=== PATIENT | female | born 1945 | race Caucasian/White ===

== ENCOUNTER 2016-05-15 19:46 | Inpatient (IN) | payer MEDICARE, OTHER ==
[~2016-05-15] VITALS: Ht 170.2 cm; Wt 96.9 kg
[~2016-05-15 19:46] MED LIST: ALLO100T PO; ASPI-482 PO; FENO145T PO; FURO20TA3 PO; IBUP-1060 PO; LEVO100T5 PO; LISI1TAB3 PO; METF500T4 PO; METO-313 PO; METO10TA81 PO; OMEG300C PO; PANT40TA5 PO; QUIN20TA PO; RUXO5TAB PO; SIMV10TA3 PO; WARF1TAB PO; ZOLP10TA4 PO
[2016-05-15] MEDS ORDERED: IV NORMAL SALINE 1000ML BAG 1,000 ML IV SCH (20:31)
[2016-05-15] MEDS ORDERED: IPRATRPIUM/ALBUTEROL 0.5/2.5MG 3 ML NEBU. NEB ONE (20:45)
[2016-05-15 20:50] LABS: BASO # 0.1 x10^3/uL (0.0-0.2); BASO % 1 % (0-3); EOS % 1 % (0-3); LYMPH # 1.2 x10^3/uL (1.0-4.8); LYMPH % 23 % (24-48); MEAN CORPUSCULAR HEMOGLOBIN 29 pg (25-35); MEAN CORPUSCULAR HGB CONC 32 g/dL (31-37); MEAN CORPUSCULAR VOLUME 90 fL (79-100); MONO % 10 % (0-9); NEUT % 65 % (31-73); PLATELET COUNT 76 x10^3/uL (140-400); RED BLOOD COUNT 2.28 x10^6/uL (3.50-5.40); RED CELL DISTRIBUTION WIDTH 21.5 % (11.5-14.5); WHITE BLOOD COUNT 5.2 x10^3/uL (4.0-11.0)
--- NOTE | 2016-05-15 20:54 | PHYS DOC ---
Past Medical History Past Medical History: Cancer, CVA, Hypertension, Hyperthyroid, Stroke, Other Additional Past Medical Histor: renal ca-no chemo or radiation- in remission, MYELOFIBROSIS, 1 KIDNEY Past Surgical History: Hysterectomy, Tonsillectomy, Other Additional Past Surgical Histo: left nephrectomy Alcohol Use: None Drug Use: None Adult General Chief Complaint Chief Complaint: NAUSEA/VOMITING/DIARRHA HPI HPI Patient is a 70 year old female who presents with complaint of worsening cough and shortness of breath. Patient states that initially her symptoms started approximately 2-3 weeks ago. Patient states that they initially improved, however over the past 5 days the patient has had worsening problems with shortness of breath. Patient states that she has been having staccato cough resulting in posttussive emesis. Patient has history of CVA with right-sided paralysis and Broca's aphasia. The patient denies any pain or fever at this time. Patient has had productive cough of yellowish sputum. Patient states that she is having worsening dyspnea on exertion. Patient has not taken any medications to help with symptoms. Patient denies any history of asthma or chronic bronchitis. Review of Systems Review of Systems Constitutional: Denies fever or chills [] Eyes: Denies change in visual acuity, redness, or eye pain [] HENT: Denies nasal congestion or sore throat [] Respiratory: Shortness breath, productive cough, posttussive emesis [] Cardiovascular: Denies chest pain or edema [] GI: Denies abdominal pain, nausea, vomiting, bloody stools or diarrhea [] : Denies dysuria or hematuria [] Musculoskeletal: Denies back pain or joint pain [] Integument: Denies rash or skin lesions [] Neurologic: Chronic right-sided paralysis, Broca's aphasia [] Current Medications Current Medications Current Medications Medications (Trade) Dose Ordered Sig/Esperanza Start Time Stop Time Status Last Admin Dose Admin Albuterol/ Ipratropium (Duoneb) 6 ml 1X ONCE 05/15/16 20:45 05/15/16 20:46 DC 05/15/16 20:56 6 ML Sodium Chloride (Iv Sodium Chloride 0.9% 1000ml Bag) 1,000 ml @ 100 mls/hr Q10H 05/15/16 20:31 05/16/16 06:30 05/15/16 20:49 100 MLS/HR Allergies Allergies Allergies Coded Allergies Type Severity Reaction Last Updated Verified iodine Allergy Severe ANAPHYLAXIS 02/15/16 Yes Penicillins Allergy Intermediate 02/15/16 Yes cephalexin Allergy Intermediate 02/15/16 Yes Physical Exam Physical Exam Constitutional: Alert, afebrile, appears in mild discomfort. [] HENT: Normocephalic, atraumatic, bilateral external ears normal, oropharynx moist, no oral exudates, nose normal. [] Eyes: PERRLA, EOMI, conjunctiva normal, no discharge. [] Neck: Normal range of motion, no tenderness, supple, no stridor. [] Cardiovascular: Tachycardia, regular rhythm, no murmur [] Lungs & Thorax: Mild to moderate [place] air movement bilaterally, expiratory wheezes bilaterally, no rales [] Abdomen: Bowel sounds normal, soft, no tenderness, no masses, no pulsatile masses. [] Skin: Warm, dry, no erythema, no rash. [] Back: No tenderness, no CVA tenderness. [] Extremities: No tenderness, no cyanosis, no clubbing, ROM intact, no edema. [] Neurologic: Alert and oriented X 3, right upper and lower extremity spastic paralysis, left upper and lower extremity 5 out of 5 strength, Broca's aphasia. [] Current Patient Data Vital Signs Vital Signs Date Time Temp Pulse Resp B/P Pulse Ox O2 Delivery O2 Flow Rate FiO2 05/15/16 21:11 96 Room Air 05/15/16 20:00 97.5 104 24 154/62 97.5 Lab Values Laboratory Tests Test 05/15/16 20:35 White Blood Count 5.2x10^3/uL (4.0-11.0) Red Blood Count 2.28x10^6/uL (3.50-5.40) L Hemoglobin 6.5g/dL (12.0-15.5) *L Hematocrit 20.6% (36.0-47.0) *L Mean Corpuscular Volume 90fL (79-100) Mean Corpuscular Hemoglobin 29pg (25-35) Mean Corpuscular Hemoglobin Concent 32g/dL (31-37) Red Cell Distribution Width 21.5% (11.5-14.5) H Platelet Count 76x10^3/uL (140-400) L Neutrophils (%) (Auto) 65% (31-73) Lymphocytes (%) (Auto) 23% (24-48) L Monocytes (%) (Auto) 10% (0-9) H Eosinophils (%) (Auto) 1% (0-3) Basophils (%) (Auto) 1% (0-3) Neutrophils # (Auto) 3.4x10^3uL (1.8-7.7) Lymphocytes # (Auto) 1.2x10^3/uL (1.0-4.8) Monocytes # (Auto) 0.5x10^3/uL (0.0-1.1) Eosinophils # (Auto) 0.1x10^3/uL (0.0-0.7) Basophils # (Auto) 0.1x10^3/uL (0.0-0.2) Segmented Neutrophils % 57% (35-66) Band Neutrophils % 13% (0-9) H Lymphocytes % 20% (24-48) L Monocytes % 6% (0-10) Eosinophils % 1% (0-5) Basophils % 1% (0-3) Myelocytes % 2% (0-0) H Nucleated Red Blood Cells 1 Toxic Granulation Slight Platelet Estimate Decreased (ADEQUATE) Polychromasia Slight Anisocytosis Mod Tear Drop Cells Few Schistocytes Occ Sodium Level 141mmol/L (136-145) Potassium Level 4.6mmol/L (3.5-5.1) Chloride Level 104mmol/L (98-107) Carbon Dioxide Level 26mmol/L (21-32) Anion Gap 11 (6-14) Blood Urea Nitrogen 27mg/dL (7-20) H Creatinine 1.7mg/dL (0.6-1.0) H Estimated GFR (Cockcroft-Gault) 29.9 BUN/Creatinine Ratio 16 (6-20) Glucose Level 201mg/dL (70-99) H Lactic Acid Level 1.5mmol/L (0.4-2.0) Calcium Level 8.8mg/dL (8.5-10.1) Total Bilirubin 0.9mg/dL (0.2-1.0) Aspartate Amino Transferase (AST) 9U/L (15-37) L Alanine Aminotransferase (ALT) 9U/L (14-59) L Alkaline Phosphatase 54U/L (46-116) Creatine Kinase 27U/L (26-192) Creatine Kinase MB (Mass) < 0.5ng/mL (0.0-3.6) Creatine Kinase MB Relative Index 1.9% (0-4) Troponin I Quantitative < 0.017ng/mL (0.000-0.055) LI-Csn-E-Type Natriuretic Peptide 560pg/mL (0-124) H Total Protein 7.4g/dL (6.4-8.2) Albumin 3.5g/dL (3.4-5.0) Albumin/Globulin Ratio 0.9 (1.0-1.7) L Influenza Type A Antigen Negative (NEGATIVE) Influenza Type B Antigen Negative (NEGATIVE) Laboratory Tests 05/15/16 20:35 Laboratory Tests 05/15/16 20:35 EKG EKG Interpreted by me: Heart rate 101, sinus tachycardia, leftward axis, no acute ST /T-wave abnormalities present [] Radiology/Procedures Radiology/Procedures One view AP chest x-ray interpreted by me: No infiltrate, no effusions, normal cardiac silhouette [] Course & Med Decision Making Course & Med Decision Making Pertinent Labs and Imaging studies reviewed. (See chart for details) The patient was given DuoNeb breathing treatments. On reevaluation, patient's lung sounds have improved. The patient does not show any evidence on chest x- ray of pneumonia at this time. Patient found to have critically low hemoglobin count. Due to patient's worsening shortness of breath this could be a main contributor. The patient does have history of myelofibrosis and has received transfusions in the past due to low hemoglobin. The patient will be admitted to the hospital for transfusion and to ensure that her respiratory symptoms resolve. I spoke with Dr. Posadas who accepted care patient in hospital. Dragon Disclaimer Dragon Disclaimer This electronic medical record was generated, in whole or in part, using a voice recognition dictation system. Departure Departure Impression: Primary Impression: Symptomatic anemia Additional Impression: Acute on chronic renal failure Disposition: ADMITTED INPATIENT Admitting Physician: Shay Posadas Condition: GUARDED Referrals: BELKIS HAINES (PCP) Problem Qualifiers RANJANA SWEET MD May 15, 2016 20:54
[2016-05-15 20:57] LABS: HEMATOCRIT 20.6 % (36.0-47.0); HEMOGLOBIN 6.5 g/dL (12.0-15.5)
[2016-05-15 21:01] LABS: CALCIUM 8.8 mg/dL (8.5-10.1); CREATININE 1.7 mg/dL (0.6-1.0); GFR 29.9; POTASSIUM 4.6 mmol/L (3.5-5.1)
[2016-05-15 21:10] LABS: OBC FLU VALID
[2016-05-15 21:15] LABS: ALBUMIN 3.5 g/dL (3.4-5.0); ALBUMIN/GLOBULIN RATIO 0.9 (1.0-1.7); TOTAL BILIRUBIN 0.9 mg/dL (0.2-1.0); TOTAL PROTEIN 7.4 g/dL (6.4-8.2)
[2016-05-15 21:17] LABS: CREATINE KINASE 27 U/L (26-192)
[2016-05-15 21:18] LABS: % BASOS 1 % (0-3); % EOS 1 % (0-5); NUCLEATED RBC 1
[2016-05-15 21:19] LABS: CKMB INDEX 1.9 % (0-4); CKMB MASS < 0.5 ng/mL (0.0-3.6)
[2016-05-15 21:21] LABS: ANISOCYTOSIS MOD; PLT ESTIMATE DECREASED (ADEQUATE); POLYCHROMASIA SLIGHT; SCHISTOCYTES OCC; TEAR DROP CELLS FEW
[2016-05-15 21:22] LABS: TOXIC GRANULATION SLIGHT
--- NOTE | 2016-05-15 22:33 | EKG ---
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
[2016-05-15] MEDS: IV NORMAL SALINE 1000ML BAG 1,000 ML IV SCH (23:04)
[2016-05-15 23:15] VITALS: BP 156/57
[2016-05-15] MEDS ORDERED: ACETAMINOPHEN 325 MG TABLET. PO PRN (23:15)
[2016-05-15] MEDS ORDERED: ONDANSETRON PF 4 MG/2 ML VIAL. IV PRN (23:15)
[2016-05-15] MEDS ORDERED: ZOLPIDEM 5 MG TABLET. PO PRN (23:45)
--- NOTE | 2016-05-15 23:54 | ACF ---
Admission Forms Criteria ANEMIA, IRON DEFICIENCY OR UNSPECIFIED Clinical Indications for Inpatient Care (Place 'X' for any and all applicable criteria): Admission is indicated for ANY ONE of the following(1)(2)(3)(4)(5)(6)(7): [X] I. Inpatient admission required rather than observation care (Also use Anemia, Iron Deficiency or Unspecified: Observation Care guideline as appropriate) because of ANY ONE of the following: [] a) Hemodynamic instability that is severe or persistent [] b) Active bleeding that cannot be rapidly controlled [] c) CVS symptoms (i.e., dyspnea, chest pain, heart failure) that are severe or persistent [] d) Neurologic symptoms (i.e., cognitive impairment, recurrent syncope or near syncope) that are severe or persistent [] e) Cardiac arrhythmias of immediate concern [] f) Acute peripheral ischemia (e.g., pulseless, cool, mottled, or cyanotic extremity) [] g) High-risk low platelet count [X] h) Acute renal failure [] i) Ongoing transfusion for blood loss (greater than 2 units) [] j) IV fluid to replace significant ongoing (eg, >24 hours) losses (> 3 L/m2 per day) [] k) Pulmonary artery catheter monitoring [] l) Supplemental oxygen or respiratory treatments for over 24 hours that are performable only in acute inpatient setting [] m) Immediate inpatient surgery [] n) Other condition, treatment or monitoring requiring inpatient admission [] II Active massive hemorrhage [] III. Active hemolysis with rapidly progressive anemia [A](6) Extended stay beyond goal length of stay may be needed for (17)(18) []a) Diagnosed cause of anemia requiring longer hospitalization (eg, active GI bleeding, immune hemolysis requiring electrophoresis, complications of malignancy requiring acute care []b) Continued emergent anemia indicators (23) []c) Transfusion reactions []d) Associated leukopenia or thrombocytopenia needing inpatient care []e) Active comorbidities (eg, renal failure, heart failure) The original [facility] Care [facility] content created by [facility] has been revised. The portions of the content which have been revised are identified through the use of italic text or in bold. [facility] Guidelines has neither reviewed nor approved the modified material. All other unmodified content is copyright [facility] Care Guidelines. Please see references footnoted in the original [facility] edition 2016 Admission Criteria Met?: Yes [facility] [place] May 15, 2016 23:54
[2016-05-16] VITALS (12 sets, daily range): BP systolic 126–176; BP diastolic 52–82
[2016-05-16] MEDS ORDERED: GUAIFENESIN DM 200MG/20MG 10 ML SYRUP. PO PRN
[2016-05-16] MEDS: ZOLPIDEM 5 MG TABLET. PO SCH ×2 (00:12→20:59)
[2016-05-16] MEDS: HYDROCODONE/APAP 5/325MG TABLET. PO PRN ×2 (00:13→21:04)
[2016-05-16 04:32] LABS: CALCIUM 8.6 mg/dL (8.5-10.1); CREATININE 1.6 mg/dL (0.6-1.0); GFR 32.1; POTASSIUM 4.7 mmol/L (3.5-5.1)
[2016-05-16] MEDS: IPRATRPIUM/ALBUTEROL 0.5/2.5MG 3 ML NEBU. NEB SCH ×4 (07:45→19:13)
--- NOTE | 2016-05-16 07:47 | RAD ---
Portable chest, 05/15/2016: History: Dyspnea Comparison is made to a study from 12/23/2014. The heart size and pulmonary vascularity are normal. No pulmonary consolidation is seen. There is no evidence of pleural fluid. There are patchy sclerotic foci in the bones as noted on previous studies, suggesting blastic osseous metastatic disease. IMPRESSION: 1. No acute cardiopulmonary abnormality is detected. 2. Multifocal osseous sclerotic lesions.
[2016-05-16 09:25] LABS: BASO % 1 % (0-3); EOS % 1 % (0-3); HEMATOCRIT 23.2 % (36.0-47.0); HEMOGLOBIN 7.7 g/dL (12.0-15.5); LYMPH # 0.7 x10^3/uL (1.0-4.8); LYMPH % 19 % (24-48); MEAN CORPUSCULAR HEMOGLOBIN 29 pg (25-35); MEAN CORPUSCULAR HGB CONC 33 g/dL (31-37); MEAN CORPUSCULAR VOLUME 88 fL (79-100); MONO % 9 % (0-9); NEUT % 70 % (31-73); PLATELET COUNT 59 x10^3/uL (140-400); RED BLOOD COUNT 2.62 x10^6/uL (3.50-5.40); RED CELL DISTRIBUTION WIDTH 18.4 % (11.5-14.5); WHITE BLOOD COUNT 3.7 x10^3/uL (4.0-11.0)
[2016-05-16] MEDS ORDERED: ONDANSETRON PF 4 MG/2 ML VIAL. IV PRN (09:50)
[2016-05-16] MEDS: METOCLOPRAMIDE 10 MG TABLET PO SCH ×2 (12:19→16:05)
[2016-05-16] MEDS: FUROSEMIDE 20 MG TABLET PO SCH (12:20)
[2016-05-16] MEDS: FENOFIBRATE,MICRONIZED 134 MG CAPSULE PO SCH (12:20)
[2016-05-16] MEDS: LEVOTHYROXINE 100 MCG TABLET PO SCH (12:20)
[2016-05-16] MEDS: ASPIRIN ENTERIC COATED 81 MG TABLET.DR. PO SCH (12:20)
[2016-05-16] MEDS: LISINOPRIL 20 MG TABLET PO SCH (12:20)
[2016-05-16] MEDS: PANTOPRAZOLE 40 MG TABLET. PO SCH ×2 (12:20→16:04)
[2016-05-16] MEDS: ALLOPURINOL 100 MG TABLET. PO SCH (12:20)
[2016-05-16] MEDS: IV NORMAL SALINE 1000ML BAG 1,000 ML IV SCH ×2 (12:28→21:00)
--- NOTE | 2016-05-16 14:26 | PDOC1 ---
History and Physical Date of Admission Date of Admission DATE: 05/16/16 TIME: 14:18 Identification/Chief Complaint Chief Complaint uri sxs Source Source: Caregiver, Chart review, Patient History of Present Illness History of Present Illness 70 y/o female who lives at home alone, ambulates sometimes with assistive device, went to ER bec of URI sxs, CXR and flu is neg but turned out to have anemia with hgb 6 hence admitted and transfused and now hgb 7,.7. 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 SHe gets BT every so often, Pt denies any overt blood loss., She now notes signifcant pain redness and swelling on DIP of left second finger , hx of gout on foot that she does not know what she takes for flares. SHe is rather a poor historian, Dtr at bedside, helping out. R LE is also more markedly swollen than left Dtr claims pt has not been coughing in zena last 4 hrs she has been here Past Medical History Cardiovascular: HTN, Other (LE swelling?) Heme/Onc: Other (myelofibrosis) Musculoskeletal: Other (gout) Past Surgical History Past Surgical History: No pertinent history Family History Family History: No Significant Social History Smoke: Quit ALCOHOL: none Drugs: None Current Problem List Problem List Problems Medical Problems: (1) Acute on chronic renal failure Status: Acute (2) Symptomatic anemia Status: Acute Problems: Current Medications Current Medications Current Medications Sodium Chloride (Iv Sodium Chloride 0.9% 1000ml Bag) 1,000 ml @ 100 mls/hr Q10H IV Last administered on 05/15/16 20:49; Start 05/15/16 at 20:31; Stop at 06:30; Status DC Albuterol/ Ipratropium (Duoneb) 6 ml 1X ONCE NEB Last administered on 20:56; Start 05/15/16 at 20:45; Stop 05/15/16 at 20:46; Status DC Ondansetron HCl 4 mg 4 mg PRN Q8HRS PRN IV NAUSEA/VOMITING; Start 05/15/16 at 23:15; Stop 05/16/16 at 09:52; Status DC Sodium Chloride (Iv Sodium Chloride 0.9% 1000ml Bag) 1,000 ml @ 100 mls/hr Q10H IV Last administered on 05/16/16 12:28; Start 05/15/16 at 23:04; Stop at 23:03 Acetaminophen (Tylenol) 650 mg PRN Q4HRS PRN PO FEVER Last administered on 05/16 03:28; Start 05/15/16 at 23:15; Stop 05/16/16 at 23:14 Albuterol/ Ipratropium (Duoneb) 3 ml RTQID NEB Last administered on 05/16/16 11:29; Start 05/16/16 at 08:00; Stop 05/17/16 at 07:59 Zolpidem Tartrate (Ambien) 5 mg QHS PO Last administered on 05/16/16 00:12; Start 05/16/16 at 00:00 Guaifenesin (Robitussin Dm) 10 ml PRN Q6HRS PRN PO COUGH Last administered on 00:12; Start 05/16/16 at 00:00 Acetaminophen/ Hydrocodone Bitart (Lortab 5/325) 1 tab PRN Q6HRS PRN PO MODERATE PAIN Last administered on 05/16/16 00:13; Start 05/16/16 at 00:00 Zolpidem Tartrate (Ambien) 5 mg PRN QHS PRN PO INSOMNIA Last administered on 00:13; Start 05/15/16 at 23:45 Ondansetron HCl (Zofran) 4 mg PRN Q6HRS PRN IV NAUSEA/VOMITING; Start 05/16/16 at 09:50 Benzonatate (Tessalon Perle) 100 mg [id number] PO ; Start 05/16/16 at 14:00 Allopurinol (Zyloprim) 100 mg DAILY PO Last administered on 05/16/16 12:20; Start 05/16/16 at 10:30 Aspirin (Ecotrin) 81 mg DAILY PO Last administered on 05/16/16 12:20; Start at 10:30 Furosemide (Lasix) 20 mg DAILY PO Last administered on 05/16/16 12:20; Start 05/16/16 at 10:00 Levothyroxine Sodium (Synthroid) 100 mcg DAILY06 PO Last administered on 12:20; Start 05/16/16 at 10:30 Metoclopramide HCl (Reglan) 10 mg BIDAC PO Last administered on 05/16/16 12:19 ; Start 05/16/16 at 10:30 Pantoprazole Sodium (Protonix) 40 mg BIDAC PO Last administered on 05/16/16 12 :20; Start 05/16/16 at 10:30 Fenofibrate (Lofibra) 134 mg DAILY PO Last administered on 05/16/16 12:20; Start 05/16/16 at 11:00 Non-Formulary Medication 50 mg DAILY PO ; Start 05/17/16 at 09:00; Status UNV Lisinopril (Prinivil) 20 mg DAILY PO Last administered on 05/16/16 12:20; Start 05/16/16 at 11:00 Non-Formulary Medication 5 mg BID PO ; Start 05/16/16 at 21:00; Status UNV Active Scripts Active Reported Lopressor (Metoprolol Tartrate) 100 Mg Tablet 50 Mg PO DAILY Jakafi (Ruxolitinib Phosphate) 5 Mg Tablet 5 Mg PO BID Zolpidem Tartrate 10 Mg Tablet 1 Tab PO QHS Accupril (Quinapril Hcl) 20 Mg Tablet 1 Tab PO DAILY Pantoprazole Sodium 40 Mg Tablet.dr 1 Tab PO BID Furosemide 20 Mg Tablet 1 Tab PO DAILY Reglan (Metoclopramide Hcl) 10 Mg Tablet 1 Tab PO BID Levothyroxine Sodium 100 Mcg Tablet 1 Tab PO DAILY Tricor (Fenofibrate Nanocrystallized) 145 Mg Tablet 1 Tab PO DAILY Fish Oil ([place]-3 Fatty Acids) 300 Mg Capsule 300 Mg PO Aspir 81 (Aspirin) 81 Mg Tablet.dr 1 Tab PO DAILY Allopurinol 100 Mg Tablet 1 Tab PO DAILY Allergies Allergies: Coded Allergies: iodine (Verified Allergy, Severe, ANAPHYLAXIS, 02/15/16) Penicillins (Verified Allergy, Intermediate, 02/15/16) cephalexin (Verified Allergy, Intermediate, 02/15/16) ROS Review of System left finger pain and swelling, weakm , cough, no cp, all else is neg Physical Exam General: Alert, Oriented X3, Cooperative, No acute distress HEENT: Atraumatic, PERRLA, EOMI Lungs: Clear to auscultation, Normal air movement Heart: S1S2, RRR, no thrills, no rubs, no gallops Cardiovascular: S1, S2 Breasts: Normal Abdomen: Normal bowel sounds, Soft, No tenderness, No hepatosplenomegaly, No masses Rectal Exam: not examined, mass Extremities: Other (left DIP red, swollen, marked limited flexion bec of pain) Skin: No rashes, No breakdown, No significant lesion Neuro: Normal gait, Normal speech, Strength at 5/5 X4 ext, Normal tone, Sensation intact, Cranial nerves 3-12 NL, Reflexes 2+ Vitals Vitals Vital Signs Date Time Temp Pulse Resp B/P Pulse Ox O2 Delivery O2 Flow Rate FiO2 05/16/16 12:20 95 176/60 05/16/16 11:30 Room Air 05/16/16 11:00 97.0 18 95 97.0 Labs Labs Laboratory Tests Test 05/15/16 20:35 05/16/16 03:25 05/16/16 08:35 White Blood Count 5.2x10^3/uL (4.0-11.0) 3.7x10^3/uL (4.0-11.0) Red Blood Count 2.28x10^6/uL (3.50-5.40) 2.62x10^6/uL (3.50-5.40) Hemoglobin 6.5g/dL (12.0-15.5) 7.7g/dL (12.0-15.5) Hematocrit 20.6% (36.0-47.0) 23.2% (36.0-47.0) Mean Corpuscular Volume 90fL (79-100) 88fL (79-100) Mean Corpuscular Hemoglobin 29pg (25-35) 29pg (25-35) Mean Corpuscular Hemoglobin Concent 32g/dL (31-37) 33g/dL (31-37) Red Cell Distribution Width 21.5% (11.5-14.5) 18.4% (11.5-14.5) Platelet Count 76x10^3/uL (140-400) 59x10^3/uL (140-400) Neutrophils (%) (Auto) 65% (31-73) 70% (31-73) Lymphocytes (%) (Auto) 23% (24-48) 19% (24-48) Monocytes (%) (Auto) 10% (0-9) 9% (0-9) Eosinophils (%) (Auto) 1% (0-3) 1% (0-3) Basophils (%) (Auto) 1% (0-3) 1% (0-3) Neutrophils # (Auto) 3.4x10^3uL (1.8-7.7) 2.6x10^3uL (1.8-7.7) Lymphocytes # (Auto) 1.2x10^3/uL (1.0-4.8) 0.7x10^3/uL (1.0-4.8) Monocytes # (Auto) 0.5x10^3/uL (0.0-1.1) 0.3x10^3/uL (0.0-1.1) Eosinophils # (Auto) 0.1x10^3/uL (0.0-0.7) 0.0x10^3/uL (0.0-0.7) Basophils # (Auto) 0.1x10^3/uL (0.0-0.2) 0.0x10^3/uL (0.0-0.2) Segmented Neutrophils % 57% (35-66) Band Neutrophils % 13% (0-9) Lymphocytes % 20% (24-48) Monocytes % 6% (0-10) Eosinophils % 1% (0-5) Basophils % 1% (0-3) Myelocytes % 2% (0-0) Nucleated Red Blood Cells 1 Toxic Granulation Slight Platelet Estimate Decreased (ADEQUATE) Polychromasia Slight Anisocytosis Mod Tear Drop Cells Few Schistocytes Occ Sodium Level 141mmol/L (136-145) 142mmol/L (136-145) Potassium Level 4.6mmol/L (3.5-5.1) 4.7mmol/L (3.5-5.1) Chloride Level 104mmol/L (98-107) 107mmol/L (98-107) Carbon Dioxide Level 26mmol/L (21-32) 25mmol/L (21-32) Anion Gap 11 (6-14) 10 (6-14) Blood Urea Nitrogen 27mg/dL (7-20) 28mg/dL (7-20) Creatinine 1.7mg/dL (0.6-1.0) 1.6mg/dL (0.6-1.0) Estimated GFR (Cockcroft-Gault) 29.9 32.1 BUN/Creatinine Ratio 16 (6-20) Glucose Level 201mg/dL (70-99) 165mg/dL (70-99) Lactic Acid Level 1.5mmol/L (0.4-2.0) Calcium Level 8.8mg/dL (8.5-10.1) 8.6mg/dL (8.5-10.1) Total Bilirubin 0.9mg/dL (0.2-1.0) Aspartate Amino Transf (AST/SGOT) 9U/L (15-37) Alanine Aminotransferase (ALT/SGPT) 9U/L (14-59) Alkaline Phosphatase 54U/L (46-116) Creatine Kinase 27U/L (26-192) Creatine Kinase MB (Mass) < 0.5ng/mL (0.0-3.6) Creatine Kinase MB Relative Index 1.9% (0-4) Troponin I Quantitative < 0.017ng/mL (0.000-0.055) DY-Acq-Z-Type Natriuretic Peptide 560pg/mL (0-124) Total Protein 7.4g/dL (6.4-8.2) Albumin 3.5g/dL (3.4-5.0) Albumin/Globulin Ratio 0.9 (1.0-1.7) Influenza Type A Antigen Negative (NEGATIVE) Influenza Type B Antigen Negative (NEGATIVE) Laboratory Tests Test 05/15/16 20:35 05/16/16 03:25 05/16/16 08:35 White Blood Count 5.2x10^3/uL (4.0-11.0) 3.7x10^3/uL (4.0-11.0) Red Blood Count 2.28x10^6/uL (3.50-5.40) 2.62x10^6/uL (3.50-5.40) Hemoglobin 6.5g/dL (12.0-15.5) 7.7g/dL (12.0-15.5) Hematocrit 20.6% (36.0-47.0) 23.2% (36.0-47.0) Mean Corpuscular Volume 90fL (79-100) 88fL (79-100) Mean Corpuscular Hemoglobin 29pg (25-35) 29pg (25-35) Mean Corpuscular Hemoglobin Concent 32g/dL (31-37) 33g/dL (31-37) Red Cell Distribution Width 21.5% (11.5-14.5) 18.4% (11.5-14.5) Platelet Count 76x10^3/uL (140-400) 59x10^3/uL (140-400) Neutrophils (%) (Auto) 65% (31-73) 70% (31-73) Lymphocytes (%) (Auto) 23% (24-48) 19% (24-48) Monocytes (%) (Auto) 10% (0-9) 9% (0-9) Eosinophils (%) (Auto) 1% (0-3) 1% (0-3) Basophils (%) (Auto) 1% (0-3) 1% (0-3) Neutrophils # (Auto) 3.4x10^3uL (1.8-7.7) 2.6x10^3uL (1.8-7.7) Lymphocytes # (Auto) 1.2x10^3/uL (1.0-4.8) 0.7x10^3/uL (1.0-4.8) Monocytes # (Auto) 0.5x10^3/uL (0.0-1.1) 0.3x10^3/uL (0.0-1.1) Eosinophils # (Auto) 0.1x10^3/uL (0.0-0.7) 0.0x10^3/uL (0.0-0.7) Basophils # (Auto) 0.1x10^3/uL (0.0-0.2) 0.0x10^3/uL (0.0-0.2) Segmented Neutrophils % 57% (35-66) Band Neutrophils % 13% (0-9) Lymphocytes % 20% (24-48) Monocytes % 6% (0-10) Eosinophils % 1% (0-5) Basophils % 1% (0-3) Myelocytes % 2% (0-0) Nucleated Red Blood Cells 1 Toxic Granulation Slight Platelet Estimate Decreased (ADEQUATE) Polychromasia Slight Anisocytosis Mod Tear Drop Cells Few Schistocytes Occ Sodium Level 141mmol/L (136-145) 142mmol/L (136-145) Potassium Level 4.6mmol/L (3.5-5.1) 4.7mmol/L (3.5-5.1) Chloride Level 104mmol/L (98-107) 107mmol/L (98-107) Carbon Dioxide Level 26mmol/L (21-32) 25mmol/L (21-32) Anion Gap 11 (6-14) 10 (6-14) Blood Urea Nitrogen 27mg/dL (7-20) 28mg/dL (7-20) Creatinine 1.7mg/dL (0.6-1.0) 1.6mg/dL (0.6-1.0) Estimated GFR (Cockcroft-Gault) 29.9 32.1 BUN/Creatinine Ratio 16 (6-20) Glucose Level 201mg/dL (70-99) 165mg/dL (70-99) Lactic Acid Level 1.5mmol/L (0.4-2.0) Calcium Level 8.8mg/dL (8.5-10.1) 8.6mg/dL (8.5-10.1) Total Bilirubin 0.9mg/dL (0.2-1.0) Aspartate Amino Transf (AST/SGOT) 9U/L (15-37) Alanine Aminotransferase (ALT/SGPT) 9U/L (14-59) Alkaline Phosphatase 54U/L (46-116) Creatine Kinase 27U/L (26-192) Creatine Kinase MB (Mass) < 0.5ng/mL (0.0-3.6) Creatine Kinase MB Relative Index 1.9% (0-4) Troponin I Quantitative < 0.017ng/mL (0.000-0.055) SN-Kls-Z-Type Natriuretic Peptide 560pg/mL (0-124) Total Protein 7.4g/dL (6.4-8.2) Albumin 3.5g/dL (3.4-5.0) Albumin/Globulin Ratio 0.9 (1.0-1.7) Influenza Type A Antigen Negative (NEGATIVE) Influenza Type B Antigen Negative (NEGATIVE) VTE Prophylaxis Ordered VTE Prophylaxis Devices: Yes VTE Pharmacological Prophylaxi: Yes Assessment/Plan Assessment/Plan 1. Left DIP swelling, redness and pin with limited rOM difftls include gout, septic joint 2. URI sxs, acute viral bronchitis? neg flu and CXR 3. HTN,c ontrolled 4. Obesity with mild pCM 5, KRAEN vasomotor 6. ANemia of chronci dse 7, Hx myelofibrosis PLAN: CHeck uric acid, ESR and ferritin - hx of multiple BT as OP for anemia HH again delvin PT-OT- pt very weak Start colcrys 1.2 now then 0.6 qD Check finger xray Check sono R leg r/o DVT Heparin dvt prophy Resume home meds COnt duonebs NO nephrotoxic agents JEFF VASQUEZ MD May 16, 2016 14:26
[2016-05-16] MEDS ORDERED: COLCHICINE 0.6 MG TABLET PO ONE (15:00)
--- NOTE | 2016-05-16 15:02 | RAD ---
Left index finger, 3 views, 05/16/2016: History: Swelling, pain, stiffness No fracture or destructive bony lesion is seen. There are only minimal degenerative changes at the interphalangeal joints. There is moderate soft tissue swelling about the proximal aspect of the finger. IMPRESSION: No acute bony abnormality is detected.
--- NOTE | 2016-05-16 15:10 | RAD ---
Right lower extremity venous ultrasound, 05/16/2016 : History: Right lower ingrid pain and swelling Duplex evaluation including grayscale, color flow and spectral Doppler analysis was performed. The femoral and popliteal veins show no filling defects to suggest DVT. The visualized calf veins are unremarkable. IMPRESSION: There is no sonographic evidence of deep vein thrombosis in the right lower extremity
[2016-05-16] MEDS: BENZONATATE 100 MG CAPSULE. PO SCH ×2 (16:04→21:00)
[2016-05-16] MEDS: HEPARIN PF for SUB-Q USE 5,000 UNIT/0.5 ML VIAL. SQ SCH ×2 (16:10→20:58)
[2016-05-17 03:00] VITALS: BP 150/73
[2016-05-17] MEDS ORDERED: OMEG-129 PO (06:02)
[2016-05-17] MEDS ORDERED: LEVO150T5 PO (06:02)
[2016-05-17] MEDS ORDERED: FERR-26 PO (06:02)
[2016-05-17] MEDS ORDERED: QUIN40TA7 PO (06:02)
[2016-05-17] MEDS ORDERED: CHOL10003 PO (06:02)
[2016-05-17] MEDS ORDERED: METO-269 PO (06:02)
[2016-05-17] MEDS: LEVOTHYROXINE 100 MCG TABLET PO SCH (06:24)
[2016-05-17] MEDS: METOCLOPRAMIDE 10 MG TABLET PO SCH ×2 (06:24→17:52)
[2016-05-17] MEDS: PANTOPRAZOLE 40 MG TABLET. PO SCH ×2 (06:24→17:52)
[2016-05-17] MEDS: HEPARIN PF for SUB-Q USE 5,000 UNIT/0.5 ML VIAL. SQ SCH ×3 (06:30→20:12)
[2016-05-17 06:55] VITALS: BP 153/89
[2016-05-17 07:01] LABS: BASO % 1 % (0-3); EOS % 1 % (0-3); HEMATOCRIT 22.5 % (36.0-47.0); HEMOGLOBIN 7.4 g/dL (12.0-15.5); LYMPH # 0.7 x10^3/uL (1.0-4.8); LYMPH % 19 % (24-48); MEAN CORPUSCULAR HEMOGLOBIN 29 pg (25-35); MEAN CORPUSCULAR HGB CONC 33 g/dL (31-37); MEAN CORPUSCULAR VOLUME 88 fL (79-100); MONO % 10 % (0-9); NEUT % 69 % (31-73); PLATELET COUNT 52 x10^3/uL (140-400); RED BLOOD COUNT 2.55 x10^6/uL (3.50-5.40); RED CELL DISTRIBUTION WIDTH 18.4 % (11.5-14.5); WHITE BLOOD COUNT 3.6 x10^3/uL (4.0-11.0)
[2016-05-17 07:19] LABS: CALCIUM 8.6 mg/dL (8.5-10.1); CREATININE 1.2 mg/dL (0.6-1.0); GFR 44.7; POTASSIUM 4.5 mmol/L (3.5-5.1)
[2016-05-17] MEDS: IPRATRPIUM/ALBUTEROL 0.5/2.5MG 3 ML NEBU. NEB SCH (07:29)
[2016-05-17] MEDS ORDERED: METOPROLOL TARTRATE 50 MG PO SCH (09:00)
[2016-05-17 10:48] VITALS: BP 164/84
[2016-05-17] MEDS: ALLOPURINOL 100 MG TABLET. PO SCH (11:02)
[2016-05-17] MEDS: ASPIRIN ENTERIC COATED 81 MG TABLET.DR. PO SCH (11:02)
[2016-05-17] MEDS: BENZONATATE 100 MG CAPSULE. PO SCH ×3 (11:02→20:06)
[2016-05-17] MEDS: COLCHICINE 0.6 MG TABLET PO SCH (11:02)
[2016-05-17] MEDS: FENOFIBRATE,MICRONIZED 134 MG CAPSULE PO SCH (11:03)
[2016-05-17] MEDS: FUROSEMIDE 20 MG TABLET PO SCH (11:04)
[2016-05-17] MEDS: LISINOPRIL 20 MG TABLET PO SCH (11:04)
[2016-05-17] MEDS: METOPROLOL SUCC 24HR ER 50 MG TAB.ER.24H. PO SCH (11:06)
--- NOTE | 2016-05-17 13:55 | PDOC ---
PROGRESS NOTES Chief Complaint Chief Complaint 1. Left DIP swelling, likely GOUT 2. URI sxs, acute viral bronchitis? neg flu and CXR 3. HTN,c ontrolled 4. Obesity with mild pCM 5, KAREN vasomotor 6. ANemia of chronic dse 7, Hx myelofibrosis 8. Precipitous drop in hgb History of Present Illness History of Present Illness Left DIP jt seems better in swelling URic acid elevated at 10 ESR elevated at 90s NO fever NO white ct Weak, worked with PT today NO appetite Hgb 7 today GEts BT every 3 mos approx for anemia, follows with heme onc dr. ines Rosado for myelofiborsis PLAN: COnt colcrys Start NSAIDs scheduled Recheck HGb delvin If HH stable and left finger cont to improve, home delvin on colcrys and nsaid Vitals Vitals Vital Signs Date Time Temp Pulse Resp B/P Pulse Ox O2 Delivery O2 Flow Rate FiO2 05/17/16 11:06 102 164/84 05/17/16 10:48 97.7 20 97 Room Air 97.7 Physical Exam General: Alert, Oriented X3, Cooperative, No acute distress Abdomen: Normal bowel sounds, Soft, No tenderness, No hepatosplenomegaly, No masses Extremities: Other (left DIP red, swollen, marked limited flexion bec of pain) Skin: No rashes, No breakdown, No significant lesion Labs LABS Laboratory Tests Test 05/16/16 14:40 05/17/16 06:40 Erythrocyte Sedimentation Rate 92 (0-25) White Blood Count 3.6x10^3/uL (4.0-11.0) Red Blood Count 2.55x10^6/uL (3.50-5.40) Hemoglobin 7.4g/dL (12.0-15.5) Hematocrit 22.5% (36.0-47.0) Mean Corpuscular Volume 88fL (79-100) Mean Corpuscular Hemoglobin 29pg (25-35) Mean Corpuscular Hemoglobin Concent 33g/dL (31-37) Red Cell Distribution Width 18.4% (11.5-14.5) Platelet Count 52x10^3/uL (140-400) Neutrophils (%) (Auto) 69% (31-73) Lymphocytes (%) (Auto) 19% (24-48) Monocytes (%) (Auto) 10% (0-9) Eosinophils (%) (Auto) 1% (0-3) Basophils (%) (Auto) 1% (0-3) Neutrophils # (Auto) 2.5x10^3uL (1.8-7.7) Lymphocytes # (Auto) 0.7x10^3/uL (1.0-4.8) Monocytes # (Auto) 0.4x10^3/uL (0.0-1.1) Eosinophils # (Auto) 0.0x10^3/uL (0.0-0.7) Basophils # (Auto) 0.0x10^3/uL (0.0-0.2) Sodium Level 141mmol/L (136-145) Potassium Level 4.5mmol/L (3.5-5.1) Chloride Level 106mmol/L (98-107) Carbon Dioxide Level 25mmol/L (21-32) Anion Gap 10 (6-14) Blood Urea Nitrogen 19mg/dL (7-20) Creatinine 1.2mg/dL (0.6-1.0) Estimated GFR (Cockcroft-Gault) 44.7 Glucose Level 180mg/dL (70-99) Calcium Level 8.6mg/dL (8.5-10.1) Review of Systems Review of Systems dec appetite, weak, erma lse is neg Assessment and Plan Assessmemt and Plan Problems Medical Problems: (1) Acute on chronic renal failure Status: Acute (2) Symptomatic anemia Status: Acute Problems: Comment Review of Relevant I have reviewed the following items adelaida (where applicable) has been applied. Labs Laboratory Tests Test 05/15/16 20:35 05/16/16 03:25 05/16/16 08:35 05/16/16 14:40 White Blood Count 5.2x10^3/uL (4.0-11.0) 3.7x10^3/uL (4.0-11.0) Red Blood Count 2.28x10^6/uL (3.50-5.40) 2.62x10^6/uL (3.50-5.40) Hemoglobin 6.5g/dL (12.0-15.5) 7.7g/dL (12.0-15.5) Hematocrit 20.6% (36.0-47.0) 23.2% (36.0-47.0) Mean Corpuscular Volume 90fL (79-100) 88fL (79-100) Mean Corpuscular Hemoglobin 29pg (25-35) 29pg (25-35) Mean Corpuscular Hemoglobin Concent 32g/dL (31-37) 33g/dL (31-37) Red Cell Distribution Width 21.5% (11.5-14.5) 18.4% (11.5-14.5) Platelet Count 76x10^3/uL (140-400) 59x10^3/uL (140-400) Neutrophils (%) (Auto) 65% (31-73) 70% (31-73) Lymphocytes (%) (Auto) 23% (24-48) 19% (24-48) Monocytes (%) (Auto) 10% (0-9) 9% (0-9) Eosinophils (%) (Auto) 1% (0-3) 1% (0-3) Basophils (%) (Auto) 1% (0-3) 1% (0-3) Neutrophils # (Auto) 3.4x10^3uL (1.8-7.7) 2.6x10^3uL (1.8-7.7) Lymphocytes # (Auto) 1.2x10^3/uL (1.0-4.8) 0.7x10^3/uL (1.0-4.8) Monocytes # (Auto) 0.5x10^3/uL (0.0-1.1) 0.3x10^3/uL (0.0-1.1) Eosinophils # (Auto) 0.1x10^3/uL (0.0-0.7) 0.0x10^3/uL (0.0-0.7) Basophils # (Auto) 0.1x10^3/uL (0.0-0.2) 0.0x10^3/uL (0.0-0.2) Segmented Neutrophils % 57% (35-66) Band Neutrophils % 13% (0-9) Lymphocytes % 20% (24-48) Monocytes % 6% (0-10) Eosinophils % 1% (0-5) Basophils % 1% (0-3) Myelocytes % 2% (0-0) Nucleated Red Blood Cells 1 Toxic Granulation Slight Platelet Estimate Decreased (ADEQUATE) Polychromasia Slight Anisocytosis Mod Tear Drop Cells Few Schistocytes Occ Sodium Level 141mmol/L (136-145) 142mmol/L (136-145) Potassium Level 4.6mmol/L (3.5-5.1) 4.7mmol/L (3.5-5.1) Chloride Level 104mmol/L (98-107) 107mmol/L (98-107) Carbon Dioxide Level 26mmol/L (21-32) 25mmol/L (21-32) Anion Gap 11 (6-14) 10 (6-14) Blood Urea Nitrogen 27mg/dL (7-20) 28mg/dL (7-20) Creatinine 1.7mg/dL (0.6-1.0) 1.6mg/dL (0.6-1.0) Estimated GFR (Cockcroft-Gault) 29.9 32.1 BUN/Creatinine Ratio 16 (6-20) Glucose Level 201mg/dL (70-99) 165mg/dL (70-99) Lactic Acid Level 1.5mmol/L (0.4-2.0) Calcium Level 8.8mg/dL (8.5-10.1) 8.6mg/dL (8.5-10.1) Total Bilirubin 0.9mg/dL (0.2-1.0) Aspartate Amino Transf (AST/SGOT) 9U/L (15-37) Alanine Aminotransferase (ALT/SGPT) 9U/L (14-59) Alkaline Phosphatase 54U/L (46-116) Creatine Kinase 27U/L (26-192) Creatine Kinase MB (Mass) < 0.5ng/mL (0.0-3.6) Creatine Kinase MB Relative Index 1.9% (0-4) Troponin I Quantitative < 0.017ng/mL (0.000-0.055) [id number]-Type Natriuretic Peptide 560pg/mL (0-124) Total Protein 7.4g/dL (6.4-8.2) Albumin 3.5g/dL (3.4-5.0) Albumin/Globulin Ratio 0.9 (1.0-1.7) Influenza Type A Antigen Negative (NEGATIVE) Influenza Type B Antigen Negative (NEGATIVE) Uric Acid 10.7mg/dL (2.6-6.0) Erythrocyte Sedimentation Rate 92 (0-25) Test 05/17/16 06:40 White Blood Count 3.6x10^3/uL (4.0-11.0) Red Blood Count 2.55x10^6/uL (3.50-5.40) Hemoglobin 7.4g/dL (12.0-15.5) Hematocrit 22.5% (36.0-47.0) Mean Corpuscular Volume 88fL (79-100) Mean Corpuscular Hemoglobin 29pg (25-35) Mean Corpuscular Hemoglobin Concent 33g/dL (31-37) Red Cell Distribution Width 18.4% (11.5-14.5) Platelet Count 52x10^3/uL (140-400) Neutrophils (%) (Auto) 69% (31-73) Lymphocytes (%) (Auto) 19% (24-48) Monocytes (%) (Auto) 10% (0-9) Eosinophils (%) (Auto) 1% (0-3) Basophils (%) (Auto) 1% (0-3) Neutrophils # (Auto) 2.5x10^3uL (1.8-7.7) Lymphocytes # (Auto) 0.7x10^3/uL (1.0-4.8) Monocytes # (Auto) 0.4x10^3/uL (0.0-1.1) Eosinophils # (Auto) 0.0x10^3/uL (0.0-0.7) Basophils # (Auto) 0.0x10^3/uL (0.0-0.2) Sodium Level 141mmol/L (136-145) Potassium Level 4.5mmol/L (3.5-5.1) Chloride Level 106mmol/L (98-107) Carbon Dioxide Level 25mmol/L (21-32) Anion Gap 10 (6-14) Blood Urea Nitrogen 19mg/dL (7-20) Creatinine 1.2mg/dL (0.6-1.0) Estimated GFR (Cockcroft-Gault) 44.7 Glucose Level 180mg/dL (70-99) Calcium Level 8.6mg/dL (8.5-10.1) Laboratory Tests Test 05/16/16 14:40 05/17/16 06:40 Erythrocyte Sedimentation Rate 92 (0-25) White Blood Count 3.6x10^3/uL (4.0-11.0) Red Blood Count 2.55x10^6/uL (3.50-5.40) Hemoglobin 7.4g/dL (12.0-15.5) Hematocrit 22.5% (36.0-47.0) Mean Corpuscular Volume 88fL (79-100) Mean Corpuscular Hemoglobin 29pg (25-35) Mean Corpuscular Hemoglobin Concent 33g/dL (31-37) Red Cell Distribution Width 18.4% (11.5-14.5) Platelet Count 52x10^3/uL (140-400) Neutrophils (%) (Auto) 69% (31-73) Lymphocytes (%) (Auto) 19% (24-48) Monocytes (%) (Auto) 10% (0-9) Eosinophils (%) (Auto) 1% (0-3) Basophils (%) (Auto) 1% (0-3) Neutrophils # (Auto) 2.5x10^3uL (1.8-7.7) Lymphocytes # (Auto) 0.7x10^3/uL (1.0-4.8) Monocytes # (Auto) 0.4x10^3/uL (0.0-1.1) Eosinophils # (Auto) 0.0x10^3/uL (0.0-0.7) Basophils # (Auto) 0.0x10^3/uL (0.0-0.2) Sodium Level 141mmol/L (136-145) Potassium Level 4.5mmol/L (3.5-5.1) Chloride Level 106mmol/L (98-107) Carbon Dioxide Level 25mmol/L (21-32) Anion Gap 10 (6-14) Blood Urea Nitrogen 19mg/dL (7-20) Creatinine 1.2mg/dL (0.6-1.0) Estimated GFR (Cockcroft-Gault) 44.7 Glucose Level 180mg/dL (70-99) Calcium Level 8.6mg/dL (8.5-10.1) Microbiology 05/15/16 Blood Culture - Preliminary, Resulted NO GROWTH AFTER 1 DAY Medications Current Medications Sodium Chloride (Iv Sodium Chloride 0.9% 1000ml Bag) 1,000 ml @ 100 mls/hr Q10H IV Last administered on 05/15/16 20:49; Start 05/15/16 at 20:31; Stop at 06:30; Status DC Albuterol/ Ipratropium (Duoneb) 6 ml 1X ONCE NEB Last administered on 20:56; Start 05/15/16 at 20:45; Stop 05/15/16 at 20:46; Status DC Ondansetron HCl 4 mg 4 mg PRN Q8HRS PRN IV NAUSEA/VOMITING; Start 05/15/16 at 23:15; Stop 05/16/16 at 09:52; Status DC Sodium Chloride (Iv Sodium Chloride 0.9% 1000ml Bag) 1,000 ml @ 100 mls/hr Q10H IV Last administered on 05/16/16 21:00; Start 05/15/16 at 23:04; Stop at 23:03; Status DC Acetaminophen (Tylenol) 650 mg PRN Q4HRS PRN PO FEVER Last administered on 05/16 03:28; Start 05/15/16 at 23:15; Stop 05/16/16 at 23:14; Status DC Albuterol/ Ipratropium (Duoneb) 3 ml RTQID NEB Last administered on 05/17/16 07:29; Start 05/16/16 at 08:00; Stop 05/17/16 at 07:59; Status DC Zolpidem Tartrate (Ambien) 5 mg QHS PO Last administered on 05/16/16 20:59; Start 05/16/16 at 00:00 Guaifenesin (Robitussin Dm) 10 ml PRN Q6HRS PRN PO COUGH Last administered on 00:12; Start 05/16/16 at 00:00 Acetaminophen/ Hydrocodone Bitart (Lortab 5/325) 1 tab PRN Q6HRS PRN PO MODERATE PAIN Last administered on 05/16/16 21:04; Start 05/16/16 at 00:00 Zolpidem Tartrate (Ambien) 5 mg PRN QHS PRN PO INSOMNIA Last administered on 00:13; Start 05/15/16 at 23:45 Ondansetron HCl (Zofran) 4 mg PRN Q6HRS PRN IV NAUSEA/VOMITING; Start 05/16/16 at 09:50 Benzonatate (Tessalon Perle) 100 mg [id number] PO Last administered on 05/17/16 11 :02; Start 05/16/16 at 14:00 Allopurinol (Zyloprim) 100 mg DAILY PO Last administered on 05/17/16 11:02; Start 05/16/16 at 10:30 Aspirin (Ecotrin) 81 mg DAILY PO Last administered on 05/17/16 11:02; Start at 10:30 Furosemide (Lasix) 20 mg DAILY PO Last administered on 05/17/16 11:04; Start 05/16/16 at 10:00 Levothyroxine Sodium (Synthroid) 100 mcg DAILY06 PO Last administered on 06:24; Start 05/16/16 at 10:30 Metoclopramide HCl (Reglan) 10 mg BIDAC PO Last administered on 05/17/16 06:24 ; Start 05/16/16 at 10:30 Pantoprazole Sodium (Protonix) 40 mg BIDAC PO Last administered on 05/17/16 06 :24; Start 05/16/16 at 10:30 Fenofibrate (Lofibra) 134 mg DAILY PO Last administered on 05/17/16 11:03; Start 05/16/16 at 11:00 Non-Formulary Medication 50 mg DAILY PO ; Start 05/17/16 at 09:00; Stop at 09:00; Status DC Lisinopril (Prinivil) 20 mg DAILY PO Last administered on 05/17/16 11:04; Start 05/16/16 at 11:00 Non-Formulary Medication 5 mg BID PO Last administered on 05/17/16 09:00; Start 05/16/16 at 21:00 Colchicine (Colcrys) 0.6 mg DAILY PO Last administered on 05/17/16 11:02; Start 05/17/16 at 09:00 Colchicine (Colcrys) 1.2 mg 1X ONCE PO Last administered on 05/16/16 16:04; Start 05/16/16 at 15:00; Stop 05/16/16 at 15:01; Status DC Heparin Sodium (Porcine) 5,000 unit Q8HRS SQ Last administered on 05/17/16 06: 30; Start 05/16/16 at 15:00 Metoprolol Succinate (Toprol Xl) 50 mg DAILY PO Last administered on 05/17/16 11:06; Start 05/17/16 at 09:00 Active Scripts Active Reported Ferrous Sulfate 325 Mg Tablet 1 Tab PO DAILY Vitamin D3 (Cholecalciferol (Vitamin D3)) 1,000 Unit Tablet 2,000 Unit PO DAILY Toprol Xl (Metoprolol Succinate) 50 Mg Tab.er.24h 1 Tab PO DAILY Quinapril Hcl 40 Mg Tablet 1 Tab PO DAILY Levothyroxine Sodium 150 Mcg Tablet 1 Tab PO DAILY [place]-3 Fish Oil 1,000 mg Sfgl ([place]-3 Fatty Acids/Fish Oil) 1 Each Capsule 1 Each PO DAILY Jakafi (Ruxolitinib Phosphate) 5 Mg Tablet 5 Mg PO BID Zolpidem Tartrate 10 Mg Tablet 1 Tab PO QHS Pantoprazole Sodium 40 Mg Tablet.dr 1 Tab PO BID Furosemide 20 Mg Tablet 1 Tab PO DAILY Reglan (Metoclopramide Hcl) 10 Mg Tablet 1 Tab PO BID Tricor (Fenofibrate Nanocrystallized) 145 Mg Tablet 1 Tab PO DAILY Aspir 81 (Aspirin) 81 Mg Tablet.dr 1 Tab PO DAILY Allopurinol 100 Mg Tablet 1 Tab PO DAILY Vitals/I & O Vital Sign - Last 24 Hours 05/16/16 05/16/16 05/16/16 05/16/16 15:00 19:00 19:00 19:00 Temp 97.2 94.3 99.2 99.2 97.2 94.3 99.2 99.2 Pulse 98 88 92 92 Resp 18 18 18 18 B/P 146/75 140/82 137/82 137/82 Pulse Ox 95 90 90 90 O2 Delivery Room Air Room Air Room Air Room Air 05/16/16 05/16/16 05/16/16 05/17/16 19:14 20:00 23:00 03:00 Temp 96.2 96.0 96.2 96.0 Pulse 98 98 Resp 18 18 B/P 150/73 150/73 Pulse Ox 97 98 98 O2 Delivery Room Air Room Air Room Air Room Air 05/17/16 05/17/16 05/17/16 05/17/16 06:55 07:31 08:00 10:48 Temp 97.5 97.7 97.5 97.7 Pulse 104 102 Resp 20 20 B/P 153/89 164/84 Pulse Ox 96 97 97 O2 Delivery Room Air Room Air Room Air Room Air 05/17/16 05/17/16 11:04 11:06 Pulse 102 102 B/P 164/84 164/84 Intake and Output 05/16/16 05/16/16 05/17/16 15:00 23:00 07:00 Intake Total 650 ml Output Total 400 ml 100 ml Balance 250 ml -100 ml JEFF VASQUEZ MD May 17, 2016 13:55
[2016-05-17 14:52] VITALS: BP 135/66
[2016-05-17] MEDS: NAPROXEN 500 MG TABLET PO SCH ×3 (14:56→21:18)
[2016-05-17 19:23] VITALS: BP 137/74
[2016-05-17] MEDS: ZOLPIDEM 5 MG TABLET. PO SCH (20:06)
[2016-05-17 23:00] VITALS: BP 114/55
[2016-05-18] VITALS (14 sets, daily range): BP systolic 119–153; BP diastolic 38–85
[2016-05-18 04:20] LABS: HEMOGLOBIN 6.6 g/dL (12.0-15.5)
[2016-05-18 04:21] LABS: HEMATOCRIT 20.1 % (36.0-47.0)
[2016-05-18] MEDS: HEPARIN PF for SUB-Q USE 5,000 UNIT/0.5 ML VIAL. SQ SCH ×3 (06:15→20:53)
[2016-05-18] MEDS: LEVOTHYROXINE 100 MCG TABLET PO SCH (06:16)
[2016-05-18] MEDS: FUROSEMIDE 20 MG TABLET PO SCH (10:21)
[2016-05-18] MEDS: FENOFIBRATE,MICRONIZED 134 MG CAPSULE PO SCH (10:22)
[2016-05-18] MEDS: LISINOPRIL 20 MG TABLET PO SCH (10:22)
[2016-05-18] MEDS: METOCLOPRAMIDE 10 MG TABLET PO SCH ×2 (10:22→18:14)
[2016-05-18] MEDS: COLCHICINE 0.6 MG TABLET PO SCH (10:23)
[2016-05-18] MEDS: PANTOPRAZOLE 40 MG TABLET. PO SCH ×2 (10:23→18:14)
[2016-05-18] MEDS: BENZONATATE 100 MG CAPSULE. PO SCH ×3 (10:23→20:42)
[2016-05-18] MEDS: ASPIRIN ENTERIC COATED 81 MG TABLET.DR. PO SCH (10:23)
[2016-05-18] MEDS: NAPROXEN 500 MG TABLET PO SCH ×2 (10:24→20:41)
[2016-05-18] MEDS: METOPROLOL SUCC 24HR ER 50 MG TAB.ER.24H. PO SCH (10:25)
--- NOTE | 2016-05-18 12:10 | PDOC ---
PROGRESS NOTES Chief Complaint Chief Complaint URI ASSESSMENT AND PLAN: 1. Gout: L DIP improving ON nsaidS 2. URI: suspect acute viral bronchitis, neg flu and CXR. treat symptomatically 3. HTN: controlled 4. KAREN: vasomotor 5. 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 on oral tx under Dr Olivo's care. PRBC for Hgb <7 today 6. Obesity with mild PCM 7. PVD: s/p CVA with dysarthia, R weakness 8. dispo: anticipate D/C home in AM Vitals Vitals Vital Signs Date Time Temp Pulse Resp B/P Pulse Ox O2 Delivery O2 Flow Rate FiO2 05/18/16 10:47 97.7 89 18 130/57 94 97.7 05/18/16 08:00 Room Air Physical Exam General: Alert, Oriented X3, Cooperative, No acute distress Abdomen: Normal bowel sounds, Soft, No tenderness, No masses, Other (+ splenomegaly) Extremities: Other (left DIP red, swollen, marked limited flexion bec of pain. per pt, improved) Skin: No rashes, No breakdown, No significant lesion Labs LABS Laboratory Tests Test 05/18/16 04:00 Hemoglobin 6.6g/dL (12.0-15.5) Hematocrit 20.1% (36.0-47.0) Mean Corpuscular Hemoglobin Concent 33g/dL (31-37) Review of Systems Review of Systems feels ok, except tired. finger improving. LUIS A DAVIDSON MD May 18, 2016 12:10
[2016-05-18] MEDS: ZOLPIDEM 5 MG TABLET. PO SCH (20:42)
[2016-05-19] VITALS (7 sets, daily range): BP systolic 117–151; BP diastolic 59–83
[2016-05-19] MEDS: LEVOTHYROXINE 100 MCG TABLET PO SCH (06:04)
[2016-05-19] MEDS: HEPARIN PF for SUB-Q USE 5,000 UNIT/0.5 ML VIAL. SQ SCH ×3 (06:04→21:20)
[2016-05-19] MEDS: METOCLOPRAMIDE 10 MG TABLET PO SCH ×2 (08:26→16:52)
[2016-05-19] MEDS: ASPIRIN ENTERIC COATED 81 MG TABLET.DR. PO SCH (08:26)
[2016-05-19] MEDS: LISINOPRIL 20 MG TABLET PO SCH (08:27)
[2016-05-19] MEDS: FUROSEMIDE 20 MG TABLET PO SCH (08:28)
[2016-05-19] MEDS: BENZONATATE 100 MG CAPSULE. PO SCH ×3 (08:28→21:12)
[2016-05-19] MEDS: COLCHICINE 0.6 MG TABLET PO SCH (08:28)
[2016-05-19] MEDS: METOPROLOL SUCC 24HR ER 50 MG TAB.ER.24H. PO SCH (08:28)
[2016-05-19] MEDS: FENOFIBRATE,MICRONIZED 134 MG CAPSULE PO SCH (08:28)
[2016-05-19] MEDS: PANTOPRAZOLE 40 MG TABLET. PO SCH ×2 (08:29→16:52)
[2016-05-19] MEDS: NAPROXEN 500 MG TABLET PO SCH ×2 (08:29→21:12)
[2016-05-19 11:08] LABS: BASO # 0.1 x10^3/uL (0.0-0.2); BASO % 1 % (0-3); EOS % 2 % (0-3); HEMOGLOBIN 8.9 g/dL (12.0-15.5); LYMPH # 0.9 x10^3/uL (1.0-4.8); LYMPH % 21 % (24-48); MEAN CORPUSCULAR HEMOGLOBIN 29 pg (25-35); MEAN CORPUSCULAR HGB CONC 33 g/dL (31-37); MEAN CORPUSCULAR VOLUME 88 fL (79-100); MONO % 6 % (0-9); NEUT % 70 % (31-73); PLATELET COUNT 67 x10^3/uL (140-400); RED BLOOD COUNT 3.06 x10^6/uL (3.50-5.40); RED CELL DISTRIBUTION WIDTH 17.6 % (11.5-14.5); WHITE BLOOD COUNT 4.3 x10^3/uL (4.0-11.0)
--- NOTE | 2016-05-19 17:26 | PDOC ---
PROGRESS NOTES Chief Complaint Chief Complaint URI ASSESSMENT AND PLAN: 1. Gout: L DIP improving on colchicine. 2. URI: suspect acute viral bronchitis, neg flu and CXR. treat symptomatically 3. HTN: controlled 4. KAREN: vasomotor 5. 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 on oral Jakafi. PRBCx2 yesterday with appropriate improvement. 6. Obesity with mild PCM 7. PVD: s/p CVA with dysarthria, R weakness 8. dispo: anticipate D/C home in AM if H/H stable Vitals Vitals Vital Signs Date Time Temp Pulse Resp B/P Pulse Ox O2 Delivery O2 Flow Rate FiO2 05/19/16 15:00 97.6 75 18 128/71 98 Room Air 97.6 Physical Exam General: Alert, Oriented X3, Cooperative, No acute distress Heart: Regular rate Lungs: Clear Abdomen: Normal bowel sounds, Soft, No tenderness, Other (+ splenomegaly) Extremities: Other (left DIP red, swollen, but improved) Skin: No rashes, No breakdown, No significant lesion Labs LABS Laboratory Tests Test 05/19/16 10:50 White Blood Count 4.3x10^3/uL (4.0-11.0) Red Blood Count 3.06x10^6/uL (3.50-5.40) Hemoglobin 8.9g/dL (12.0-15.5) Hematocrit 27.0% (36.0-47.0) Mean Corpuscular Volume 88fL (79-100) Mean Corpuscular Hemoglobin 29pg (25-35) Mean Corpuscular Hemoglobin Concent 33g/dL (31-37) Red Cell Distribution Width 17.6% (11.5-14.5) Platelet Count 67x10^3/uL (140-400) Neutrophils (%) (Auto) 70% (31-73) Lymphocytes (%) (Auto) 21% (24-48) Monocytes (%) (Auto) 6% (0-9) Eosinophils (%) (Auto) 2% (0-3) Basophils (%) (Auto) 1% (0-3) Neutrophils # (Auto) 3.0x10^3uL (1.8-7.7) Lymphocytes # (Auto) 0.9x10^3/uL (1.0-4.8) Monocytes # (Auto) 0.3x10^3/uL (0.0-1.1) Eosinophils # (Auto) 0.1x10^3/uL (0.0-0.7) Basophils # (Auto) 0.1x10^3/uL (0.0-0.2) Review of Systems Review of Systems in good spirits, feels much better Comment Review of Relevant I have reviewed the following items adelaida (where applicable) has been applied. Labs Laboratory Tests Test 05/18/16 04:00 05/19/16 10:50 Hemoglobin 6.6g/dL (12.0-15.5) 8.9g/dL (12.0-15.5) Hematocrit 20.1% (36.0-47.0) 27.0% (36.0-47.0) Mean Corpuscular Hemoglobin Concent 33g/dL (31-37) 33g/dL (31-37) White Blood Count 4.3x10^3/uL (4.0-11.0) Red Blood Count 3.06x10^6/uL (3.50-5.40) Mean Corpuscular Volume 88fL (79-100) Mean Corpuscular Hemoglobin 29pg (25-35) Red Cell Distribution Width 17.6% (11.5-14.5) Platelet Count 67x10^3/uL (140-400) Neutrophils (%) (Auto) 70% (31-73) Lymphocytes (%) (Auto) 21% (24-48) Monocytes (%) (Auto) 6% (0-9) Eosinophils (%) (Auto) 2% (0-3) Basophils (%) (Auto) 1% (0-3) Neutrophils # (Auto) 3.0x10^3uL (1.8-7.7) Lymphocytes # (Auto) 0.9x10^3/uL (1.0-4.8) Monocytes # (Auto) 0.3x10^3/uL (0.0-1.1) Eosinophils # (Auto) 0.1x10^3/uL (0.0-0.7) Basophils # (Auto) 0.1x10^3/uL (0.0-0.2) Laboratory Tests Test 05/19/16 10:50 White Blood Count 4.3x10^3/uL (4.0-11.0) Red Blood Count 3.06x10^6/uL (3.50-5.40) Hemoglobin 8.9g/dL (12.0-15.5) Hematocrit 27.0% (36.0-47.0) Mean Corpuscular Volume 88fL (79-100) Mean Corpuscular Hemoglobin 29pg (25-35) Mean Corpuscular Hemoglobin Concent 33g/dL (31-37) Red Cell Distribution Width 17.6% (11.5-14.5) Platelet Count 67x10^3/uL (140-400) Neutrophils (%) (Auto) 70% (31-73) Lymphocytes (%) (Auto) 21% (24-48) Monocytes (%) (Auto) 6% (0-9) Eosinophils (%) (Auto) 2% (0-3) Basophils (%) (Auto) 1% (0-3) Neutrophils # (Auto) 3.0x10^3uL (1.8-7.7) Lymphocytes # (Auto) 0.9x10^3/uL (1.0-4.8) Monocytes # (Auto) 0.3x10^3/uL (0.0-1.1) Eosinophils # (Auto) 0.1x10^3/uL (0.0-0.7) Basophils # (Auto) 0.1x10^3/uL (0.0-0.2) Microbiology 05/15/16 Blood Culture - Preliminary, Resulted NO GROWTH AFTER 3 DAYS Medications Current Medications Sodium Chloride (Iv Sodium Chloride 0.9% 1000ml Bag) 1,000 ml @ 100 mls/hr Q10H IV Last administered on 05/15/16 20:49; Start 05/15/16 at 20:31; Stop at 06:30; Status DC Albuterol/ Ipratropium (Duoneb) 6 ml 1X ONCE NEB Last administered on 20:56; Start 05/15/16 at 20:45; Stop 05/15/16 at 20:46; Status DC Ondansetron HCl 4 mg 4 mg PRN Q8HRS PRN IV NAUSEA/VOMITING; Start 05/15/16 at 23:15; Stop 05/16/16 at 09:52; Status DC Sodium Chloride (Iv Sodium Chloride 0.9% 1000ml Bag) 1,000 ml @ 100 mls/hr Q10H IV Last administered on 05/16/16 21:00; Start 05/15/16 at 23:04; Stop at 23:03; Status DC Acetaminophen (Tylenol) 650 mg PRN Q4HRS PRN PO FEVER Last administered on 05/16 03:28; Start 05/15/16 at 23:15; Stop 05/16/16 at 23:14; Status DC Albuterol/ Ipratropium (Duoneb) 3 ml RTQID NEB Last administered on 05/17/16 07:29; Start 05/16/16 at 08:00; Stop 05/17/16 at 07:59; Status DC Zolpidem Tartrate (Ambien) 5 mg QHS PO Last administered on 05/18/16 20:42; Start 05/16/16 at 00:00 Guaifenesin (Robitussin Dm) 10 ml PRN Q6HRS PRN PO COUGH Last administered on 00:12; Start 05/16/16 at 00:00 Acetaminophen/ Hydrocodone Bitart (Lortab 5/325) 1 tab PRN Q6HRS PRN PO MODERATE PAIN Last administered on 05/16/16 21:04; Start 05/16/16 at 00:00 Zolpidem Tartrate (Ambien) 5 mg PRN QHS PRN PO INSOMNIA Last administered on 00:13; Start 05/15/16 at 23:45 Ondansetron HCl (Zofran) 4 mg PRN Q6HRS PRN IV NAUSEA/VOMITING; Start 05/16/16 at 09:50 Benzonatate (Tessalon Perle) 100 mg [id number] PO Last administered on 05/19/16 14 :57; Start 05/16/16 at 14:00 Allopurinol (Zyloprim) 100 mg DAILY PO Last administered on 05/17/16 11:02; Start 05/16/16 at 10:30; Stop 05/17/16 at 13:56; Status DC Aspirin (Ecotrin) 81 mg DAILY PO Last administered on 05/19/16 08:26; Start at 10:30 Furosemide (Lasix) 20 mg DAILY PO Last administered on 05/19/16 08:28; Start 05/16/16 at 10:00 Levothyroxine Sodium (Synthroid) 100 mcg DAILY06 PO Last administered on 06:04; Start 05/16/16 at 10:30 Metoclopramide HCl (Reglan) 10 mg BIDAC PO Last administered on 05/19/16 16:52 ; Start 05/16/16 at 10:30 Pantoprazole Sodium (Protonix) 40 mg BIDAC PO Last administered on 05/19/16 16 :52; Start 05/16/16 at 10:30 Fenofibrate (Lofibra) 134 mg DAILY PO Last administered on 05/19/16 08:28; Start 05/16/16 at 11:00 Non-Formulary Medication 50 mg DAILY PO ; Start 05/17/16 at 09:00; Stop at 09:00; Status DC Lisinopril (Prinivil) 20 mg DAILY PO Last administered on 05/19/16 08:27; Start 05/16/16 at 11:00 Non-Formulary Medication 5 mg BID PO Last administered on 05/19/16 08:29; Start 05/16/16 at 21:00 Colchicine (Colcrys) 0.6 mg DAILY PO Last administered on 05/19/16 08:28; Start 05/17/16 at 09:00 Colchicine (Colcrys) 1.2 mg 1X ONCE PO Last administered on 05/16/16 16:04; Start 05/16/16 at 15:00; Stop 05/16/16 at 15:01; Status DC Heparin Sodium (Porcine) 5,000 unit Q8HRS SQ Last administered on 05/19/16 15: 01; Start 05/16/16 at 15:00 Metoprolol Succinate (Toprol Xl) 50 mg DAILY PO Last administered on 05/19/16 08:28; Start 05/17/16 at 09:00 Naproxen (Naprosyn) 500 mg BID PO Last administered on 05/19/16 08:29; Start 05/17/16 at 14:00 Active Scripts Active Reported Ferrous Sulfate 325 Mg Tablet 1 Tab PO DAILY Vitamin D3 (Cholecalciferol (Vitamin D3)) 1,000 Unit Tablet 2,000 Unit PO DAILY Toprol Xl (Metoprolol Succinate) 50 Mg Tab.er.24h 1 Tab PO DAILY Quinapril Hcl 40 Mg Tablet 1 Tab PO DAILY Levothyroxine Sodium 150 Mcg Tablet 1 Tab PO DAILY Lewis-3 Fish Oil 1,000 mg Sfgl (Lewis-3 Fatty Acids/Fish Oil) 1 Each Capsule 1 Each PO DAILY Jakafi (Ruxolitinib Phosphate) 5 Mg Tablet 5 Mg PO BID Zolpidem Tartrate 10 Mg Tablet 1 Tab PO QHS Pantoprazole Sodium 40 Mg Tablet.dr 1 Tab PO BID Furosemide 20 Mg Tablet 1 Tab PO DAILY Reglan (Metoclopramide Hcl) 10 Mg Tablet 1 Tab PO BID Tricor (Fenofibrate Nanocrystallized) 145 Mg Tablet 1 Tab PO DAILY Aspir 81 (Aspirin) 81 Mg Tablet.dr 1 Tab PO DAILY Allopurinol 100 Mg Tablet 1 Tab PO DAILY Vitals/I & O Vital Sign - Last 24 Hours 05/18/16 05/18/16 05/18/16 05/19/16 19:00 20:00 23:05 03:05 Temp 97.7 96.8 98.1 97.7 96.8 98.1 Pulse 86 85 83 Resp 16 16 18 B/P 153/55 135/85 151/83 Pulse Ox 96 96 97 O2 Delivery Room Air Room Air Room Air Room Air 05/19/16 05/19/16 05/19/16 05/19/16 07:00 08:00 08:27 08:28 Temp 97.6 97.6 Pulse 88 88 88 Resp 18 B/P 122/74 122/74 122/74 Pulse Ox 96 O2 Delivery Room Air Room Air 05/19/16 05/19/16 11:00 15:00 Temp 97.5 97.6 97.5 97.6 Pulse 78 75 Resp 18 18 B/P 117/64 128/71 Pulse Ox 96 98 O2 Delivery Room Air Room Air Intake and Output 05/18/16 05/18/16 05/19/16 15:00 23:00 07:00 Intake Total 500 ml 300 ml 0 ml Output Total 450 ml Balance 500 ml -150 ml 0 ml LUIS A DAVIDSON MD May 19, 2016 17:26
[2016-05-19] MEDS: ZOLPIDEM 5 MG TABLET. PO SCH (21:13)
[2016-05-20 03:23] VITALS: BP 145/74
[2016-05-20] MEDS: LEVOTHYROXINE 100 MCG TABLET PO SCH (06:01)
[2016-05-20] MEDS: HEPARIN PF for SUB-Q USE 5,000 UNIT/0.5 ML VIAL. SQ SCH ×2 (06:06→14:00)
[2016-05-20 07:00] VITALS: BP 159/46
[2016-05-20] MEDS: FUROSEMIDE 20 MG TABLET PO SCH (08:32)
[2016-05-20] MEDS: METOPROLOL SUCC 24HR ER 50 MG TAB.ER.24H. PO SCH (08:32)
[2016-05-20] MEDS: PANTOPRAZOLE 40 MG TABLET. PO SCH (08:32)
[2016-05-20] MEDS: BENZONATATE 100 MG CAPSULE. PO SCH ×2 (08:32→14:00)
[2016-05-20] MEDS: ASPIRIN ENTERIC COATED 81 MG TABLET.DR. PO SCH (08:32)
[2016-05-20] MEDS: LISINOPRIL 20 MG TABLET PO SCH (08:33)
[2016-05-20] MEDS: METOCLOPRAMIDE 10 MG TABLET PO SCH (08:33)
[2016-05-20] MEDS: NAPROXEN 500 MG TABLET PO SCH (08:33)
[2016-05-20] MEDS: COLCHICINE 0.6 MG TABLET PO SCH (08:33)
[2016-05-20] MEDS: FENOFIBRATE,MICRONIZED 134 MG CAPSULE PO SCH (08:33)
--- NOTE | 2016-05-20 10:56 | PDOC ---
PROGRESS NOTES Chief Complaint Chief Complaint URI ASSESSMENT AND PLAN: 1. Gout: L DIP improving on colchicine. on allopurinol 2. URI: suspect acute viral bronchitis, neg flu and CXR. treat symptomatically 3. HTN: controlled 4. KAREN: vasomotor 5. 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 on oral Jakafi. PRBCx2 yesterday with appropriate improvement. 6. Obesity with mild PCM 7. PVD: s/p CVA with dysarthria, R weakness 8. dispo: D/C home Vitals Vitals Vital Signs Date Time Temp Pulse Resp B/P Pulse Ox O2 Delivery O2 Flow Rate FiO2 05/20/16 08:33 87 159/46 05/20/16 08:00 Room Air 05/20/16 07:00 97.6 18 95 97.6 Physical Exam General: Alert, Oriented X3, Cooperative, No acute distress Heart: Regular rate Lungs: Clear Abdomen: Normal bowel sounds, Soft, No tenderness, Other (+ splenomegaly) Extremities: Other (left DIP red, swollen, but improved) Skin: No rashes, No significant lesion Review of Systems Review of Systems no new c/o, ready to go home LUIS A DAVIDSON MD May 20, 2016 10:56
[2016-05-20 11:04] VITALS: BP 135/69
[2016-05-20 11:44] LABS: BASO # 0.1 x10^3/uL (0.0-0.2); BASO % 1 % (0-3); EOS % 2 % (0-3); HEMATOCRIT 31.2 % (36.0-47.0); HEMOGLOBIN 10.1 g/dL (12.0-15.5); LYMPH % 19 % (24-48); MEAN CORPUSCULAR HEMOGLOBIN 29 pg (25-35); MEAN CORPUSCULAR HGB CONC 32 g/dL (31-37); MEAN CORPUSCULAR VOLUME 89 fL (79-100); MONO % 6 % (0-9); NEUT % 73 % (31-73); PLATELET COUNT 80 x10^3/uL (140-400); RED BLOOD COUNT 3.49 x10^6/uL (3.50-5.40); RED CELL DISTRIBUTION WIDTH 17.5 % (11.5-14.5); WHITE BLOOD COUNT 5.6 x10^3/uL (4.0-11.0)
--- NOTE | 2016-05-20 13:08 | DISCH ---
DISCHARGE INSTRUCTIONS Condition on Discharge Condition on Discharge: Stable Activity After Discharge Activity Instructions for Disc: Resume previous activity Diet after Discharge Diet after Discharge: Regular Contacting the DR. after DC Call your doctor for: If your condition worsens Follow-Up Follow up with: PCP and Hematology LUIS A DAVIDSON MD May 20, 2016 13:08
[2016-05-20] MEDS ORDERED: LEVO100T PO (13:13)
[2016-05-20] MEDS ORDERED: COLC0.6T34 PO (13:13)
--- NOTE | 2016-05-21 23:21 | DS ---
DATE OF DISCHARGE: 05/20/2016 CHIEF COMPLAINT: Symptomatic anemia, URI. HOSPITAL COURSE: The patient is a 70-year-old woman with known history of myelofibrosis, currently on Jakafi, who presented to the Emergency Room with general weakness, shortness of breath. She was diagnosed with acute viral bronchitis. In her workup; however, she was also found with significant anemia and required blood transfusions x 2. This resulted in appropriate recovery of her hemoglobins. Third issue was inflammation of her the tip joint of her first left finger, which was diagnosed as gout, with a uric acid level of 10. She was started on colchicine, continued on allopurinol with improvement of her symptoms. After observation for her anemia, she was discharged to home. DISCHARGE PHYSICAL EXAMINATION: Please refer to the note from same day. DISCHARGE DISPOSITION: To home. DISCHARGE CONDITION: Improved. DISCHARGE DIAGNOSES: Upper respiratory infection, symptomatic anemia, gout flare. DISCHARGE MEDICATIONS: Please refer to MAR. DISCHARGE INSTRUCTIONS: Follow up with PCP and Hematology as previously arranged. LUIS A DAVIDSON MD DR: DAVID/micky JOB#: [id number] / [id number] BELKIS Cardona
== END 2016-05-20 14:50 | disposition home or self-care (01) | DRG 811 ==
LOC: ER 19:46 → 6 SOUTH 21:15
PROVIDERS: ADMIT Internal Medicine; ATTEND Internal Medicine
PROC: 30233N1 Transfusion of Nonautologous Red Blood Cells into Peripheral Vein, Percutaneous Approach (ICD-10-PCS; principal; 2016-05-18)
DX: D64.9 Anemia, unspecified (principal); N17.0 Acute kidney failure with tubular necrosis; E44.1 Mild protein-calorie malnutrition; D75.81 Myelofibrosis; I69.351 Hemiplegia and hemiparesis following cerebral infarction affecting right dominant side; M00.9 Pyogenic arthritis, unspecified; J20.8 Acute bronchitis due to other specified organisms; M10.9 Gout, unspecified; E66.9 Obesity, unspecified; I12.9 Hypertensive chronic kidney disease with stage 1 through stage 4 chronic kidney disease, or unspecified chronic kidney disease; I73.9 Peripheral vascular disease, unspecified; J06.9 Acute upper respiratory infection, unspecified; E03.9 Hypothyroidism, unspecified; N18.9 Chronic kidney disease, unspecified; Z85.528 Personal history of other malignant neoplasm of kidney; Z90.710 Acquired absence of both cervix and uterus; Z68.33 Body mass index [BMI] 33.0-33.9, adult; Z88.0 Allergy status to penicillin; Z88.1 Allergy status to other antibiotic agents; Z91.041 Radiographic dye allergy status
CPT/HCPCS: 36415; 71010; 73140; 80048; 80053; 82553; 83605; 83880; 84484; 84550; 85007; 85014; 85018; 85027; 85651; 86850; 86900; 86901; 86920; 87040; 87804; 93005; 93971; 94250; 94640; 96360; J7030; J7620; J8597; P9016; 99285-25

== ENCOUNTER 2017-05-16 13:54 | Inpatient (IN) | payer MEDICARE ==
[2017-05-16] MEDS: IV NORMAL SALINE 1000ML BAG 1,000 ML IV ×3 (15:31→23:43)
[2017-05-16] MEDS: 0.9 % SODIUM CHLORIDE 10 ML DISP.SYRIN. IV (15:31)
[2017-05-16 15:33] LABS: ADD MAN DIFF? NO
[2017-05-16 15:38] LABS: BASO % 1 % (0-3); EOS # 0.1 x10^3/uL (0.0-0.7); EOS % 1 % (0-3); LYMPH # 0.7 x10^3/uL (1.0-4.8); LYMPH % 19 % (24-48); MEAN CORPUSCULAR HEMOGLOBIN 30 pg (25-35); MEAN CORPUSCULAR HGB CONC 33 g/dL (31-37); MEAN CORPUSCULAR VOLUME 90 fL (79-100); MONO # 0.3 x10^3/uL (0.0-1.1); MONO % 9 % (0-9); NEUT # 2.4 x10^3uL (1.8-7.7); NEUT % 69 % (31-73); PLATELET COUNT 58 x10^3/uL (140-400); RED BLOOD COUNT 1.93 x10^6/uL (3.50-5.40); RED CELL DISTRIBUTION WIDTH 21.9 % (11.5-14.5); WHITE BLOOD COUNT 3.5 x10^3/uL (4.0-11.0)
[2017-05-16 15:39] LABS: HEMOGLOBIN 5.7 g/dL (12.0-15.5)
[2017-05-16 15:40] LABS: HEMATOCRIT 17.4 % (36.0-47.0)
[2017-05-16] MEDS ORDERED: ONDANSETRON PF 4 MG/2 ML VIAL. IV ×2 (15:45→16:00)
[2017-05-16 15:52] LABS: ANION GAP 8 (6-14); BLOOD UREA NITROGEN 26 mg/dL (7-20); CALCIUM 8.6 mg/dL (8.5-10.1); CARBON DIOXIDE 28 mmol/L (21-32); CHLORIDE 105 mmol/L (98-107); CREATININE 1.5 mg/dL (0.6-1.0); GFR 34.4; GLUCOSE 135 mg/dL (70-99); POTASSIUM 4.5 mmol/L (3.5-5.1); SODIUM 141 mmol/L (136-145)
[2017-05-16 15:58] LABS: ALBUMIN 3.6 g/dL (3.4-5.0); ALK PHOS 52 U/L (46-116); ALT (SGPT) 12 U/L (14-59); AST (SGOT) 13 U/L (15-37); DIRECT BILIRUBIN 0.2 mg/dL (0.0-0.2); TOTAL BILIRUBIN 1.2 mg/dL (0.2-1.0); TOTAL PROTEIN 6.5 g/dL (6.4-8.2)
[2017-05-16] MEDS ORDERED: ACETAMINOPHEN 500 MG TABLET PO (16:00)
[2017-05-16] MEDS ORDERED: diphenhydrAMINE HCL 25 MG CAPSULE PO (16:00)
[2017-05-16] MEDS ORDERED: traMADol 50 MG TABLET PO (16:00)
[2017-05-16 16:02] LABS: TROPONINI < 0.017 ng/mL (0.000-0.055)
[2017-05-16 16:04] LABS: BILIRUBIN,URINE NEGATIVE (NEG); CLARITY,URINE CLEAR; COLOR,URINE YELLOW; GLUCOSE,URINE NEGATIVE (NEG); NITRITE,URINE NEGATIVE (NEG); PH,URINE 5.5; PROTEIN,URINE NEGATIVE (NEG-TRACE)
[2017-05-16 16:05] LABS: CREATINE KINASE 23 U/L (26-192)
[2017-05-16 16:05] LABS: NT-PRO BNP 582 pg/mL (0-124); THYROID STIM HORMONE (TSH) 2.114 uIU/mL (0.358-3.74)
[2017-05-16 16:06] LABS: CKMB INDEX 2.2 % (0-4); CKMB MASS < 0.5 ng/mL (0.0-3.6)
[2017-05-16 16:14] LABS: RBC,URINE 0 /HPF (0-2)
[2017-05-16 16:17] LABS: BACTERIA,URINE MODERATE /HPF (0-FEW); SQUAMOUS EPITHELIAL CELL,UR MOD /LPF
[2017-05-16 16:18] LABS: WBC,URINE 20-40 /HPF (0-4)
[2017-05-16 16:51] LABS: % BANDS 12 % (0-9); % BASOS 3 % (0-3); % EOS 2 % (0-5); % LYMPHS 12 % (24-48); % METAS 2 % (0-0); % MONOS 16 % (0-10); % MYELOS 6 % (0-0); % SEGS 46 % (35-66); NUCLEATED RBC 3; PLT ESTIMATE DECREASED (ADEQUATE)
[2017-05-16 17:53] LABS: ANISOCYTOSIS MOD; POIKILOCYTOSIS MOD; POLYCHROMASIA PRESENT; TEAR DROP CELLS PRESENT
[2017-05-16 17:54] LABS: % BLASTS 1 % (0-0)
[2017-05-16] MEDS: PANTOPRAZOLE 40 MG TABLET.DR. PO (17:58)
[2017-05-16] MEDS: METOCLOPRAMIDE 10 MG TABLET. PO (17:58)
[2017-05-16] MEDS: LABETALOL 20 MG/4 ML DISP.SYRIN. IVP (18:00)
[2017-05-16] MEDS: NITROFURANTOIN MONOHYD/M-CRYST 100 MG CAPSULE. PO (20:41)
[2017-05-16] MEDS: RUXOLITINIB PHOSPHATE 5 MG PO (21:18)
[2017-05-16] MEDS ORDERED: INFLUENZA VAX SCREEN BY RX. MC (21:45)
[2017-05-16] MEDS: ZOLPIDEM 5 MG TABLET. PO (22:28)
[2017-05-16 23:26] LABS: IMMEDIATE SPIN CROSSMATCH 1 5
[2017-05-17 03:29] LABS: BASO % 1 % (0-3); EOS % 2 % (0-3); LYMPH # 0.6 x10^3/uL (1.0-4.8); LYMPH % 21 % (24-48); MEAN CORPUSCULAR HEMOGLOBIN 30 pg (25-35); MEAN CORPUSCULAR HGB CONC 33 g/dL (31-37); MEAN CORPUSCULAR VOLUME 90 fL (79-100); MONO # 0.3 x10^3/uL (0.0-1.1); MONO % 9 % (0-9); NEUT # 1.8 x10^3uL (1.8-7.7); NEUT % 67 % (31-73); PLATELET COUNT 48 x10^3/uL (140-400); RED BLOOD COUNT 2.21 x10^6/uL (3.50-5.40); RED CELL DISTRIBUTION WIDTH 19.1 % (11.5-14.5); WHITE BLOOD COUNT 2.7 x10^3/uL (4.0-11.0)
[2017-05-17 04:17] LABS: HEMOGLOBIN 6.6 g/dL (12.0-15.5)
[2017-05-17 04:18] LABS: ADD MAN DIFF? YES; HEMATOCRIT 19.9 % (36.0-47.0)
[2017-05-17] MEDS: LEVOTHYROXINE 150 MCG TABLET PO (05:42)
[2017-05-17] MEDS ORDERED: TEMAZEPAM 15 MG CAPSULE PO (05:45)
[2017-05-17] MEDS ORDERED: LEVOTHYROXINE 100 MCG TABLET PO (06:00)
[2017-05-17 06:09] LABS: IMMEDIATE SPIN CROSSMATCH 1
[2017-05-17] MEDS: LABETALOL 20 MG/4 ML DISP.SYRIN. IVP (06:38)
[2017-05-17 08:02] LABS: % ATYL 1 % (0-0); % BANDS 16 % (0-9); % LYMPHS 23 % (24-48); % METAS 3 % (0-0); % MONOS 2 % (0-10); % SEGS 55 % (35-66); PLT ESTIMATE DECREASED (ADEQUATE)
[2017-05-17 08:04] LABS: POLYCHROMASIA SLIGHT; TEAR DROP CELLS OCC
[2017-05-17 08:05] LABS: ANISOCYTOSIS MOD
[2017-05-17] MEDS: FENOFIBRATE,MICRONIZED 134 MG CAPSULE PO (08:20)
[2017-05-17] MEDS: METOPROLOL SUCC 24HR ER 50 MG TAB.ER.24H. PO (08:20)
[2017-05-17] MEDS: ACETAMINOPHEN 500 MG TABLET PO (08:21)
[2017-05-17] MEDS: METOCLOPRAMIDE 10 MG TABLET. PO ×2 (08:21→11:37)
[2017-05-17] MEDS: OMEGA-3 FATTY ACIDS/FISH OIL 1,000 MG CAPSULE. PO (08:21)
[2017-05-17] MEDS: CHOLECALCIFEROL (VITAMIN D3) 1,000 UNIT TABLET PO (08:21)
[2017-05-17] MEDS: PANTOPRAZOLE 40 MG TABLET.DR. PO (08:21)
[2017-05-17] MEDS: FUROSEMIDE 20 MG TABLET PO (08:21)
[2017-05-17] MEDS ORDERED: ALLOPURINOL 100 MG TABLET. PO (09:00)
[2017-05-17] MEDS ORDERED: FERROUS SULFATE 325 MG TABLET. PO (09:00)
[2017-05-17] MEDS: RUXOLITINIB PHOSPHATE 5 MG PO (09:00)
[2017-05-17] MEDS ORDERED: PNEUMOCOCCAL VAX SCREEN BY RX. MC (09:00)
[2017-05-17] MEDS ORDERED: CHOLECALCIFEROL (VITAMIN D3) 1,000 UNIT TABLET PO (09:00)
[2017-05-17] MEDS ORDERED: COLCHICINE 0.6 MG TABLET PO (09:00)
[2017-05-17] MEDS ORDERED: LISINOPRIL 40 MG TABLET. PO (09:00)
[2017-05-17 09:28] LABS: HEMATOCRIT 24.5 % (36.0-47.0); HEMOGLOBIN 7.8 g/dL (12.0-15.5); MEAN CORPUSCULAR HEMOGLOBIN 29 pg (25-35); MEAN CORPUSCULAR HGB CONC 32 g/dL (31-37); MEAN CORPUSCULAR VOLUME 89 fL (79-100); PLATELET COUNT 50 x10^3/uL (140-400); RED BLOOD COUNT 2.74 x10^6/uL (3.50-5.40); RED CELL DISTRIBUTION WIDTH 18.4 % (11.5-14.5); WHITE BLOOD COUNT 3.1 x10^3/uL (4.0-11.0)
[2017-05-17] MEDS: FLU VACC QS2017-18 (36MOS+)/PF 0.5 ML SYRINGE. VAX IM (09:35)
[2017-05-17] MEDS: PNEUMOC CONJ VACC 23-VALENT 0.5 ML VIAL. VAX IM (09:36)
[2017-05-17] MEDS: IV NORMAL SALINE 1000ML BAG 1,000 ML IV (09:46)
[2017-05-21 12:16] LABS: CEA 0.8 ng/mL (0.0-4.7)
== END 2017-05-17 13:54 | disposition home or self-care (01) | DRG 181 ==
LOC: ER 13:54 → ED HOLD 15:51 → 5 SOUTH 18:45
PROC: 30233N1 Transfusion of Nonautologous Red Blood Cells into Peripheral Vein, Percutaneous Approach (ICD-10-PCS; principal; 2017-05-16)
DX: C78.00 Secondary malignant neoplasm of unspecified lung (principal); D75.81 Myelofibrosis; D61.818 Other pancytopenia; I11.0 Hypertensive heart disease with heart failure; I16.1 Hypertensive emergency; I69.351 Hemiplegia and hemiparesis following cerebral infarction affecting right dominant side; N39.0 Urinary tract infection, site not specified; D63.0 Anemia in neoplastic disease; I27.21 Secondary pulmonary arterial hypertension; E03.9 Hypothyroidism, unspecified; E78.00 Pure hypercholesterolemia, unspecified; E78.5 Hyperlipidemia, unspecified; G40.909 Epilepsy, unspecified, not intractable, without status epilepticus; K21.9 Gastro-esophageal reflux disease without esophagitis; Z80.3 Family history of malignant neoplasm of breast; Z85.038 Personal history of other malignant neoplasm of large intestine; Z85.528 Personal history of other malignant neoplasm of kidney; Z90.5 Acquired absence of kidney; Z90.710 Acquired absence of both cervix and uterus; E05.90 Thyrotoxicosis, unspecified without thyrotoxic crisis or storm; Z88.1 Allergy status to other antibiotic agents; Z88.5 Allergy status to narcotic agent; Z88.0 Allergy status to penicillin
CPT/HCPCS: 36415; 70450; 71045; 71250; 80048; 80076; 81001; 82378; 82553; 83735; 83880; 84443; 84484; 85007; 85025; 85027; 86850; 86900; 86901; 86920; 87086; 87186; 90686; 90732; 93005; 96360; 97161-GP; 97165-GO; 99285; 99285-25; J3490; J7030; J8597; P9016

== ENCOUNTER → 2017-06-19 | Outpatient (CLI) | payer MEDICARE | END | disposition home or self-care (01) | LOC: KCIC MAMMO 08:39 | DX: Z12.31 Encounter for screening mammogram for malignant neoplasm of breast (principal) | CPT/HCPCS: 77067 ==

== ENCOUNTER → 2017-07-12 | Outpatient (CLI) | payer MEDICARE ==
[2017-07-12 08:43] LABS: MEAN CORPUSCULAR HGB CONC 34 g/dL (31-37)
[2017-07-12 08:50] LABS: HEMATOCRIT 19.2 % (36.0-47.0); HEMOGLOBIN 6.4 g/dL (12.0-15.5)
[2017-07-12] MEDS: diphenhydrAMINE HCL 25 MG CAPSULE PO (09:08)
[2017-07-12] MEDS: ACETAMINOPHEN 325 MG TABLET. PO (09:09)
[2017-07-12] MEDS: FUROSEMIDE 20 MG/2 ML VIAL. IVP (11:51)
[2017-07-12 11:57] LABS: IMMEDIATE SPIN CROSSMATCH 1 3
== END | disposition home or self-care (01) ==
LOC: OPS 08:09
DX: N18.9 Chronic kidney disease, unspecified (principal); D63.1 Anemia in chronic kidney disease
CPT/HCPCS: 36415; 36430; 85014; 85018; 86850; 86900; 86901; 86920; 96374; P9016; Q0163

== ENCOUNTER → 2017-09-05 | Outpatient (CLI) | payer MEDICARE ==
[2017-09-05 09:01] LABS: HEMATOCRIT 21.9 % (36.0-47.0); HEMOGLOBIN 7.3 g/dL (12.0-15.5); MEAN CORPUSCULAR HGB CONC 33 g/dL (31-37)
[2017-09-05] MEDS: ACETAMINOPHEN 325 MG TABLET. PO (09:19)
[2017-09-05] MEDS: diphenhydrAMINE HCL 25 MG CAPSULE PO (09:19)
[2017-09-05 10:35] LABS: IMMEDIATE SPIN CROSSMATCH 1 2
== END | disposition home or self-care (01) ==
LOC: OPS 08:30
DX: D64.9 Anemia, unspecified (principal); D75.81 Myelofibrosis
CPT/HCPCS: 36415; 36430; 85014; 85018; 86850; 86900; 86901; 86920; P9016; Q0163

== ENCOUNTER 2017-10-03 19:38 | Emergency (ER) | payer MEDICARE ==
[2017-10-03] MEDS ORDERED: LIDOCAINE WITH 8.4% SOD BICARB 3 ML DISP.SYRIN. INJ (20:00)
[2017-10-03] MEDS: HYDROcodone/APAP 10/325 1 TAB TABLET PO (20:00)
== END 2017-10-03 21:45 | disposition home or self-care (01) ==
LOC: ER 19:38
DX: L02.214 Cutaneous abscess of groin (principal); L89.159 Pressure ulcer of sacral region, unspecified stage; E05.90 Thyrotoxicosis, unspecified without thyrotoxic crisis or storm; I10 Essential (primary) hypertension; Z86.73 Personal history of transient ischemic attack (TIA), and cerebral infarction without residual deficits; Z90.710 Acquired absence of both cervix and uterus; Z88.0 Allergy status to penicillin; Z88.1 Allergy status to other antibiotic agents; Z91.041 Radiographic dye allergy status
CPT/HCPCS: 10060; 99284-25

== ENCOUNTER 2017-11-02 21:15 | Inpatient (IN) | payer MEDICARE ==
[~2017-11-02] VITALS: Ht 170.2 cm; Wt 91.2 kg
[~2017-11-02 21:15] MED LIST changes: +CHOL10003 PO; +CHOL200074 PO; +COLC0.6T34 PO; +FERR325T14 PO; +HYDR-971 PO; +LEVO100T PO; +LEVO150T PO; +LEVO150T5 PO; -METF500T4 PO; +METF500T5 PO; +METO-269 PO; +OMEG-129 PO; +QUIN40TA16 PO; +SULF1TAB24 PO; +TEMA15CA PO; +Tylenol PO; -WARF1TAB PO; +WARF1TAB74 PO
--- NOTE | 2017-11-02 21:51 | EKG ---
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
[2017-11-02 21:52] LABS: BASO % 1 % (0-3); EOS % 1 % (0-3); HEMATOCRIT 23.7 % (36.0-47.0); HEMOGLOBIN 7.7 g/dL (12.0-15.5); LYMPH # 1.5 x10^3/uL (1.0-4.8); LYMPH % 28 % (24-48); MEAN CORPUSCULAR HEMOGLOBIN 28 pg (25-35); MEAN CORPUSCULAR HGB CONC 33 g/dL (31-37); MEAN CORPUSCULAR VOLUME 87 fL (79-100); MONO # 0.7 x10^3/uL (0.0-1.1); MONO % 12 % (0-9); NEUT # 3.1 x10^3uL (1.8-7.7); NEUT % 58 % (31-73); PLATELET COUNT 110 x10^3/uL (140-400); RED BLOOD COUNT 2.72 x10^6/uL (3.50-5.40); RED CELL DISTRIBUTION WIDTH 20.6 % (11.5-14.5); WHITE BLOOD COUNT 5.4 x10^3/uL (4.0-11.0)
[2017-11-02 21:53] LABS: BILIRUBIN,URINE SMALL (NEG); CLARITY,URINE CLEAR; COLOR,URINE ORANGE; NITRITE,URINE NEGATIVE (NEG); PH,URINE 5.5; PROTEIN,URINE 100 mg/dL (NEG-TRACE)
[2017-11-02 21:59] LABS: CALCIUM 8.7 mg/dL (8.5-10.1); CREATININE 1.3 mg/dL (0.6-1.0); GFR 40.6; POTASSIUM 4.7 mmol/L (3.5-5.1)
--- NOTE | 2017-11-02 22:03 | RAD ---
AP chest. HISTORY: Dyspnea AP view was taken of the chest. There is a pulmonary nodule in the right lung. CT would be of benefit for better evaluation. There are mild hazy infiltrates or edema less prominent than the study from October 08. Heart is upper normal in size. There is no definite effusion. IMPRESSION: 1. Right lung nodule or mass. 2. Mild improvement in infiltrates or edema compared to the study from October 08. Electronically signed by: Alexandr Rodríguez MD (11/02/2017 9:59 PM) [facility]
[2017-11-02 22:04] LABS: AMORPHOUS SEDIMENT,UR PRESENT /HPF; BACTERIA,URINE FEW /HPF (0-FEW); RBC,URINE 0 /HPF (0-2); SQUAMOUS EPITHELIAL CELL,UR FEW /LPF
[2017-11-02 22:05] LABS: ALBUMIN 2.7 g/dL (3.4-5.0); ALBUMIN/GLOBULIN RATIO 0.6 (1.0-1.7); TOTAL PROTEIN 7.1 g/dL (6.4-8.2)
[2017-11-02 22:26] LABS: % BANDS 13 % (0-9); % LYMPHS 26 % (24-48); % METAS 7 % (0-0); % MONOS 6 % (0-10); % MYELOS 2 % (0-0); % SEGS 46 % (35-66); NUCLEATED RBC 2; PLT ESTIMATE DECREASED (ADEQUATE)
--- NOTE | 2017-11-02 22:27 | PHYS DOC ---
Past Medical History Past Medical History: Cancer, CVA, High Cholesterol, Hypertension, Hyperthyroid Additional Past Medical Histor: RENAL CANCER Past Surgical History: Cancer Surgery, Hysterectomy Additional Past Surgical Histo: RIGHT KIDNEY REMOVED Alcohol Use: None Drug Use: None Adult General Chief Complaint Chief Complaint: SHORTNESS OF BREATH HPI HPI Patient is a 71-year-old female who presents with complaint of cough and shortness of breath that has been present for the last few days. Patient was recently discharged from rehabilitation and has been home and shortness of breath has just been worsening. 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 Patient's daughter indicates the patient has been having some swelling to her legs. Patient reportedly also has fever. Patient has had no vomiting or diarrhea. History is somewhat limited due to history of CVA and difficulty with speech and comprehension. Patient's shortness of breath is worse when supine area Review of Systems Review of Systems Constitutional: Positive fever and chills[] Respiratory: Positive cough and shortness of breath[] Cardiovascular: Complains of chest tightness[] GI: Denies abdominal pain, nausea, vomiting or diarrhea [] Integument: Denies rash or skin lesions [] Neurologic: Denies acute neurological changes[] All other systems were reviewed and found to be within normal limits, except as documented in this note. Current Medications Current Medications Current Medications Medications (Trade) Dose Ordered Sig/Esperanza Start Time Stop Time Status Last Admin Dose Admin Furosemide (Lasix) 40 mg 1X ONCE 11/02/17 22:30 11/02/17 22:31 DC 11/02/17 23:33 40 MG Levofloxacin/ Dextrose 100 ml @ 100 mls/hr 1X ONCE 11/02/17 23:30 11/03/17 00:29 11/02/17 23:33 100 MLS/HR Allergies Allergies Allergies Coded Allergies Type Severity Reaction Last Updated Verified iodine Allergy Severe ANAPHYLAXIS 10/31/17 Yes Penicillins Allergy Intermediate 10/31/17 Yes cephalexin Allergy Intermediate 10/31/17 Yes Physical Exam Physical Exam Constitutional: Well developed, well nourished, no acute distress, non-toxic appearance. [] HENT: Normocephalic, atraumatic, bilateral external ears normal, oropharynx moist, no oral exudates, nose normal. [] Eyes: PERRLA, EOMI, conjunctiva normal, no discharge. [] Neck: Normal range of motion, no tenderness, supple, no stridor. [] Cardiovascular: Mildly tachycardic rate with regular rhythm[] Lungs & Thorax: Slightly labored respirations are noted with fine rhonchi noted in the bilateral lung bases[] Abdomen: Bowel sounds normal, soft, no tenderness. [] Skin: Warm, dry, no erythema, no rash. [] Extremities: There is 1+ pitting edema noted to the lower extremities bilaterally. [] Neurologic: Awake and alert. [] Current Patient Data Vital Signs Vital Signs Date Time Temp Pulse Resp B/P (MAP) Pulse Ox O2 Delivery O2 Flow Rate FiO2 11/02/17 21:59 97 154/67 (96) 90 11/02/17 21:26 100.9 28 Room Air 100.9 Lab Values Laboratory Tests Test 11/02/17 21:40 White Blood Count 5.4 x10^3/uL (4.0-11.0) Red Blood Count 2.72 x10^6/uL (3.50-5.40) L Hemoglobin 7.7 g/dL (12.0-15.5) L Hematocrit 23.7 % (36.0-47.0) L Mean Corpuscular Volume 87 fL (79-100) Mean Corpuscular Hemoglobin 28 pg (25-35) Mean Corpuscular Hemoglobin Concent 33 g/dL (31-37) Red Cell Distribution Width 20.6 % (11.5-14.5) H Platelet Count 110 x10^3/uL (140-400) L Neutrophils (%) (Auto) 58 % (31-73) Lymphocytes (%) (Auto) 28 % (24-48) Monocytes (%) (Auto) 12 % (0-9) H Eosinophils (%) (Auto) 1 % (0-3) Basophils (%) (Auto) 1 % (0-3) Neutrophils # (Auto) 3.1 x10^3uL (1.8-7.7) Lymphocytes # (Auto) 1.5 x10^3/uL (1.0-4.8) Monocytes # (Auto) 0.7 x10^3/uL (0.0-1.1) Eosinophils # (Auto) 0.0 x10^3/uL (0.0-0.7) Basophils # (Auto) 0.0 x10^3/uL (0.0-0.2) Segmented Neutrophils % 46 % (35-66) Band Neutrophils % 13 % (0-9) H Lymphocytes % 26 % (24-48) Monocytes % 6 % (0-10) Metamyelocytes % 7 % (0-0) H Myelocytes % 2 % (0-0) H Nucleated Red Blood Cells 2 Toxic Granulation Slight Platelet Estimate Decreased (ADEQUATE) Polychromasia Slight Poikilocytosis Slight Basophilic Stippling Present Anisocytosis Mod D-Dimer (Indira) 0.91 ug/mlFEU (0.00-0.50) H Urine Collection Type U cath Urine Color [place] Urine Clarity Clear Urine pH 5.5 Urine Specific [place] 1.025 Urine Protein 100 mg/dL (NEG-TRACE) Urine Glucose (UA) Negative mg/dL (NEG) Urine Ketones (Stick) Trace mg/dL (NEG) Urine Blood Negative (NEG) Urine Nitrite Negative (NEG) Urine Bilirubin Small (NEG) Urine Urobilinogen Dipstick 1.0 mg/dL (0.2 mg/dL) Urine Leukocyte Esterase Small (NEG) Urine RBC 0 /HPF (0-2) Urine WBC 5-10 /HPF (0-4) Urine Squamous Epithelial Cells Few /LPF Urine Amorphous Sediment Present /HPF Urine Bacteria Few /HPF (0-FEW) Urine Mucus Slight /LPF Sodium Level 138 mmol/L (136-145) Potassium Level 4.7 mmol/L (3.5-5.1) Chloride Level 106 mmol/L (98-107) Carbon Dioxide Level 29 mmol/L (21-32) Anion Gap 3 (6-14) L Blood Urea Nitrogen 18 mg/dL (7-20) Creatinine 1.3 mg/dL (0.6-1.0) H Estimated GFR (Cockcroft-Gault) 40.6 BUN/Creatinine Ratio 14 (6-20) Glucose Level 140 mg/dL (70-99) H Lactic Acid Level 1.0 mmol/L (0.4-2.0) Calcium Level 8.7 mg/dL (8.5-10.1) Total Bilirubin 1.0 mg/dL (0.2-1.0) Aspartate Amino Transferase (AST) 25 U/L (15-37) Alanine Aminotransferase (ALT) 12 U/L (14-59) L Alkaline Phosphatase 41 U/L (46-116) L Troponin I Quantitative < 0.017 ng/mL (0.000-0.055) DB-Kyg-N-Type Natriuretic Peptide 2519 pg/mL (0-124) H Total Protein 7.1 g/dL (6.4-8.2) Albumin 2.7 g/dL (3.4-5.0) L Albumin/Globulin Ratio 0.6 (1.0-1.7) L Laboratory Tests 11/02/17 21:40 Laboratory Tests 11/02/17 21:40 EKG EKG [] Interpretation Time: EKG demonstrates sinus tachycardia with a rate of 103. Radiology/Procedures Radiology/Procedures [] Impressions: Chest x-ray demonstrates findings of pulmonary edema versus infiltrates Course & Med Decision Making Course & Med Decision Making Pertinent Labs and Imaging studies reviewed. (See chart for details) [] Dragon Disclaimer Dragon Disclaimer This electronic medical record was generated, in whole or in part, using a voice recognition dictation system. Departure Departure Impression: Primary Impression: Pneumonia Additional Impression: CHF (congestive heart failure) Admitting Physician: Jimena Becerril Condition: IMPROVED Referrals: BELKIS HAINES (PCP) Problem Qualifiers Primary Impression: Pneumonia Pneumonia type: due to unspecified organism Laterality: unspecified laterality Lung location: unspecified part of lung Qualified Codes: J18.9 - Pneumonia, unspecified organism Additional Impression: CHF (congestive heart failure) Heart failure type: unspecified Heart failure chronicity: unspecified Qualified Codes: I50.9 - Heart failure, unspecified JANET PENN Jr. DO Nov 02, 2017 22:27
[2017-11-02 22:28] LABS: ANISOCYTOSIS MOD; POIKILOCYTOSIS SLIGHT; POLYCHROMASIA SLIGHT; TOXIC GRANULATION SLIGHT
[2017-11-02] MEDS ORDERED: FUROSEMIDE 40 MG/4 ML VIAL. IVP ONE (22:30)
[2017-11-02] MEDS ORDERED: ONDANSETRON PF 4 MG/2 ML VIAL. IV PRN (23:45)
[2017-11-02] MEDS ORDERED: ACETAMINOPHEN 325 MG TABLET. PO PRN (23:45)
[2017-11-03 03:44] VITALS: BP 160/86
[2017-11-03 05:47] LABS: BASO # 0.1 x10^3/uL (0.0-0.2); BASO % 1 % (0-3); EOS # 0.1 x10^3/uL (0.0-0.7); EOS % 1 % (0-3); HEMATOCRIT 23.8 % (36.0-47.0); HEMOGLOBIN 7.9 g/dL (12.0-15.5); LYMPH # 1.3 x10^3/uL (1.0-4.8); LYMPH % 27 % (24-48); MEAN CORPUSCULAR HEMOGLOBIN 29 pg (25-35); MEAN CORPUSCULAR HGB CONC 33 g/dL (31-37); MEAN CORPUSCULAR VOLUME 87 fL (79-100); MONO # 0.6 x10^3/uL (0.0-1.1); MONO % 12 % (0-9); NEUT # 2.8 x10^3uL (1.8-7.7); NEUT % 59 % (31-73); PLATELET COUNT 99 x10^3/uL (140-400); RED BLOOD COUNT 2.73 x10^6/uL (3.50-5.40); RED CELL DISTRIBUTION WIDTH 21.1 % (11.5-14.5); WHITE BLOOD COUNT 4.8 x10^3/uL (4.0-11.0)
[2017-11-03 06:00] LABS: ALBUMIN 2.8 g/dL (3.4-5.0); ALBUMIN/GLOBULIN RATIO 0.6 (1.0-1.7); CREATININE 1.3 mg/dL (0.6-1.0); GFR 40.6; POTASSIUM 4.3 mmol/L (3.5-5.1); TOTAL BILIRUBIN 1.1 mg/dL (0.2-1.0); TOTAL PROTEIN 7.2 g/dL (6.4-8.2)
[2017-11-03] MEDS ORDERED: IPRATRPIUM/ALBUTEROL 0.5/2.5MG 3 ML NEBU. ONE (06:04)
[2017-11-03] MEDS ORDERED: DANA200C PO (07:01)
[2017-11-03 07:05] VITALS: BP 143/79
[2017-11-03] MEDS ORDERED: IPRATRPIUM/ALBUTEROL 0.5/2.5MG 3 ML NEBU. NEB SCH (08:00)
[2017-11-03] MEDS ORDERED: hydrALAZINE 20 MG/ML VIAL. IVP PRN (10:30)
[2017-11-03] MEDS ORDERED: MORPHINE SULFATE 2 MG/ML VIAL. IV PRN (10:30)
[2017-11-03] MEDS ORDERED: ACETAMINOPHEN 325 MG TABLET. PO PRN (10:30)
[2017-11-03] MEDS ORDERED: DOCUSATE SODIUM 100 MG CAPSULE. PO PRN (10:30)
[2017-11-03] MEDS ORDERED: ONDANSETRON PF 4 MG/2 ML VIAL. IV PRN (10:30)
[2017-11-03] MEDS ORDERED: ALBUTEROL SULFATE 2.5 MG/3 ML NEBU. NEB PRN (10:30)
[2017-11-03] MEDS ORDERED: FUROSEMIDE 40 MG/4 ML VIAL. IVP SCH (11:00)
[2017-11-03 11:01] VITALS: BP 147/75
[2017-11-03] MEDS: IPRATRPIUM/ALBUTEROL 0.5/2.5MG 3 ML NEBU. NEB SCH ×3 (11:57→18:21)
[2017-11-03] MEDS: PANTOPRAZOLE 40 MG TABLET.DR. PO SCH ×2 (12:25→16:16)
[2017-11-03] MEDS: LEVOTHYROXINE 150 MCG TABLET PO SCH (12:25)
[2017-11-03] MEDS: LISINOPRIL 20 MG TABLET PO SCH (12:25)
[2017-11-03] MEDS: traMADol 50 MG TABLET PO PRN (12:25)
[2017-11-03] MEDS: ASPIRIN ENTERIC COATED 81 MG TABLET.DR. PO SCH (12:26)
[2017-11-03] MEDS: FENOFIBRATE,MICRONIZED 134 MG CAPSULE PO SCH (12:26)
[2017-11-03] MEDS: OMEGA-3 FATTY ACIDS/FISH OIL 1,000 MG CAPSULE. PO SCH (12:26)
[2017-11-03] MEDS: METOPROLOL SUCC 24HR ER 50 MG TAB.ER.24H. PO SCH (12:26)
--- NOTE | 2017-11-03 13:59 | PDOC1 ---
History and Physical Date of Admission Date of Admission 11/03/17 Identification/Chief Complaint Chief Complaint cough, sob Source Source: Chart review, Patient History of Present Illness History of Present Illness HPI HPI Patient is a 71-year-old female who presents with complaint of cough and shortness of breath that has been present for the last few days. pt has h/o myelofibrosis, on meds for it. also has remote h/o kidney Ca s/p sx , but said no idea about the lung mass which was shown at least on CT in [place] this year. Pt was dced recently from rehab, started to have cough, some greenish sputum, sob. no home o2, now need NC 3L. no chest pain. Patient has history of CVA in the past with right side mild weakness. Patient' s daughter indicates the patient has been having some swelling to her legs. Patient reportedly also has fever, in ER T >100.. Patient has had no vomiting or diarrhea. History is somewhat limited due to history of CVA and difficulty with speech and comprehension. Past Medical History Cardiovascular: HTN, Hyperlipidemia CENTRAL NERVOUS SYSTEM: CVA Heme/Onc: Anemia NOS, Other Rheumatologic: No pertinent hx Infectious disease: No pertinent hx Renal/: Chronic renal insuff, Renal Ca. Endocrine: Hypothyroidism Past Surgical History Past Surgical History: Cataract Removal, Tonsillectomy, Hysterectomy, Other Family History Family History: Cancer, Hypertension Social History Smoke: No ALCOHOL: none Drugs: None Current Problem List Problem List Problems Medical Problems: (1) CHF (congestive heart failure) Status: Acute (2) Pneumonia Status: Acute Current Medications Current Medications Current Medications Medications (Trade) Dose Ordered Sig/Esperanza Start Time Stop Time Status Last Admin Dose Admin Acetaminophen (Tylenol) 650 mg PRN Q6HRS PRN 11/03/17 10:30 Acetaminophen/ Hydrocodone Bitart (Lortab 5/325) 1 tab PRN Q6HRS PRN 11/03/17 11:15 Albuterol Sulfate (Ventolin Neb Soln) 2.5 mg PRN Q2HR PRN 11/03/17 10:30 Albuterol/ Ipratropium (Duoneb) 3 ml RTQID 11/03/17 12:00 11/03/17 11:57 3 ML Aspirin (Ecotrin) 81 mg DAILY 11/03/17 11:30 11/03/17 12:26 81 MG Docusate Sodium (Colace) 100 mg PRN DAILY PRN 11/03/17 10:30 Fenofibrate (Lofibra) 134 mg DAILY 11/03/17 11:30 11/03/17 12:26 134 MG Fish Oil (Fish Oil) 1,000 mg DAILY 11/03/17 11:30 11/03/17 12:26 1,000 MG Furosemide (Lasix) 20 mg DAILY 11/04/17 09:00 11/04/17 09:00 DC Guaifenesin (Mucinex) 600 mg BID 11/03/17 11:00 11/03/17 12:26 600 MG Hydralazine HCl (Apresoline Inj) 10 mg PRN Q4HRS PRN 11/03/17 10:30 Levofloxacin/ Dextrose 150 ml @ 100 mls/hr Q24H 11/03/17 21:00 Levothyroxine Sodium (Synthroid) 150 mcg DAILY07 11/03/17 11:30 11/03/17 12:25 150 MCG Lisinopril (Prinivil) 40 mg DAILY 11/03/17 11:30 11/03/17 12:25 40 MG Metoprolol Succinate (Toprol Xl) 50 mg DAILY 11/03/17 11:30 11/03/17 12:26 50 MG Morphine Sulfate (Morphine Sulfate) 2 mg PRN Q2HR PRN 11/03/17 10:30 Ondansetron HCl (Zofran) 4 mg PRN Q6HRS PRN 11/03/17 10:30 Pantoprazole Sodium (Protonix) 40 mg BIDAC 11/03/17 11:30 11/03/17 12:25 40 MG Temazepam (Restoril) 15 mg QHS 11/03/17 21:00 Tramadol HCl (Ultram) 50 mg PRN Q6HRS PRN 11/03/17 10:30 11/03/17 12:25 50 MG Allergies Allergies Allergies Coded Allergies Type Severity Reaction Last Updated Verified iodine Allergy Severe ANAPHYLAXIS 10/31/17 Yes Penicillins Allergy Intermediate 10/31/17 Yes cephalexin Allergy Intermediate 10/31/17 Yes ROS Review of System CONSTITUTIONAL: No fever or chills EYES: No recent changes SKIN: No rash or itching CARDIOVASCULAR: No chest pain, syncope, palpitations, or edema RESPIRATORY: No SOB or cough GASTROINTESTINAL: No nausea, vomiting or abdominal pain NEUROLOGICAL: No headaches or weakness ENDOCRINE: No cold or heat intolerance GENITOURINARY: No urgency or frequency of urination MUSCULOSKELETAL: No back pain or joint pain LYMPHATICS: No enlarged lymph nodes PSYCHIATRIC: No anxiety or depression Physical Exam Physical Exam GEN.: No apparent distress. Alert and oriented. mild aphasia HEENT: Head is normocephalic, atraumatic NECK: Supple. LUNGS: bl coarse bs. HEART: RRR, S1, S2 present. Peripheral pulses intact ABDOMEN: Soft, nontender. Positive bowel sounds. EXTREMITIES: Without any cyanosis. 1+ edema legs NEUROLOGIC: Normal speech, normal tone PSYCHIATRIC: Normal affect, normal mood. SKIN: No ulcerations Vitals Vitals Vital Signs Date Time Temp Pulse Resp B/P (MAP) Pulse Ox O2 Delivery O2 Flow Rate FiO2 11/03/17 13:30 20 Nasal Cannula 2.0 11/03/17 12:26 100 147/75 11/03/17 11:01 97.5 96 97.5 Labs Labs Laboratory Tests Test 11/02/17 21:40 11/03/17 05:00 White Blood Count 5.4 x10^3/uL (4.0-11.0) 4.8 x10^3/uL (4.0-11.0) Red Blood Count 2.72 x10^6/uL (3.50-5.40) 2.73 x10^6/uL (3.50-5.40) Hemoglobin 7.7 g/dL (12.0-15.5) 7.9 g/dL (12.0-15.5) Hematocrit 23.7 % (36.0-47.0) 23.8 % (36.0-47.0) Mean Corpuscular Volume 87 fL (79-100) 87 fL (79-100) Mean Corpuscular Hemoglobin 28 pg (25-35) 29 pg (25-35) Mean Corpuscular Hemoglobin Concent 33 g/dL (31-37) 33 g/dL (31-37) Red Cell Distribution Width 20.6 % (11.5-14.5) 21.1 % (11.5-14.5) Platelet Count 110 x10^3/uL (140-400) 99 x10^3/uL (140-400) Neutrophils (%) (Auto) 58 % (31-73) 59 % (31-73) Lymphocytes (%) (Auto) 28 % (24-48) 27 % (24-48) Monocytes (%) (Auto) 12 % (0-9) 12 % (0-9) Eosinophils (%) (Auto) 1 % (0-3) 1 % (0-3) Basophils (%) (Auto) 1 % (0-3) 1 % (0-3) Neutrophils # (Auto) 3.1 x10^3uL (1.8-7.7) 2.8 x10^3uL (1.8-7.7) Lymphocytes # (Auto) 1.5 x10^3/uL (1.0-4.8) 1.3 x10^3/uL (1.0-4.8) Monocytes # (Auto) 0.7 x10^3/uL (0.0-1.1) 0.6 x10^3/uL (0.0-1.1) Eosinophils # (Auto) 0.0 x10^3/uL (0.0-0.7) 0.1 x10^3/uL (0.0-0.7) Basophils # (Auto) 0.0 x10^3/uL (0.0-0.2) 0.1 x10^3/uL (0.0-0.2) Segmented Neutrophils % 46 % (35-66) Band Neutrophils % 13 % (0-9) Lymphocytes % 26 % (24-48) Monocytes % 6 % (0-10) Metamyelocytes % 7 % (0-0) Myelocytes % 2 % (0-0) Nucleated Red Blood Cells 2 Toxic Granulation Slight Platelet Estimate Decreased (ADEQUATE) Polychromasia Slight Poikilocytosis Slight Basophilic Stippling Present Anisocytosis Mod D-Dimer (Indira) 0.91 ug/mlFEU (0.00-0.50) Urine Collection Type U cath Urine Color [place] Urine Clarity Clear Urine pH 5.5 Urine Specific [place] 1.025 Urine Protein 100 mg/dL (NEG-TRACE) Urine Glucose (UA) Negative mg/dL (NEG) Urine Ketones (Stick) Trace mg/dL (NEG) Urine Blood Negative (NEG) Urine Nitrite Negative (NEG) Urine Bilirubin Small (NEG) Urine Urobilinogen Dipstick 1.0 mg/dL (0.2 mg/dL) Urine Leukocyte Esterase Small (NEG) Urine RBC 0 /HPF (0-2) Urine WBC 5-10 /HPF (0-4) Urine Squamous Epithelial Cells Few /LPF Urine Amorphous Sediment Present /HPF Urine Bacteria Few /HPF (0-FEW) Urine Mucus Slight /LPF Sodium Level 138 mmol/L (136-145) 139 mmol/L (136-145) Potassium Level 4.7 mmol/L (3.5-5.1) 4.3 mmol/L (3.5-5.1) Chloride Level 106 mmol/L (98-107) 105 mmol/L (98-107) Carbon Dioxide Level 29 mmol/L (21-32) 29 mmol/L (21-32) Anion Gap 3 (6-14) 5 (6-14) Blood Urea Nitrogen 18 mg/dL (7-20) 18 mg/dL (7-20) Creatinine 1.3 mg/dL (0.6-1.0) 1.3 mg/dL (0.6-1.0) Estimated GFR (Cockcroft-Gault) 40.6 40.6 BUN/Creatinine Ratio 14 (6-20) 14 (6-20) Glucose Level 140 mg/dL (70-99) 128 mg/dL (70-99) Lactic Acid Level 1.0 mmol/L (0.4-2.0) Calcium Level 8.7 mg/dL (8.5-10.1) 9.0 mg/dL (8.5-10.1) Total Bilirubin 1.0 mg/dL (0.2-1.0) 1.1 mg/dL (0.2-1.0) Aspartate Amino Transf (AST/SGOT) 25 U/L (15-37) 19 U/L (15-37) Alanine Aminotransferase (ALT/SGPT) 12 U/L (14-59) 10 U/L (14-59) Alkaline Phosphatase 41 U/L (46-116) 42 U/L (46-116) Troponin I Quantitative < 0.017 ng/mL (0.000-0.055) BL-Ubg-F-Type Natriuretic Peptide 2519 pg/mL (0-124) Total Protein 7.1 g/dL (6.4-8.2) 7.2 g/dL (6.4-8.2) Albumin 2.7 g/dL (3.4-5.0) 2.8 g/dL (3.4-5.0) Albumin/Globulin Ratio 0.6 (1.0-1.7) 0.6 (1.0-1.7) Laboratory Tests Test 11/02/17 21:40 11/03/17 05:00 White Blood Count 5.4 x10^3/uL (4.0-11.0) 4.8 x10^3/uL (4.0-11.0) Red Blood Count 2.72 x10^6/uL (3.50-5.40) 2.73 x10^6/uL (3.50-5.40) Hemoglobin 7.7 g/dL (12.0-15.5) 7.9 g/dL (12.0-15.5) Hematocrit 23.7 % (36.0-47.0) 23.8 % (36.0-47.0) Mean Corpuscular Volume 87 fL (79-100) 87 fL (79-100) Mean Corpuscular Hemoglobin 28 pg (25-35) 29 pg (25-35) Mean Corpuscular Hemoglobin Concent 33 g/dL (31-37) 33 g/dL (31-37) Red Cell Distribution Width 20.6 % (11.5-14.5) 21.1 % (11.5-14.5) Platelet Count 110 x10^3/uL (140-400) 99 x10^3/uL (140-400) Neutrophils (%) (Auto) 58 % (31-73) 59 % (31-73) Lymphocytes (%) (Auto) 28 % (24-48) 27 % (24-48) Monocytes (%) (Auto) 12 % (0-9) 12 % (0-9) Eosinophils (%) (Auto) 1 % (0-3) 1 % (0-3) Basophils (%) (Auto) 1 % (0-3) 1 % (0-3) Neutrophils # (Auto) 3.1 x10^3uL (1.8-7.7) 2.8 x10^3uL (1.8-7.7) Lymphocytes # (Auto) 1.5 x10^3/uL (1.0-4.8) 1.3 x10^3/uL (1.0-4.8) Monocytes # (Auto) 0.7 x10^3/uL (0.0-1.1) 0.6 x10^3/uL (0.0-1.1) Eosinophils # (Auto) 0.0 x10^3/uL (0.0-0.7) 0.1 x10^3/uL (0.0-0.7) Basophils # (Auto) 0.0 x10^3/uL (0.0-0.2) 0.1 x10^3/uL (0.0-0.2) Segmented Neutrophils % 46 % (35-66) Band Neutrophils % 13 % (0-9) Lymphocytes % 26 % (24-48) Monocytes % 6 % (0-10) Metamyelocytes % 7 % (0-0) Myelocytes % 2 % (0-0) Nucleated Red Blood Cells 2 Toxic Granulation Slight Platelet Estimate Decreased (ADEQUATE) Polychromasia Slight Poikilocytosis Slight Basophilic Stippling Present Anisocytosis Mod D-Dimer (Indira) 0.91 ug/mlFEU (0.00-0.50) Urine Collection Type U cath Urine Color [place] Urine Clarity Clear Urine pH 5.5 Urine Specific [place] 1.025 Urine Protein 100 mg/dL (NEG-TRACE) Urine Glucose (UA) Negative mg/dL (NEG) Urine Ketones (Stick) Trace mg/dL (NEG) Urine Blood Negative (NEG) Urine Nitrite Negative (NEG) Urine Bilirubin Small (NEG) Urine Urobilinogen Dipstick 1.0 mg/dL (0.2 mg/dL) Urine Leukocyte Esterase Small (NEG) Urine RBC 0 /HPF (0-2) Urine WBC 5-10 /HPF (0-4) Urine Squamous Epithelial Cells Few /LPF Urine Amorphous Sediment Present /HPF Urine Bacteria Few /HPF (0-FEW) Urine Mucus Slight /LPF Sodium Level 138 mmol/L (136-145) 139 mmol/L (136-145) Potassium Level 4.7 mmol/L (3.5-5.1) 4.3 mmol/L (3.5-5.1) Chloride Level 106 mmol/L (98-107) 105 mmol/L (98-107) Carbon Dioxide Level 29 mmol/L (21-32) 29 mmol/L (21-32) Anion Gap 3 (6-14) 5 (6-14) Blood Urea Nitrogen 18 mg/dL (7-20) 18 mg/dL (7-20) Creatinine 1.3 mg/dL (0.6-1.0) 1.3 mg/dL (0.6-1.0) Estimated GFR (Cockcroft-Gault) 40.6 40.6 BUN/Creatinine Ratio 14 (6-20) 14 (6-20) Glucose Level 140 mg/dL (70-99) 128 mg/dL (70-99) Lactic Acid Level 1.0 mmol/L (0.4-2.0) Calcium Level 8.7 mg/dL (8.5-10.1) 9.0 mg/dL (8.5-10.1) Total Bilirubin 1.0 mg/dL (0.2-1.0) 1.1 mg/dL (0.2-1.0) Aspartate Amino Transf (AST/SGOT) 25 U/L (15-37) 19 U/L (15-37) Alanine Aminotransferase (ALT/SGPT) 12 U/L (14-59) 10 U/L (14-59) Alkaline Phosphatase 41 U/L (46-116) 42 U/L (46-116) Troponin I Quantitative < 0.017 ng/mL (0.000-0.055) KT-Jpk-I-Type Natriuretic Peptide 2519 pg/mL (0-124) Total Protein 7.1 g/dL (6.4-8.2) 7.2 g/dL (6.4-8.2) Albumin 2.7 g/dL (3.4-5.0) 2.8 g/dL (3.4-5.0) Albumin/Globulin Ratio 0.6 (1.0-1.7) 0.6 (1.0-1.7) VTE Prophylaxis Ordered VTE Prophylaxis Devices: Yes VTE Pharmacological Prophylaxi: Yes Assessment/Plan Assessment/Plan acute resp failure possible HAP Diastolic CHF exacerbation h/o CVA with mild rt weakness and aphasia rt lower lung MASS could be malignancy chronic anemia with myelofibrosis h/o Renal Ca post sx HTN hld hypothyroidism ckd3 mild malnutrition plan; onco, pulm, card consult cont home meds lasix 40mg po daily , iv today add vanco, cont levaquin PTOT dvt ppx SEEMS pt has h/o lung nodules from computer records, but pt said she didnot know DESIRAE TAYLOR MD Nov 03, 2017 13:59
[2017-11-03 14:13] VITALS: BP 144/72
--- NOTE | 2017-11-03 14:22 | PDOC ---
Provider Note Provider Note [id number] acute resp fail abnl ct of chest pneumonia acute diastolic chf see orders MARTELL ROMERO MD Nov 03, 2017 14:22
[2017-11-03] MEDS ORDERED: VANCOMYCIN 1.75 GM in IV NORMAL SALINE 500ML BAG 500 ML IV ONE (14:30)
--- NOTE | 2017-11-03 14:49 | CONS ---
DATE OF CONSULTATION: 11/03/2017 I was asked to see this 71-year-old lady for shortness of breath, pneumonia, acute respiratory failure. HISTORY OF PRESENT ILLNESS: She is a lifelong nonsmoker. She has had increased shortness of breath and cough with sputum production for the past few days. She has had lower extremity edema. She denies fever or chills or nasal congestion. She has history of myelofibrosis. She has history of kidney cancer, status post nephrectomy in 1997. She denies knowing about a lung mass, which was shown in April of this year, although the patient was seen by Dr. Steel and recommended PET scan, which she declined. She denies chest pain. PAST MEDICAL HISTORY: Myelofibrosis, history of CVA, history of right nephrectomy for kidney cancer, history of CHF. ALLERGIES: PENICILLIN, CEPHALEXIN, IODINE. MEDICATIONS: Currently, she is on Levaquin, Lovenox, DuoNeb, vancomycin, lisinopril, fish oil, metoprolol, Synthroid, Protonix, aspirin. SOCIAL HISTORY: She is a lifelong nonsmoker. FAMILY HISTORY: History of hypertension. REVIEW OF SYSTEMS: As mentioned above, other systems otherwise negative. PHYSICAL EXAMINATION: GENERAL: This is an overweight lady. VITAL SIGNS: Her O2 saturation on 3 liters of oxygen is 97%, heart rate 89, blood pressure 144/72, temperature 97.9. HEENT: Normocephalic, atraumatic. Pupils equal, round, reactive to light. There is shallow oropharynx. Nose is clear. NECK: There is no JVD, lymphadenopathy or thyromegaly. CARDIOVASCULAR: Regular rate and rhythm. PMI is nondisplaced. CHEST: Inspection is normal. LUNGS: There are bibasilar crackles, dullness at the bases. ABDOMEN: Soft. Bowel sounds are good. There is no mass. EXTREMITIES: There is edema. LYMPHATICS: There is no lymphadenopathy. SKIN: Warm. LABORATORY DATA: Reviewed the following lab data: Chest x-ray shows right lung nodule/mass, infiltrate. CT of the chest done in 04/2017 did show lobulated right perihilar lower lobe mass invades the fissure extending to the right middle lobe, additional tiny pulmonary nodules and extensive mixed lytic and sclerotic osseous disease with probable slight progression of the lytic component. WBC 4.8, hemoglobin 7.9, platelets 99. Sodium 139, potassium 4.3, chloride 105, CO2 29, glucose 128, BUN 18, creatinine 1.3. Troponin less than 0.17, BNP 2519. Lactic acid 1. IMPRESSION: 1. Acute respiratory failure secondary to pneumonia, acute diastolic congestive heart failure versus others. 2. Abnormal chest x-ray and CT of the chest. 3. Pneumonia. 4. Acute diastolic congestive heart failure. 5. Lower extremity edema. 6. Myelofibrosis. 7. Pancytopenia. 8. History of renal cancer with right nephrectomy. 9. History of cerebrovascular accident. PLAN AND RECOMMENDATIONS: 1. Titrate FiO2 to keep O2 saturation 92%. 2. Bronchodilator. 3. Lovenox for DVT prophylaxis. 4. Agree with antibiotics. 5. Lower extremity venous Doppler. 6. I do recommend repeat CT of the chest to evaluate lung mass. 7. Protonix for stress ulcer prophylaxis. 8. Agree with Lasix. Monitor potassium and creatinine. 9. The findings and recommendations were discussed with the patient. She understood and agreed to proceed with the plan. I have answered all of her questions. Thank you very much for allowing me to participate in care of this very nice lady. MARTELL ROMERO M.D. : ROSAURA/micky JOB#: [id number] / [id number]
--- NOTE | 2017-11-03 15:03 | RAD ---
Bilateral lower extremity venous ultrasound, 11/03/2017: HISTORY: Lower extremity edema: Duplex evaluation of the deep veins in the lower extremities was performed including grayscale, color-flow and spectral Doppler analysis. The femoral and popliteal veins demonstrate normal compressibility and normal responses to distal augmentation maneuvers. Color imaging of those vessels shows no evidence of intraluminal clot. The visualized deep veins in both calves are patent. IMPRESSION: There is no sonographic evidence of deep vein thrombosis in either lower extremity. Electronically signed by: Mack Burroughs MD (11/03/2017 2:59 PM) [facility]
[2017-11-03] MEDS: VANCOMYCIN PER PHARMACY MC PRN (15:31)
--- NOTE | 2017-11-03 15:48 | PDOC2 ---
CONSULT Date of Consult Date of Consult DATE: 11/03/17 TIME: 15:41 Reason for Consult Reason for Consult: Heart failure Referring Physician Referring Physician: Dr. Alexis Identification/Chief Complaint Chief Complaint Shortness of breath Source Source: Chart review, Patient History of Present Illness Reason for Visit: The patient is a 71-year-old female who was admitted through the emergency room of this for several days of increasing shortness of breath. Patient has a history of hypertension, hyperlipidemia, previous CVA and a history of a right nephrectomy secondary to renal carcinoma. The patient's chest x-ray showed a right sided nodule mass. Lower extremity ultrasound showed no DVT. Patient troponin was normal at less than 0.017 but BNP was elevated to 2519. EKG showed a sinus rhythm with nonspecific ST-T wave changes and a small septal Q waves. Patient been treated overnight with diuresis and pulmonary medications. She reports feeling better today. She denies any chest pain. Past Medical History Cardiovascular: HTN, Hyperlipidemia CENTRAL NERVOUS SYSTEM: CVA Heme/Onc: Anemia NOS, Other (renal cancer) Musculoskeletal: Other Rheumatologic: No pertinent hx Infectious disease: No pertinent hx Renal/: Chronic renal insuff, Renal Ca. Endocrine: Hypothyroidism Past Surgical History Past Surgical History: Cataract Removal, Tonsillectomy, Hysterectomy, Other ( right nephrectomy) Family History Family History: Cancer, Hypertension Social History 1 pack per day ALCOHOL: none Drugs: None Current Problem List Problem List Problems Medical Problems: (1) CHF (congestive heart failure) Status: Acute (2) Pneumonia Status: Acute Current Medications Current Medications Current Medications Furosemide (Lasix) 40 mg 1X ONCE IVP Last administered on 11/02/17at 23:33; Start 11/02/17 at 22:30; Stop 11/02/17 at 22:31; Status DC Levofloxacin/ Dextrose 100 ml @ 100 mls/hr 1X ONCE IV Last administered on 02/09at 23:33; Start 11/02/17 at 23:30; Stop 11/03/17 at 00:29; Status DC Ondansetron HCl (Zofran) 4 mg PRN Q8HRS PRN IV NAUSEA/VOMITING; Start 11/02/17 at 23:45; Stop 11/03/17 at 10:25; Status DC Acetaminophen (Tylenol) 650 mg PRN Q4HRS PRN PO FEVER; Start 11/02/17 at 23:45 ; Stop 11/03/17 at 10:25; Status DC Albuterol/ Ipratropium (Duoneb) 3 ml RTQID NEB Last administered on 11/03/17at 06:12; Start 11/03/17 at 08:00; Stop 11/03/17 at 10:26; Status DC Albuterol/ Ipratropium (Duoneb) 3 ml STK-MED ONCE .ROUTE ; Start 11/03/17 at 06: 04; Stop 11/03/17 at 06:06; Status DC Acetaminophen (Tylenol) 650 mg PRN Q6HRS PRN PO FEVER; Start 11/03/17 at 10:30 Ondansetron HCl (Zofran) 4 mg PRN Q6HRS PRN IV NAUSEA/VOMITING; Start 11/03/17 at 10:30 Morphine Sulfate (Morphine Sulfate) 2 mg PRN Q2HR PRN IV MODERATE TO SEVERE PAIN; Start 11/03/17 at 10:30 Tramadol HCl (Ultram) 50 mg PRN Q6HRS PRN PO MILD TO MODERATE PAIN Last administered on 11/03/17at 12:25; Start 11/03/17 at 10:30 Hydralazine HCl (Apresoline Inj) 10 mg PRN Q4HRS PRN IVP ELEVATED BP, SEE COMMENTS; Start 11/03/17 at 10:30 Docusate Sodium (Colace) 100 mg PRN DAILY PRN PO CONSTIPATION; Start 11/03/17 at 10:30 Levofloxacin/ Dextrose 150 ml @ 100 mls/hr Q24H IV ; Start 11/03/17 at 21:00; Stop 11/03/17 at 21:00; Status DC Albuterol/ Ipratropium (Duoneb) 3 ml RTQID NEB Last administered on 11/03/17at 15:27; Start 11/03/17 at 12:00 Albuterol Sulfate (Ventolin Neb Soln) 2.5 mg PRN Q2HR PRN NEB SHORTNESS OF BREATH; Start 11/03/17 at 10:30 Guaifenesin (Mucinex) 600 mg BID PO Last administered on 11/03/17at 12:26; Start 11/03/17 at 11:00 Furosemide (Lasix) 40 mg DAILY IVP Last administered on 11/03/17at 12:25; Start 11/03/17 at 11:00; Stop 11/03/17 at 13:55; Status DC Aspirin (Ecotrin) 81 mg DAILY PO Last administered on 11/03/17at 12:26; Start at 11:30 Furosemide (Lasix) 20 mg DAILY PO ; Start 11/04/17 at 09:00; Stop 11/04/17 at 09 :00; Status DC Acetaminophen/ Hydrocodone Bitart (Lortab 5/325) 1 tab PRN Q6HRS PRN PO SEVERE PAIN; Start 11/03/17 at 11:15 Pantoprazole Sodium (Protonix) 40 mg BIDAC PO Last administered on 11/03/17 12 :25; Start 11/03/17 at 11:30 Temazepam (Restoril) 15 mg QHS PO ; Start 11/03/17 at 21:00 Fenofibrate (Lofibra) 134 mg DAILY PO Last administered on 11/03/17at 12:26; Start 11/03/17 at 11:30 Levothyroxine Sodium (Synthroid) 150 mcg DAILY07 PO Last administered on 12:25; Start 11/03/17 at 11:30 Metoprolol Succinate (Toprol Xl) 50 mg DAILY PO Last administered on 11/03/17 12:26; Start 11/03/17 at 11:30 Fish Oil (Fish Oil) 1,000 mg DAILY PO Last administered on 11/03/17at 12:26; Start 11/03/17 at 11:30 Lisinopril (Prinivil) 40 mg DAILY PO Last administered on 11/03/17at 12:25; Start 11/03/17 at 11:30 Enoxaparin Sodium (Lovenox 40mg Syringe) 40 mg Q24H SQ ; Start 11/03/17 at 14:00 Furosemide (Lasix) 40 mg DAILY PO ; Start 11/04/17 at 09:00 Vancomycin HCl (Vanco Per Pharmacy) 1 each PRN DAILY PRN MC SEE COMMENTS Last administered on 11/03/17at 15:31; Start 11/03/17 at 14:00 Vancomycin HCl 1.75 gm/Sodium Chloride 500 ml @ 250 mls/hr 1X ONCE IV ; Start 11/03/17 at 14:30; Stop 8/12/18 at 16:29 Levofloxacin/ Dextrose 150 ml @ 100 mls/hr QHS IV ; Start 11/03/17 at 21:00 Vancomycin HCl 1.25 gm/Sodium Chloride 250 ml @ 167 mls/hr Q24H IV ; Start at 16:00 Vancomycin HCl (Vancomycin Trough Level) 1 each 1X ONCE MC ; Start 11/05/17 at 15:30; Stop 11/05/17 at 15:31 Active Scripts Active [place] 5-325 Tablet (Acetaminophen/Hydrocodone Bitart) 1 Each Tablet 1 Tab PO PRN Q6HRS PRN Bactrim Ds Tablet (Sulfamethoxazole/Trimethoprim) 1 Each Tablet 1 Tab PO BID Reported Danazol 200 Mg Capsule 200 Mg PO Synthroid (Levothyroxine Sodium) 150 Mcg Tablet 1 Tab PO DAILY [Tylenol] 1,000 Mg PO Q6HRS PRN Vitamin D-3 (Cholecalciferol (Vitamin D3)) 2,000 Unit Capsule 1,000 Unit PO DAILY Temazepam 15 Mg Capsule 1 Cap PO QHS Toprol Xl (Metoprolol Succinate) 50 Mg Tab.er.24h 1 Tab PO DAILY Quinapril Hcl 40 Mg Tablet 1 Tab PO DAILY [place]-3 Fish Oil 1,000 mg Sfgl ([place]-3 Fatty Acids/Fish Oil) 1 Each Capsule 1 Each PO DAILY Pantoprazole Sodium 40 Mg Tablet.dr 1 Tab PO BID Furosemide 20 Mg Tablet 1 Tab PO DAILY Tricor (Fenofibrate Nanocrystallized) 145 Mg Tablet 1 Tab PO DAILY Aspir 81 (Aspirin) 81 Mg Tablet.dr 1 Tab PO DAILY Allergies Allergies: Coded Allergies: iodine (Verified Allergy, Severe, ANAPHYLAXIS, 10/31/17) Penicillins (Verified Allergy, Intermediate, 10/31/17) cephalexin (Verified Allergy, Intermediate, 10/31/17) ROS General: YES: Fatigue Respiratory: YES: Shortness of breath, SOB with excertion Physical Exam General: mild distress HEENT: Atraumatic Lungs: Other (mildly decreased breath sounds) Heart: Regular rate Abdomen: Normal bowel sounds Vitals VITALS Vital Signs Date Time Temp Pulse Resp B/P (MAP) Pulse Ox O2 Delivery O2 Flow Rate FiO2 11/03/17 15:29 Nasal Cannula 2.0 11/03/17 14:13 97.9 89 18 144/72 (96) 97 97.9 Labs Labs Laboratory Tests Test 11/02/17 21:40 11/03/17 05:00 White Blood Count 5.4 x10^3/uL (4.0-11.0) 4.8 x10^3/uL (4.0-11.0) Red Blood Count 2.72 x10^6/uL (3.50-5.40) 2.73 x10^6/uL (3.50-5.40) Hemoglobin 7.7 g/dL (12.0-15.5) 7.9 g/dL (12.0-15.5) Hematocrit 23.7 % (36.0-47.0) 23.8 % (36.0-47.0) Mean Corpuscular Volume 87 fL (79-100) 87 fL (79-100) Mean Corpuscular Hemoglobin 28 pg (25-35) 29 pg (25-35) Mean Corpuscular Hemoglobin Concent 33 g/dL (31-37) 33 g/dL (31-37) Red Cell Distribution Width 20.6 % (11.5-14.5) 21.1 % (11.5-14.5) Platelet Count 110 x10^3/uL (140-400) 99 x10^3/uL (140-400) Neutrophils (%) (Auto) 58 % (31-73) 59 % (31-73) Lymphocytes (%) (Auto) 28 % (24-48) 27 % (24-48) Monocytes (%) (Auto) 12 % (0-9) 12 % (0-9) Eosinophils (%) (Auto) 1 % (0-3) 1 % (0-3) Basophils (%) (Auto) 1 % (0-3) 1 % (0-3) Neutrophils # (Auto) 3.1 x10^3uL (1.8-7.7) 2.8 x10^3uL (1.8-7.7) Lymphocytes # (Auto) 1.5 x10^3/uL (1.0-4.8) 1.3 x10^3/uL (1.0-4.8) Monocytes # (Auto) 0.7 x10^3/uL (0.0-1.1) 0.6 x10^3/uL (0.0-1.1) Eosinophils # (Auto) 0.0 x10^3/uL (0.0-0.7) 0.1 x10^3/uL (0.0-0.7) Basophils # (Auto) 0.0 x10^3/uL (0.0-0.2) 0.1 x10^3/uL (0.0-0.2) Segmented Neutrophils % 46 % (35-66) Band Neutrophils % 13 % (0-9) Lymphocytes % 26 % (24-48) Monocytes % 6 % (0-10) Metamyelocytes % 7 % (0-0) Myelocytes % 2 % (0-0) Nucleated Red Blood Cells 2 Toxic Granulation Slight Platelet Estimate Decreased (ADEQUATE) Polychromasia Slight Poikilocytosis Slight Basophilic Stippling Present Anisocytosis Mod D-Dimer (Indira) 0.91 ug/mlFEU (0.00-0.50) Urine Collection Type U cath Urine Color [place] Urine Clarity Clear Urine pH 5.5 Urine Specific [place] 1.025 Urine Protein 100 mg/dL (NEG-TRACE) Urine Glucose (UA) Negative mg/dL (NEG) Urine Ketones (Stick) Trace mg/dL (NEG) Urine Blood Negative (NEG) Urine Nitrite Negative (NEG) Urine Bilirubin Small (NEG) Urine Urobilinogen Dipstick 1.0 mg/dL (0.2 mg/dL) Urine Leukocyte Esterase Small (NEG) Urine RBC 0 /HPF (0-2) Urine WBC 5-10 /HPF (0-4) Urine Squamous Epithelial Cells Few /LPF Urine Amorphous Sediment Present /HPF Urine Bacteria Few /HPF (0-FEW) Urine Mucus Slight /LPF Sodium Level 138 mmol/L (136-145) 139 mmol/L (136-145) Potassium Level 4.7 mmol/L (3.5-5.1) 4.3 mmol/L (3.5-5.1) Chloride Level 106 mmol/L (98-107) 105 mmol/L (98-107) Carbon Dioxide Level 29 mmol/L (21-32) 29 mmol/L (21-32) Anion Gap 3 (6-14) 5 (6-14) Blood Urea Nitrogen 18 mg/dL (7-20) 18 mg/dL (7-20) Creatinine 1.3 mg/dL (0.6-1.0) 1.3 mg/dL (0.6-1.0) Estimated GFR (Cockcroft-Gault) 40.6 40.6 BUN/Creatinine Ratio 14 (6-20) 14 (6-20) Glucose Level 140 mg/dL (70-99) 128 mg/dL (70-99) Lactic Acid Level 1.0 mmol/L (0.4-2.0) Calcium Level 8.7 mg/dL (8.5-10.1) 9.0 mg/dL (8.5-10.1) Total Bilirubin 1.0 mg/dL (0.2-1.0) 1.1 mg/dL (0.2-1.0) Aspartate Amino Transf (AST/SGOT) 25 U/L (15-37) 19 U/L (15-37) Alanine Aminotransferase (ALT/SGPT) 12 U/L (14-59) 10 U/L (14-59) Alkaline Phosphatase 41 U/L (46-116) 42 U/L (46-116) Troponin I Quantitative < 0.017 ng/mL (0.000-0.055) KQ-Sgy-F-Type Natriuretic Peptide 2519 pg/mL (0-124) Total Protein 7.1 g/dL (6.4-8.2) 7.2 g/dL (6.4-8.2) Albumin 2.7 g/dL (3.4-5.0) 2.8 g/dL (3.4-5.0) Albumin/Globulin Ratio 0.6 (1.0-1.7) 0.6 (1.0-1.7) Laboratory Tests Test 11/02/17 21:40 11/03/17 05:00 White Blood Count 5.4 x10^3/uL (4.0-11.0) 4.8 x10^3/uL (4.0-11.0) Red Blood Count 2.72 x10^6/uL (3.50-5.40) 2.73 x10^6/uL (3.50-5.40) Hemoglobin 7.7 g/dL (12.0-15.5) 7.9 g/dL (12.0-15.5) Hematocrit 23.7 % (36.0-47.0) 23.8 % (36.0-47.0) Mean Corpuscular Volume 87 fL (79-100) 87 fL (79-100) Mean Corpuscular Hemoglobin 28 pg (25-35) 29 pg (25-35) Mean Corpuscular Hemoglobin Concent 33 g/dL (31-37) 33 g/dL (31-37) Red Cell Distribution Width 20.6 % (11.5-14.5) 21.1 % (11.5-14.5) Platelet Count 110 x10^3/uL (140-400) 99 x10^3/uL (140-400) Neutrophils (%) (Auto) 58 % (31-73) 59 % (31-73) Lymphocytes (%) (Auto) 28 % (24-48) 27 % (24-48) Monocytes (%) (Auto) 12 % (0-9) 12 % (0-9) Eosinophils (%) (Auto) 1 % (0-3) 1 % (0-3) Basophils (%) (Auto) 1 % (0-3) 1 % (0-3) Neutrophils # (Auto) 3.1 x10^3uL (1.8-7.7) 2.8 x10^3uL (1.8-7.7) Lymphocytes # (Auto) 1.5 x10^3/uL (1.0-4.8) 1.3 x10^3/uL (1.0-4.8) Monocytes # (Auto) 0.7 x10^3/uL (0.0-1.1) 0.6 x10^3/uL (0.0-1.1) Eosinophils # (Auto) 0.0 x10^3/uL (0.0-0.7) 0.1 x10^3/uL (0.0-0.7) Basophils # (Auto) 0.0 x10^3/uL (0.0-0.2) 0.1 x10^3/uL (0.0-0.2) Segmented Neutrophils % 46 % (35-66) Band Neutrophils % 13 % (0-9) Lymphocytes % 26 % (24-48) Monocytes % 6 % (0-10) Metamyelocytes % 7 % (0-0) Myelocytes % 2 % (0-0) Nucleated Red Blood Cells 2 Toxic Granulation Slight Platelet Estimate Decreased (ADEQUATE) Polychromasia Slight Poikilocytosis Slight Basophilic Stippling Present Anisocytosis Mod D-Dimer (Indira) 0.91 ug/mlFEU (0.00-0.50) Urine Collection Type U cath Urine Color [place] Urine Clarity Clear Urine pH 5.5 Urine Specific [place] 1.025 Urine Protein 100 mg/dL (NEG-TRACE) Urine Glucose (UA) Negative mg/dL (NEG) Urine Ketones (Stick) Trace mg/dL (NEG) Urine Blood Negative (NEG) Urine Nitrite Negative (NEG) Urine Bilirubin Small (NEG) Urine Urobilinogen Dipstick 1.0 mg/dL (0.2 mg/dL) Urine Leukocyte Esterase Small (NEG) Urine RBC 0 /HPF (0-2) Urine WBC 5-10 /HPF (0-4) Urine Squamous Epithelial Cells Few /LPF Urine Amorphous Sediment Present /HPF Urine Bacteria Few /HPF (0-FEW) Urine Mucus Slight /LPF Sodium Level 138 mmol/L (136-145) 139 mmol/L (136-145) Potassium Level 4.7 mmol/L (3.5-5.1) 4.3 mmol/L (3.5-5.1) Chloride Level 106 mmol/L (98-107) 105 mmol/L (98-107) Carbon Dioxide Level 29 mmol/L (21-32) 29 mmol/L (21-32) Anion Gap 3 (6-14) 5 (6-14) Blood Urea Nitrogen 18 mg/dL (7-20) 18 mg/dL (7-20) Creatinine 1.3 mg/dL (0.6-1.0) 1.3 mg/dL (0.6-1.0) Estimated GFR (Cockcroft-Gault) 40.6 40.6 BUN/Creatinine Ratio 14 (6-20) 14 (6-20) Glucose Level 140 mg/dL (70-99) 128 mg/dL (70-99) Lactic Acid Level 1.0 mmol/L (0.4-2.0) Calcium Level 8.7 mg/dL (8.5-10.1) 9.0 mg/dL (8.5-10.1) Total Bilirubin 1.0 mg/dL (0.2-1.0) 1.1 mg/dL (0.2-1.0) Aspartate Amino Transf (AST/SGOT) 25 U/L (15-37) 19 U/L (15-37) Alanine Aminotransferase (ALT/SGPT) 12 U/L (14-59) 10 U/L (14-59) Alkaline Phosphatase 41 U/L (46-116) 42 U/L (46-116) Troponin I Quantitative < 0.017 ng/mL (0.000-0.055) EQ-Dzn-G-Type Natriuretic Peptide 2519 pg/mL (0-124) Total Protein 7.1 g/dL (6.4-8.2) 7.2 g/dL (6.4-8.2) Albumin 2.7 g/dL (3.4-5.0) 2.8 g/dL (3.4-5.0) Albumin/Globulin Ratio 0.6 (1.0-1.7) 0.6 (1.0-1.7) Images Images Chest x-ray with a right sided nodule or mass [place] ultrasound with no DVT Assessment/Plan Assessment/Plan 1. Acute respiratory failure. Possible pneumonia. Patient is being treated with pulmonary medications and has improved overnight. 2. Heart failure. Patient has improved with diuresis. Troponin is normal. BNP was elevated. We'll continue diuresis and monitor lab. We'll check an echocardiogram. 3. Right sided lung nodule or mass. Being worked up. History of renal carcinoma as above. 4. Status post CVA. Mild residual right-sided weakness. 5. Hypertension. Patient's under better control. 6. History of hyperlipidemia. We'll check lab. Thank you for allowing us to participate in the care of your patient. ZHANG ALMANZA MD Nov 03, 2017 15:48
[2017-11-03] MEDS: ENOXAPARIN 40 MG/0.4 ML SYRINGE. SQ SCH (16:15)
[2017-11-03 19:32] VITALS: BP 138/61
[2017-11-03] MEDS: TEMAZEPAM 15 MG CAPSULE PO SCH (21:00)
[2017-11-03 22:13] VITALS: BP 143/58
[2017-11-04] VITALS (10 sets, daily range): BP systolic 135–168; BP diastolic 61–113
[2017-11-04] MEDS: HYDROcodone/APAP 5/325MG 1 TAB TABLET PO PRN ×2 (00:26→08:15)
[2017-11-04 04:50] LABS: BASO % 2 % (0-3); EOS % 1 % (0-3); LYMPH # 0.7 x10^3/uL (1.0-4.8); LYMPH % 26 % (24-48); MEAN CORPUSCULAR HEMOGLOBIN 29 pg (25-35); MEAN CORPUSCULAR HGB CONC 33 g/dL (31-37); MEAN CORPUSCULAR VOLUME 87 fL (79-100); MONO # 0.3 x10^3/uL (0.0-1.1); MONO % 10 % (0-9); NEUT # 1.7 x10^3uL (1.8-7.7); NEUT % 61 % (31-73); PLATELET COUNT 77 x10^3/uL (140-400); RED BLOOD COUNT 2.27 x10^6/uL (3.50-5.40); RED CELL DISTRIBUTION WIDTH 20.3 % (11.5-14.5); WHITE BLOOD COUNT 2.8 x10^3/uL (4.0-11.0)
[2017-11-04 04:59] LABS: HEMATOCRIT 19.8 % (36.0-47.0); HEMOGLOBIN 6.5 g/dL (12.0-15.5)
[2017-11-04 05:32] LABS: CALCIUM 8.1 mg/dL (8.5-10.1); CREATININE 1.3 mg/dL (0.6-1.0); GFR 40.6; POTASSIUM 4.2 mmol/L (3.5-5.1)
[2017-11-04 05:38] LABS: CHOLESTEROL/HDL RATIO 8.4
[2017-11-04] MEDS: LEVOTHYROXINE 150 MCG TABLET PO SCH (06:18)
[2017-11-04] MEDS: PANTOPRAZOLE 40 MG TABLET.DR. PO SCH ×2 (06:20→08:16)
[2017-11-04] MEDS: IPRATRPIUM/ALBUTEROL 0.5/2.5MG 3 ML NEBU. NEB SCH ×4 (07:18→20:21)
[2017-11-04] MEDS: ASPIRIN ENTERIC COATED 81 MG TABLET.DR. PO SCH (08:15)
[2017-11-04] MEDS: FUROSEMIDE 40 MG TABLET. PO SCH (08:16)
[2017-11-04] MEDS: METOPROLOL SUCC 24HR ER 50 MG TAB.ER.24H. PO SCH (08:16)
[2017-11-04] MEDS: FENOFIBRATE,MICRONIZED 134 MG CAPSULE PO SCH (08:16)
[2017-11-04] MEDS: OMEGA-3 FATTY ACIDS/FISH OIL 1,000 MG CAPSULE. PO SCH (08:17)
[2017-11-04] MEDS: LISINOPRIL 20 MG TABLET PO SCH (08:17)
[2017-11-04] MEDS ORDERED: FUROSEMIDE 20 MG TABLET PO SCH (09:00)
--- NOTE | 2017-11-04 09:52 | PDOC2 ---
CONSULT Date of Consult Date of Consult DATE: 11/04/17 TIME: 09:39 Reason for consultation: Myelofibrosis and right lung mass Consult: Hematology oncology, Dr. Kendell Rod History of present illness: She is a 71-year-old female with myelofibrosis that' s getting near end stage admitted with increasing shortness of breath and has received recent blood transfusion and is again getting 1 unit packed red blood cells for hemoglobin of 6.5 today. Anemia is chronic, severe, transfusion dependent and improved after blood transfusion but quickly lowers again, associated with shortness of breath, she's just recently started danazol twice a day with goal of decreasing red blood cell transfusion dependence, to be used for 3 months, however we have not noticed affect yet. She was admitted with increasing shortness of breath and noted to have a right lung mass on chest x- ray, and in retrospect April 2017 CT did show right lung mass with concern for bony lesions, she's been evaluated by pulmonary and a PET scan was recommended but she had declined. She followed up with me one month later after the 05/12 admit, and the CT scan results were scanned into [facility], but I did not visualize those unfortunately thus I did not follow-up with these results with her as i would have liked to. I sincerely apologized today that we do have a concern for stage IV solid tumor malignancy that is likely not related to her myelofibrosis but when offering a repeat CT scan to further evaluate the status of potential solid tumor malignancy, she does reiterate to me how tired she is and that she does not want to go through any CT scans even a quick noncontrast CT chest abdomen and pelvis, and certainly not a PET scan, her daughter's not here with her, and I'm happy to discuss this further, also it may be reasonable to consider palliative care, even from a myelofibrosis standpoint alone. Nonetheless her performance status is not at a level to where I would be able to actively treat most malignancies but it would certainly be reasonable to undergo diagnostic testing if she did want to. For now she does not want to. Past medical history: Myelofibrosis Transfusion-dependent anemia Colon polyps GERD Kidney cancer 1997 localized treated with surgery alone Hyperlipidemia Hypothyroid Iron overload History of stroke with weakness and aphasia Past surgical history: Bone marrow biopsy Colonoscopy Nephrectomy Hysterectomy Tonsillectomy Allergies: Iodine, penicillin, Keflex Medications: See attached list Social history: Currently living with her daughter, no tobacco ever, no alcohol Family history: Mother with breast cancer Review of systems: Shortness of breath, tiredness, weakness, malaise, difficulty speaking due to prior stroke, pain in her left finger due to gout, otherwise review of systems is negative Physical exam: Vitals reviewed, MAXIMUM TEMPERATURE 100.9 Gen.: well-developed in no acute distress, resting in bed HEENT: mucous membranes moist, head normocephalic atraumatic Neck: Supple, no lymphadenopathy Lymph nodes: No palpable lymphadenopathy neck or axilla Lungs: Breathing comfortably, no evidence of respiratory distress Abdomen: Soft, nontender, nondistended Extremities: No cyanosis, L 2nd finger PIP red, swollen Skin: No obvious rashes or skin breakdown Neuro: Alert and oriented, usual aphasia, able to communicate just fine nonetheless Psych: tired mood and pleasant affect Lab reviewed: White count 2.8, hemoglobin 6.5, platelet 77 Creatinine 1.3 Blood cultures negative 2 Rads reviewed: Chest x-ray with right lung mass, mild infiltrate or edema Bilateral lower extremity ultrasound negative for clot Case discussed with: Patient, and her nurse, records reviewed in [facility] and [facility], including labs and radiology, please see note for summary details. Assessment and Plan: Ms. 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 Unfortunately there is also a concern for solid tumor malignancy stage IV with lung mass and bony metastases, however she is too tired for further workup and does not have a performance status which would allow us to actively treat most malignancies if found. Palliative care is certainly a reasonable option. She wants to consider this and will discuss this again tomorrow if she'd like to see what palliative care options are available. Her daughter was not here today. If she did decide to workup this possible malignancy I would recommend a CT chest abdomen and pelvis. 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 Past Medical History Cardiovascular: HTN, Hyperlipidemia CENTRAL NERVOUS SYSTEM: CVA Heme/Onc: Anemia NOS, Other (renal cancer) Musculoskeletal: Other Rheumatologic: No pertinent hx Infectious disease: No pertinent hx Renal/: Chronic renal insuff, Renal Ca. Endocrine: Hypothyroidism Past Surgical History Past Surgical History: Cataract Removal, Tonsillectomy, Hysterectomy, Other ( right nephrectomy) Family History Family History: Cancer, Hypertension Social History 1 pack per day ALCOHOL: none Drugs: None Current Problem List Problem List Problems Medical Problems: (1) CHF (congestive heart failure) Status: Acute (2) Pneumonia Status: Acute Current Medications Current Medications Current Medications Furosemide (Lasix) 40 mg 1X ONCE IVP Last administered on 11/02/17at 23:33; Start 11/02/17 at 22:30; Stop 11/02/17 at 22:31; Status DC Levofloxacin/ Dextrose 100 ml @ 100 mls/hr 1X ONCE IV Last administered on 02/09at 23:33; Start 11/02/17 at 23:30; Stop 11/03/17 at 00:29; Status DC Ondansetron HCl (Zofran) 4 mg PRN Q8HRS PRN IV NAUSEA/VOMITING; Start 11/02/17 at 23:45; Stop 11/03/17 at 10:25; Status DC Acetaminophen (Tylenol) 650 mg PRN Q4HRS PRN PO FEVER; Start 11/02/17 at 23:45 ; Stop 11/03/17 at 10:25; Status DC Albuterol/ Ipratropium (Duoneb) 3 ml RTQID NEB Last administered on 11/03/17at 06:12; Start 11/03/17 at 08:00; Stop 11/03/17 at 10:26; Status DC Albuterol/ Ipratropium (Duoneb) 3 ml STK-MED ONCE .ROUTE ; Start 11/03/17 at 06: 04; Stop 11/03/17 at 06:06; Status DC Acetaminophen (Tylenol) 650 mg PRN Q6HRS PRN PO FEVER; Start 11/03/17 at 10:30 Ondansetron HCl (Zofran) 4 mg PRN Q6HRS PRN IV NAUSEA/VOMITING; Start 11/03/17 at 10:30 Morphine Sulfate (Morphine Sulfate) 2 mg PRN Q2HR PRN IV MODERATE TO SEVERE PAIN; Start 11/03/17 at 10:30 Tramadol HCl (Ultram) 50 mg PRN Q6HRS PRN PO MILD TO MODERATE PAIN Last administered on 11/03/17at 12:25; Start 11/03/17 at 10:30 Hydralazine HCl (Apresoline Inj) 10 mg PRN Q4HRS PRN IVP ELEVATED BP, SEE COMMENTS; Start 11/03/17 at 10:30 Docusate Sodium (Colace) 100 mg PRN DAILY PRN PO CONSTIPATION; Start 11/03/17 at 10:30 Levofloxacin/ Dextrose 150 ml @ 100 mls/hr Q24H IV ; Start 11/03/17 at 21:00; Stop 11/03/17 at 21:00; Status DC Albuterol/ Ipratropium (Duoneb) 3 ml RTQID NEB Last administered on 11/04/17at 07:18; Start 11/03/17 at 12:00 Albuterol Sulfate (Ventolin Neb Soln) 2.5 mg PRN Q2HR PRN NEB SHORTNESS OF BREATH; Start 11/03/17 at 10:30 Guaifenesin (Mucinex) 600 mg BID PO Last administered on 11/04/17at 08:16; Start 11/03/17 at 11:00 Furosemide (Lasix) 40 mg DAILY IVP Last administered on 11/03/17at 12:25; Start 11/03/17 at 11:00; Stop 11/03/17 at 13:55; Status DC Aspirin (Ecotrin) 81 mg DAILY PO Last administered on 11/04/17at 08:15; Start at 11:30 Furosemide (Lasix) 20 mg DAILY PO ; Start 11/04/17 at 09:00; Stop 11/04/17 at 09 :00; Status DC Acetaminophen/ Hydrocodone Bitart (Lortab 5/325) 1 tab PRN Q6HRS PRN PO SEVERE PAIN Last administered on 11/04/17at 08:15; Start 11/03/17 at 11:15 Pantoprazole Sodium (Protonix) 40 mg BIDAC PO Last administered on 11/04/17 08 :16; Start 11/03/17 at 11:30 Temazepam (Restoril) 15 mg QHS PO ; Start 11/03/17 at 21:00 Fenofibrate (Lofibra) 134 mg DAILY PO Last administered on 11/04/17 08:16; Start 11/03/17 at 11:30 Levothyroxine Sodium (Synthroid) 150 mcg DAILY07 PO Last administered on 06:18; Start 11/03/17 at 11:30 Metoprolol Succinate (Toprol Xl) 50 mg DAILY PO Last administered on 11/04/17 08:16; Start 11/03/17 at 11:30 Fish Oil (Fish Oil) 1,000 mg DAILY PO Last administered on 11/04/17 08:17; Start 11/03/17 at 11:30 Lisinopril (Prinivil) 40 mg DAILY PO Last administered on 11/04/17 08:17; Start 11/03/17 at 11:30 Enoxaparin Sodium (Lovenox 40mg Syringe) 40 mg Q24H SQ Last administered on 16:15; Start 11/03/17 at 14:00 Furosemide (Lasix) 40 mg DAILY PO Last administered on 11/04/17 08:16; Start 11/04/17 at 09:00 Vancomycin HCl (Vanco Per Pharmacy) 1 each PRN DAILY PRN MC SEE COMMENTS Last administered on 11/03/17 15:31; Start 11/03/17 at 14:00 Vancomycin HCl 1.75 gm/Sodium Chloride 500 ml @ 250 mls/hr 1X ONCE IV Last administered on 11/03/17 16:16; Start 11/03/17 at 14:30; Stop 11/03/17 at 16:29 ; Status DC Levofloxacin/ Dextrose 150 ml @ 100 mls/hr QHS IV Last administered on at 21:40; Start 11/03/17 at 21:00 Vancomycin HCl 1.25 gm/Sodium Chloride 250 ml @ 167 mls/hr Q24H IV ; Start at 16:00 Vancomycin HCl (Vancomycin Trough Level) 1 each 1X ONCE MC ; Start 11/05/17 at 15:30; Stop 11/05/17 at 15:31 Active Scripts Active [place] 5-325 Tablet (Acetaminophen/Hydrocodone Bitart) 1 Each Tablet 1 Tab PO PRN Q6HRS PRN Bactrim Ds Tablet (Sulfamethoxazole/Trimethoprim) 1 Each Tablet 1 Tab PO BID Reported Danazol 200 Mg Capsule 200 Mg PO Synthroid (Levothyroxine Sodium) 150 Mcg Tablet 1 Tab PO DAILY [Tylenol] 1,000 Mg PO Q6HRS PRN Vitamin D-3 (Cholecalciferol (Vitamin D3)) 2,000 Unit Capsule 1,000 Unit PO DAILY Temazepam 15 Mg Capsule 1 Cap PO QHS Toprol Xl (Metoprolol Succinate) 50 Mg Tab.er.24h 1 Tab PO DAILY Quinapril Hcl 40 Mg Tablet 1 Tab PO DAILY [place]-3 Fish Oil 1,000 mg Sfgl ([place]-3 Fatty Acids/Fish Oil) 1 Each Capsule 1 Each PO DAILY Pantoprazole Sodium 40 Mg Tablet.dr 1 Tab PO BID Furosemide 20 Mg Tablet 1 Tab PO DAILY Tricor (Fenofibrate Nanocrystallized) 145 Mg Tablet 1 Tab PO DAILY Aspir 81 (Aspirin) 81 Mg Tablet.dr 1 Tab PO DAILY Allergies Allergies: Coded Allergies: iodine (Verified Allergy, Severe, ANAPHYLAXIS, 10/31/17) Penicillins (Verified Allergy, Intermediate, 10/31/17) cephalexin (Verified Allergy, Intermediate, 10/31/17) Vitals VITALS Vital Signs Date Time Temp Pulse Resp B/P (MAP) Pulse Ox O2 Delivery O2 Flow Rate FiO2 11/04/17 09:33 97.8 82 18 168/70 97.8 11/04/17 08:15 Nasal Cannula 2.0 11/04/17 07:20 97 Labs Labs Laboratory Tests Test 11/02/17 21:40 11/03/17 05:00 11/04/17 04:10 White Blood Count 5.4 x10^3/uL (4.0-11.0) 4.8 x10^3/uL (4.0-11.0) 2.8 x10^3/uL (4.0-11.0) Red Blood Count 2.72 x10^6/uL (3.50-5.40) 2.73 x10^6/uL (3.50-5.40) 2.27 x10^6/uL (3.50-5.40) Hemoglobin 7.7 g/dL (12.0-15.5) 7.9 g/dL (12.0-15.5) 6.5 g/dL (12.0-15.5) Hematocrit 23.7 % (36.0-47.0) 23.8 % (36.0-47.0) 19.8 % (36.0-47.0) Mean Corpuscular Volume 87 fL (79-100) 87 fL (79-100) 87 fL (79-100) Mean Corpuscular Hemoglobin 28 pg (25-35) 29 pg (25-35) 29 pg (25-35) Mean Corpuscular Hemoglobin Concent 33 g/dL (31-37) 33 g/dL (31-37) 33 g/dL (31-37) Red Cell Distribution Width 20.6 % (11.5-14.5) 21.1 % (11.5-14.5) 20.3 % (11.5-14.5) Platelet Count 110 x10^3/uL (140-400) 99 x10^3/uL (140-400) 77 x10^3/uL (140-400) Neutrophils (%) (Auto) 58 % (31-73) 59 % (31-73) 61 % (31-73) Lymphocytes (%) (Auto) 28 % (24-48) 27 % (24-48) 26 % (24-48) Monocytes (%) (Auto) 12 % (0-9) 12 % (0-9) 10 % (0-9) Eosinophils (%) (Auto) 1 % (0-3) 1 % (0-3) 1 % (0-3) Basophils (%) (Auto) 1 % (0-3) 1 % (0-3) 2 % (0-3) Neutrophils # (Auto) 3.1 x10^3uL (1.8-7.7) 2.8 x10^3uL (1.8-7.7) 1.7 x10^3uL (1.8-7.7) Lymphocytes # (Auto) 1.5 x10^3/uL (1.0-4.8) 1.3 x10^3/uL (1.0-4.8) 0.7 x10^3/uL (1.0-4.8) Monocytes # (Auto) 0.7 x10^3/uL (0.0-1.1) 0.6 x10^3/uL (0.0-1.1) 0.3 x10^3/uL (0.0-1.1) Eosinophils # (Auto) 0.0 x10^3/uL (0.0-0.7) 0.1 x10^3/uL (0.0-0.7) 0.0 x10^3/uL (0.0-0.7) Basophils # (Auto) 0.0 x10^3/uL (0.0-0.2) 0.1 x10^3/uL (0.0-0.2) 0.0 x10^3/uL (0.0-0.2) Segmented Neutrophils % 46 % (35-66) Band Neutrophils % 13 % (0-9) Lymphocytes % 26 % (24-48) Monocytes % 6 % (0-10) Metamyelocytes % 7 % (0-0) Myelocytes % 2 % (0-0) Nucleated Red Blood Cells 2 Toxic Granulation Slight Platelet Estimate Decreased (ADEQUATE) Polychromasia Slight Poikilocytosis Slight Basophilic Stippling Present Anisocytosis Mod D-Dimer (Indira) 0.91 ug/mlFEU (0.00-0.50) Urine Collection Type U cath Urine Color [place] Urine Clarity Clear Urine pH 5.5 Urine Specific [place] 1.025 Urine Protein 100 mg/dL (NEG-TRACE) Urine Glucose (UA) Negative mg/dL (NEG) Urine Ketones (Stick) Trace mg/dL (NEG) Urine Blood Negative (NEG) Urine Nitrite Negative (NEG) Urine Bilirubin Small (NEG) Urine Urobilinogen Dipstick 1.0 mg/dL (0.2 mg/dL) Urine Leukocyte Esterase Small (NEG) Urine RBC 0 /HPF (0-2) Urine WBC 5-10 /HPF (0-4) Urine Squamous Epithelial Cells Few /LPF Urine Amorphous Sediment Present /HPF Urine Bacteria Few /HPF (0-FEW) Urine Mucus Slight /LPF Sodium Level 138 mmol/L (136-145) 139 mmol/L (136-145) 141 mmol/L (136-145) Potassium Level 4.7 mmol/L (3.5-5.1) 4.3 mmol/L (3.5-5.1) 4.2 mmol/L (3.5-5.1) Chloride Level 106 mmol/L (98-107) 105 mmol/L (98-107) 106 mmol/L (98-107) Carbon Dioxide Level 29 mmol/L (21-32) 29 mmol/L (21-32) 30 mmol/L (21-32) Anion Gap 3 (6-14) 5 (6-14) 5 (6-14) Blood Urea Nitrogen 18 mg/dL (7-20) 18 mg/dL (7-20) 18 mg/dL (7-20) Creatinine 1.3 mg/dL (0.6-1.0) 1.3 mg/dL (0.6-1.0) 1.3 mg/dL (0.6-1.0) Estimated GFR (Cockcroft-Gault) 40.6 40.6 40.6 BUN/Creatinine Ratio 14 (6-20) 14 (6-20) Glucose Level 140 mg/dL (70-99) 128 mg/dL (70-99) 120 mg/dL (70-99) Lactic Acid Level 1.0 mmol/L (0.4-2.0) Calcium Level 8.7 mg/dL (8.5-10.1) 9.0 mg/dL (8.5-10.1) 8.1 mg/dL (8.5-10.1) Total Bilirubin 1.0 mg/dL (0.2-1.0) 1.1 mg/dL (0.2-1.0) Aspartate Amino Transf (AST/SGOT) 25 U/L (15-37) 19 U/L (15-37) Alanine Aminotransferase (ALT/SGPT) 12 U/L (14-59) 10 U/L (14-59) Alkaline Phosphatase 41 U/L (46-116) 42 U/L (46-116) Troponin I Quantitative < 0.017 ng/mL (0.000-0.055) FG-Wky-T-Type Natriuretic Peptide 2519 pg/mL (0-124) Total Protein 7.1 g/dL (6.4-8.2) 7.2 g/dL (6.4-8.2) Albumin 2.7 g/dL (3.4-5.0) 2.8 g/dL (3.4-5.0) Albumin/Globulin Ratio 0.6 (1.0-1.7) 0.6 (1.0-1.7) Triglycerides Level 171 mg/dL (0-150) Cholesterol Level 109 mg/dL (0-200) LDL Cholesterol, Calculated 62 mg/dL (0-100) VLDL Cholesterol, Calculated 34 mg/dL (0-40) Non-HDL Cholesterol Calculated 96 mg/dL (0-129) HDL Cholesterol 13 mg/dL (40-60) Cholesterol/HDL Ratio 8.4 Laboratory Tests Test 11/04/17 04:10 White Blood Count 2.8 x10^3/uL (4.0-11.0) Red Blood Count 2.27 x10^6/uL (3.50-5.40) Hemoglobin 6.5 g/dL (12.0-15.5) Hematocrit 19.8 % (36.0-47.0) Mean Corpuscular Volume 87 fL (79-100) Mean Corpuscular Hemoglobin 29 pg (25-35) Mean Corpuscular Hemoglobin Concent 33 g/dL (31-37) Red Cell Distribution Width 20.3 % (11.5-14.5) Platelet Count 77 x10^3/uL (140-400) Neutrophils (%) (Auto) 61 % (31-73) Lymphocytes (%) (Auto) 26 % (24-48) Monocytes (%) (Auto) 10 % (0-9) Eosinophils (%) (Auto) 1 % (0-3) Basophils (%) (Auto) 2 % (0-3) Neutrophils # (Auto) 1.7 x10^3uL (1.8-7.7) Lymphocytes # (Auto) 0.7 x10^3/uL (1.0-4.8) Monocytes # (Auto) 0.3 x10^3/uL (0.0-1.1) Eosinophils # (Auto) 0.0 x10^3/uL (0.0-0.7) Basophils # (Auto) 0.0 x10^3/uL (0.0-0.2) Sodium Level 141 mmol/L (136-145) Potassium Level 4.2 mmol/L (3.5-5.1) Chloride Level 106 mmol/L (98-107) Carbon Dioxide Level 30 mmol/L (21-32) Anion Gap 5 (6-14) Blood Urea Nitrogen 18 mg/dL (7-20) Creatinine 1.3 mg/dL (0.6-1.0) Estimated GFR (Cockcroft-Gault) 40.6 Glucose Level 120 mg/dL (70-99) Calcium Level 8.1 mg/dL (8.5-10.1) Triglycerides Level 171 mg/dL (0-150) Cholesterol Level 109 mg/dL (0-200) LDL Cholesterol, Calculated 62 mg/dL (0-100) VLDL Cholesterol, Calculated 34 mg/dL (0-40) Non-HDL Cholesterol Calculated 96 mg/dL (0-129) HDL Cholesterol 13 mg/dL (40-60) Cholesterol/HDL Ratio 8.4 KENDELL ROD MD Nov 04, 2017 09:52
[2017-11-04] MEDS: VANCOMYCIN PER PHARMACY MC PRN (10:18)
--- NOTE | 2017-11-04 11:58 | PDOC ---
PULMONARY PROGRESS NOTES Subjective no soa Vitals Vital Signs Date Time Temp Pulse Resp B/P (MAP) Pulse Ox O2 Delivery O2 Flow Rate FiO2 11/04/17 11:35 97.6 87 20 157/77 97.6 11/04/17 11:21 Nasal Cannula 2.0 11/04/17 10:43 97 General: Alert, No acute distress Lungs: Clear Cardiovascular: S1, S2 Abdomen: Soft Neuro Exam: Alert Extremities: No Edema Skin: Warm Labs Laboratory Tests Test 11/02/17 21:40 11/03/17 05:00 11/04/17 04:10 White Blood Count 5.4 x10^3/uL (4.0-11.0) 4.8 x10^3/uL (4.0-11.0) 2.8 x10^3/uL (4.0-11.0) Red Blood Count 2.72 x10^6/uL (3.50-5.40) 2.73 x10^6/uL (3.50-5.40) 2.27 x10^6/uL (3.50-5.40) Hemoglobin 7.7 g/dL (12.0-15.5) 7.9 g/dL (12.0-15.5) 6.5 g/dL (12.0-15.5) Hematocrit 23.7 % (36.0-47.0) 23.8 % (36.0-47.0) 19.8 % (36.0-47.0) Mean Corpuscular Volume 87 fL (79-100) 87 fL (79-100) 87 fL (79-100) Mean Corpuscular Hemoglobin 28 pg (25-35) 29 pg (25-35) 29 pg (25-35) Mean Corpuscular Hemoglobin Concent 33 g/dL (31-37) 33 g/dL (31-37) 33 g/dL (31-37) Red Cell Distribution Width 20.6 % (11.5-14.5) 21.1 % (11.5-14.5) 20.3 % (11.5-14.5) Platelet Count 110 x10^3/uL (140-400) 99 x10^3/uL (140-400) 77 x10^3/uL (140-400) Neutrophils (%) (Auto) 58 % (31-73) 59 % (31-73) 61 % (31-73) Lymphocytes (%) (Auto) 28 % (24-48) 27 % (24-48) 26 % (24-48) Monocytes (%) (Auto) 12 % (0-9) 12 % (0-9) 10 % (0-9) Eosinophils (%) (Auto) 1 % (0-3) 1 % (0-3) 1 % (0-3) Basophils (%) (Auto) 1 % (0-3) 1 % (0-3) 2 % (0-3) Neutrophils # (Auto) 3.1 x10^3uL (1.8-7.7) 2.8 x10^3uL (1.8-7.7) 1.7 x10^3uL (1.8-7.7) Lymphocytes # (Auto) 1.5 x10^3/uL (1.0-4.8) 1.3 x10^3/uL (1.0-4.8) 0.7 x10^3/uL (1.0-4.8) Monocytes # (Auto) 0.7 x10^3/uL (0.0-1.1) 0.6 x10^3/uL (0.0-1.1) 0.3 x10^3/uL (0.0-1.1) Eosinophils # (Auto) 0.0 x10^3/uL (0.0-0.7) 0.1 x10^3/uL (0.0-0.7) 0.0 x10^3/uL (0.0-0.7) Basophils # (Auto) 0.0 x10^3/uL (0.0-0.2) 0.1 x10^3/uL (0.0-0.2) 0.0 x10^3/uL (0.0-0.2) Segmented Neutrophils % 46 % (35-66) Band Neutrophils % 13 % (0-9) Lymphocytes % 26 % (24-48) Monocytes % 6 % (0-10) Metamyelocytes % 7 % (0-0) Myelocytes % 2 % (0-0) Nucleated Red Blood Cells 2 Toxic Granulation Slight Platelet Estimate Decreased (ADEQUATE) Polychromasia Slight Poikilocytosis Slight Basophilic Stippling Present Anisocytosis Mod D-Dimer (Indira) 0.91 ug/mlFEU (0.00-0.50) Urine Collection Type U cath Urine Color [place] Urine Clarity Clear Urine pH 5.5 Urine Specific [place] 1.025 Urine Protein 100 mg/dL (NEG-TRACE) Urine Glucose (UA) Negative mg/dL (NEG) Urine Ketones (Stick) Trace mg/dL (NEG) Urine Blood Negative (NEG) Urine Nitrite Negative (NEG) Urine Bilirubin Small (NEG) Urine Urobilinogen Dipstick 1.0 mg/dL (0.2 mg/dL) Urine Leukocyte Esterase Small (NEG) Urine RBC 0 /HPF (0-2) Urine WBC 5-10 /HPF (0-4) Urine Squamous Epithelial Cells Few /LPF Urine Amorphous Sediment Present /HPF Urine Bacteria Few /HPF (0-FEW) Urine Mucus Slight /LPF Sodium Level 138 mmol/L (136-145) 139 mmol/L (136-145) 141 mmol/L (136-145) Potassium Level 4.7 mmol/L (3.5-5.1) 4.3 mmol/L (3.5-5.1) 4.2 mmol/L (3.5-5.1) Chloride Level 106 mmol/L (98-107) 105 mmol/L (98-107) 106 mmol/L (98-107) Carbon Dioxide Level 29 mmol/L (21-32) 29 mmol/L (21-32) 30 mmol/L (21-32) Anion Gap 3 (6-14) 5 (6-14) 5 (6-14) Blood Urea Nitrogen 18 mg/dL (7-20) 18 mg/dL (7-20) 18 mg/dL (7-20) Creatinine 1.3 mg/dL (0.6-1.0) 1.3 mg/dL (0.6-1.0) 1.3 mg/dL (0.6-1.0) Estimated GFR (Cockcroft-Gault) 40.6 40.6 40.6 BUN/Creatinine Ratio 14 (6-20) 14 (6-20) Glucose Level 140 mg/dL (70-99) 128 mg/dL (70-99) 120 mg/dL (70-99) Lactic Acid Level 1.0 mmol/L (0.4-2.0) Calcium Level 8.7 mg/dL (8.5-10.1) 9.0 mg/dL (8.5-10.1) 8.1 mg/dL (8.5-10.1) Total Bilirubin 1.0 mg/dL (0.2-1.0) 1.1 mg/dL (0.2-1.0) Aspartate Amino Transf (AST/SGOT) 25 U/L (15-37) 19 U/L (15-37) Alanine Aminotransferase (ALT/SGPT) 12 U/L (14-59) 10 U/L (14-59) Alkaline Phosphatase 41 U/L (46-116) 42 U/L (46-116) Troponin I Quantitative < 0.017 ng/mL (0.000-0.055) OW-Rcl-O-Type Natriuretic Peptide 2519 pg/mL (0-124) Total Protein 7.1 g/dL (6.4-8.2) 7.2 g/dL (6.4-8.2) Albumin 2.7 g/dL (3.4-5.0) 2.8 g/dL (3.4-5.0) Albumin/Globulin Ratio 0.6 (1.0-1.7) 0.6 (1.0-1.7) Triglycerides Level 171 mg/dL (0-150) Cholesterol Level 109 mg/dL (0-200) LDL Cholesterol, Calculated 62 mg/dL (0-100) VLDL Cholesterol, Calculated 34 mg/dL (0-40) Non-HDL Cholesterol Calculated 96 mg/dL (0-129) HDL Cholesterol 13 mg/dL (40-60) Cholesterol/HDL Ratio 8.4 Laboratory Tests Test 11/04/17 04:10 White Blood Count 2.8 x10^3/uL (4.0-11.0) Red Blood Count 2.27 x10^6/uL (3.50-5.40) Hemoglobin 6.5 g/dL (12.0-15.5) Hematocrit 19.8 % (36.0-47.0) Mean Corpuscular Volume 87 fL (79-100) Mean Corpuscular Hemoglobin 29 pg (25-35) Mean Corpuscular Hemoglobin Concent 33 g/dL (31-37) Red Cell Distribution Width 20.3 % (11.5-14.5) Platelet Count 77 x10^3/uL (140-400) Neutrophils (%) (Auto) 61 % (31-73) Lymphocytes (%) (Auto) 26 % (24-48) Monocytes (%) (Auto) 10 % (0-9) Eosinophils (%) (Auto) 1 % (0-3) Basophils (%) (Auto) 2 % (0-3) Neutrophils # (Auto) 1.7 x10^3uL (1.8-7.7) Lymphocytes # (Auto) 0.7 x10^3/uL (1.0-4.8) Monocytes # (Auto) 0.3 x10^3/uL (0.0-1.1) Eosinophils # (Auto) 0.0 x10^3/uL (0.0-0.7) Basophils # (Auto) 0.0 x10^3/uL (0.0-0.2) Sodium Level 141 mmol/L (136-145) Potassium Level 4.2 mmol/L (3.5-5.1) Chloride Level 106 mmol/L (98-107) Carbon Dioxide Level 30 mmol/L (21-32) Anion Gap 5 (6-14) Blood Urea Nitrogen 18 mg/dL (7-20) Creatinine 1.3 mg/dL (0.6-1.0) Estimated GFR (Cockcroft-Gault) 40.6 Glucose Level 120 mg/dL (70-99) Calcium Level 8.1 mg/dL (8.5-10.1) Triglycerides Level 171 mg/dL (0-150) Cholesterol Level 109 mg/dL (0-200) LDL Cholesterol, Calculated 62 mg/dL (0-100) VLDL Cholesterol, Calculated 34 mg/dL (0-40) Non-HDL Cholesterol Calculated 96 mg/dL (0-129) HDL Cholesterol 13 mg/dL (40-60) Cholesterol/HDL Ratio 8.4 Medications Active Scripts Medications Dose Route/Sig Max Daily Dose Days Date Category Danazol 200 Mg Capsule 200 Mg PO 11/03/17 Reported [place] 5-325 Tablet (Acetaminophen/Hydrocodone Bitart) 1 Each Tablet 1 Tab PO PRN Q6HRS PRN 10/03/17 Rx Bactrim Ds Tablet (Sulfamethoxazole/Trimethoprim) 1 Each Tablet 1 Tab PO BID 7/12/18 Rx Synthroid (Levothyroxine Sodium) 150 Mcg Tablet 1 Tab PO DAILY 05/17/17 Reported [Tylenol] 1,000 Mg PO Q6HRS PRN 05/17/17 Reported Vitamin D-3 (Cholecalciferol (Vitamin D3)) 2,000 Unit Capsule 1,000 Unit PO DAILY 05/17/17 Reported Temazepam 15 Mg Capsule 1 Cap PO QHS 05/16/17 Reported Toprol Xl (Metoprolol Succinate) 50 Mg Tab.er.24h 1 Tab PO DAILY 05/17/16 Reported Quinapril Hcl 40 Mg Tablet 1 Tab PO DAILY 05/17/16 Reported Thornton-3 Fish Oil 1,000 mg Sfgl ([place]-3 Fatty Acids/Fish Oil) 1 Each Capsule 1 Each PO DAILY 05/17/16 Reported Pantoprazole Sodium 40 Mg Tablet.dr 1 Tab PO BID 01/13/14 Reported Furosemide 20 Mg Tablet 1 Tab PO DAILY 01/13/14 Reported Tricor (Fenofibrate Nanocrystallized) 145 Mg Tablet 1 Tab PO DAILY 01/13/14 Reported Aspir 81 (Aspirin) 81 Mg Tablet.dr 1 Tab PO DAILY 01/13/14 Reported Impression . 1. Acute respiratory failure secondary to pneumonia, ?acute diastolic congestive heart failure 2. Abnormal chest x-ray and CT of the chest.lung mass and multiple nodules in Feb. Never had work up 3. Pneumonia. 4. Acute diastolic congestive heart failure. 5. Lower extremity edema. 6. Myelofibrosis. 7. Pancytopenia. 8. History of renal cancer with right nephrectomy. 9. History of cerebrovascular accident. Plan . PLAN AND RECOMMENDATIONS: 1. Titrate FiO2 to keep O2 saturation 92%. 2. Bronchodilator. 4. Agree with antibiotics. 5. Lower extremity venous Doppler. 6. I do recommend repeat CT of the chest to evaluate lung mass. she is not interested at present 7. Protonix for stress ulcer prophylaxis. 8. Agree with Lasix. Monitor potassium and creatinine. 9. The findings and recommendations were discussed with the patient. IRVIN HUFFMAN MD Nov 04, 2017 11:58
--- NOTE | 2017-11-04 12:04 | PDOC ---
PROGRESS NOTES Chief Complaint Chief Complaint cough, sob h/o myelofibrosis h/o kidney CA Chronic renal insufficiency h/o CVA with R sided weakness HTN, Hyperlipidemia Anemia NOS Hypothyroidism Cataract Removal Tonsillectomy Hysterectomy History of Present Illness History of Present Illness pt seen and examined sitting up in bed and conversing in NAD VSS DW RN Vitals Vitals Vital Signs Date Time Temp Pulse Resp B/P (MAP) Pulse Ox O2 Delivery O2 Flow Rate FiO2 11/04/17 11:35 97.6 87 20 157/77 97.6 11/04/17 11:21 Nasal Cannula 2.0 11/04/17 10:43 97 Physical Exam General: Alert, Oriented X3, No acute distress Heart: Regular rate, Normal S1, No murmurs Lungs: Clear Abdomen: Normal bowel sounds, Soft, No tenderness Extremities: No clubbing, No cyanosis Skin: No rashes, No breakdown Labs LABS Laboratory Tests Test 11/04/17 04:10 White Blood Count 2.8 x10^3/uL (4.0-11.0) Red Blood Count 2.27 x10^6/uL (3.50-5.40) Hemoglobin 6.5 g/dL (12.0-15.5) Hematocrit 19.8 % (36.0-47.0) Mean Corpuscular Volume 87 fL (79-100) Mean Corpuscular Hemoglobin 29 pg (25-35) Mean Corpuscular Hemoglobin Concent 33 g/dL (31-37) Red Cell Distribution Width 20.3 % (11.5-14.5) Platelet Count 77 x10^3/uL (140-400) Neutrophils (%) (Auto) 61 % (31-73) Lymphocytes (%) (Auto) 26 % (24-48) Monocytes (%) (Auto) 10 % (0-9) Eosinophils (%) (Auto) 1 % (0-3) Basophils (%) (Auto) 2 % (0-3) Neutrophils # (Auto) 1.7 x10^3uL (1.8-7.7) Lymphocytes # (Auto) 0.7 x10^3/uL (1.0-4.8) Monocytes # (Auto) 0.3 x10^3/uL (0.0-1.1) Eosinophils # (Auto) 0.0 x10^3/uL (0.0-0.7) Basophils # (Auto) 0.0 x10^3/uL (0.0-0.2) Sodium Level 141 mmol/L (136-145) Potassium Level 4.2 mmol/L (3.5-5.1) Chloride Level 106 mmol/L (98-107) Carbon Dioxide Level 30 mmol/L (21-32) Anion Gap 5 (6-14) Blood Urea Nitrogen 18 mg/dL (7-20) Creatinine 1.3 mg/dL (0.6-1.0) Estimated GFR (Cockcroft-Gault) 40.6 Glucose Level 120 mg/dL (70-99) Calcium Level 8.1 mg/dL (8.5-10.1) Triglycerides Level 171 mg/dL (0-150) Cholesterol Level 109 mg/dL (0-200) LDL Cholesterol, Calculated 62 mg/dL (0-100) VLDL Cholesterol, Calculated 34 mg/dL (0-40) Non-HDL Cholesterol Calculated 96 mg/dL (0-129) HDL Cholesterol 13 mg/dL (40-60) Cholesterol/HDL Ratio 8.4 Review of Systems Review of Systems no nausea co mild SOB Assessment and Plan Assessmemt and Plan Assessment: cough, sob h/o myelofibrosis h/o kidney CA Chronic renal insufficiency h/o CVA with R sided weakness HTN, Hyperlipidemia Anemia NOS Hypothyroidism Cataract Removal Tonsillectomy Hysterectomy Plan: Transfuse, Hgb 6.5 Hct 19.8 platelets 77 Abx diuretics home meds labs Comment Review of Relevant I have reviewed the following items adelaida (where applicable) has been applied. Labs Laboratory Tests Test 11/02/17 21:40 11/03/17 05:00 11/04/17 04:10 White Blood Count 5.4 x10^3/uL (4.0-11.0) 4.8 x10^3/uL (4.0-11.0) 2.8 x10^3/uL (4.0-11.0) Red Blood Count 2.72 x10^6/uL (3.50-5.40) 2.73 x10^6/uL (3.50-5.40) 2.27 x10^6/uL (3.50-5.40) Hemoglobin 7.7 g/dL (12.0-15.5) 7.9 g/dL (12.0-15.5) 6.5 g/dL (12.0-15.5) Hematocrit 23.7 % (36.0-47.0) 23.8 % (36.0-47.0) 19.8 % (36.0-47.0) Mean Corpuscular Volume 87 fL (79-100) 87 fL (79-100) 87 fL (79-100) Mean Corpuscular Hemoglobin 28 pg (25-35) 29 pg (25-35) 29 pg (25-35) Mean Corpuscular Hemoglobin Concent 33 g/dL (31-37) 33 g/dL (31-37) 33 g/dL (31-37) Red Cell Distribution Width 20.6 % (11.5-14.5) 21.1 % (11.5-14.5) 20.3 % (11.5-14.5) Platelet Count 110 x10^3/uL (140-400) 99 x10^3/uL (140-400) 77 x10^3/uL (140-400) Neutrophils (%) (Auto) 58 % (31-73) 59 % (31-73) 61 % (31-73) Lymphocytes (%) (Auto) 28 % (24-48) 27 % (24-48) 26 % (24-48) Monocytes (%) (Auto) 12 % (0-9) 12 % (0-9) 10 % (0-9) Eosinophils (%) (Auto) 1 % (0-3) 1 % (0-3) 1 % (0-3) Basophils (%) (Auto) 1 % (0-3) 1 % (0-3) 2 % (0-3) Neutrophils # (Auto) 3.1 x10^3uL (1.8-7.7) 2.8 x10^3uL (1.8-7.7) 1.7 x10^3uL (1.8-7.7) Lymphocytes # (Auto) 1.5 x10^3/uL (1.0-4.8) 1.3 x10^3/uL (1.0-4.8) 0.7 x10^3/uL (1.0-4.8) Monocytes # (Auto) 0.7 x10^3/uL (0.0-1.1) 0.6 x10^3/uL (0.0-1.1) 0.3 x10^3/uL (0.0-1.1) Eosinophils # (Auto) 0.0 x10^3/uL (0.0-0.7) 0.1 x10^3/uL (0.0-0.7) 0.0 x10^3/uL (0.0-0.7) Basophils # (Auto) 0.0 x10^3/uL (0.0-0.2) 0.1 x10^3/uL (0.0-0.2) 0.0 x10^3/uL (0.0-0.2) Segmented Neutrophils % 46 % (35-66) Band Neutrophils % 13 % (0-9) Lymphocytes % 26 % (24-48) Monocytes % 6 % (0-10) Metamyelocytes % 7 % (0-0) Myelocytes % 2 % (0-0) Nucleated Red Blood Cells 2 Toxic Granulation Slight Platelet Estimate Decreased (ADEQUATE) Polychromasia Slight Poikilocytosis Slight Basophilic Stippling Present Anisocytosis Mod D-Dimer (Indira) 0.91 ug/mlFEU (0.00-0.50) Urine Collection Type U cath Urine Color [place] Urine Clarity Clear Urine pH 5.5 Urine Specific [place] 1.025 Urine Protein 100 mg/dL (NEG-TRACE) Urine Glucose (UA) Negative mg/dL (NEG) Urine Ketones (Stick) Trace mg/dL (NEG) Urine Blood Negative (NEG) Urine Nitrite Negative (NEG) Urine Bilirubin Small (NEG) Urine Urobilinogen Dipstick 1.0 mg/dL (0.2 mg/dL) Urine Leukocyte Esterase Small (NEG) Urine RBC 0 /HPF (0-2) Urine WBC 5-10 /HPF (0-4) Urine Squamous Epithelial Cells Few /LPF Urine Amorphous Sediment Present /HPF Urine Bacteria Few /HPF (0-FEW) Urine Mucus Slight /LPF Sodium Level 138 mmol/L (136-145) 139 mmol/L (136-145) 141 mmol/L (136-145) Potassium Level 4.7 mmol/L (3.5-5.1) 4.3 mmol/L (3.5-5.1) 4.2 mmol/L (3.5-5.1) Chloride Level 106 mmol/L (98-107) 105 mmol/L (98-107) 106 mmol/L (98-107) Carbon Dioxide Level 29 mmol/L (21-32) 29 mmol/L (21-32) 30 mmol/L (21-32) Anion Gap 3 (6-14) 5 (6-14) 5 (6-14) Blood Urea Nitrogen 18 mg/dL (7-20) 18 mg/dL (7-20) 18 mg/dL (7-20) Creatinine 1.3 mg/dL (0.6-1.0) 1.3 mg/dL (0.6-1.0) 1.3 mg/dL (0.6-1.0) Estimated GFR (Cockcroft-Gault) 40.6 40.6 40.6 BUN/Creatinine Ratio 14 (6-20) 14 (6-20) Glucose Level 140 mg/dL (70-99) 128 mg/dL (70-99) 120 mg/dL (70-99) Lactic Acid Level 1.0 mmol/L (0.4-2.0) Calcium Level 8.7 mg/dL (8.5-10.1) 9.0 mg/dL (8.5-10.1) 8.1 mg/dL (8.5-10.1) Total Bilirubin 1.0 mg/dL (0.2-1.0) 1.1 mg/dL (0.2-1.0) Aspartate Amino Transf (AST/SGOT) 25 U/L (15-37) 19 U/L (15-37) Alanine Aminotransferase (ALT/SGPT) 12 U/L (14-59) 10 U/L (14-59) Alkaline Phosphatase 41 U/L (46-116) 42 U/L (46-116) Troponin I Quantitative < 0.017 ng/mL (0.000-0.055) OF-Irs-G-Type Natriuretic Peptide 2519 pg/mL (0-124) Total Protein 7.1 g/dL (6.4-8.2) 7.2 g/dL (6.4-8.2) Albumin 2.7 g/dL (3.4-5.0) 2.8 g/dL (3.4-5.0) Albumin/Globulin Ratio 0.6 (1.0-1.7) 0.6 (1.0-1.7) Triglycerides Level 171 mg/dL (0-150) Cholesterol Level 109 mg/dL (0-200) LDL Cholesterol, Calculated 62 mg/dL (0-100) VLDL Cholesterol, Calculated 34 mg/dL (0-40) Non-HDL Cholesterol Calculated 96 mg/dL (0-129) HDL Cholesterol 13 mg/dL (40-60) Cholesterol/HDL Ratio 8.4 Laboratory Tests Test 11/04/17 04:10 White Blood Count 2.8 x10^3/uL (4.0-11.0) Red Blood Count 2.27 x10^6/uL (3.50-5.40) Hemoglobin 6.5 g/dL (12.0-15.5) Hematocrit 19.8 % (36.0-47.0) Mean Corpuscular Volume 87 fL (79-100) Mean Corpuscular Hemoglobin 29 pg (25-35) Mean Corpuscular Hemoglobin Concent 33 g/dL (31-37) Red Cell Distribution Width 20.3 % (11.5-14.5) Platelet Count 77 x10^3/uL (140-400) Neutrophils (%) (Auto) 61 % (31-73) Lymphocytes (%) (Auto) 26 % (24-48) Monocytes (%) (Auto) 10 % (0-9) Eosinophils (%) (Auto) 1 % (0-3) Basophils (%) (Auto) 2 % (0-3) Neutrophils # (Auto) 1.7 x10^3uL (1.8-7.7) Lymphocytes # (Auto) 0.7 x10^3/uL (1.0-4.8) Monocytes # (Auto) 0.3 x10^3/uL (0.0-1.1) Eosinophils # (Auto) 0.0 x10^3/uL (0.0-0.7) Basophils # (Auto) 0.0 x10^3/uL (0.0-0.2) Sodium Level 141 mmol/L (136-145) Potassium Level 4.2 mmol/L (3.5-5.1) Chloride Level 106 mmol/L (98-107) Carbon Dioxide Level 30 mmol/L (21-32) Anion Gap 5 (6-14) Blood Urea Nitrogen 18 mg/dL (7-20) Creatinine 1.3 mg/dL (0.6-1.0) Estimated GFR (Cockcroft-Gault) 40.6 Glucose Level 120 mg/dL (70-99) Calcium Level 8.1 mg/dL (8.5-10.1) Triglycerides Level 171 mg/dL (0-150) Cholesterol Level 109 mg/dL (0-200) LDL Cholesterol, Calculated 62 mg/dL (0-100) VLDL Cholesterol, Calculated 34 mg/dL (0-40) Non-HDL Cholesterol Calculated 96 mg/dL (0-129) HDL Cholesterol 13 mg/dL (40-60) Cholesterol/HDL Ratio 8.4 Microbiology 11/03/17 Blood Culture - Preliminary, Resulted NO GROWTH AFTER 1 DAY Medications Current Medications Furosemide (Lasix) 40 mg 1X ONCE IVP Last administered on 11/02/17at 23:33; Start 11/02/17 at 22:30; Stop 11/02/17 at 22:31; Status DC Levofloxacin/ Dextrose 100 ml @ 100 mls/hr 1X ONCE IV Last administered on 02/09at 23:33; Start 11/02/17 at 23:30; Stop 11/03/17 at 00:29; Status DC Ondansetron HCl (Zofran) 4 mg PRN Q8HRS PRN IV NAUSEA/VOMITING; Start 11/02/17 at 23:45; Stop 11/03/17 at 10:25; Status DC Acetaminophen (Tylenol) 650 mg PRN Q4HRS PRN PO FEVER; Start 11/02/17 at 23:45 ; Stop 11/03/17 at 10:25; Status DC Albuterol/ Ipratropium (Duoneb) 3 ml RTQID NEB Last administered on 11/03/17at 06:12; Start 11/03/17 at 08:00; Stop 11/03/17 at 10:26; Status DC Albuterol/ Ipratropium (Duoneb) 3 ml STK-MED ONCE .ROUTE ; Start 11/03/17 at 06: 04; Stop 11/03/17 at 06:06; Status DC Acetaminophen (Tylenol) 650 mg PRN Q6HRS PRN PO FEVER; Start 11/03/17 at 10:30 Ondansetron HCl (Zofran) 4 mg PRN Q6HRS PRN IV NAUSEA/VOMITING; Start 11/03/17 at 10:30 Morphine Sulfate (Morphine Sulfate) 2 mg PRN Q2HR PRN IV MODERATE TO SEVERE PAIN; Start 11/03/17 at 10:30 Tramadol HCl (Ultram) 50 mg PRN Q6HRS PRN PO MILD TO MODERATE PAIN Last administered on 11/03/17at 12:25; Start 11/03/17 at 10:30 Hydralazine HCl (Apresoline Inj) 10 mg PRN Q4HRS PRN IVP ELEVATED BP, SEE COMMENTS; Start 11/03/17 at 10:30 Docusate Sodium (Colace) 100 mg PRN DAILY PRN PO CONSTIPATION; Start 11/03/17 at 10:30 Levofloxacin/ Dextrose 150 ml @ 100 mls/hr Q24H IV ; Start 11/03/17 at 21:00; Stop 11/03/17 at 21:00; Status DC Albuterol/ Ipratropium (Duoneb) 3 ml RTQID NEB Last administered on 11/04/17at 11:20; Start 11/03/17 at 12:00 Albuterol Sulfate (Ventolin Neb Soln) 2.5 mg PRN Q2HR PRN NEB SHORTNESS OF BREATH; Start 11/03/17 at 10:30 Guaifenesin (Mucinex) 600 mg BID PO Last administered on 11/04/17at 08:16; Start 11/03/17 at 11:00 Furosemide (Lasix) 40 mg DAILY IVP Last administered on 11/03/17at 12:25; Start 11/03/17 at 11:00; Stop 11/03/17 at 13:55; Status DC Aspirin (Ecotrin) 81 mg DAILY PO Last administered on 11/04/17at 08:15; Start at 11:30 Furosemide (Lasix) 20 mg DAILY PO ; Start 11/04/17 at 09:00; Stop 11/04/17 at 09 :00; Status DC Acetaminophen/ Hydrocodone Bitart (Lortab 5/325) 1 tab PRN Q6HRS PRN PO SEVERE PAIN Last administered on 11/04/17at 08:15; Start 11/03/17 at 11:15 Pantoprazole Sodium (Protonix) 40 mg BIDAC PO Last administered on 11/04/17 08 :16; Start 11/03/17 at 11:30 Temazepam (Restoril) 15 mg QHS PO ; Start 11/03/17 at 21:00 Fenofibrate (Lofibra) 134 mg DAILY PO Last administered on 11/04/17 08:16; Start 11/03/17 at 11:30 Levothyroxine Sodium (Synthroid) 150 mcg DAILY07 PO Last administered on 06:18; Start 11/03/17 at 11:30 Metoprolol Succinate (Toprol Xl) 50 mg DAILY PO Last administered on 11/04/17 08:16; Start 11/03/17 at 11:30 Fish Oil (Fish Oil) 1,000 mg DAILY PO Last administered on 11/04/17 08:17; Start 11/03/17 at 11:30 Lisinopril (Prinivil) 40 mg DAILY PO Last administered on 11/04/17 08:17; Start 11/03/17 at 11:30 Enoxaparin Sodium (Lovenox 40mg Syringe) 40 mg Q24H SQ Last administered on 16:15; Start 11/03/17 at 14:00 Furosemide (Lasix) 40 mg DAILY PO Last administered on 11/04/17at 08:16; Start 11/04/17 at 09:00 Vancomycin HCl (Vanco Per Pharmacy) 1 each PRN DAILY PRN MC SEE COMMENTS Last administered on 11/04/17at 10:18; Start 11/03/17 at 14:00 Vancomycin HCl 1.75 gm/Sodium Chloride 500 ml @ 250 mls/hr 1X ONCE IV Last administered on 11/03/17at 16:16; Start 11/03/17 at 14:30; Stop 11/03/17 at 16:29 ; Status DC Levofloxacin/ Dextrose 150 ml @ 100 mls/hr QHS IV Last administered on at 21:40; Start 11/03/17 at 21:00 Vancomycin HCl 1.25 gm/Sodium Chloride 250 ml @ 167 mls/hr Q24H IV ; Start at 16:00 Vancomycin HCl (Vancomycin Trough Level) 1 each 1X ONCE MC ; Start 11/05/17 at 15:30; Stop 11/05/17 at 15:31 Active Scripts [facility] 5-325 Tablet (Acetaminophen/Hydrocodone Bitart) 1 Each Tablet 1 Tab PO PRN Q6HRS PRN Bactrim Ds Tablet (Sulfamethoxazole/Trimethoprim) 1 Each Tablet 1 Tab PO BID Reported Danazol 200 Mg Capsule 200 Mg PO Synthroid (Levothyroxine Sodium) 150 Mcg Tablet 1 Tab PO DAILY [Tylenol] 1,000 Mg PO Q6HRS PRN Vitamin D-3 (Cholecalciferol (Vitamin D3)) 2,000 Unit Capsule 1,000 Unit PO DAILY Temazepam 15 Mg Capsule 1 Cap PO QHS Toprol Xl (Metoprolol Succinate) 50 Mg Tab.er.24h 1 Tab PO DAILY Quinapril Hcl 40 Mg Tablet 1 Tab PO DAILY [place]-3 Fish Oil 1,000 mg Sfgl ([place]-3 Fatty Acids/Fish Oil) 1 Each Capsule 1 Each PO DAILY Pantoprazole Sodium 40 Mg Tablet.dr 1 Tab PO BID Furosemide 20 Mg Tablet 1 Tab PO DAILY Tricor (Fenofibrate Nanocrystallized) 145 Mg Tablet 1 Tab PO DAILY Aspir 81 (Aspirin) 81 Mg Tablet.dr 1 Tab PO DAILY Vitals/I & O Vital Sign - Last 24 Hours 11/03/17 11/03/17 11/03/17 11/03/17 11:59 12:25 12:25 12:26 Pulse 100 100 Resp 18 B/P (MAP) 147/75 147/75 O2 Delivery Nasal Cannula Nasal Cannula O2 Flow Rate 2.0 2.0 11/03/17 11/03/17 11/03/17 11/03/17 13:30 14:13 15:29 18:23 Temp 97.9 97.9 Pulse 89 Resp 20 18 B/P (MAP) 144/72 (96) Pulse Ox 97 O2 Delivery Nasal Cannula Nasal Cannula Nasal Cannula Nasal Cannula O2 Flow Rate 2.0 2.0 2.0 2.0 11/03/17 11/03/17 11/03/17 11/04/17 19:32 20:00 22:13 00:26 Temp 98.0 98.1 98.0 98.1 Pulse 91 92 Resp 16 16 20 B/P (MAP) 138/61 (86) 143/58 (86) Pulse Ox 94 95 95 O2 Delivery Nasal Cannula Nasal Cannula Nasal Cannula Nasal Cannula O2 Flow Rate 3.0 3.0 3.0 3.0 11/04/17 11/04/17 11/04/17 11/04/17 01:30 02:57 07:00 07:20 Temp 97.8 97.8 97.8 97.8 Pulse 91 90 Resp 18 16 B/P (MAP) 143/65 (91) 143/76 (98) Pulse Ox 95 98 97 97 O2 Delivery Nasal Cannula Nasal Cannula Nasal Cannula O2 Flow Rate 3.0 3.0 3.0 2.0 11/04/17 11/04/17 11/04/17 11/04/17 08:00 08:15 08:16 08:17 Pulse 90 90 Resp 18 B/P (MAP) 143/76 143/76 O2 Delivery Nasal Cannula Nasal Cannula O2 Flow Rate 2.0 2.0 11/04/17 11/04/17 11/04/17 11/04/17 09:15 09:17 09:33 10:35 Temp 98.1 97.8 97.6 98.1 97.8 97.6 Pulse 88 82 86 Resp 18 20 18 20 B/P (MAP) 147/113 168/70 148/69 O2 Delivery Room Air 11/04/17 11/04/17 11/04/17 10:43 11:21 11:35 Temp 97.7 97.6 97.7 97.6 Pulse 87 87 Resp 18 20 B/P (MAP) 148/69 (95) 157/77 Pulse Ox 97 O2 Delivery Nasal Cannula Nasal Cannula O2 Flow Rate 2.0 2.0 Intake and Output 11/03/17 11/03/17 11/04/17 15:00 23:00 07:00 Intake Total 300 ml 580 ml 200 ml Output Total 200 ml 400 ml 225 ml Balance 100 ml 180 ml -25 ml KRYSTAL,NIAL K III DO Nov 04, 2017 12:04
[2017-11-04] MEDS: ENOXAPARIN 40 MG/0.4 ML SYRINGE. SQ SCH (14:00)
--- NOTE | 2017-11-04 14:10 | PDOC ---
KAJALLINDA Gela INTERNATIONAL ACCOUNT EXECUTIVE 11/04/17 1410: CARDIO Progress Notes Date and Time Date of Service 11/04/2017 Time of Evaluation 1406 Subjective Subjective: No Chest Pain, No Palpitations, No Dizziness Vitals Vitals Vital Signs Date Time Temp Pulse Resp B/P (MAP) Pulse Ox O2 Delivery O2 Flow Rate FiO2 11/04/17 11:35 97.6 87 20 157/77 97.6 11/04/17 11:21 Nasal Cannula 2.0 11/04/17 10:43 97 Weight Weight [ ] Input and Output Intake and Output Intake and Output 11/04/17 07:00 Intake Total 1080 ml Output Total 825 ml Balance 255 ml Intake Oral 1080 ml Output Urine Total 825 ml Laboratory Labs Laboratory Tests Test 11/04/17 04:10 White Blood Count 2.8 x10^3/uL (4.0-11.0) Red Blood Count 2.27 x10^6/uL (3.50-5.40) Hemoglobin 6.5 g/dL (12.0-15.5) Hematocrit 19.8 % (36.0-47.0) Mean Corpuscular Volume 87 fL (79-100) Mean Corpuscular Hemoglobin 29 pg (25-35) Mean Corpuscular Hemoglobin Concent 33 g/dL (31-37) Red Cell Distribution Width 20.3 % (11.5-14.5) Platelet Count 77 x10^3/uL (140-400) Neutrophils (%) (Auto) 61 % (31-73) Lymphocytes (%) (Auto) 26 % (24-48) Monocytes (%) (Auto) 10 % (0-9) Eosinophils (%) (Auto) 1 % (0-3) Basophils (%) (Auto) 2 % (0-3) Neutrophils # (Auto) 1.7 x10^3uL (1.8-7.7) Lymphocytes # (Auto) 0.7 x10^3/uL (1.0-4.8) Monocytes # (Auto) 0.3 x10^3/uL (0.0-1.1) Eosinophils # (Auto) 0.0 x10^3/uL (0.0-0.7) Basophils # (Auto) 0.0 x10^3/uL (0.0-0.2) Sodium Level 141 mmol/L (136-145) Potassium Level 4.2 mmol/L (3.5-5.1) Chloride Level 106 mmol/L (98-107) Carbon Dioxide Level 30 mmol/L (21-32) Anion Gap 5 (6-14) Blood Urea Nitrogen 18 mg/dL (7-20) Creatinine 1.3 mg/dL (0.6-1.0) Estimated GFR (Cockcroft-Gault) 40.6 Glucose Level 120 mg/dL (70-99) Calcium Level 8.1 mg/dL (8.5-10.1) Triglycerides Level 171 mg/dL (0-150) Cholesterol Level 109 mg/dL (0-200) LDL Cholesterol, Calculated 62 mg/dL (0-100) VLDL Cholesterol, Calculated 34 mg/dL (0-40) Non-HDL Cholesterol Calculated 96 mg/dL (0-129) HDL Cholesterol 13 mg/dL (40-60) Cholesterol/HDL Ratio 8.4 Microbiology Micro Microbiology 11/03/17 Blood Culture - Preliminary, Resulted NO GROWTH AFTER 1 DAY Physical Exam HEENT: Neck Supple W Full Motion Chest: Symmetric LUNGS: Clear to Auscultation Heart: irregularly irregular, other (tele: PAF) Abdomen: Soft N/T Neurology: alert Assessment Assessment 1. Acute respiratory failure --pneumonia --per pulm 2. chronic diastolic HF --treated with oral diuretics --increase BB as BP is not controlled --TTE done 10/07/2017 with LVEF of 55-60% 3. anemia --admitted @ 7.7 and decreased to 6.5 earlier today; transfused X 1 unit --? GI evaluation 4. right lung mass with history of renal carcinoma 5. previous CVA with residual right weakness 6. PAF --no significant valvular disease on TTE --check TSH as on replacement therapy for hypothyroidism --increase BB for rate control --[id number] = 6 corresponding to high risk of stroke (9.8% yearly) and recommendation for anticoagulation ---will hold until GI evaluation completed; remains on low dose aspirin LIZABETH PELAEZ MD 11/04/17 4558: CARDIO Progress Notes Assessment Assessment Patient seen and examined. Agree with SCENE PAINTER's assessment and plan. Chronic diastolic heart failure compensated Continue treatment of pneumonia per pulmonary team Continue current evaluation and management for anemia We will initiate long-term anticoagulation for stroke prophylaxis secondary to her atrial fibrillation, once GI workup is completed LINDA RDZ APRN Nov 04, 2017 14:10 LIZABETH PELAEZ MD Nov 04, 2017 17:44
[2017-11-04] MEDS ORDERED: METOPROLOL SUCC 24HR ER 25 MG TAB.ER.24H. PO ONE (14:15)
--- NOTE | 2017-11-04 15:37 | RAD ---
CLINICAL HISTORY: LUNG MASS / NODULES . COMPARISON: 05/16/2017 TECHNIQUE: CT of the chest without intravenous contrast. Coronal and sagittal reformatted images were generated. PQRS compliance Statement One or more of the following individualized dose reduction techniques were utilized for this study: 1. Automated exposure control 2. Adjustment of the mA and/or kV according to patient size 3. Use of iterative reconstruction technique FINDINGS: Lack of intravenous contrast limits evaluation of solid organs, vasculature, and lymph nodes. The heart is not enlarged. Coronary artery calcifications are seen. There is relative hypoattenuation of the blood pool to the myocardium, which may be seen with anemia. No pericardial effusion. Calcified mediastinal and hilar lymph nodes, possibly from chronic granulomatous disease. Small left pleural effusion. And trace right pleural effusion. No pneumothorax. Bilateral emphysematous changes are seen. A 3.4 x 2.3 cm right lower lobe lobulated lung mass is again seen, previously 3 x 2 cm when measured in a similar fashion. Numerous associated satellite nodules are seen in the right lower lobe, grossly stable in size, a sales representative uniforms satellite nodule measures 5 mm. Diffuse mottled appearance of the osseous structures possibly from renal osteodystrophy. However there are superimposed lucent lesions within the osseous structures, most prominent within the spine, grossly stable. There has been a right nephrectomy. The spleen is enlarged measuring 19.5 cm in length. Left renal cystic lesion is partially profiled. IMPRESSION: 1. Mild interval enlargement of the right lower lobe lung mass, likely metastasis versus primary lung lesion. Consider PET/CT to assess for metabolic activity of the lung mass as clinically indicated. 2. Diffuse sclerosis of the osseous structures possibly from renal osteodystrophy. Superimposed lucent lesions are grossly stable, nonspecific but may represent metastatic disease. 3. Splenomegaly. 4. Small left pleural effusion. Electronically signed by: Joaquin Murrieta MD (11/04/2017 3:33 PM) [facility]
[2017-11-04] MEDS ORDERED: VANCOMYCIN 1.25 GM in IV NORMAL SALINE 250ML 250 ML IV SCH (16:00)
[2017-11-04] MEDS: traMADol 50 MG TABLET PO PRN (16:29)
[2017-11-04] MEDS: TEMAZEPAM 15 MG CAPSULE PO SCH (21:00)
[2017-11-05] VITALS (11 sets, daily range): BP systolic 113–170; BP diastolic 54–70
[2017-11-05 05:22] LABS: BASO % 1 % (0-3); EOS % 1 % (0-3); LYMPH # 0.5 x10^3/uL (1.0-4.8); LYMPH % 20 % (24-48); MEAN CORPUSCULAR HEMOGLOBIN 29 pg (25-35); MEAN CORPUSCULAR HGB CONC 33 g/dL (31-37); MEAN CORPUSCULAR VOLUME 87 fL (79-100); MONO # 0.3 x10^3/uL (0.0-1.1); MONO % 10 % (0-9); NEUT # 1.8 x10^3uL (1.8-7.7); NEUT % 68 % (31-73); PLATELET COUNT 75 x10^3/uL (140-400); RED BLOOD COUNT 2.37 x10^6/uL (3.50-5.40); RED CELL DISTRIBUTION WIDTH 19.5 % (11.5-14.5); WHITE BLOOD COUNT 2.6 x10^3/uL (4.0-11.0)
[2017-11-05 05:30] LABS: HEMATOCRIT 20.7 % (36.0-47.0); HEMOGLOBIN 6.9 g/dL (12.0-15.5)
[2017-11-05 05:42] LABS: CALCIUM 8.9 mg/dL (8.5-10.1); CREATININE 1.3 mg/dL (0.6-1.0); GFR 40.5; POTASSIUM 4.1 mmol/L (3.5-5.1)
[2017-11-05 05:58] LABS: FREE T4 1.54 ng/dL (0.76-1.46); THYROID STIM HORMONE (TSH) 2.107 uIU/mL (0.358-3.74)
[2017-11-05] MEDS: LEVOTHYROXINE 150 MCG TABLET PO SCH (06:05)
[2017-11-05] MEDS: IPRATRPIUM/ALBUTEROL 0.5/2.5MG 3 ML NEBU. NEB SCH ×4 (08:04→19:50)
[2017-11-05] MEDS: FENOFIBRATE,MICRONIZED 134 MG CAPSULE PO SCH (08:34)
[2017-11-05] MEDS: METOPROLOL SUCC 24HR ER 25 MG TAB.ER.24H. PO SCH (08:34)
[2017-11-05] MEDS: OMEGA-3 FATTY ACIDS/FISH OIL 1,000 MG CAPSULE. PO SCH (08:34)
[2017-11-05] MEDS: PANTOPRAZOLE 40 MG TABLET.DR. PO SCH ×2 (08:34→17:09)
[2017-11-05] MEDS: LISINOPRIL 20 MG TABLET PO SCH (08:35)
[2017-11-05] MEDS: FUROSEMIDE 40 MG TABLET. PO SCH (08:35)
[2017-11-05] MEDS: ASPIRIN ENTERIC COATED 81 MG TABLET.DR. PO SCH (08:35)
--- NOTE | 2017-11-05 09:02 | PDOC ---
SUBJECTIVE Subjective S: Still tired, needing another unit of blood today O: Physical exam: Gen.: Well-nourished and well-developed, resting in bed Lungs: Breathing comfortably with no evidence of respiratory distress Psychiatric: Pleasant mood and affect Labs: 16.9, up from 6.5 yesterday, platelets last check 75 with white count of 2.6 Assessment and Plan: Ms. 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 Unfortunately there is also a concern for solid tumor malignancy stage IV with lung mass and bony metastases, however she is too tired for further workup and does not have a performance status which would allow us to actively treat most malignancies if found. Palliative care is certainly a reasonable option but she does not want to discuss palliative care at this point in time, and also is declining a repeat CT chest abdomen and pelvis. 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 OBJECTIVE Vital Signs Vital Signs Date Time Temp Pulse Resp B/P (MAP) Pulse Ox O2 Delivery O2 Flow Rate FiO2 11/05/17 08:35 86 146/70 11/05/17 08:34 86 146/70 11/05/17 08:05 Nasal Cannula 2.0 11/05/17 08:00 Nasal Cannula 2.0 11/05/17 07:30 98.5 86 18 146/70 (95) 98 Nasal Cannula 2.0 98.5 11/05/17 03:22 97.5 83 18 137/54 (81) 98 Nasal Cannula 2.0 97.5 8/13/18 22:55 97.8 85 16 135/67 (89) 97 Nasal Cannula 2.0 97.8 11/04/17 20:22 Nasal Cannula 2.0 11/04/17 20:00 Nasal Cannula 2.0 11/04/17 19:45 97.8 82 16 147/73 (97) 98 Nasal Cannula 2.0 97.8 11/04/17 17:33 18 Nasal Cannula 2.0 11/04/17 16:29 20 Room Air 11/04/17 14:54 98.3 93 18 166/61 (96) 97 Nasal Cannula 2.0 98.3 11/04/17 14:40 87 157/77 11/04/17 11:35 97.6 87 20 157/77 97.6 11/04/17 11:21 Nasal Cannula 2.0 11/04/17 10:43 97.7 87 18 148/69 (95) 97 Nasal Cannula 2.0 97.7 11/04/17 10:35 97.6 86 20 148/69 97.6 11/04/17 09:33 97.8 82 18 168/70 97.8 11/04/17 09:17 98.1 88 20 147/113 98.1 11/04/17 09:15 18 Room Air I & O Intake and Output 11/05/17 07:00 Intake Total 1595 ml Output Total 2225 ml Balance -630 ml Intake Oral 1320 ml Blood Product IV Normal Saline Flush 275 ml Output Urine Total 2225 ml # Voids 3 COMMENT Lab Laboratory Tests Test 11/05/17 04:45 White Blood Count 2.6 x10^3/uL (4.0-11.0) Red Blood Count 2.37 x10^6/uL (3.50-5.40) Hemoglobin 6.9 g/dL (12.0-15.5) Hematocrit 20.7 % (36.0-47.0) Mean Corpuscular Volume 87 fL (79-100) Mean Corpuscular Hemoglobin 29 pg (25-35) Mean Corpuscular Hemoglobin Concent 33 g/dL (31-37) Red Cell Distribution Width 19.5 % (11.5-14.5) Platelet Count 75 x10^3/uL (140-400) Neutrophils (%) (Auto) 68 % (31-73) Lymphocytes (%) (Auto) 20 % (24-48) Monocytes (%) (Auto) 10 % (0-9) Eosinophils (%) (Auto) 1 % (0-3) Basophils (%) (Auto) 1 % (0-3) Neutrophils # (Auto) 1.8 x10^3uL (1.8-7.7) Lymphocytes # (Auto) 0.5 x10^3/uL (1.0-4.8) Monocytes # (Auto) 0.3 x10^3/uL (0.0-1.1) Eosinophils # (Auto) 0.0 x10^3/uL (0.0-0.7) Basophils # (Auto) 0.0 x10^3/uL (0.0-0.2) Sodium Level 138 mmol/L (136-145) Potassium Level 4.1 mmol/L (3.5-5.1) Chloride Level 102 mmol/L (98-107) Carbon Dioxide Level 28 mmol/L (21-32) Anion Gap 8 (6-14) Blood Urea Nitrogen 17 mg/dL (7-20) Creatinine 1.3 mg/dL (0.6-1.0) Estimated GFR (Cockcroft-Gault) 40.5 Glucose Level 108 mg/dL (70-99) Calcium Level 8.9 mg/dL (8.5-10.1) Thyroid Stimulating Hormone (TSH) 2.107 uIU/mL (0.358-3.74) Free Thyroxine 1.54 ng/dL (0.76-1.46) KENDELL CANDELARIA MD Nov 05, 2017 09:02
--- NOTE | 2017-11-05 09:29 | PDOC2 ---
GI CONSULT Reason For Consult: Abd pain, chronic anemia, myelofibrosis HPI: HPI: 72 y/o female w/ h/o myelofibrosis and essential thrombocythemia w/ transfusion- dependent anemia. Followed by hematology. Admitted w/ SOA - possible pneumonia , CHF, and concern for lung mass/metastases for which she has declined further workup. GI-ricks, she has no obvious bleeding. She admits to decreased appetite, some vague mid abdominal pain, and constipation. Per last GI consult on 10/07/17 - has had three colonoscopies within the past 10 years, most recently @ [facility] in 06/2017 w/ an adenomatous polyp and sigmoid diverticulosis. PMH: PMH: HTN, CVA, CKD, gout, hypothyroidism, HLD, renal cancer, colon polyps, diverticulosis, hemorrhoids, tubal ligation, hysterectomy w/ BSO, right nephrectomy, tonsillectomy, bone marrow biopsy FH: Family History: CAD, DM, Hypertension Social History: Smoke: 1 pack per day ALCOHOL: none Drugs: None ROS: GEN: Denies fevers, chills, sweats HEENT: Denies blurred vision, sore throat CV: Denies chest pain RESP: +SOA GI: Per HPI : Denies hematuria, dysuria ENDO: Denies weight changes NEURO: h/o CVA MSK: +weakness SKIN: Denies jaundice, pruritus Vitals: Vitals: Vital Signs Date Time Temp Pulse Resp B/P (MAP) Pulse Ox O2 Delivery O2 Flow Rate FiO2 11/05/17 08:35 86 146/70 11/05/17 08:05 Nasal Cannula 2.0 11/05/17 07:30 98.5 18 98 98.5 Labs: Labs: Laboratory Tests Test 11/05/17 04:45 White Blood Count 2.6 x10^3/uL (4.0-11.0) Red Blood Count 2.37 x10^6/uL (3.50-5.40) Hemoglobin 6.9 g/dL (12.0-15.5) Hematocrit 20.7 % (36.0-47.0) Mean Corpuscular Volume 87 fL (79-100) Mean Corpuscular Hemoglobin 29 pg (25-35) Mean Corpuscular Hemoglobin Concent 33 g/dL (31-37) Red Cell Distribution Width 19.5 % (11.5-14.5) Platelet Count 75 x10^3/uL (140-400) Neutrophils (%) (Auto) 68 % (31-73) Lymphocytes (%) (Auto) 20 % (24-48) Monocytes (%) (Auto) 10 % (0-9) Eosinophils (%) (Auto) 1 % (0-3) Basophils (%) (Auto) 1 % (0-3) Neutrophils # (Auto) 1.8 x10^3uL (1.8-7.7) Lymphocytes # (Auto) 0.5 x10^3/uL (1.0-4.8) Monocytes # (Auto) 0.3 x10^3/uL (0.0-1.1) Eosinophils # (Auto) 0.0 x10^3/uL (0.0-0.7) Basophils # (Auto) 0.0 x10^3/uL (0.0-0.2) Sodium Level 138 mmol/L (136-145) Potassium Level 4.1 mmol/L (3.5-5.1) Chloride Level 102 mmol/L (98-107) Carbon Dioxide Level 28 mmol/L (21-32) Anion Gap 8 (6-14) Blood Urea Nitrogen 17 mg/dL (7-20) Creatinine 1.3 mg/dL (0.6-1.0) Estimated GFR (Cockcroft-Gault) 40.5 Glucose Level 108 mg/dL (70-99) Calcium Level 8.9 mg/dL (8.5-10.1) Thyroid Stimulating Hormone (TSH) 2.107 uIU/mL (0.358-3.74) Free Thyroxine 1.54 ng/dL (0.76-1.46) Allergies: Coded Allergies: iodine (Verified Allergy, Severe, ANAPHYLAXIS, 10/31/17) Penicillins (Verified Allergy, Intermediate, 10/31/17) cephalexin (Verified Allergy, Intermediate, 10/31/17) Medications: Current Medications Medications (Trade) Dose Ordered Sig/[place] Route PRN Reason Start Time Stop Time Status Last Admin Dose Admin Vancomycin HCl 1.25 gm/Sodium Chloride 250 ml @ 167 mls/hr Q24H IV 11/04/17 16:00 11/04/17 16:20 Non-Formulary Medication 1 ea BID PO 11/04/17 13:45 11/05/17 08:39 Metoprolol Succinate (Toprol Xl) 75 mg DAILY PO 11/05/17 09:00 11/05/17 08:34 Metoprolol Succinate (Toprol Xl) 25 mg 1X ONCE PO 11/04/17 14:15 11/04/17 14:23 DC 11/04/17 14:40 Imaging: Imaging: CXR IMPRESSION: 1. Right lung nodule or mass. 2. Mild improvement in infiltrates or edema compared to the study from October 08. LE US IMPRESSION: There is no sonographic evidence of deep vein thrombosis in either lower extremity. Chest CT IMPRESSION: 1. Mild interval enlargement of the right lower lobe lung mass, likely metastasis versus primary lung lesion. Consider PET/CT to assess for metabolic activity of the lung mass as clinically indicated. 2. Diffuse sclerosis of the osseous structures possibly from renal osteodystrophy. Superimposed lucent lesions are grossly stable, nonspecific but may represent metastatic disease. 3. Splenomegaly. 4. Small left pleural effusion. PE: GEN: NAD HEENT: Atraumatic, PERRL LUNGS: NC, diminished HEART: RRR ABD: BS+, periumbilical discomfort, soft EXTREMITY: No edema SKIN: pale NEURO/PSYCH: A & O 3 - I believe h/o aphasia, has trouble finding some words A/P: A/P: Myelofibrosis, anemia Right lung mass w/ possible mets - she declines further workup SOA, ?pneumonia, CHF, A Fib CRC screen, h/o colon polyps and diverticulosis - last colonoscopy 06/2017 Constipation and abd pain - history of same Decreased appetite -- Anemia 2/2 known myeloproliferative disorder. No evidence of GI bleeding. For constipation, try Miralax - can consider Amitiza, Linzess, Movantik, Relistor, etc. if indicated. Agree w/ PPI. This morning she is still not interested in pursuing imaging re: lung mass - defer this to heme/onc and pulm. Additional recs per Dr. Chinchilla. ANNALEE SALAS Nov 05, 2017 09:29
[2017-11-05] MEDS: POLYETHYLENE GLYCOL 3350 17 GM PACKET. PO SCH ×2 (10:00→21:00)
--- NOTE | 2017-11-05 12:27 | PDOC ---
PROGRESS NOTES Chief Complaint Chief Complaint cough, sob h/o myelofibrosis h/o kidney CA Chronic renal insufficiency h/o CVA with R sided weakness HTN, Hyperlipidemia Anemia NOS Hypothyroidism Cataract Removal Tonsillectomy Hysterectomy History of Present Illness History of Present Illness pt seen and examined pt is refusing any other diagnostic procedures currently Radiology report reviewed and pt is aware of enlarging R Lower Lung mass VSS DW RN DW DR. Rod Vitals Vitals Vital Signs Date Time Temp Pulse Resp B/P (MAP) Pulse Ox O2 Delivery O2 Flow Rate FiO2 11/05/17 11:57 Room Air 11/05/17 11:14 98.1 86 18 147/70 98.1 11/05/17 11:00 93 2.0 Physical Exam General: Alert, Oriented X3, Cooperative, No acute distress Heart: Regular rate, Normal S1, No murmurs Lungs: Clear Abdomen: Normal bowel sounds, No tenderness Extremities: No clubbing, No cyanosis, No edema, Normal pulses Skin: No rashes, No breakdown Labs LABS Laboratory Tests Test 11/05/17 04:45 White Blood Count 2.6 x10^3/uL (4.0-11.0) Red Blood Count 2.37 x10^6/uL (3.50-5.40) Hemoglobin 6.9 g/dL (12.0-15.5) Hematocrit 20.7 % (36.0-47.0) Mean Corpuscular Volume 87 fL (79-100) Mean Corpuscular Hemoglobin 29 pg (25-35) Mean Corpuscular Hemoglobin Concent 33 g/dL (31-37) Red Cell Distribution Width 19.5 % (11.5-14.5) Platelet Count 75 x10^3/uL (140-400) Neutrophils (%) (Auto) 68 % (31-73) Lymphocytes (%) (Auto) 20 % (24-48) Monocytes (%) (Auto) 10 % (0-9) Eosinophils (%) (Auto) 1 % (0-3) Basophils (%) (Auto) 1 % (0-3) Neutrophils # (Auto) 1.8 x10^3uL (1.8-7.7) Lymphocytes # (Auto) 0.5 x10^3/uL (1.0-4.8) Monocytes # (Auto) 0.3 x10^3/uL (0.0-1.1) Eosinophils # (Auto) 0.0 x10^3/uL (0.0-0.7) Basophils # (Auto) 0.0 x10^3/uL (0.0-0.2) Sodium Level 138 mmol/L (136-145) Potassium Level 4.1 mmol/L (3.5-5.1) Chloride Level 102 mmol/L (98-107) Carbon Dioxide Level 28 mmol/L (21-32) Anion Gap 8 (6-14) Blood Urea Nitrogen 17 mg/dL (7-20) Creatinine 1.3 mg/dL (0.6-1.0) Estimated GFR (Cockcroft-Gault) 40.5 Glucose Level 108 mg/dL (70-99) Calcium Level 8.9 mg/dL (8.5-10.1) Thyroid Stimulating Hormone (TSH) 2.107 uIU/mL (0.358-3.74) Free Thyroxine 1.54 ng/dL (0.76-1.46) Review of Systems Review of Systems no co difficulty urinating no co SOB Assessment and Plan Assessmemt and Plan Assessment: cough, sob h/o myelofibrosis h/o kidney CA Chronic renal insufficiency h/o CVA with R sided weakness HTN, Hyperlipidemia Anemia NOS Hypothyroidism Cataract Removal Tonsillectomy Hysterectomy Plan: Transfuse Abx Diuresis Pt refuses further workup home meds Probable DC if ok with subspecialists Comment Review of Relevant I have reviewed the following items adelaida (where applicable) has been applied. Labs Laboratory Tests Test 11/04/17 04:10 11/05/17 04:45 White Blood Count 2.8 x10^3/uL (4.0-11.0) 2.6 x10^3/uL (4.0-11.0) Red Blood Count 2.27 x10^6/uL (3.50-5.40) 2.37 x10^6/uL (3.50-5.40) Hemoglobin 6.5 g/dL (12.0-15.5) 6.9 g/dL (12.0-15.5) Hematocrit 19.8 % (36.0-47.0) 20.7 % (36.0-47.0) Mean Corpuscular Volume 87 fL (79-100) 87 fL (79-100) Mean Corpuscular Hemoglobin 29 pg (25-35) 29 pg (25-35) Mean Corpuscular Hemoglobin Concent 33 g/dL (31-37) 33 g/dL (31-37) Red Cell Distribution Width 20.3 % (11.5-14.5) 19.5 % (11.5-14.5) Platelet Count 77 x10^3/uL (140-400) 75 x10^3/uL (140-400) Neutrophils (%) (Auto) 61 % (31-73) 68 % (31-73) Lymphocytes (%) (Auto) 26 % (24-48) 20 % (24-48) Monocytes (%) (Auto) 10 % (0-9) 10 % (0-9) Eosinophils (%) (Auto) 1 % (0-3) 1 % (0-3) Basophils (%) (Auto) 2 % (0-3) 1 % (0-3) Neutrophils # (Auto) 1.7 x10^3uL (1.8-7.7) 1.8 x10^3uL (1.8-7.7) Lymphocytes # (Auto) 0.7 x10^3/uL (1.0-4.8) 0.5 x10^3/uL (1.0-4.8) Monocytes # (Auto) 0.3 x10^3/uL (0.0-1.1) 0.3 x10^3/uL (0.0-1.1) Eosinophils # (Auto) 0.0 x10^3/uL (0.0-0.7) 0.0 x10^3/uL (0.0-0.7) Basophils # (Auto) 0.0 x10^3/uL (0.0-0.2) 0.0 x10^3/uL (0.0-0.2) Sodium Level 141 mmol/L (136-145) 138 mmol/L (136-145) Potassium Level 4.2 mmol/L (3.5-5.1) 4.1 mmol/L (3.5-5.1) Chloride Level 106 mmol/L (98-107) 102 mmol/L (98-107) Carbon Dioxide Level 30 mmol/L (21-32) 28 mmol/L (21-32) Anion Gap 5 (6-14) 8 (6-14) Blood Urea Nitrogen 18 mg/dL (7-20) 17 mg/dL (7-20) Creatinine 1.3 mg/dL (0.6-1.0) 1.3 mg/dL (0.6-1.0) Estimated GFR (Cockcroft-Gault) 40.6 40.5 Glucose Level 120 mg/dL (70-99) 108 mg/dL (70-99) Calcium Level 8.1 mg/dL (8.5-10.1) 8.9 mg/dL (8.5-10.1) Triglycerides Level 171 mg/dL (0-150) Cholesterol Level 109 mg/dL (0-200) LDL Cholesterol, Calculated 62 mg/dL (0-100) VLDL Cholesterol, Calculated 34 mg/dL (0-40) Non-HDL Cholesterol Calculated 96 mg/dL (0-129) HDL Cholesterol 13 mg/dL (40-60) Cholesterol/HDL Ratio 8.4 Thyroid Stimulating Hormone (TSH) 2.107 uIU/mL (0.358-3.74) Free Thyroxine 1.54 ng/dL (0.76-1.46) Laboratory Tests Test 11/05/17 04:45 White Blood Count 2.6 x10^3/uL (4.0-11.0) Red Blood Count 2.37 x10^6/uL (3.50-5.40) Hemoglobin 6.9 g/dL (12.0-15.5) Hematocrit 20.7 % (36.0-47.0) Mean Corpuscular Volume 87 fL (79-100) Mean Corpuscular Hemoglobin 29 pg (25-35) Mean Corpuscular Hemoglobin Concent 33 g/dL (31-37) Red Cell Distribution Width 19.5 % (11.5-14.5) Platelet Count 75 x10^3/uL (140-400) Neutrophils (%) (Auto) 68 % (31-73) Lymphocytes (%) (Auto) 20 % (24-48) Monocytes (%) (Auto) 10 % (0-9) Eosinophils (%) (Auto) 1 % (0-3) Basophils (%) (Auto) 1 % (0-3) Neutrophils # (Auto) 1.8 x10^3uL (1.8-7.7) Lymphocytes # (Auto) 0.5 x10^3/uL (1.0-4.8) Monocytes # (Auto) 0.3 x10^3/uL (0.0-1.1) Eosinophils # (Auto) 0.0 x10^3/uL (0.0-0.7) Basophils # (Auto) 0.0 x10^3/uL (0.0-0.2) Sodium Level 138 mmol/L (136-145) Potassium Level 4.1 mmol/L (3.5-5.1) Chloride Level 102 mmol/L (98-107) Carbon Dioxide Level 28 mmol/L (21-32) Anion Gap 8 (6-14) Blood Urea Nitrogen 17 mg/dL (7-20) Creatinine 1.3 mg/dL (0.6-1.0) Estimated GFR (Cockcroft-Gault) 40.5 Glucose Level 108 mg/dL (70-99) Calcium Level 8.9 mg/dL (8.5-10.1) Thyroid Stimulating Hormone (TSH) 2.107 uIU/mL (0.358-3.74) Free Thyroxine 1.54 ng/dL (0.76-1.46) Microbiology 11/03/17 Blood Culture - Preliminary, Resulted NO GROWTH AFTER 2 DAYS 11/02/17 Urine Culture - Final, Complete 11/02/17 Urine Culture Result 1 (LINDA) - Final, Complete Medications Current Medications Furosemide (Lasix) 40 mg 1X ONCE IVP Last administered on 11/02/17at 23:33; Start 11/02/17 at 22:30; Stop 11/02/17 at 22:31; Status DC Levofloxacin/ Dextrose 100 ml @ 100 mls/hr 1X ONCE IV Last administered on 02/09at 23:33; Start 11/02/17 at 23:30; Stop 11/03/17 at 00:29; Status DC Ondansetron HCl (Zofran) 4 mg PRN Q8HRS PRN IV NAUSEA/VOMITING; Start 11/02/17 at 23:45; Stop 11/03/17 at 10:25; Status DC Acetaminophen (Tylenol) 650 mg PRN Q4HRS PRN PO FEVER; Start 11/02/17 at 23:45 ; Stop 11/03/17 at 10:25; Status DC Albuterol/ Ipratropium (Duoneb) 3 ml RTQID NEB Last administered on 11/03/17at 06:12; Start 11/03/17 at 08:00; Stop 11/03/17 at 10:26; Status DC Albuterol/ Ipratropium (Duoneb) 3 ml STK-MED ONCE .ROUTE ; Start 11/03/17 at 06: 04; Stop 11/03/17 at 06:06; Status DC Acetaminophen (Tylenol) 650 mg PRN Q6HRS PRN PO FEVER; Start 11/03/17 at 10:30 Ondansetron HCl (Zofran) 4 mg PRN Q6HRS PRN IV NAUSEA/VOMITING; Start 11/03/17 at 10:30 Morphine Sulfate (Morphine Sulfate) 2 mg PRN Q2HR PRN IV MODERATE TO SEVERE PAIN; Start 11/03/17 at 10:30 Tramadol HCl (Ultram) 50 mg PRN Q6HRS PRN PO MILD TO MODERATE PAIN Last administered on 11/04/17at 16:29; Start 11/03/17 at 10:30 Hydralazine HCl (Apresoline Inj) 10 mg PRN Q4HRS PRN IVP ELEVATED BP, SEE COMMENTS; Start 11/03/17 at 10:30 Docusate Sodium (Colace) 100 mg PRN DAILY PRN PO CONSTIPATION Last administered on 11/05/17at 08:35; Start 11/03/17 at 10:30 Levofloxacin/ Dextrose 150 ml @ 100 mls/hr Q24H IV ; Start 11/03/17 at 21:00; Stop 11/03/17 at 21:00; Status DC Albuterol/ Ipratropium (Duoneb) 3 ml RTQID NEB Last administered on 11/05/17at 11:56; Start 11/03/17 at 12:00 Albuterol Sulfate (Ventolin Neb Soln) 2.5 mg PRN Q2HR PRN NEB SHORTNESS OF BREATH; Start 11/03/17 at 10:30 Guaifenesin (Mucinex) 600 mg BID PO Last administered on 11/05/17at 08:35; Start 11/03/17 at 11:00 Furosemide (Lasix) 40 mg DAILY IVP Last administered on 11/03/17 12:25; Start 11/03/17 at 11:00; Stop 11/03/17 at 13:55; Status DC Aspirin (Ecotrin) 81 mg DAILY PO Last administered on 11/05/17 08:35; Start at 11:30 Furosemide (Lasix) 20 mg DAILY PO ; Start 11/04/17 at 09:00; Stop 11/04/17 at 09 :00; Status DC Acetaminophen/ Hydrocodone Bitart (Lortab 5/325) 1 tab PRN Q6HRS PRN PO SEVERE PAIN Last administered on 11/04/17 08:15; Start 11/03/17 at 11:15 Pantoprazole Sodium (Protonix) 40 mg BIDAC PO Last administered on 11/05/17 08 :34; Start 11/03/17 at 11:30 Temazepam (Restoril) 15 mg QHS PO ; Start 11/03/17 at 21:00 Fenofibrate (Lofibra) 134 mg DAILY PO Last administered on 11/05/17 08:34; Start 11/03/17 at 11:30 Levothyroxine Sodium (Synthroid) 150 mcg DAILY07 PO Last administered on 06:05; Start 11/03/17 at 11:30 Metoprolol Succinate (Toprol Xl) 50 mg DAILY PO Last administered on 11/04/17 08:16; Start 11/03/17 at 11:30; Stop 11/04/17 at 14:17; Status DC Fish Oil (Fish Oil) 1,000 mg DAILY PO Last administered on 11/05/17 08:34; Start 11/03/17 at 11:30 Lisinopril (Prinivil) 40 mg DAILY PO Last administered on 11/05/17 08:35; Start 11/03/17 at 11:30 Enoxaparin Sodium (Lovenox 40mg Syringe) 40 mg Q24H SQ Last administered on 16:15; Start 11/03/17 at 14:00 Furosemide (Lasix) 40 mg DAILY PO Last administered on 11/05/17 08:35; Start 11/04/17 at 09:00 Vancomycin HCl (Vanco Per Pharmacy) 1 each PRN DAILY PRN MC SEE COMMENTS Last administered on 8/13/18at 10:18; Start 11/03/17 at 14:00 Vancomycin HCl 1.75 gm/Sodium Chloride 500 ml @ 250 mls/hr 1X ONCE IV Last administered on 11/03/17at 16:16; Start 11/03/17 at 14:30; Stop 11/03/17 at 16:29 ; Status DC Levofloxacin/ Dextrose 150 ml @ 100 mls/hr QHS IV Last administered on at 21:57; Start 11/03/17 at 21:00 Vancomycin HCl 1.25 gm/Sodium Chloride 250 ml @ 167 mls/hr Q24H IV Last administered on 11/04/17at 16:20; Start 11/04/17 at 16:00 Vancomycin HCl (Vancomycin Trough Level) 1 each 1X ONCE MC ; Start 11/05/17 at 15:30; Stop 11/05/17 at 15:31 Non-Formulary Medication 1 ea BID PO Last administered on 11/05/17at 08:39; Start 11/04/17 at 13:45 Metoprolol Succinate (Toprol Xl) 75 mg DAILY PO Last administered on 11/05/17at 08:34; Start 11/05/17 at 09:00 Metoprolol Succinate (Toprol Xl) 25 mg 1X ONCE PO Last administered on at 14:40; Start 11/04/17 at 14:15; Stop 11/04/17 at 14:23; Status DC Polyethylene Glycol (miraLAX PACKET) 17 gm BID PO Last administered on at 10:00; Start 11/05/17 at 10:00 Allopurinol (Zyloprim) 300 mg DAILY PO ; Start 11/05/17 at 11:30 Active Scripts Active [place] 5-325 Tablet (Acetaminophen/Hydrocodone Bitart) 1 Each Tablet 1 Tab PO PRN Q6HRS PRN Bactrim Ds Tablet (Sulfamethoxazole/Trimethoprim) 1 Each Tablet 1 Tab PO BID Reported Danazol 200 Mg Capsule 200 Mg PO Synthroid (Levothyroxine Sodium) 150 Mcg Tablet 1 Tab PO DAILY [Tylenol] 1,000 Mg PO Q6HRS PRN Vitamin D-3 (Cholecalciferol (Vitamin D3)) 2,000 Unit Capsule 1,000 Unit PO DAILY Temazepam 15 Mg Capsule 1 Cap PO QHS Toprol Xl (Metoprolol Succinate) 50 Mg Tab.er.24h 1 Tab PO DAILY Quinapril Hcl 40 Mg Tablet 1 Tab PO DAILY [place]-3 Fish Oil 1,000 mg Sfgl ([place]-3 Fatty Acids/Fish Oil) 1 Each Capsule 1 Each PO DAILY Pantoprazole Sodium 40 Mg Tablet.dr 1 Tab PO BID Furosemide 20 Mg Tablet 1 Tab PO DAILY Tricor (Fenofibrate Nanocrystallized) 145 Mg Tablet 1 Tab PO DAILY Aspir 81 (Aspirin) 81 Mg Tablet.dr 1 Tab PO DAILY Vitals/I & O Vital Sign - Last 24 Hours 11/04/17 11/04/17 11/04/17 11/04/17 14:40 14:54 16:29 17:33 Temp 98.3 98.3 Pulse 87 93 Resp 18 18 B/P (MAP) 157/77 166/61 (96) Pulse Ox 97 O2 Delivery Nasal Cannula Room Air Nasal Cannula O2 Flow Rate 2.0 2.0 11/04/17 11/04/17 11/04/17 11/04/17 19:45 20:00 20:22 22:55 Temp 97.8 97.8 97.8 97.8 Pulse 82 85 Resp 16 16 B/P (MAP) 147/73 (97) 135/67 (89) Pulse Ox 98 97 O2 Delivery Nasal Cannula Nasal Cannula Nasal Cannula Nasal Cannula O2 Flow Rate 2.0 2.0 2.0 2.0 11/05/17 11/05/17 11/05/17 11/05/17 03:22 07:30 08:00 08:05 Temp 97.5 98.5 97.5 98.5 Pulse 83 86 Resp 18 B/P (MAP) 137/54 (81) 146/70 (95) Pulse Ox 98 98 O2 Delivery Nasal Cannula Nasal Cannula Nasal Cannula Nasal Cannula O2 Flow Rate 2.0 2.0 2.0 2.0 11/05/17 11/05/17 11/05/17 11/05/17 08:34 08:35 10:03 10:14 Temp 98.5 97.8 98.5 97.8 Pulse 86 86 86 85 Resp 18 B/P (MAP) 146/70 146/70 146/70 139/62 11/05/17 11/05/17 11/05/17 11:00 11:14 11:57 Temp 97.8 98.1 97.8 98.1 Pulse 93 86 Resp 18 18 B/P (MAP) 147/70 (95) 147/70 Pulse Ox 93 O2 Delivery Nasal Cannula Room Air O2 Flow Rate 2.0 Intake and Output 11/04/17 11/04/17 11/05/17 15:00 23:00 07:00 Intake Total 395 ml 1200 ml Output Total 975 ml 750 ml 500 ml Balance -580 ml 450 ml -500 ml RIMMA RICE III DO Nov 05, 2017 12:27
--- NOTE | 2017-11-05 12:54 | PDOC ---
KAJALLINDA Gela [employer] 11/05/17 1254: CARDIO Progress Notes Date and Time Date of Service 11/05/2017 Time of Evaluation 1249 Subjective Subjective: No Chest Pain, No shortness of breath, No Palpitations, No Dizziness Vitals Vitals Vital Signs Date Time Temp Pulse Resp B/P (MAP) Pulse Ox O2 Delivery O2 Flow Rate FiO2 11/05/17 11:57 Room Air 11/05/17 11:14 98.1 86 18 147/70 98.1 11/05/17 11:00 93 2.0 Weight Weight [ ] Input and Output Intake and Output Intake and Output 11/05/17 07:00 Intake Total 1595 ml Output Total 2225 ml Balance -630 ml Intake Oral 1320 ml Blood Product IV Normal Saline Flush 275 ml Output Urine Total 2225 ml # Voids 3 Laboratory Labs Laboratory Tests Test 11/05/17 04:45 White Blood Count 2.6 x10^3/uL (4.0-11.0) Red Blood Count 2.37 x10^6/uL (3.50-5.40) Hemoglobin 6.9 g/dL (12.0-15.5) Hematocrit 20.7 % (36.0-47.0) Mean Corpuscular Volume 87 fL (79-100) Mean Corpuscular Hemoglobin 29 pg (25-35) Mean Corpuscular Hemoglobin Concent 33 g/dL (31-37) Red Cell Distribution Width 19.5 % (11.5-14.5) Platelet Count 75 x10^3/uL (140-400) Neutrophils (%) (Auto) 68 % (31-73) Lymphocytes (%) (Auto) 20 % (24-48) Monocytes (%) (Auto) 10 % (0-9) Eosinophils (%) (Auto) 1 % (0-3) Basophils (%) (Auto) 1 % (0-3) Neutrophils # (Auto) 1.8 x10^3uL (1.8-7.7) Lymphocytes # (Auto) 0.5 x10^3/uL (1.0-4.8) Monocytes # (Auto) 0.3 x10^3/uL (0.0-1.1) Eosinophils # (Auto) 0.0 x10^3/uL (0.0-0.7) Basophils # (Auto) 0.0 x10^3/uL (0.0-0.2) Sodium Level 138 mmol/L (136-145) Potassium Level 4.1 mmol/L (3.5-5.1) Chloride Level 102 mmol/L (98-107) Carbon Dioxide Level 28 mmol/L (21-32) Anion Gap 8 (6-14) Blood Urea Nitrogen 17 mg/dL (7-20) Creatinine 1.3 mg/dL (0.6-1.0) Estimated GFR (Cockcroft-Gault) 40.5 Glucose Level 108 mg/dL (70-99) Calcium Level 8.9 mg/dL (8.5-10.1) Thyroid Stimulating Hormone (TSH) 2.107 uIU/mL (0.358-3.74) Free Thyroxine 1.54 ng/dL (0.76-1.46) Microbiology Micro Microbiology 11/03/17 Blood Culture - Preliminary, Resulted NO GROWTH AFTER 2 DAYS 11/02/17 Urine Culture - Final, Complete 11/02/17 Urine Culture Result 1 (LINDA) - Final, Complete Physical Exam HEENT: Neck Supple W Full Motion Chest: Symmetric LUNGS: Clear to Auscultation Heart: irregularly irregular, other (tele: PAF) Abdomen: Soft N/T Neurology: alert Assessment Assessment 1. Acute respiratory failure --pneumonia --per pulm 2. chronic diastolic HF --treated with oral diuretics --TTE done 10/07/2017 with LVEF of 55-60% --control BP 3. anemia --admitted @ 7.7 and decreased to 6.5 yesterday and then 6.9 today ; transfusing again today --per GI 4. right lung mass with history of renal carcinoma 5. previous CVA with residual right weakness 6. PAF --no significant valvular disease on TTE --TSH WNL on replacement therapy --increase BB for rate control --[id number] = 6 corresponding to high risk of stroke (9.8% yearly) and recommendation for anticoagulation ---will hold until GI evaluation completed; remains on low dose aspirin LIZABETH PELAEZ MD 11/05/17 1530: CARDIO Progress Notes Assessment Assessment Patient seen and examined. Agree with WAFER POLISHER's assessment and plan. Chronic diastolic heart failure compensated CT chest findings with possible metastatic lung cancer noted We will readdress issue for long-term anticoagulation for atrial fibrillation as an outpatient, after oncology evaluation completed LINDA RDZ APRN Nov 05, 2017 12:54 LIZABETH PELAEZ MD Nov 05, 2017 15:30
[2017-11-05] MEDS: ENOXAPARIN 40 MG/0.4 ML SYRINGE. SQ SCH (12:56)
--- NOTE | 2017-11-05 13:08 | PDOC ---
PULMONARY PROGRESS NOTES Subjective no soa Vitals Vital Signs Date Time Temp Pulse Resp B/P (MAP) Pulse Ox O2 Delivery O2 Flow Rate FiO2 11/05/17 12:14 98.3 92 18 151/62 98.3 11/05/17 11:57 Room Air 11/05/17 11:00 93 2.0 General: Alert, No acute distress Lungs: Crackles Cardiovascular: S1, S2 Abdomen: Soft Neuro Exam: Alert Extremities: No Edema Skin: Warm Labs Laboratory Tests Test 11/04/17 04:10 11/05/17 04:45 White Blood Count 2.8 x10^3/uL (4.0-11.0) 2.6 x10^3/uL (4.0-11.0) Red Blood Count 2.27 x10^6/uL (3.50-5.40) 2.37 x10^6/uL (3.50-5.40) Hemoglobin 6.5 g/dL (12.0-15.5) 6.9 g/dL (12.0-15.5) Hematocrit 19.8 % (36.0-47.0) 20.7 % (36.0-47.0) Mean Corpuscular Volume 87 fL (79-100) 87 fL (79-100) Mean Corpuscular Hemoglobin 29 pg (25-35) 29 pg (25-35) Mean Corpuscular Hemoglobin Concent 33 g/dL (31-37) 33 g/dL (31-37) Red Cell Distribution Width 20.3 % (11.5-14.5) 19.5 % (11.5-14.5) Platelet Count 77 x10^3/uL (140-400) 75 x10^3/uL (140-400) Neutrophils (%) (Auto) 61 % (31-73) 68 % (31-73) Lymphocytes (%) (Auto) 26 % (24-48) 20 % (24-48) Monocytes (%) (Auto) 10 % (0-9) 10 % (0-9) Eosinophils (%) (Auto) 1 % (0-3) 1 % (0-3) Basophils (%) (Auto) 2 % (0-3) 1 % (0-3) Neutrophils # (Auto) 1.7 x10^3uL (1.8-7.7) 1.8 x10^3uL (1.8-7.7) Lymphocytes # (Auto) 0.7 x10^3/uL (1.0-4.8) 0.5 x10^3/uL (1.0-4.8) Monocytes # (Auto) 0.3 x10^3/uL (0.0-1.1) 0.3 x10^3/uL (0.0-1.1) Eosinophils # (Auto) 0.0 x10^3/uL (0.0-0.7) 0.0 x10^3/uL (0.0-0.7) Basophils # (Auto) 0.0 x10^3/uL (0.0-0.2) 0.0 x10^3/uL (0.0-0.2) Sodium Level 141 mmol/L (136-145) 138 mmol/L (136-145) Potassium Level 4.2 mmol/L (3.5-5.1) 4.1 mmol/L (3.5-5.1) Chloride Level 106 mmol/L (98-107) 102 mmol/L (98-107) Carbon Dioxide Level 30 mmol/L (21-32) 28 mmol/L (21-32) Anion Gap 5 (6-14) 8 (6-14) Blood Urea Nitrogen 18 mg/dL (7-20) 17 mg/dL (7-20) Creatinine 1.3 mg/dL (0.6-1.0) 1.3 mg/dL (0.6-1.0) Estimated GFR (Cockcroft-Gault) 40.6 40.5 Glucose Level 120 mg/dL (70-99) 108 mg/dL (70-99) Calcium Level 8.1 mg/dL (8.5-10.1) 8.9 mg/dL (8.5-10.1) Triglycerides Level 171 mg/dL (0-150) Cholesterol Level 109 mg/dL (0-200) LDL Cholesterol, Calculated 62 mg/dL (0-100) VLDL Cholesterol, Calculated 34 mg/dL (0-40) Non-HDL Cholesterol Calculated 96 mg/dL (0-129) HDL Cholesterol 13 mg/dL (40-60) Cholesterol/HDL Ratio 8.4 Thyroid Stimulating Hormone (TSH) 2.107 uIU/mL (0.358-3.74) Free Thyroxine 1.54 ng/dL (0.76-1.46) Laboratory Tests Test 11/05/17 04:45 White Blood Count 2.6 x10^3/uL (4.0-11.0) Red Blood Count 2.37 x10^6/uL (3.50-5.40) Hemoglobin 6.9 g/dL (12.0-15.5) Hematocrit 20.7 % (36.0-47.0) Mean Corpuscular Volume 87 fL (79-100) Mean Corpuscular Hemoglobin 29 pg (25-35) Mean Corpuscular Hemoglobin Concent 33 g/dL (31-37) Red Cell Distribution Width 19.5 % (11.5-14.5) Platelet Count 75 x10^3/uL (140-400) Neutrophils (%) (Auto) 68 % (31-73) Lymphocytes (%) (Auto) 20 % (24-48) Monocytes (%) (Auto) 10 % (0-9) Eosinophils (%) (Auto) 1 % (0-3) Basophils (%) (Auto) 1 % (0-3) Neutrophils # (Auto) 1.8 x10^3uL (1.8-7.7) Lymphocytes # (Auto) 0.5 x10^3/uL (1.0-4.8) Monocytes # (Auto) 0.3 x10^3/uL (0.0-1.1) Eosinophils # (Auto) 0.0 x10^3/uL (0.0-0.7) Basophils # (Auto) 0.0 x10^3/uL (0.0-0.2) Sodium Level 138 mmol/L (136-145) Potassium Level 4.1 mmol/L (3.5-5.1) Chloride Level 102 mmol/L (98-107) Carbon Dioxide Level 28 mmol/L (21-32) Anion Gap 8 (6-14) Blood Urea Nitrogen 17 mg/dL (7-20) Creatinine 1.3 mg/dL (0.6-1.0) Estimated GFR (Cockcroft-Gault) 40.5 Glucose Level 108 mg/dL (70-99) Calcium Level 8.9 mg/dL (8.5-10.1) Thyroid Stimulating Hormone (TSH) 2.107 uIU/mL (0.358-3.74) Free Thyroxine 1.54 ng/dL (0.76-1.46) Medications Active Scripts Medications Dose Route/Sig Max Daily Dose Days Date Category Danazol 200 Mg Capsule 200 Mg PO 11/03/17 Reported [place] 5-325 Tablet (Acetaminophen/Hydrocodone Bitart) 1 Each Tablet 1 Tab PO PRN Q6HRS PRN 10/03/17 Rx Bactrim Ds Tablet (Sulfamethoxazole/Trimethoprim) 1 Each Tablet 1 Tab PO BID 10/03/17 Rx Synthroid (Levothyroxine Sodium) 150 Mcg Tablet 1 Tab PO DAILY 05/17/17 Reported [Tylenol] 1,000 Mg PO Q6HRS PRN 05/17/17 Reported Vitamin D-3 (Cholecalciferol (Vitamin D3)) 2,000 Unit Capsule 1,000 Unit PO DAILY 05/17/17 Reported Temazepam 15 Mg Capsule 1 Cap PO QHS 05/16/17 Reported Toprol Xl (Metoprolol Succinate) 50 Mg Tab.er.24h 1 Tab PO DAILY 05/17/16 Reported Quinapril Hcl 40 Mg Tablet 1 Tab PO DAILY 05/17/16 Reported [place]-3 Fish Oil 1,000 mg Sfgl ([place]-3 Fatty Acids/Fish Oil) 1 Each Capsule 1 Each PO DAILY 05/17/16 Reported Pantoprazole Sodium 40 Mg Tablet.dr 1 Tab PO BID 01/13/14 Reported Furosemide 20 Mg Tablet 1 Tab PO DAILY 01/13/14 Reported Tricor (Fenofibrate Nanocrystallized) 145 Mg Tablet 1 Tab PO DAILY 01/13/14 Reported Aspir 81 (Aspirin) 81 Mg Tablet.dr 1 Tab PO DAILY 01/13/14 Reported Impression . 1. Acute respiratory failure secondary to ?acute diastolic congestive heart failure 2. Abnormal chest x-ray and CT of the chest.lung mass and multiple nodules in Feb. Never had work up. repeat ct chest 11/04 reviewed. slight increase in Rt lung mass, tiny lung nodules and ? bone mets 3. ?Pneumonia. 4. Acute diastolic congestive heart failure. 5. Lower extremity edema. 6. Myelofibrosis. 7. Pancytopenia./ severe Myelofibrosis 8. History of renal cancer with right nephrectomy. 9. History of cerebrovascular accident. Plan . 1. d/w daughter about ct chest findings. Primary metastatic lung can vs mets. Poor performance status. mass centrally located. Would only consider biopsy if oncology feels she may be a candidate for chemo. await ct abd/pelvis findings 2. Bronchodilator. 3.. antibiotics. 4. Would also favor palliative care approach IRVIN HUFFMAN MD Nov 05, 2017 13:08
[2017-11-05] MEDS: ALLOPURINOL 300 MG TABLET. PO SCH (13:59)
[2017-11-05 15:33] LABS: HEMOGLOBIN 7.9 g/dL (12.0-15.5)
[2017-11-05 15:58] LABS: VANC TR 9.7 mcg/mL (10.0-20.0)
[2017-11-05] MEDS: VANCOMYCIN PER PHARMACY MC PRN ×3 (16:25→16:37)
[2017-11-05] MEDS: VANCOMYCIN 1.25 GM in IV NORMAL SALINE 250ML 250 ML IV SCH (17:09)
--- NOTE | 2017-11-05 17:36 | RAD ---
Examination: CT of the chest abdomen pelvis without contrast HISTORY: History of follow-up metastasis. COMPARISON: 07/20/2013 abdomen pelvis, CT chest from 05/16/2017 TECHNIQUE: Axial CT images of the chest abdomen pelvis were performed without contrast. Coronal and sagittal reformats are performed Exposure: One or more of the following individualized dose reduction techniques were utilized for this examination: 1. Automated exposure control 2. Adjustment of the mA and/or kV according to patient size 3. Use of iterative reconstruction technique FINDINGS: Calcification in the right lobe of the thyroid gland measuring 2 cm similar to prior exam. The central airways are patent. Evaluation of the mediastinum is limited due to lack of IV contrast. There is a 3.4 x 2.3 cm right lower lobe lobulated lung mass is again identified. Small nodules identified in the right lower lobe of the lung likely satellite nodules identified. No evidence of pleural effusion or pneumothorax. There is a faint nodule identified in the left upper lobe of the lung measuring 5 mm. There is a 4 mm faint groundglass nodule identified in the right upper lobe of the lung. Hepatosplenomegaly is identified. The spleen measures 20 cm in length. The gallbladder is mildly distended. Right nephrectomy changes identified The stomach is mildly distended. The evaluation of the solid organs is limited lack of IV contrast. The small bowel is nondilated. Feces and gas noted in the colon. Few sigmoid colon diverticulosis. Urinary bladder is mildly distended. Mild aortic atherosclerosis. 1.5 cm hypodensity identified in the left kidney probably cyst. There is diffuse sclerosis of the visualized skeleton. The patchy diffuse lucencies identified throughout the visualized skeleton. IMPRESSION: 1. Right lower lobe lung masslike density identified. Examination is limited without IV contrast. Recommend PET CT scan for further evaluation. 2. Hepatosplenomegaly. 3. Diffuse sclerosis with patchy lytic foci identified throughout the visualized skeleton could be diffuse metastasis or due to renal osteodystrophy. 4. Scattered subcentimeter nodules identified in the bilateral lungs. Electronically signed by: Greg Gage MD (11/05/2017 5:32 PM) [id number]
[2017-11-05] MEDS: TEMAZEPAM 15 MG CAPSULE PO SCH (21:00)
[2017-11-06] VITALS (12 sets, daily range): BP systolic 114–188; BP diastolic 54–87
[2017-11-06] MEDS: LEVOTHYROXINE 150 MCG TABLET PO SCH (05:58)
[2017-11-06] MEDS: LABETALOL 20 MG/4 ML DISP.SYRIN. IVP PRN ×2 (05:59→14:12)
[2017-11-06] MEDS: IPRATRPIUM/ALBUTEROL 0.5/2.5MG 3 ML NEBU. NEB SCH ×4 (07:15→20:14)
[2017-11-06 08:00] LABS: BASO % 1 % (0-3); EOS % 1 % (0-3); LYMPH # 0.5 x10^3/uL (1.0-4.8); LYMPH % 20 % (24-48); MEAN CORPUSCULAR HEMOGLOBIN 29 pg (25-35); MEAN CORPUSCULAR HGB CONC 33 g/dL (31-37); MEAN CORPUSCULAR VOLUME 86 fL (79-100); MONO # 0.3 x10^3/uL (0.0-1.1); MONO % 11 % (0-9); NEUT # 1.6 x10^3uL (1.8-7.7); NEUT % 66 % (31-73); PLATELET COUNT 64 x10^3/uL (140-400); RED BLOOD COUNT 2.44 x10^6/uL (3.50-5.40); WHITE BLOOD COUNT 2.4 x10^3/uL (4.0-11.0)
[2017-11-06 08:13] LABS: CALCIUM 8.4 mg/dL (8.5-10.1); CREATININE 1.3 mg/dL (0.6-1.0); GFR 40.5; POTASSIUM 3.8 mmol/L (3.5-5.1)
--- NOTE | 2017-11-06 08:36 | PDOC ---
SUBJECTIVE Subjective S: Her CT scan showed right lung mass with bony lesions, daughter would like a biopsy, she's not quite sure yet, still again very tired. Hemoglobin improved. O: Physical exam: Gen.: Well-nourished, resting in bed, on O2 Lungs: Breathing comfortably with no evidence of respiratory distress Psychiatric: tired mood and affect Labs: Hb 7.9, platelets last check 75 with white count of 2.6 Assessment and Plan: Ms. 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: Reasonable to consider palliative care consult, not interested at the moment Concern for pneumonia: On antibiotics, O2, feeling better prophylaxis: On Lovenox, held for poss IR procedure at the moment Anemia: due to myelofibrosis with iron overload, she has refused repeat bone marrow biopsy to assess for progression of the myelofibrosis, may consider in f/ u A fib: cardiology may start anticoagulation, this would be okay as long as platelet count remains greater than 50,000 as it has, will await onc evmegan prior Thank you kindly for this consultation, and please don't hesitate to call with any further questions, I will return on Saturday but Dr Franks will be avail for ?s tomorrow prn. OBJECTIVE Vital Signs Vital Signs Date Time Temp Pulse Resp B/P (MAP) Pulse Ox O2 Delivery O2 Flow Rate FiO2 11/06/17 07:17 96 Nasal Cannula 2.0 11/06/17 07:00 98.6 90 24 164/78 (106) 94 Nasal Cannula 2.0 98.6 11/06/17 05:59 92 180/65 11/06/17 05:21 180/65 (103) 11/06/17 03:25 98.3 92 21 188/73 (111) 96 Nasal Cannula 2.0 98.3 11/05/17 23:25 98.1 95 24 160/60 (93) 96 Nasal Cannula 2.0 98.1 11/05/17 20:00 Nasal Cannula 2.0 11/05/17 19:51 97 Nasal Cannula 2.0 11/05/17 19:25 100.2 101 20 113/62 (79) 95 Nasal Cannula 2.0 100.2 11/05/17 15:36 Room Air 11/05/17 15:00 98.6 89 20 170/66 (100) 93 Nasal Cannula 2.0 98.6 11/05/17 13:41 98.3 93 18 151/62 98.3 11/05/17 12:14 98.3 92 18 151/62 98.3 11/05/17 11:57 Room Air 11/05/17 11:14 98.1 86 18 147/70 98.1 11/05/17 11:00 97.8 93 18 147/70 (95) 93 Nasal Cannula 2.0 97.8 11/05/17 10:14 97.8 85 18 139/62 97.8 11/05/17 10:03 98.5 86 18 146/70 98.5 11/05/17 08:35 86 146/70 11/05/17 08:34 86 146/70 I & O Intake and Output 11/06/17 07:00 Intake Total 300 ml Output Total 950 ml Balance -650 ml Intake Oral 200 ml Blood Product IV Normal Saline Flush 100 ml Output Urine Total 950 ml # Bowel Movements 1 COMMENT Lab Laboratory Tests Test 11/05/17 15:29 11/06/17 07:30 Hemoglobin 7.9 g/dL (12.0-15.5) Hematocrit 24.0 % (36.0-47.0) Mean Corpuscular Hemoglobin Concent 33 g/dL (31-37) Vancomycin Level Trough 9.7 mcg/mL (10.0-20.0) Vancomycin Last Dose Date Unknown Vancomycin Last Dose Time Unknown Sodium Level 140 mmol/L (136-145) Potassium Level 3.8 mmol/L (3.5-5.1) Chloride Level 104 mmol/L (98-107) Carbon Dioxide Level 28 mmol/L (21-32) Anion Gap 8 (6-14) Blood Urea Nitrogen 17 mg/dL (7-20) Creatinine 1.3 mg/dL (0.6-1.0) Estimated GFR (Cockcroft-Gault) 40.5 Glucose Level 140 mg/dL (70-99) Calcium Level 8.4 mg/dL (8.5-10.1) KENDELL CANDELARIA MD Nov 06, 2017 08:36
[2017-11-06 08:43] LABS: HEMATOCRIT 20.9 % (36.0-47.0)
[2017-11-06] MEDS: POLYETHYLENE GLYCOL 3350 17 GM PACKET. PO SCH ×2 (09:00→21:10)
[2017-11-06] MEDS: OMEGA-3 FATTY ACIDS/FISH OIL 1,000 MG CAPSULE. PO SCH ×2 (09:00→13:08)
[2017-11-06] MEDS: METOPROLOL SUCC 24HR ER 25 MG TAB.ER.24H. PO SCH (09:29)
[2017-11-06] MEDS: FUROSEMIDE 40 MG TABLET. PO SCH (09:30)
[2017-11-06] MEDS: LISINOPRIL 20 MG TABLET PO SCH (09:30)
--- NOTE | 2017-11-06 11:08 | PDOC ---
PULMONARY PROGRESS NOTES Subjective soa improved, resting comfortably on oxygen by nc Vitals Vital Signs Date Time Temp Pulse Resp B/P (MAP) Pulse Ox O2 Delivery O2 Flow Rate FiO2 11/06/17 09:30 90 164/78 11/06/17 08:00 Nasal Cannula 2.0 11/06/17 07:17 96 11/06/17 07:00 98.6 24 98.6 ROS: No Nausea (complains of gouty pain in finger) General: Alert, No acute distress Lungs: Clear Cardiovascular: S1, S2 Abdomen: Soft Neuro Exam: Alert Extremities: No Edema, Other (inflamed pip finger joint) Skin: Warm Labs Laboratory Tests Test 11/05/17 04:45 11/05/17 15:29 11/06/17 07:30 White Blood Count 2.6 x10^3/uL (4.0-11.0) 2.4 x10^3/uL (4.0-11.0) Red Blood Count 2.37 x10^6/uL (3.50-5.40) 2.44 x10^6/uL (3.50-5.40) Hemoglobin 6.9 g/dL (12.0-15.5) 7.9 g/dL (12.0-15.5) 7.0 g/dL (12.0-15.5) Hematocrit 20.7 % (36.0-47.0) 24.0 % (36.0-47.0) 20.9 % (36.0-47.0) Mean Corpuscular Volume 87 fL (79-100) 86 fL (79-100) Mean Corpuscular Hemoglobin 29 pg (25-35) 29 pg (25-35) Mean Corpuscular Hemoglobin Concent 33 g/dL (31-37) 33 g/dL (31-37) 33 g/dL (31-37) Red Cell Distribution Width 19.5 % (11.5-14.5) 19.0 % (11.5-14.5) Platelet Count 75 x10^3/uL (140-400) 64 x10^3/uL (140-400) Neutrophils (%) (Auto) 68 % (31-73) 66 % (31-73) Lymphocytes (%) (Auto) 20 % (24-48) 20 % (24-48) Monocytes (%) (Auto) 10 % (0-9) 11 % (0-9) Eosinophils (%) (Auto) 1 % (0-3) 1 % (0-3) Basophils (%) (Auto) 1 % (0-3) 1 % (0-3) Neutrophils # (Auto) 1.8 x10^3uL (1.8-7.7) 1.6 x10^3uL (1.8-7.7) Lymphocytes # (Auto) 0.5 x10^3/uL (1.0-4.8) 0.5 x10^3/uL (1.0-4.8) Monocytes # (Auto) 0.3 x10^3/uL (0.0-1.1) 0.3 x10^3/uL (0.0-1.1) Eosinophils # (Auto) 0.0 x10^3/uL (0.0-0.7) 0.0 x10^3/uL (0.0-0.7) Basophils # (Auto) 0.0 x10^3/uL (0.0-0.2) 0.0 x10^3/uL (0.0-0.2) Sodium Level 138 mmol/L (136-145) 140 mmol/L (136-145) Potassium Level 4.1 mmol/L (3.5-5.1) 3.8 mmol/L (3.5-5.1) Chloride Level 102 mmol/L (98-107) 104 mmol/L (98-107) Carbon Dioxide Level 28 mmol/L (21-32) 28 mmol/L (21-32) Anion Gap 8 (6-14) 8 (6-14) Blood Urea Nitrogen 17 mg/dL (7-20) 17 mg/dL (7-20) Creatinine 1.3 mg/dL (0.6-1.0) 1.3 mg/dL (0.6-1.0) Estimated GFR (Cockcroft-Gault) 40.5 40.5 Glucose Level 108 mg/dL (70-99) 140 mg/dL (70-99) Calcium Level 8.9 mg/dL (8.5-10.1) 8.4 mg/dL (8.5-10.1) Thyroid Stimulating Hormone (TSH) 2.107 uIU/mL (0.358-3.74) Free Thyroxine 1.54 ng/dL (0.76-1.46) Vancomycin Level Trough 9.7 mcg/mL (10.0-20.0) Vancomycin Last Dose Date Unknown Vancomycin Last Dose Time Unknown Laboratory Tests Test 11/05/17 15:29 11/06/17 07:30 Hemoglobin 7.9 g/dL (12.0-15.5) 7.0 g/dL (12.0-15.5) Hematocrit 24.0 % (36.0-47.0) 20.9 % (36.0-47.0) Mean Corpuscular Hemoglobin Concent 33 g/dL (31-37) 33 g/dL (31-37) Vancomycin Level Trough 9.7 mcg/mL (10.0-20.0) Vancomycin Last Dose Date Unknown Vancomycin Last Dose Time Unknown White Blood Count 2.4 x10^3/uL (4.0-11.0) Red Blood Count 2.44 x10^6/uL (3.50-5.40) Mean Corpuscular Volume 86 fL (79-100) Mean Corpuscular Hemoglobin 29 pg (25-35) Red Cell Distribution Width 19.0 % (11.5-14.5) Platelet Count 64 x10^3/uL (140-400) Neutrophils (%) (Auto) 66 % (31-73) Lymphocytes (%) (Auto) 20 % (24-48) Monocytes (%) (Auto) 11 % (0-9) Eosinophils (%) (Auto) 1 % (0-3) Basophils (%) (Auto) 1 % (0-3) Neutrophils # (Auto) 1.6 x10^3uL (1.8-7.7) Lymphocytes # (Auto) 0.5 x10^3/uL (1.0-4.8) Monocytes # (Auto) 0.3 x10^3/uL (0.0-1.1) Eosinophils # (Auto) 0.0 x10^3/uL (0.0-0.7) Basophils # (Auto) 0.0 x10^3/uL (0.0-0.2) Sodium Level 140 mmol/L (136-145) Potassium Level 3.8 mmol/L (3.5-5.1) Chloride Level 104 mmol/L (98-107) Carbon Dioxide Level 28 mmol/L (21-32) Anion Gap 8 (6-14) Blood Urea Nitrogen 17 mg/dL (7-20) Creatinine 1.3 mg/dL (0.6-1.0) Estimated GFR (Cockcroft-Gault) 40.5 Glucose Level 140 mg/dL (70-99) Calcium Level 8.4 mg/dL (8.5-10.1) Medications Active Scripts Medications Dose Route/Sig Max Daily Dose Days Date Category Danazol 200 Mg Capsule 200 Mg PO 11/03/17 Reported [place] 5-325 Tablet (Acetaminophen/Hydrocodone Bitart) 1 Each Tablet 1 Tab PO PRN Q6HRS PRN 10/03/17 Rx Bactrim Ds Tablet (Sulfamethoxazole/Trimethoprim) 1 Each Tablet 1 Tab PO BID 10/03/17 Rx Synthroid (Levothyroxine Sodium) 150 Mcg Tablet 1 Tab PO DAILY 05/17/17 Reported [Tylenol] 1,000 Mg PO Q6HRS PRN 05/17/17 Reported Vitamin D-3 (Cholecalciferol (Vitamin D3)) 2,000 Unit Capsule 1,000 Unit PO DAILY 05/17/17 Reported Temazepam 15 Mg Capsule 1 Cap PO QHS 05/16/17 Reported Toprol Xl (Metoprolol Succinate) 50 Mg Tab.er.24h 1 Tab PO DAILY 05/17/16 Reported Quinapril Hcl 40 Mg Tablet 1 Tab PO DAILY 05/17/16 Reported [place]-3 Fish Oil 1,000 mg Sfgl ([place]-3 Fatty Acids/Fish Oil) 1 Each Capsule 1 Each PO DAILY 05/17/16 Reported Pantoprazole Sodium 40 Mg Tablet.dr 1 Tab PO BID 01/13/14 Reported Furosemide 20 Mg Tablet 1 Tab PO DAILY 01/13/14 Reported Tricor (Fenofibrate Nanocrystallized) 145 Mg Tablet 1 Tab PO DAILY 01/13/14 Reported Aspir 81 (Aspirin) 81 Mg Tablet.dr 1 Tab PO DAILY 01/13/14 Reported Impression . 1. Acute respiratory failure secondary to acute diastolic congestive heart failure , improving 2. Abnormal chest x-ray and CT of the chest.lung mass and multiple nodules in Feb. Never had work up. repeat ct chest 11/04 reviewed. slight increase in Rt lung mass, tiny lung nodules and ? bone mets 3. ?Pneumonia. 4. Acute diastolic congestive heart failure, improving. 5. Lower extremity edema. 6. Myelofibrosis. 7. Pancytopenia./ severe Myelofibrosis 8. History of renal cancer with right nephrectomy. 9. History of cerebrovascular accident. Plan . 1. d/w patient about ct chest findings. Primary metastatic lung can vs mets. Poor performance status. mass centrally located. Would only consider biopsy if oncology feels she may be a candidate for chemo. Patient remains uncertain as to whether she wants rocio pursue this. Also please refer to oncology note. 2. Bronchodilator. 3.. antibiotics. SANDRA SALINAS MD Nov 06, 2017 11:08
[2017-11-06] MEDS: VANCOMYCIN PER PHARMACY MC PRN (11:11)
[2017-11-06 11:51] LABS: PROTHROMBIN TIME PATIENT 14.6 SEC (11.7-14.0)
[2017-11-06] MEDS: PANTOPRAZOLE 40 MG TABLET.DR. PO SCH ×2 (13:08→17:12)
[2017-11-06] MEDS: FENOFIBRATE,MICRONIZED 134 MG CAPSULE PO SCH (13:08)
[2017-11-06] MEDS: traMADol 50 MG TABLET PO PRN (13:08)
[2017-11-06] MEDS: ALLOPURINOL 300 MG TABLET. PO SCH (13:08)
[2017-11-06] MEDS: ASPIRIN ENTERIC COATED 81 MG TABLET.DR. PO SCH (13:09)
[2017-11-06] MEDS: ENOXAPARIN 40 MG/0.4 ML SYRINGE. SQ SCH (14:00)
[2017-11-06] MEDS: VANCOMYCIN 1.25 GM in IV NORMAL SALINE 250ML 250 ML IV SCH (14:06)
--- NOTE | 2017-11-06 15:18 | PDOC ---
PROGRESS NOTES Chief Complaint Chief Complaint Pneumonia CHF cough, sob h/o myelofibrosis h/o kidney CA Chronic renal insufficiency h/o CVA with R sided weakness HTN, Hyperlipidemia Anemia NOS Hypothyroidism Cataract Removal Tonsillectomy Hysterectomy History of Present Illness History of Present Illness pt seen and examined pt to have BM biopsy later today, awaiting results Blood cultures show no growth pt refuses antidepressant therapy VSS DW RN Vitals Vitals Vital Signs Date Time Temp Pulse Resp B/P (MAP) Pulse Ox O2 Delivery O2 Flow Rate FiO2 11/06/17 14:12 98 162/62 11/06/17 14:12 20 Nasal Cannula 11/06/17 14:02 99.0 99.0 11/06/17 13:08 2.0 11/06/17 11:44 98 Physical Exam General: Alert, Oriented X3, Cooperative, No acute distress Heart: Regular rate, Normal S1, No murmurs Lungs: Clear Abdomen: Normal bowel sounds, No tenderness Extremities: No clubbing, No cyanosis, No edema, Normal pulses Skin: No rashes, No breakdown Labs LABS Laboratory Tests Test 11/05/17 15:29 11/06/17 07:30 11/06/17 11:25 Hemoglobin 7.9 g/dL (12.0-15.5) 7.0 g/dL (12.0-15.5) Hematocrit 24.0 % (36.0-47.0) 20.9 % (36.0-47.0) Mean Corpuscular Hemoglobin Concent 33 g/dL (31-37) 33 g/dL (31-37) Vancomycin Level Trough 9.7 mcg/mL (10.0-20.0) Vancomycin Last Dose Date Unknown Vancomycin Last Dose Time Unknown White Blood Count 2.4 x10^3/uL (4.0-11.0) Red Blood Count 2.44 x10^6/uL (3.50-5.40) Mean Corpuscular Volume 86 fL (79-100) Mean Corpuscular Hemoglobin 29 pg (25-35) Red Cell Distribution Width 19.0 % (11.5-14.5) Platelet Count 64 x10^3/uL (140-400) Neutrophils (%) (Auto) 66 % (31-73) Lymphocytes (%) (Auto) 20 % (24-48) Monocytes (%) (Auto) 11 % (0-9) Eosinophils (%) (Auto) 1 % (0-3) Basophils (%) (Auto) 1 % (0-3) Neutrophils # (Auto) 1.6 x10^3uL (1.8-7.7) Lymphocytes # (Auto) 0.5 x10^3/uL (1.0-4.8) Monocytes # (Auto) 0.3 x10^3/uL (0.0-1.1) Eosinophils # (Auto) 0.0 x10^3/uL (0.0-0.7) Basophils # (Auto) 0.0 x10^3/uL (0.0-0.2) Sodium Level 140 mmol/L (136-145) Potassium Level 3.8 mmol/L (3.5-5.1) Chloride Level 104 mmol/L (98-107) Carbon Dioxide Level 28 mmol/L (21-32) Anion Gap 8 (6-14) Blood Urea Nitrogen 17 mg/dL (7-20) Creatinine 1.3 mg/dL (0.6-1.0) Estimated GFR (Cockcroft-Gault) 40.5 Glucose Level 140 mg/dL (70-99) Calcium Level 8.4 mg/dL (8.5-10.1) Prothrombin Time 14.6 SEC (11.7-14.0) Prothromb Time International Ratio 1.2 (0.8-1.1) Review of Systems Review of Systems co lower back pain co hunger Assessment and Plan Assessmemt and Plan Assessment: Pneumonia CHF cough, sob h/o myelofibrosis h/o kidney CA Chronic renal insufficiency h/o CVA with R sided weakness HTN, Hyperlipidemia Anemia NOS Hypothyroidism Cataract Removal Tonsillectomy Hysterectomy Plan: awaiting results of BM biopsy awaiting workup of pulmonary masses transfuse PTOT home meds labs fluids Comment Review of Relevant I have reviewed the following items adelaida (where applicable) has been applied. Labs Laboratory Tests Test 11/05/17 04:45 11/05/17 15:29 11/06/17 07:30 11/06/17 11:25 White Blood Count 2.6 x10^3/uL (4.0-11.0) 2.4 x10^3/uL (4.0-11.0) Red Blood Count 2.37 x10^6/uL (3.50-5.40) 2.44 x10^6/uL (3.50-5.40) Hemoglobin 6.9 g/dL (12.0-15.5) 7.9 g/dL (12.0-15.5) 7.0 g/dL (12.0-15.5) Hematocrit 20.7 % (36.0-47.0) 24.0 % (36.0-47.0) 20.9 % (36.0-47.0) Mean Corpuscular Volume 87 fL (79-100) 86 fL (79-100) Mean Corpuscular Hemoglobin 29 pg (25-35) 29 pg (25-35) Mean Corpuscular Hemoglobin Concent 33 g/dL (31-37) 33 g/dL (31-37) 33 g/dL (31-37) Red Cell Distribution Width 19.5 % (11.5-14.5) 19.0 % (11.5-14.5) Platelet Count 75 x10^3/uL (140-400) 64 x10^3/uL (140-400) Neutrophils (%) (Auto) 68 % (31-73) 66 % (31-73) Lymphocytes (%) (Auto) 20 % (24-48) 20 % (24-48) Monocytes (%) (Auto) 10 % (0-9) 11 % (0-9) Eosinophils (%) (Auto) 1 % (0-3) 1 % (0-3) Basophils (%) (Auto) 1 % (0-3) 1 % (0-3) Neutrophils # (Auto) 1.8 x10^3uL (1.8-7.7) 1.6 x10^3uL (1.8-7.7) Lymphocytes # (Auto) 0.5 x10^3/uL (1.0-4.8) 0.5 x10^3/uL (1.0-4.8) Monocytes # (Auto) 0.3 x10^3/uL (0.0-1.1) 0.3 x10^3/uL (0.0-1.1) Eosinophils # (Auto) 0.0 x10^3/uL (0.0-0.7) 0.0 x10^3/uL (0.0-0.7) Basophils # (Auto) 0.0 x10^3/uL (0.0-0.2) 0.0 x10^3/uL (0.0-0.2) Sodium Level 138 mmol/L (136-145) 140 mmol/L (136-145) Potassium Level 4.1 mmol/L (3.5-5.1) 3.8 mmol/L (3.5-5.1) Chloride Level 102 mmol/L (98-107) 104 mmol/L (98-107) Carbon Dioxide Level 28 mmol/L (21-32) 28 mmol/L (21-32) Anion Gap 8 (6-14) 8 (6-14) Blood Urea Nitrogen 17 mg/dL (7-20) 17 mg/dL (7-20) Creatinine 1.3 mg/dL (0.6-1.0) 1.3 mg/dL (0.6-1.0) Estimated GFR (Cockcroft-Gault) 40.5 40.5 Glucose Level 108 mg/dL (70-99) 140 mg/dL (70-99) Calcium Level 8.9 mg/dL (8.5-10.1) 8.4 mg/dL (8.5-10.1) Thyroid Stimulating Hormone (TSH) 2.107 uIU/mL (0.358-3.74) Free Thyroxine 1.54 ng/dL (0.76-1.46) Vancomycin Level Trough 9.7 mcg/mL (10.0-20.0) Vancomycin Last Dose Date Unknown Vancomycin Last Dose Time Unknown Prothrombin Time 14.6 SEC (11.7-14.0) Prothromb Time International Ratio 1.2 (0.8-1.1) Laboratory Tests Test 11/05/17 15:29 11/06/17 07:30 11/06/17 11:25 Hemoglobin 7.9 g/dL (12.0-15.5) 7.0 g/dL (12.0-15.5) Hematocrit 24.0 % (36.0-47.0) 20.9 % (36.0-47.0) Mean Corpuscular Hemoglobin Concent 33 g/dL (31-37) 33 g/dL (31-37) Vancomycin Level Trough 9.7 mcg/mL (10.0-20.0) Vancomycin Last Dose Date Unknown Vancomycin Last Dose Time Unknown White Blood Count 2.4 x10^3/uL (4.0-11.0) Red Blood Count 2.44 x10^6/uL (3.50-5.40) Mean Corpuscular Volume 86 fL (79-100) Mean Corpuscular Hemoglobin 29 pg (25-35) Red Cell Distribution Width 19.0 % (11.5-14.5) Platelet Count 64 x10^3/uL (140-400) Neutrophils (%) (Auto) 66 % (31-73) Lymphocytes (%) (Auto) 20 % (24-48) Monocytes (%) (Auto) 11 % (0-9) Eosinophils (%) (Auto) 1 % (0-3) Basophils (%) (Auto) 1 % (0-3) Neutrophils # (Auto) 1.6 x10^3uL (1.8-7.7) Lymphocytes # (Auto) 0.5 x10^3/uL (1.0-4.8) Monocytes # (Auto) 0.3 x10^3/uL (0.0-1.1) Eosinophils # (Auto) 0.0 x10^3/uL (0.0-0.7) Basophils # (Auto) 0.0 x10^3/uL (0.0-0.2) Sodium Level 140 mmol/L (136-145) Potassium Level 3.8 mmol/L (3.5-5.1) Chloride Level 104 mmol/L (98-107) Carbon Dioxide Level 28 mmol/L (21-32) Anion Gap 8 (6-14) Blood Urea Nitrogen 17 mg/dL (7-20) Creatinine 1.3 mg/dL (0.6-1.0) Estimated GFR (Cockcroft-Gault) 40.5 Glucose Level 140 mg/dL (70-99) Calcium Level 8.4 mg/dL (8.5-10.1) Prothrombin Time 14.6 SEC (11.7-14.0) Prothromb Time International Ratio 1.2 (0.8-1.1) Microbiology 11/03/17 Blood Culture - Preliminary, Resulted NO GROWTH AFTER 3 DAYS 11/02/17 Urine Culture - Final, Complete 11/02/17 Urine Culture Result 1 (LINDA) - Final, Complete Medications Current Medications Furosemide (Lasix) 40 mg 1X ONCE IVP Last administered on 11/02/17at 23:33; Start 11/02/17 at 22:30; Stop 11/02/17 at 22:31; Status DC Levofloxacin/ Dextrose 100 ml @ 100 mls/hr 1X ONCE IV Last administered on 02/09at 23:33; Start 11/02/17 at 23:30; Stop 11/03/17 at 00:29; Status DC Ondansetron HCl (Zofran) 4 mg PRN Q8HRS PRN IV NAUSEA/VOMITING; Start 11/02/17 at 23:45; Stop 11/03/17 at 10:25; Status DC Acetaminophen (Tylenol) 650 mg PRN Q4HRS PRN PO FEVER; Start 11/02/17 at 23:45 ; Stop 11/03/17 at 10:25; Status DC Albuterol/ Ipratropium (Duoneb) 3 ml RTQID NEB Last administered on 11/03/17at 06:12; Start 11/03/17 at 08:00; Stop 11/03/17 at 10:26; Status DC Albuterol/ Ipratropium (Duoneb) 3 ml STK-MED ONCE .ROUTE ; Start 11/03/17 at 06: 04; Stop 11/03/17 at 06:06; Status DC Acetaminophen (Tylenol) 650 mg PRN Q6HRS PRN PO FEVER; Start 11/03/17 at 10:30 Ondansetron HCl (Zofran) 4 mg PRN Q6HRS PRN IV NAUSEA/VOMITING; Start 11/03/17 at 10:30 Morphine Sulfate (Morphine Sulfate) 2 mg PRN Q2HR PRN IV MODERATE TO SEVERE PAIN; Start 11/03/17 at 10:30 Tramadol HCl (Ultram) 50 mg PRN Q6HRS PRN PO MILD TO MODERATE PAIN Last administered on 11/06/17at 13:08; Start 11/03/17 at 10:30 Hydralazine HCl (Apresoline Inj) 10 mg PRN Q4HRS PRN IVP ELEVATED BP, SEE COMMENTS; Start 11/03/17 at 10:30 Docusate Sodium (Colace) 100 mg PRN DAILY PRN PO CONSTIPATION Last administered on 11/05/17 08:35; Start 11/03/17 at 10:30 Levofloxacin/ Dextrose 150 ml @ 100 mls/hr Q24H IV ; Start 11/03/17 at 21:00; Stop 11/03/17 at 21:00; Status DC Albuterol/ Ipratropium (Duoneb) 3 ml RTQID NEB Last administered on 11/06/17at 11:44; Start 11/03/17 at 12:00 Albuterol Sulfate (Ventolin Neb Soln) 2.5 mg PRN Q2HR PRN NEB SHORTNESS OF BREATH; Start 11/03/17 at 10:30 Guaifenesin (Mucinex) 600 mg BID PO Last administered on 11/05/17 21:30; Start 11/03/17 at 11:00 Furosemide (Lasix) 40 mg DAILY IVP Last administered on 11/03/17at 12:25; Start 11/03/17 at 11:00; Stop 11/03/17 at 13:55; Status DC Aspirin (Ecotrin) 81 mg DAILY PO Last administered on 11/06/17at 13:09; Start at 11:30 Furosemide (Lasix) 20 mg DAILY PO ; Start 11/04/17 at 09:00; Stop 11/04/17 at 09 :00; Status DC Acetaminophen/ Hydrocodone Bitart (Lortab 5/325) 1 tab PRN Q6HRS PRN PO SEVERE PAIN Last administered on 11/04/17 08:15; Start 11/03/17 at 11:15 Pantoprazole Sodium (Protonix) 40 mg BIDAC PO Last administered on 11/06/17 13 :08; Start 11/03/17 at 11:30 Temazepam (Restoril) 15 mg QHS PO ; Start 11/03/17 at 21:00 Fenofibrate (Lofibra) 134 mg DAILY PO Last administered on 11/06/17 13:08; Start 11/03/17 at 11:30 Levothyroxine Sodium (Synthroid) 150 mcg DAILY07 PO Last administered on 05:58; Start 11/03/17 at 11:30 Metoprolol Succinate (Toprol Xl) 50 mg DAILY PO Last administered on 11/04/17at 08:16; Start 11/03/17 at 11:30; Stop 11/04/17 at 14:17; Status DC Fish Oil (Fish Oil) 1,000 mg DAILY PO Last administered on 11/06/17 13:08; Start 11/03/17 at 11:30 Lisinopril (Prinivil) 40 mg DAILY PO Last administered on 11/06/17 09:30; Start 11/03/17 at 11:30 Enoxaparin Sodium (Lovenox 40mg Syringe) 40 mg Q24H SQ Last administered on 16:15; Start 11/03/17 at 14:00 Furosemide (Lasix) 40 mg DAILY PO Last administered on 11/06/17 09:30; Start 11/04/17 at 09:00 Vancomycin HCl (Vanco Per Pharmacy) 1 each PRN DAILY PRN MC SEE COMMENTS Last administered on 11/06/17 11:11; Start 11/03/17 at 14:00 Vancomycin HCl 1.75 gm/Sodium Chloride 500 ml @ 250 mls/hr 1X ONCE IV Last administered on 11/03/17 16:16; Start 11/03/17 at 14:30; Stop 11/03/17 at 16:29 ; Status DC Levofloxacin/ Dextrose 150 ml @ 100 mls/hr QHS IV Last administered on 21:29; Start 11/03/17 at 21:00 Vancomycin HCl 1.25 gm/Sodium Chloride 250 ml @ 167 mls/hr Q24H IV Last administered on 11/04/17 16:20; Start 11/04/17 at 16:00; Stop 11/05/17 at 16:32 ; Status DC Vancomycin HCl (Vancomycin Trough Level) 1 each 1X ONCE MC Last administered on 11/05/17 15:30; Start 11/05/17 at 15:30; Stop 11/05/17 at 15:31; Status DC Non-Formulary Medication 1 ea BID PO Last administered on 11/06/17 09:28; Start 11/04/17 at 13:45 Metoprolol Succinate (Toprol Xl) 75 mg DAILY PO Last administered on 11/06/17 09:29; Start 11/05/17 at 09:00 Metoprolol Succinate (Toprol Xl) 25 mg 1X ONCE PO Last administered on 8/13/ 18at 14:40; Start 11/04/17 at 14:15; Stop 11/04/17 at 14:23; Status DC Polyethylene Glycol (miraLAX PACKET) 17 gm BID PO Last administered on at 10:00; Start 11/05/17 at 10:00 Allopurinol (Zyloprim) 300 mg DAILY PO Last administered on 11/06/17at 13:08; Start 11/05/17 at 11:30 Vancomycin HCl 1.25 gm/Sodium Chloride 250 ml @ 167 mls/hr Q18H IV Last administered on 11/06/17at 14:06; Start 11/05/17 at 17:00 Vancomycin HCl (Vancomycin Trough Level) 1 each 1X ONCE MC ; Start 11/07/17 at 04:30; Stop 11/07/17 at 04:31 Labetalol HCl (Normodyne) 10 mg PRN Q6HRS PRN IVP HYPERTENSION, SEE COMMENTS Last administered on 11/06/17at 14:12; Start 11/06/17 at 05:45 Active Scripts Active Ramsey 5-325 Tablet (Acetaminophen/Hydrocodone Bitart) 1 Each Tablet 1 Tab PO PRN Q6HRS PRN Bactrim Ds Tablet (Sulfamethoxazole/Trimethoprim) 1 Each Tablet 1 Tab PO BID Reported Danazol 200 Mg Capsule 200 Mg PO Synthroid (Levothyroxine Sodium) 150 Mcg Tablet 1 Tab PO DAILY [Tylenol] 1,000 Mg PO Q6HRS PRN Vitamin D-3 (Cholecalciferol (Vitamin D3)) 2,000 Unit Capsule 1,000 Unit PO DAILY Temazepam 15 Mg Capsule 1 Cap PO QHS Toprol Xl (Metoprolol Succinate) 50 Mg Tab.er.24h 1 Tab PO DAILY Quinapril Hcl 40 Mg Tablet 1 Tab PO DAILY Independence-3 Fish Oil 1,000 mg Sfgl (Independence-3 Fatty Acids/Fish Oil) 1 Each Capsule 1 Each PO DAILY Pantoprazole Sodium 40 Mg Tablet. 1 Tab PO BID Furosemide 20 Mg Tablet 1 Tab PO DAILY Tricor (Fenofibrate Nanocrystallized) 145 Mg Tablet 1 Tab PO DAILY Aspir 81 (Aspirin) 81 Mg Tablet. 1 Tab PO DAILY Vitals/I & O Vital Sign - Last 24 Hours 11/05/17 11/05/17 11/05/17 11/05/17 15:36 19:25 19:51 20:00 Temp 100.2 100.2 Pulse 101 Resp 20 B/P (MAP) 113/62 (79) Pulse Ox 95 97 O2 Delivery Room Air Nasal Cannula Nasal Cannula Nasal Cannula O2 Flow Rate 2.0 2.0 2.0 11/05/17 11/06/17 11/06/17 11/06/17 23:25 03:25 05:21 05:59 Temp 98.1 98.3 98.1 98.3 Pulse 95 92 92 Resp 24 21 B/P (MAP) 160/60 (93) 188/73 (111) 180/65 (103) 180/65 Pulse Ox 96 96 O2 Delivery Nasal Cannula Nasal Cannula O2 Flow Rate 2.0 2.0 11/06/17 11/06/17 11/06/17 11/06/17 07:00 07:17 08:00 09:29 Temp 98.6 98.6 Pulse 90 90 Resp 24 B/P (MAP) 164/78 (106) 164/78 Pulse Ox 94 96 O2 Delivery Nasal Cannula Nasal Cannula Nasal Cannula O2 Flow Rate 2.0 2.0 2.0 11/06/17 11/06/17 11/06/17 11/06/17 09:30 11:00 11:17 11:33 Temp 99.2 99.2 97.7 99.2 99.2 97.7 Pulse 90 95 94 86 Resp 18 B/P (MAP) 164/78 147/63 145/66 Pulse Ox 95 O2 Delivery Nasal Cannula O2 Flow Rate 2.0 11/06/17 11/06/17 11/06/17 11/06/17 11:44 12:35 13:08 13:34 Temp 98.7 99.3 98.7 99.3 Pulse 90 95 Resp 18 B/P (MAP) 149/68 164/84 Pulse Ox 98 O2 Delivery Nasal Cannula Nasal Cannula O2 Flow Rate 2.0 2.0 11/06/17 11/06/17 11/06/17 14:02 14:12 14:12 Temp 99.0 99.0 Pulse 98 98 Resp 20 B/P (MAP) 162/62 162/62 O2 Delivery Nasal Cannula Intake and Output 11/05/17 11/05/17 11/06/17 15:00 23:00 07:00 Intake Total 100 ml 100 ml 100 ml Output Total 100 ml 450 ml 400 ml Balance 0 ml -350 ml -300 ml RIMMA RICE III DO Nov 06, 2017 15:18
[2017-11-06] MEDS: TEMAZEPAM 15 MG CAPSULE PO SCH (21:09)
[2017-11-06] MEDS: HYDROcodone/APAP 5/325MG 1 TAB TABLET PO PRN (21:10)
[2017-11-07] VITALS (13 sets, daily range): BP systolic 117–170; BP diastolic 56–106
[2017-11-07 05:17] LABS: BASO % 1 % (0-3); EOS % 1 % (0-3); HEMATOCRIT 24.9 % (36.0-47.0); HEMOGLOBIN 8.3 g/dL (12.0-15.5); LYMPH # 0.7 x10^3/uL (1.0-4.8); LYMPH % 22 % (24-48); MEAN CORPUSCULAR HEMOGLOBIN 29 pg (25-35); MEAN CORPUSCULAR HGB CONC 33 g/dL (31-37); MEAN CORPUSCULAR VOLUME 88 fL (79-100); MONO # 0.3 x10^3/uL (0.0-1.1); MONO % 11 % (0-9); NEUT % 65 % (31-73); PLATELET COUNT 71 x10^3/uL (140-400); RED BLOOD COUNT 2.84 x10^6/uL (3.50-5.40); RED CELL DISTRIBUTION WIDTH 19.2 % (11.5-14.5)
[2017-11-07 05:22] LABS: GFR 24.6; POTASSIUM 4.4 mmol/L (3.5-5.1)
[2017-11-07 05:26] LABS: VANC TR 19.2 mcg/mL (10.0-20.0)
[2017-11-07] MEDS: VANCOMYCIN 1.25 GM in IV NORMAL SALINE 250ML 250 ML IV SCH (05:48)
[2017-11-07] MEDS: LEVOTHYROXINE 150 MCG TABLET PO SCH (05:49)
[2017-11-07] MEDS: VANCOMYCIN PER PHARMACY MC PRN ×2 (05:51→10:48)
[2017-11-07] MEDS ORDERED: LIDOCAINE WITH 8.4% SOD BICARB 3 ML DISP.SYRIN. ONE (07:51)
[2017-11-07] MEDS ORDERED: fentaNYL PF VIAL 100 MCG/2 ML VIAL ONE (08:30)
[2017-11-07] MEDS ORDERED: MIDAZOLAM HCL/PF 2 MG/2 ML VIAL. ONE (08:30)
[2017-11-07] MEDS ORDERED: fentaNYL PF VIAL 100 MCG/2 ML VIAL IV ONE (09:00)
[2017-11-07] MEDS: POLYETHYLENE GLYCOL 3350 17 GM PACKET. PO SCH ×2 (09:00→21:01)
[2017-11-07] MEDS ORDERED: LIDOCAINE WITH 8.4% SOD BICARB 3 ML DISP.SYRIN. IJ ONE (09:00)
[2017-11-07] MEDS ORDERED: MIDAZOLAM HCL/PF 2 MG/2 ML VIAL. IV ONE (09:00)
[2017-11-07] MEDS: IPRATRPIUM/ALBUTEROL 0.5/2.5MG 3 ML NEBU. NEB SCH ×4 (09:20→20:19)
--- NOTE | 2017-11-07 09:24 | RAD ---
1. CT-guided bone marrow biopsy. 11/07/2017 9:[address]-guided biopsy, lytic lesion, right sacrum Indication: LEFT BONE BIOPSY/ BONE MARROW BIOPSY/ MYELOFIBROSIS Discussion: The risks and benefits of the procedure, including but not limited to, bleeding and infection were discussed patient. Informed consent was obtained. The patient was brought to the CT scanner and placed in the prone position. A timeout procedure was performed. [employer] CT imaging of the pelvis demonstrated right ilium amenable to bone marrow biopsy diffuse bony sclerosis noted.. The overlying soft tissues were prepped and draped using maximum sterile barrier technique. 1% lidocaine without epinephrine was administered for local anesthesia. Under intermittent CT guidance, an OncControl needle was advanced into the bone marrow of the right iliac crest. Aspiration was attempted which was unsuccessful likely due to fibrosis. A core biopsy sample was then obtained. Samples were delivered to pathology was present at the time of procedure. The needle was removed and manual pressure held to achieve hemostasis. Subsequently additional 1% lidocaine without epinephrine was administered to the skin and subcutaneous tissues overlying the right sacral lesion. Under intermittent CT guidance a second OncControl coaxial guiding needle was advanced into the overlying sacrum. The inner needle was advanced through the outer cannula and core biopsy samples of the lytic lesion were obtained. CT imaging demonstrates the tip of the biopsy needle extending through the targeted lytic lesion. Some aspiration was performed. Samples were placed in formalin. All needles were removed and manual pressure was held. Repeat imaging demonstrates no significant hematoma or other complication. The patient tolerated the procedure well. The procedure was performed under conscious sedation including continuous cardiopulmonary monitoring via dedicated sedation nurse. Sedation time: 40 minutes Impression: 1. CT-guided bone marrow biopsy of the right iliac crest . 2. CT-guided biopsy of right sacral lytic lesion PQRS Compliance Statement: One or more of the following individualized dose reduction techniques were utilized for this examination: 1. Automated exposure control 2. Adjustment of the mA and/or kV according to patient size 3. Use of iterative reconstruction technique
[2017-11-07] MEDS: FENOFIBRATE,MICRONIZED 134 MG CAPSULE PO SCH (09:49)
[2017-11-07] MEDS: ASPIRIN ENTERIC COATED 81 MG TABLET.DR. PO SCH (09:50)
[2017-11-07] MEDS: ALLOPURINOL 300 MG TABLET. PO SCH (09:50)
[2017-11-07] MEDS: PANTOPRAZOLE 40 MG TABLET.DR. PO SCH ×2 (09:50→16:03)
[2017-11-07] MEDS: FUROSEMIDE 40 MG TABLET. PO SCH (09:50)
[2017-11-07] MEDS: METOPROLOL SUCC 24HR ER 25 MG TAB.ER.24H. PO SCH (09:51)
[2017-11-07] MEDS: LISINOPRIL 20 MG TABLET PO SCH (09:52)
--- NOTE | 2017-11-07 11:38 | PDOC ---
PROGRESS NOTES Chief Complaint Chief Complaint Pneumonia CHF cough, sob h/o myelofibrosis h/o kidney CA Chronic renal insufficiency h/o CVA with R sided weakness HTN, Hyperlipidemia Anemia NOS Hypothyroidism Cataract Removal Tonsillectomy Hysterectomy History of Present Illness History of Present Illness pt seen and examined Pt resting on O2 Called pathology and biopsy results should be ready tomorrow AM Discussed treatment plan with Pt and Daughter DAXA RN Vitals Vitals Vital Signs Date Time Temp Pulse Resp B/P (MAP) Pulse Ox O2 Delivery O2 Flow Rate FiO2 11/07/17 10:10 95 Nasal Cannula 2.0 11/07/17 09:52 91 162/106 11/07/17 09:05 19 11/07/17 07:00 98.1 98.1 Physical Exam General: Alert, Oriented X3, Cooperative, No acute distress Heart: Regular rate, Normal S1, No murmurs Lungs: Clear Abdomen: Normal bowel sounds, No tenderness Extremities: No clubbing, No cyanosis, Normal pulses, Other (Gout in left first digit of the hand) Skin: No rashes, No breakdown Labs LABS Laboratory Tests Test 11/07/17 04:45 White Blood Count 3.0 x10^3/uL (4.0-11.0) Red Blood Count 2.84 x10^6/uL (3.50-5.40) Hemoglobin 8.3 g/dL (12.0-15.5) Hematocrit 24.9 % (36.0-47.0) Mean Corpuscular Volume 88 fL (79-100) Mean Corpuscular Hemoglobin 29 pg (25-35) Mean Corpuscular Hemoglobin Concent 33 g/dL (31-37) Red Cell Distribution Width 19.2 % (11.5-14.5) Platelet Count 71 x10^3/uL (140-400) Neutrophils (%) (Auto) 65 % (31-73) Lymphocytes (%) (Auto) 22 % (24-48) Monocytes (%) (Auto) 11 % (0-9) Eosinophils (%) (Auto) 1 % (0-3) Basophils (%) (Auto) 1 % (0-3) Neutrophils # (Auto) 2.0 x10^3uL (1.8-7.7) Lymphocytes # (Auto) 0.7 x10^3/uL (1.0-4.8) Monocytes # (Auto) 0.3 x10^3/uL (0.0-1.1) Eosinophils # (Auto) 0.0 x10^3/uL (0.0-0.7) Basophils # (Auto) 0.0 x10^3/uL (0.0-0.2) Sodium Level 141 mmol/L (136-145) Potassium Level 4.4 mmol/L (3.5-5.1) Chloride Level 104 mmol/L (98-107) Carbon Dioxide Level 30 mmol/L (21-32) Anion Gap 7 (6-14) Blood Urea Nitrogen 25 mg/dL (7-20) Creatinine 2.0 mg/dL (0.6-1.0) Estimated GFR (Cockcroft-Gault) 24.6 Glucose Level 115 mg/dL (70-99) Calcium Level 8.0 mg/dL (8.5-10.1) Vancomycin Level Trough 19.2 mcg/mL (10.0-20.0) Vancomycin Last Dose Date 11/06/17 Vancomycin Last Dose Time 1100 Review of Systems Review of Systems CO joint pain in left hand CO slight difficulty breathing Assessment and Plan Assessmemt and Plan Pneumonia CHF cough, sob h/o myelofibrosis h/o kidney CA Chronic renal insufficiency h/o CVA with R sided weakness HTN, Hyperlipidemia Anemia NOS Hypothyroidism Cataract Removal Tonsillectomy Hysterectomy Plan: O2 via cannula Abx Home meds Allopurinol for Gout flare Await results of biopsy- Available in AM per Path Appreciate input from subspecialists Comment Review of Relevant I have reviewed the following items adelaida (where applicable) has been applied. Labs Laboratory Tests Test 11/05/17 15:29 11/06/17 07:30 11/06/17 11:25 11/07/17 04:45 Hemoglobin 7.9 g/dL (12.0-15.5) 7.0 g/dL (12.0-15.5) 8.3 g/dL (12.0-15.5) Hematocrit 24.0 % (36.0-47.0) 20.9 % (36.0-47.0) 24.9 % (36.0-47.0) Mean Corpuscular Hemoglobin Concent 33 g/dL (31-37) 33 g/dL (31-37) 33 g/dL (31-37) Vancomycin Level Trough 9.7 mcg/mL (10.0-20.0) 19.2 mcg/mL (10.0-20.0) Vancomycin Last Dose Date Unknown 11/06/17 Vancomycin Last Dose Time Unknown 1100 White Blood Count 2.4 x10^3/uL (4.0-11.0) 3.0 x10^3/uL (4.0-11.0) Red Blood Count 2.44 x10^6/uL (3.50-5.40) 2.84 x10^6/uL (3.50-5.40) Mean Corpuscular Volume 86 fL (79-100) 88 fL (79-100) Mean Corpuscular Hemoglobin 29 pg (25-35) 29 pg (25-35) Red Cell Distribution Width 19.0 % (11.5-14.5) 19.2 % (11.5-14.5) Platelet Count 64 x10^3/uL (140-400) 71 x10^3/uL (140-400) Neutrophils (%) (Auto) 66 % (31-73) 65 % (31-73) Lymphocytes (%) (Auto) 20 % (24-48) 22 % (24-48) Monocytes (%) (Auto) 11 % (0-9) 11 % (0-9) Eosinophils (%) (Auto) 1 % (0-3) 1 % (0-3) Basophils (%) (Auto) 1 % (0-3) 1 % (0-3) Neutrophils # (Auto) 1.6 x10^3uL (1.8-7.7) 2.0 x10^3uL (1.8-7.7) Lymphocytes # (Auto) 0.5 x10^3/uL (1.0-4.8) 0.7 x10^3/uL (1.0-4.8) Monocytes # (Auto) 0.3 x10^3/uL (0.0-1.1) 0.3 x10^3/uL (0.0-1.1) Eosinophils # (Auto) 0.0 x10^3/uL (0.0-0.7) 0.0 x10^3/uL (0.0-0.7) Basophils # (Auto) 0.0 x10^3/uL (0.0-0.2) 0.0 x10^3/uL (0.0-0.2) Sodium Level 140 mmol/L (136-145) 141 mmol/L (136-145) Potassium Level 3.8 mmol/L (3.5-5.1) 4.4 mmol/L (3.5-5.1) Chloride Level 104 mmol/L (98-107) 104 mmol/L (98-107) Carbon Dioxide Level 28 mmol/L (21-32) 30 mmol/L (21-32) Anion Gap 8 (6-14) 7 (6-14) Blood Urea Nitrogen 17 mg/dL (7-20) 25 mg/dL (7-20) Creatinine 1.3 mg/dL (0.6-1.0) 2.0 mg/dL (0.6-1.0) Estimated GFR (Cockcroft-Gault) 40.5 24.6 Glucose Level 140 mg/dL (70-99) 115 mg/dL (70-99) Calcium Level 8.4 mg/dL (8.5-10.1) 8.0 mg/dL (8.5-10.1) Prothrombin Time 14.6 SEC (11.7-14.0) Prothromb Time International Ratio 1.2 (0.8-1.1) Laboratory Tests Test 11/07/17 04:45 White Blood Count 3.0 x10^3/uL (4.0-11.0) Red Blood Count 2.84 x10^6/uL (3.50-5.40) Hemoglobin 8.3 g/dL (12.0-15.5) Hematocrit 24.9 % (36.0-47.0) Mean Corpuscular Volume 88 fL (79-100) Mean Corpuscular Hemoglobin 29 pg (25-35) Mean Corpuscular Hemoglobin Concent 33 g/dL (31-37) Red Cell Distribution Width 19.2 % (11.5-14.5) Platelet Count 71 x10^3/uL (140-400) Neutrophils (%) (Auto) 65 % (31-73) Lymphocytes (%) (Auto) 22 % (24-48) Monocytes (%) (Auto) 11 % (0-9) Eosinophils (%) (Auto) 1 % (0-3) Basophils (%) (Auto) 1 % (0-3) Neutrophils # (Auto) 2.0 x10^3uL (1.8-7.7) Lymphocytes # (Auto) 0.7 x10^3/uL (1.0-4.8) Monocytes # (Auto) 0.3 x10^3/uL (0.0-1.1) Eosinophils # (Auto) 0.0 x10^3/uL (0.0-0.7) Basophils # (Auto) 0.0 x10^3/uL (0.0-0.2) Sodium Level 141 mmol/L (136-145) Potassium Level 4.4 mmol/L (3.5-5.1) Chloride Level 104 mmol/L (98-107) Carbon Dioxide Level 30 mmol/L (21-32) Anion Gap 7 (6-14) Blood Urea Nitrogen 25 mg/dL (7-20) Creatinine 2.0 mg/dL (0.6-1.0) Estimated GFR (Cockcroft-Gault) 24.6 Glucose Level 115 mg/dL (70-99) Calcium Level 8.0 mg/dL (8.5-10.1) Vancomycin Level Trough 19.2 mcg/mL (10.0-20.0) Vancomycin Last Dose Date 11/06/17 Vancomycin Last Dose Time 1100 Microbiology 11/03/17 Blood Culture - Preliminary, Resulted NO GROWTH AFTER 4 DAYS 11/02/17 Urine Culture - Final, Complete 11/02/17 Urine Culture Result 1 (LINDA) - Final, Complete Medications Current Medications Furosemide (Lasix) 40 mg 1X ONCE IVP Last administered on 11/02/17at 23:33; Start 11/02/17 at 22:30; Stop 11/02/17 at 22:31; Status DC Levofloxacin/ Dextrose 100 ml @ 100 mls/hr 1X ONCE IV Last administered on 02/09at 23:33; Start 11/02/17 at 23:30; Stop 11/03/17 at 00:29; Status DC Ondansetron HCl (Zofran) 4 mg PRN Q8HRS PRN IV NAUSEA/VOMITING; Start 11/02/17 at 23:45; Stop 11/03/17 at 10:25; Status DC Acetaminophen (Tylenol) 650 mg PRN Q4HRS PRN PO FEVER; Start 11/02/17 at 23:45 ; Stop 11/03/17 at 10:25; Status DC Albuterol/ Ipratropium (Duoneb) 3 ml RTQID NEB Last administered on 11/03/17at 06:12; Start 11/03/17 at 08:00; Stop 11/03/17 at 10:26; Status DC Albuterol/ Ipratropium (Duoneb) 3 ml STK-MED ONCE .ROUTE ; Start 11/03/17 at 06: 04; Stop 11/03/17 at 06:06; Status DC Acetaminophen (Tylenol) 650 mg PRN Q6HRS PRN PO FEVER; Start 11/03/17 at 10:30 Ondansetron HCl (Zofran) 4 mg PRN Q6HRS PRN IV NAUSEA/VOMITING; Start 11/03/17 at 10:30 Morphine Sulfate (Morphine Sulfate) 2 mg PRN Q2HR PRN IV MODERATE TO SEVERE PAIN; Start 11/03/17 at 10:30 Tramadol HCl (Ultram) 50 mg PRN Q6HRS PRN PO MILD TO MODERATE PAIN Last administered on 11/06/17at 13:08; Start 11/03/17 at 10:30 Hydralazine HCl (Apresoline Inj) 10 mg PRN Q4HRS PRN IVP ELEVATED BP, SEE COMMENTS, 2ND; Start 11/03/17 at 10:30 Docusate Sodium (Colace) 100 mg PRN DAILY PRN PO CONSTIPATION Last administered on 11/05/17at 08:35; Start 11/03/17 at 10:30 Levofloxacin/ Dextrose 150 ml @ 100 mls/hr Q24H IV ; Start 11/03/17 at 21:00; Stop 11/03/17 at 21:00; Status DC Albuterol/ Ipratropium (Duoneb) 3 ml RTQID NEB Last administered on 11/07/17at 09:20; Start 11/03/17 at 12:00 Albuterol Sulfate (Ventolin Neb Soln) 2.5 mg PRN Q2HR PRN NEB SHORTNESS OF BREATH; Start 11/03/17 at 10:30 Guaifenesin (Mucinex) 600 mg BID PO Last administered on 11/07/17at 09:50; Start 11/03/17 at 11:00 Furosemide (Lasix) 40 mg DAILY IVP Last administered on 11/03/17 12:25; Start 11/03/17 at 11:00; Stop 11/03/17 at 13:55; Status DC Aspirin (Ecotrin) 81 mg DAILY PO Last administered on 11/07/17 09:50; Start at 11:30 Furosemide (Lasix) 20 mg DAILY PO ; Start 11/04/17 at 09:00; Stop 11/04/17 at 09 :00; Status DC Acetaminophen/ Hydrocodone Bitart (Lortab 5/325) 1 tab PRN Q6HRS PRN PO SEVERE PAIN Last administered on 11/06/17 21:10; Start 11/03/17 at 11:15 Pantoprazole Sodium (Protonix) 40 mg BIDAC PO Last administered on 11/07/17 09 :50; Start 11/03/17 at 11:30 Temazepam (Restoril) 15 mg QHS PO Last administered on 11/06/17at 21:09; Start 11/03/17 at 21:00 Fenofibrate (Lofibra) 134 mg DAILY PO Last administered on 11/07/17at 09:49; Start 11/03/17 at 11:30 Levothyroxine Sodium (Synthroid) 150 mcg DAILY07 PO Last administered on at 05:49; Start 11/03/17 at 11:30 Metoprolol Succinate (Toprol Xl) 50 mg DAILY PO Last administered on 11/04/17 08:16; Start 11/03/17 at 11:30; Stop 11/04/17 at 14:17; Status DC Fish Oil (Fish Oil) 1,000 mg DAILY PO Last administered on 11/06/17 13:08; Start 11/03/17 at 11:30 Lisinopril (Prinivil) 40 mg DAILY PO Last administered on 11/07/17at 09:52; Start 11/03/17 at 11:30 Enoxaparin Sodium (Lovenox 40mg Syringe) 40 mg Q24H SQ Last administered on 03/11at 16:15; Start 11/03/17 at 14:00; Stop 11/06/17 at 17:13; Status DC Furosemide (Lasix) 40 mg DAILY PO Last administered on 11/07/17 09:50; Start 11/04/17 at 09:00 Vancomycin HCl (Vanco Per Pharmacy) 1 each PRN DAILY PRN MC SEE COMMENTS Last administered on 11/07/17at 10:48; Start 11/03/17 at 14:00 Vancomycin HCl 1.75 gm/Sodium Chloride 500 ml @ 250 mls/hr 1X ONCE IV Last administered on 11/03/17 16:16; Start 11/03/17 at 14:30; Stop 11/03/17 at 16:29 ; Status DC Levofloxacin/ Dextrose 150 ml @ 100 mls/hr QHS IV Last administered on 21:09; Start 11/03/17 at 21:00; Stop 11/07/17 at 10:41; Status DC Vancomycin HCl 1.25 gm/Sodium Chloride 250 ml @ 167 mls/hr Q24H IV Last administered on 11/04/17 16:20; Start 11/04/17 at 16:00; Stop 11/05/17 at 16:32 ; Status DC Vancomycin HCl (Vancomycin Trough Level) 1 each 1X ONCE MC Last administered on 11/05/17at 15:30; Start 11/05/17 at 15:30; Stop 11/05/17 at 15:31; Status DC Non-Formulary Medication 1 ea BID PO Last administered on 11/07/17 09:52; Start 11/04/17 at 13:45 Metoprolol Succinate (Toprol Xl) 75 mg DAILY PO Last administered on 11/07/17 09:51; Start 11/05/17 at 09:00 Metoprolol Succinate (Toprol Xl) 25 mg 1X ONCE PO Last administered on at 14:40; Start 11/04/17 at 14:15; Stop 11/04/17 at 14:23; Status DC Polyethylene Glycol (miraLAX PACKET) 17 gm BID PO Last administered on 21:10; Start 11/05/17 at 10:00 Allopurinol (Zyloprim) 300 mg DAILY PO Last administered on 11/07/17 09:50; Start 11/05/17 at 11:30 Vancomycin HCl 1.25 gm/Sodium Chloride 250 ml @ 167 mls/hr Q18H IV Last administered on 8/16/18at 05:48; Start 11/05/17 at 17:00; Stop 11/07/17 at 10:46 ; Status DC Vancomycin HCl (Vancomycin Trough Level) 1 each 1X ONCE MC Last administered on 11/07/17at 04:30; Start 11/07/17 at 04:30; Stop 11/07/17 at 04:31; Status DC Labetalol HCl (Normodyne Iv Push) 10 mg PRN Q6HRS PRN IVP HTN, SEE COMMENTS, 1ST CHOICE Last administered on 11/06/17at 14:12; Start 11/06/17 at 05:45 Lidocaine/Sodium Bicarbonate (Buffered Lidocaine 1%) 3 ml STK-MED ONCE .ROUTE ; Start 11/07/17 at 07:51; Stop 11/07/17 at 07:52; Status DC Midazolam HCl (Versed) 2 mg STK-MED ONCE .ROUTE ; Start 11/07/17 at 08:30; Stop 11/07/17 at 08:31; Status DC Fentanyl Citrate (Fentanyl 2ml Vial) 100 mcg STK-MED ONCE .ROUTE ; Start at 08:30; Stop 11/07/17 at 08:32; Status DC Lidocaine/Sodium Bicarbonate (Buffered Lidocaine 1%) 8 ml 1X ONCE IJ Last administered on 11/07/17at 09:02; Start 11/07/17 at 09:00; Stop 11/07/17 at 09:01 ; Status DC Midazolam HCl (Versed) 2 mg 1X ONCE IV Last administered on 11/07/17at 09:03; Start 11/07/17 at 09:00; Stop 11/07/17 at 09:01; Status DC Fentanyl Citrate (Fentanyl 2ml Vial) 100 mcg 1X ONCE IV Last administered on at 09:03; Start 11/07/17 at 09:00; Stop 11/07/17 at 09:01; Status DC Levofloxacin/ Dextrose 150 ml @ 100 mls/hr Q48H IV ; Start 11/08/17 at 21:00 Vancomycin HCl 1.25 gm/Sodium Chloride 250 ml @ 167 mls/hr Q24H IV ; Start at 06:00 Active Scripts Active Martelle 5-325 Tablet (Acetaminophen/Hydrocodone Bitart) 1 Each Tablet 1 Tab PO PRN Q6HRS PRN Bactrim Ds Tablet (Sulfamethoxazole/Trimethoprim) 1 Each Tablet 1 Tab PO BID Reported Danazol 200 Mg Capsule 200 Mg PO Synthroid (Levothyroxine Sodium) 150 Mcg Tablet 1 Tab PO DAILY [Tylenol] 1,000 Mg PO Q6HRS PRN Vitamin D-3 (Cholecalciferol (Vitamin D3)) 2,000 Unit Capsule 1,000 Unit PO DAILY Temazepam 15 Mg Capsule 1 Cap PO QHS Toprol Xl (Metoprolol Succinate) 50 Mg Tab.er.24h 1 Tab PO DAILY Quinapril Hcl 40 Mg Tablet 1 Tab PO DAILY Bath-3 Fish Oil 1,000 mg Sfgl (Bath-3 Fatty Acids/Fish Oil) 1 Each Capsule 1 Each PO DAILY Pantoprazole Sodium 40 Mg Tablet.dr 1 Tab PO BID Furosemide 20 Mg Tablet 1 Tab PO DAILY Tricor (Fenofibrate Nanocrystallized) 145 Mg Tablet 1 Tab PO DAILY Aspir 81 (Aspirin) 81 Mg Tablet.dr 1 Tab PO DAILY Vitals/I & O Vital Sign - Last 24 Hours 11/06/17 11/06/17 11/06/17 11/06/17 11:44 12:35 13:08 13:34 Temp 98.7 99.3 98.7 99.3 Pulse 90 95 Resp 18 B/P (MAP) 149/68 164/84 Pulse Ox 98 O2 Delivery Nasal Cannula Nasal Cannula O2 Flow Rate 2.0 2.0 11/06/17 11/06/17 11/06/17 11/06/17 14:02 14:12 14:12 15:00 Temp 99.0 98.7 99.0 98.7 Pulse 98 98 93 Resp 20 20 24 B/P (MAP) 162/62 162/62 184/87 (119) Pulse Ox 90 O2 Delivery Nasal Cannula Nasal Cannula O2 Flow Rate 2.0 11/06/17 11/06/17 11/06/17 11/06/17 15:38 15:49 19:45 20:00 Temp 98.3 98.3 Pulse 86 99 Resp 19 B/P (MAP) 136/62 (86) 170/66 (100) Pulse Ox 96 O2 Delivery Nasal Cannula Nasal Cannula Nasal Cannula O2 Flow Rate 2.0 2.0 2.0 11/06/17 11/06/17 11/07/17 11/07/17 20:14 23:15 03:32 07:00 Temp 98.9 99.0 98.1 98.9 99.0 98.1 Pulse 85 82 90 Resp 18 18 18 B/P (MAP) 114/54 (74) 125/63 (83) 154/66 (95) Pulse Ox 95 95 97 O2 Delivery Nasal Cannula Nasal Cannula Nasal Cannula Nasal Cannula O2 Flow Rate 2.0 2.0 2.0 2.0 11/07/17 11/07/17 11/07/17 11/07/17 08:00 08:39 08:44 08:49 Pulse 92 94 94 Resp 14 17 21 Pulse Ox 100 94 95 O2 Delivery Nasal Cannula Nasal Cannula Nasal Cannula Nasal Cannula O2 Flow Rate 2.0 2.0 2.0 2.0 11/07/17 11/07/17 11/07/17 11/07/17 08:54 08:59 09:03 09:05 Pulse 92 92 91 Resp 20 20 20 19 Pulse Ox 96 96 95 O2 Delivery Nasal Cannula Nasal Cannula Nasal Cannula Nasal Cannula O2 Flow Rate 2.0 2.0 2.0 2.0 11/07/17 11/07/17 11/07/17 11/07/17 09:20 09:51 09:52 10:10 Pulse 91 91 B/P (MAP) 162/106 162/106 Pulse Ox 95 95 O2 Delivery Nasal Cannula Nasal Cannula O2 Flow Rate 2.0 2.0 Intake and Output 11/06/17 11/06/17 11/07/17 15:00 23:00 07:00 Intake Total 362 ml 100 ml 200 ml Output Total 250 ml 550 ml 100 ml Balance 112 ml -450 ml 100 ml RIMMA RICE III DO Nov 07, 2017 11:38
--- NOTE | 2017-11-07 12:46 | PDOC ---
PULMONARY PROGRESS NOTES Subjective soa improved, resting comfortably on oxygen by nc Vitals Vital Signs Date Time Temp Pulse Resp B/P (MAP) Pulse Ox O2 Delivery O2 Flow Rate FiO2 11/07/17 11:14 98.9 91 20 148/60 (89) 95 Nasal Cannula 2.0 98.9 ROS: No Nausea (complains of gouty pain in finger) General: Alert, No acute distress Lungs: Clear Cardiovascular: S1, S2 Abdomen: Soft Neuro Exam: Alert Extremities: No Edema, Other (inflamed pip finger joint) Skin: Warm Labs Laboratory Tests Test 11/05/17 15:29 11/06/17 07:30 11/06/17 11:25 11/07/17 04:45 Hemoglobin 7.9 g/dL (12.0-15.5) 7.0 g/dL (12.0-15.5) 8.3 g/dL (12.0-15.5) Hematocrit 24.0 % (36.0-47.0) 20.9 % (36.0-47.0) 24.9 % (36.0-47.0) Mean Corpuscular Hemoglobin Concent 33 g/dL (31-37) 33 g/dL (31-37) 33 g/dL (31-37) Vancomycin Level Trough 9.7 mcg/mL (10.0-20.0) 19.2 mcg/mL (10.0-20.0) Vancomycin Last Dose Date Unknown 11/06/17 Vancomycin Last Dose Time Unknown 1100 White Blood Count 2.4 x10^3/uL (4.0-11.0) 3.0 x10^3/uL (4.0-11.0) Red Blood Count 2.44 x10^6/uL (3.50-5.40) 2.84 x10^6/uL (3.50-5.40) Mean Corpuscular Volume 86 fL (79-100) 88 fL (79-100) Mean Corpuscular Hemoglobin 29 pg (25-35) 29 pg (25-35) Red Cell Distribution Width 19.0 % (11.5-14.5) 19.2 % (11.5-14.5) Platelet Count 64 x10^3/uL (140-400) 71 x10^3/uL (140-400) Neutrophils (%) (Auto) 66 % (31-73) 65 % (31-73) Lymphocytes (%) (Auto) 20 % (24-48) 22 % (24-48) Monocytes (%) (Auto) 11 % (0-9) 11 % (0-9) Eosinophils (%) (Auto) 1 % (0-3) 1 % (0-3) Basophils (%) (Auto) 1 % (0-3) 1 % (0-3) Neutrophils # (Auto) 1.6 x10^3uL (1.8-7.7) 2.0 x10^3uL (1.8-7.7) Lymphocytes # (Auto) 0.5 x10^3/uL (1.0-4.8) 0.7 x10^3/uL (1.0-4.8) Monocytes # (Auto) 0.3 x10^3/uL (0.0-1.1) 0.3 x10^3/uL (0.0-1.1) Eosinophils # (Auto) 0.0 x10^3/uL (0.0-0.7) 0.0 x10^3/uL (0.0-0.7) Basophils # (Auto) 0.0 x10^3/uL (0.0-0.2) 0.0 x10^3/uL (0.0-0.2) Sodium Level 140 mmol/L (136-145) 141 mmol/L (136-145) Potassium Level 3.8 mmol/L (3.5-5.1) 4.4 mmol/L (3.5-5.1) Chloride Level 104 mmol/L (98-107) 104 mmol/L (98-107) Carbon Dioxide Level 28 mmol/L (21-32) 30 mmol/L (21-32) Anion Gap 8 (6-14) 7 (6-14) Blood Urea Nitrogen 17 mg/dL (7-20) 25 mg/dL (7-20) Creatinine 1.3 mg/dL (0.6-1.0) 2.0 mg/dL (0.6-1.0) Estimated GFR (Cockcroft-Gault) 40.5 24.6 Glucose Level 140 mg/dL (70-99) 115 mg/dL (70-99) Calcium Level 8.4 mg/dL (8.5-10.1) 8.0 mg/dL (8.5-10.1) Prothrombin Time 14.6 SEC (11.7-14.0) Prothromb Time International Ratio 1.2 (0.8-1.1) Laboratory Tests Test 11/07/17 04:45 White Blood Count 3.0 x10^3/uL (4.0-11.0) Red Blood Count 2.84 x10^6/uL (3.50-5.40) Hemoglobin 8.3 g/dL (12.0-15.5) Hematocrit 24.9 % (36.0-47.0) Mean Corpuscular Volume 88 fL (79-100) Mean Corpuscular Hemoglobin 29 pg (25-35) Mean Corpuscular Hemoglobin Concent 33 g/dL (31-37) Red Cell Distribution Width 19.2 % (11.5-14.5) Platelet Count 71 x10^3/uL (140-400) Neutrophils (%) (Auto) 65 % (31-73) Lymphocytes (%) (Auto) 22 % (24-48) Monocytes (%) (Auto) 11 % (0-9) Eosinophils (%) (Auto) 1 % (0-3) Basophils (%) (Auto) 1 % (0-3) Neutrophils # (Auto) 2.0 x10^3uL (1.8-7.7) Lymphocytes # (Auto) 0.7 x10^3/uL (1.0-4.8) Monocytes # (Auto) 0.3 x10^3/uL (0.0-1.1) Eosinophils # (Auto) 0.0 x10^3/uL (0.0-0.7) Basophils # (Auto) 0.0 x10^3/uL (0.0-0.2) Sodium Level 141 mmol/L (136-145) Potassium Level 4.4 mmol/L (3.5-5.1) Chloride Level 104 mmol/L (98-107) Carbon Dioxide Level 30 mmol/L (21-32) Anion Gap 7 (6-14) Blood Urea Nitrogen 25 mg/dL (7-20) Creatinine 2.0 mg/dL (0.6-1.0) Estimated GFR (Cockcroft-Gault) 24.6 Glucose Level 115 mg/dL (70-99) Calcium Level 8.0 mg/dL (8.5-10.1) Vancomycin Level Trough 19.2 mcg/mL (10.0-20.0) Vancomycin Last Dose Date 11/06/17 Vancomycin Last Dose Time 1100 Medications Active Scripts Medications Dose Route/Sig Max Daily Dose Days Date Category Danazol 200 Mg Capsule 200 Mg PO 11/03/17 Reported Hurley 5-325 Tablet (Acetaminophen/Hydrocodone Bitart) 1 Each Tablet 1 Tab PO PRN Q6HRS PRN 10/03/17 Rx Bactrim Ds Tablet (Sulfamethoxazole/Trimethoprim) 1 Each Tablet 1 Tab PO BID 10/03/17 Rx Synthroid (Levothyroxine Sodium) 150 Mcg Tablet 1 Tab PO DAILY 05/17/17 Reported [Tylenol] 1,000 Mg PO Q6HRS PRN 05/17/17 Reported Vitamin D-3 (Cholecalciferol (Vitamin D3)) 2,000 Unit Capsule 1,000 Unit PO DAILY 05/17/17 Reported Temazepam 15 Mg Capsule 1 Cap PO QHS 05/16/17 Reported Toprol Xl (Metoprolol Succinate) 50 Mg Tab.er.24h 1 Tab PO DAILY 05/17/16 Reported Quinapril Hcl 40 Mg Tablet 1 Tab PO DAILY 05/17/16 Reported Maramec-3 Fish Oil 1,000 mg Sfgl (Maramec-3 Fatty Acids/Fish Oil) 1 Each Capsule 1 Each PO DAILY 05/17/16 Reported Pantoprazole Sodium 40 Mg Tablet.dr 1 Tab PO BID 01/13/14 Reported Furosemide 20 Mg Tablet 1 Tab PO DAILY 01/13/14 Reported Tricor (Fenofibrate Nanocrystallized) 145 Mg Tablet 1 Tab PO DAILY 01/13/14 Reported Aspir 81 (Aspirin) 81 Mg Tablet.dr 1 Tab PO DAILY 01/13/14 Reported Impression . 1. Acute respiratory failure secondary to acute diastolic congestive heart failure , improving 2. Abnormal chest x-ray and CT of the chest.lung mass and multiple nodules in Feb. Never had work up. repeat ct chest 11/04 reviewed. slight increase in Rt lung mass, tiny lung nodules and ? bone mets 3. ?Pneumonia. 4. Acute diastolic congestive heart failure, improving. 5. Lower extremity edema. 6. Myelofibrosis. 7. Pancytopenia./ severe Myelofibrosis 8. History of renal cancer with right nephrectomy. 9. History of cerebrovascular accident. Plan . 1. d/w patient about ct chest findings. Primary metastatic lung can vs mets. Poor performance status. mass centrally located. Would only consider biopsy if oncology feels she may be a candidate for chemo. s/p right iliac bone bx 2. Bronchodilator. 3.. antibiotics. ok with dc home. d/w daughter IRVIN HUFFMAN MD Nov 07, 2017 12:45
[2017-11-07] MEDS: HYDROcodone/APAP 5/325MG 1 TAB TABLET PO PRN ×2 (16:03→21:01)
[2017-11-07] MEDS: TEMAZEPAM 15 MG CAPSULE PO SCH (21:01)
[2017-11-08 03:23] VITALS: BP 124/62
[2017-11-08 04:38] LABS: BASO # 0.1 x10^3/uL (0.0-0.2); BASO % 3 % (0-3); EOS % 1 % (0-3); HEMATOCRIT 22.4 % (36.0-47.0); HEMOGLOBIN 7.5 g/dL (12.0-15.5); LYMPH # 0.5 x10^3/uL (1.0-4.8); LYMPH % 22 % (24-48); MEAN CORPUSCULAR HEMOGLOBIN 29 pg (25-35); MEAN CORPUSCULAR HGB CONC 33 g/dL (31-37); MEAN CORPUSCULAR VOLUME 87 fL (79-100); MONO # 0.2 x10^3/uL (0.0-1.1); MONO % 9 % (0-9); NEUT # 1.6 x10^3uL (1.8-7.7); NEUT % 65 % (31-73); PLATELET COUNT 67 x10^3/uL (140-400); RED BLOOD COUNT 2.57 x10^6/uL (3.50-5.40); RED CELL DISTRIBUTION WIDTH 19.5 % (11.5-14.5); WHITE BLOOD COUNT 2.4 x10^3/uL (4.0-11.0)
[2017-11-08 05:07] LABS: CREATININE 2.4 mg/dL (0.6-1.0); POTASSIUM 4.1 mmol/L (3.5-5.1)
[2017-11-08] MEDS ORDERED: VANCOMYCIN 1.25 GM in IV NORMAL SALINE 250ML 250 ML IV SCH (06:00)
[2017-11-08] MEDS: LEVOTHYROXINE 150 MCG TABLET PO SCH (06:34)
[2017-11-08 07:00] VITALS: BP 146/64
[2017-11-08] MEDS: IPRATRPIUM/ALBUTEROL 0.5/2.5MG 3 ML NEBU. NEB SCH ×3 (07:33→15:58)
--- NOTE | 2017-11-08 08:17 | PDOC ---
SUBJECTIVE Subjective S: had a bone biopsy, pending results, Hb ok O: Physical exam: Gen.: Well-nourished, resting in bed, no acute distress Psychiatric: pleasant mood and affect Labs: Hb 7.5, platelets last check 67 with white count of 2.4 Assessment and Plan: Ms. 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 Thank you kindly for this consultation, and please don't hesitate to call with any further questions. OBJECTIVE Vital Signs Vital Signs Date Time Temp Pulse Resp B/P (MAP) Pulse Ox O2 Delivery O2 Flow Rate FiO2 11/08/17 07:33 98 Nasal Cannula 3.0 11/08/17 03:23 97.4 82 18 124/62 (82) 98 Nasal Cannula 2.0 97.4 11/07/17 22:16 98.2 79 18 120/58 (78) 97 Nasal Cannula 2.0 98.2 11/07/17 20:18 Nasal Cannula 2.0 11/07/17 20:00 Nasal Cannula 2.0 11/07/17 19:23 98.4 88 18 117/64 (81) 97 Nasal Cannula 2.0 98.4 11/07/17 17:23 95 Nasal Cannula 2.0 11/07/17 16:41 Nasal Cannula 2.0 11/07/17 16:03 95 Nasal Cannula 2.0 11/07/17 15:00 98.0 89 18 130/56 (80) 95 Nasal Cannula 2.0 98.0 11/07/17 13:07 Nasal Cannula 2.0 11/07/17 11:14 98.9 91 20 148/60 (89) 95 Nasal Cannula 2.0 98.9 11/07/17 10:10 95 Nasal Cannula 2.0 11/07/17 09:52 91 162/106 11/07/17 09:51 91 162/106 11/07/17 09:20 95 Nasal Cannula 2.0 11/07/17 09:05 91 19 95 Nasal Cannula 2.0 11/07/17 09:03 20 96 Nasal Cannula 2.0 11/07/17 08:59 92 20 Nasal Cannula 2.0 11/07/17 08:54 92 20 96 Nasal Cannula 2.0 11/07/17 08:49 94 21 95 Nasal Cannula 2.0 11/07/17 08:44 94 17 94 Nasal Cannula 2.0 11/07/17 08:39 92 14 100 Nasal Cannula 2.0 I & O Intake and Output 11/08/17 07:00 Intake Total 320 ml Output Total 500 ml Balance -180 ml Intake Oral 320 ml Output Urine Total 500 ml # Voids 4 # Bowel Movements 1 COMMENT Lab Laboratory Tests Test 11/08/17 04:00 White Blood Count 2.4 x10^3/uL (4.0-11.0) Red Blood Count 2.57 x10^6/uL (3.50-5.40) Hemoglobin 7.5 g/dL (12.0-15.5) Hematocrit 22.4 % (36.0-47.0) Mean Corpuscular Volume 87 fL (79-100) Mean Corpuscular Hemoglobin 29 pg (25-35) Mean Corpuscular Hemoglobin Concent 33 g/dL (31-37) Red Cell Distribution Width 19.5 % (11.5-14.5) Platelet Count 67 x10^3/uL (140-400) Neutrophils (%) (Auto) 65 % (31-73) Lymphocytes (%) (Auto) 22 % (24-48) Monocytes (%) (Auto) 9 % (0-9) Eosinophils (%) (Auto) 1 % (0-3) Basophils (%) (Auto) 3 % (0-3) Neutrophils # (Auto) 1.6 x10^3uL (1.8-7.7) Lymphocytes # (Auto) 0.5 x10^3/uL (1.0-4.8) Monocytes # (Auto) 0.2 x10^3/uL (0.0-1.1) Eosinophils # (Auto) 0.0 x10^3/uL (0.0-0.7) Basophils # (Auto) 0.1 x10^3/uL (0.0-0.2) Sodium Level 138 mmol/L (136-145) Potassium Level 4.1 mmol/L (3.5-5.1) Chloride Level 104 mmol/L (98-107) Carbon Dioxide Level 29 mmol/L (21-32) Anion Gap 5 (6-14) Blood Urea Nitrogen 35 mg/dL (7-20) Creatinine 2.4 mg/dL (0.6-1.0) Estimated GFR (Cockcroft-Gault) 20.0 Glucose Level 116 mg/dL (70-99) Calcium Level 8.0 mg/dL (8.5-10.1) KENDELL CANDELARIA MD Nov 08, 2017 08:17
[2017-11-08] MEDS: OMEGA-3 FATTY ACIDS/FISH OIL 1,000 MG CAPSULE. PO SCH (09:38)
[2017-11-08] MEDS: PANTOPRAZOLE 40 MG TABLET.DR. PO SCH (09:38)
[2017-11-08] MEDS: POLYETHYLENE GLYCOL 3350 17 GM PACKET. PO SCH (09:38)
[2017-11-08] MEDS: FUROSEMIDE 40 MG TABLET. PO SCH (09:39)
[2017-11-08] MEDS: ASPIRIN ENTERIC COATED 81 MG TABLET.DR. PO SCH (09:39)
[2017-11-08] MEDS: METOPROLOL SUCC 24HR ER 25 MG TAB.ER.24H. PO SCH (09:39)
[2017-11-08] MEDS: ALLOPURINOL 300 MG TABLET. PO SCH (09:39)
[2017-11-08] MEDS: HYDROcodone/APAP 5/325MG 1 TAB TABLET PO PRN (09:40)
[2017-11-08] MEDS: LISINOPRIL 20 MG TABLET PO SCH (09:40)
[2017-11-08] MEDS: FENOFIBRATE,MICRONIZED 134 MG CAPSULE PO SCH (09:50)
--- NOTE | 2017-11-08 10:52 | PDOC ---
PULMONARY PROGRESS NOTES Subjective soa improved, resting comfortably on oxygen by nc Vitals Vital Signs Date Time Temp Pulse Resp B/P (MAP) Pulse Ox O2 Delivery O2 Flow Rate FiO2 11/08/17 09:40 92 146/64 11/08/17 09:40 19 98 Nasal Cannula 3.0 11/08/17 07:00 98.3 98.3 ROS: No Nausea (complains of gouty pain in finger), No Chest Pain, No Increase Cough General: Alert, No acute distress Lungs: Clear Cardiovascular: S1, S2 Abdomen: Soft Neuro Exam: Alert Extremities: Other (inflamed pip finger joint) Skin: Warm Labs Laboratory Tests Test 11/06/17 11:25 11/07/17 04:45 11/08/17 04:00 Prothrombin Time 14.6 SEC (11.7-14.0) Prothromb Time International Ratio 1.2 (0.8-1.1) White Blood Count 3.0 x10^3/uL (4.0-11.0) 2.4 x10^3/uL (4.0-11.0) Red Blood Count 2.84 x10^6/uL (3.50-5.40) 2.57 x10^6/uL (3.50-5.40) Hemoglobin 8.3 g/dL (12.0-15.5) 7.5 g/dL (12.0-15.5) Hematocrit 24.9 % (36.0-47.0) 22.4 % (36.0-47.0) Mean Corpuscular Volume 88 fL (79-100) 87 fL (79-100) Mean Corpuscular Hemoglobin 29 pg (25-35) 29 pg (25-35) Mean Corpuscular Hemoglobin Concent 33 g/dL (31-37) 33 g/dL (31-37) Red Cell Distribution Width 19.2 % (11.5-14.5) 19.5 % (11.5-14.5) Platelet Count 71 x10^3/uL (140-400) 67 x10^3/uL (140-400) Neutrophils (%) (Auto) 65 % (31-73) 65 % (31-73) Lymphocytes (%) (Auto) 22 % (24-48) 22 % (24-48) Monocytes (%) (Auto) 11 % (0-9) 9 % (0-9) Eosinophils (%) (Auto) 1 % (0-3) 1 % (0-3) Basophils (%) (Auto) 1 % (0-3) 3 % (0-3) Neutrophils # (Auto) 2.0 x10^3uL (1.8-7.7) 1.6 x10^3uL (1.8-7.7) Lymphocytes # (Auto) 0.7 x10^3/uL (1.0-4.8) 0.5 x10^3/uL (1.0-4.8) Monocytes # (Auto) 0.3 x10^3/uL (0.0-1.1) 0.2 x10^3/uL (0.0-1.1) Eosinophils # (Auto) 0.0 x10^3/uL (0.0-0.7) 0.0 x10^3/uL (0.0-0.7) Basophils # (Auto) 0.0 x10^3/uL (0.0-0.2) 0.1 x10^3/uL (0.0-0.2) Sodium Level 141 mmol/L (136-145) 138 mmol/L (136-145) Potassium Level 4.4 mmol/L (3.5-5.1) 4.1 mmol/L (3.5-5.1) Chloride Level 104 mmol/L (98-107) 104 mmol/L (98-107) Carbon Dioxide Level 30 mmol/L (21-32) 29 mmol/L (21-32) Anion Gap 7 (6-14) 5 (6-14) Blood Urea Nitrogen 25 mg/dL (7-20) 35 mg/dL (7-20) Creatinine 2.0 mg/dL (0.6-1.0) 2.4 mg/dL (0.6-1.0) Estimated GFR (Cockcroft-Gault) 24.6 20.0 Glucose Level 115 mg/dL (70-99) 116 mg/dL (70-99) Calcium Level 8.0 mg/dL (8.5-10.1) 8.0 mg/dL (8.5-10.1) Vancomycin Level Trough 19.2 mcg/mL (10.0-20.0) Vancomycin Last Dose Date 11/06/17 Vancomycin Last Dose Time 1100 Laboratory Tests Test 11/08/17 04:00 White Blood Count 2.4 x10^3/uL (4.0-11.0) Red Blood Count 2.57 x10^6/uL (3.50-5.40) Hemoglobin 7.5 g/dL (12.0-15.5) Hematocrit 22.4 % (36.0-47.0) Mean Corpuscular Volume 87 fL (79-100) Mean Corpuscular Hemoglobin 29 pg (25-35) Mean Corpuscular Hemoglobin Concent 33 g/dL (31-37) Red Cell Distribution Width 19.5 % (11.5-14.5) Platelet Count 67 x10^3/uL (140-400) Neutrophils (%) (Auto) 65 % (31-73) Lymphocytes (%) (Auto) 22 % (24-48) Monocytes (%) (Auto) 9 % (0-9) Eosinophils (%) (Auto) 1 % (0-3) Basophils (%) (Auto) 3 % (0-3) Neutrophils # (Auto) 1.6 x10^3uL (1.8-7.7) Lymphocytes # (Auto) 0.5 x10^3/uL (1.0-4.8) Monocytes # (Auto) 0.2 x10^3/uL (0.0-1.1) Eosinophils # (Auto) 0.0 x10^3/uL (0.0-0.7) Basophils # (Auto) 0.1 x10^3/uL (0.0-0.2) Sodium Level 138 mmol/L (136-145) Potassium Level 4.1 mmol/L (3.5-5.1) Chloride Level 104 mmol/L (98-107) Carbon Dioxide Level 29 mmol/L (21-32) Anion Gap 5 (6-14) Blood Urea Nitrogen 35 mg/dL (7-20) Creatinine 2.4 mg/dL (0.6-1.0) Estimated GFR (Cockcroft-Gault) 20.0 Glucose Level 116 mg/dL (70-99) Calcium Level 8.0 mg/dL (8.5-10.1) Medications Active Scripts Medications Dose Route/Sig Max Daily Dose Days Date Category Danazol 200 Mg Capsule 200 Mg PO 11/03/17 Reported [place]ry 5-325 Tablet (Acetaminophen/Hydrocodone Bitart) 1 Each Tablet 1 Tab PO PRN Q6HRS PRN 10/03/17 Rx Bactrim Ds Tablet (Sulfamethoxazole/Trimethoprim) 1 Each Tablet 1 Tab PO BID 10/03/17 Rx Synthroid (Levothyroxine Sodium) 150 Mcg Tablet 1 Tab PO DAILY 05/17/17 Reported [Tylenol] 1,000 Mg PO Q6HRS PRN 05/17/17 Reported Vitamin D-3 (Cholecalciferol (Vitamin D3)) 2,000 Unit Capsule 1,000 Unit PO DAILY 05/17/17 Reported Temazepam 15 Mg Capsule 1 Cap PO QHS 05/16/17 Reported Toprol Xl (Metoprolol Succinate) 50 Mg Tab.er.24h 1 Tab PO DAILY 05/17/16 Reported Quinapril Hcl 40 Mg Tablet 1 Tab PO DAILY 05/17/16 Reported Lavinia-3 Fish Oil 1,000 mg Sfgl (Lavinia-3 Fatty Acids/Fish Oil) 1 Each Capsule 1 Each PO DAILY 05/17/16 Reported Pantoprazole Sodium 40 Mg Tablet.dr 1 Tab PO BID 01/13/14 Reported Furosemide 20 Mg Tablet 1 Tab PO DAILY 01/13/14 Reported Tricor (Fenofibrate Nanocrystallized) 145 Mg Tablet 1 Tab PO DAILY 01/13/14 Reported Aspir 81 (Aspirin) 81 Mg Tablet.dr 1 Tab PO DAILY 01/13/14 Reported Impression . 1. Acute respiratory failure secondary to acute diastolic congestive heart failure , improving 2. Abnormal chest x-ray and CT of the chest.lung mass and multiple nodules in Feb. Never had work up. repeat ct chest 11/04 reviewed. slight increase in Rt lung mass, tiny lung nodules and bone mets. s/p bone bx. 3. ?Pneumonia. 4. Acute diastolic congestive heart failure, improving. 5. Lower extremity edema. 6. Myelofibrosis. 7. Pancytopenia./ severe Myelofibrosis 8. History of renal cancer with right nephrectomy. 9. History of cerebrovascular accident. Plan . 1. d/w patient about ct chest findings. Primary metastatic lung can vs mets. Poor performance status. mass centrally located. . s/p right iliac bone bx. awaiting results 2. Bronchodilator. 3.. antibiotics. 4. Doubt candidate for chemo 5. Consult palliative care ok with dc home. d/w daughter IRVIN HUFFMAN MD Nov 08, 2017 10:52
[2017-11-08 11:00] VITALS: BP 126/68
[2017-11-08] MEDS: VANCOMYCIN PER PHARMACY MC PRN (14:38)
[2017-11-08 15:00] VITALS: BP 118/55
--- NOTE | 2017-11-12 11:18 | DS ---
DATE OF DISCHARGE: 11/08/2017 ADMISSION DIAGNOSES: Pneumonia, CHF and new lung mass. DISCHARGE DIAGNOSES: Resolving pneumonia, resolving congestive heart failure, status post bone marrow biopsy. HOSPITAL COURSE: The patient is a pleasant 72-year-old female who presented with CHF and pneumonia. We also saw that she had a mass on her lung. She was also anemic. We admitted her. We gave her Lasix, antibiotics, breathing treatments, oxygen. We consulted Oncology, Cardiology and Pulmonary. She then went for a bone marrow biopsy over the next few days, she did much better. We are still waiting on the biopsy, but overall, we would like to go ahead and get her home and have her follow up with her oncologist next week. DISPOSITION: Home. ACTIVITY: As tolerated. DIET: Low sodium. MEDICATIONS: Please see the MRAD. TOTAL TIME: 33 minutes. RIMMA RICE DO DR: NESHA/micky JOB#: [id number] / [id number]
== END 2017-11-08 16:50 | disposition home or self-care (01) | DRG 987 ==
LOC: ER 21:15 → 2 NORTH 23:41
PROVIDERS: ADMIT Internal Medicine; ATTEND Internal Medicine
PROC: 30233N1 Transfusion of Nonautologous Red Blood Cells into Peripheral Vein, Percutaneous Approach (ICD-10-PCS; 2017-11-05)
PROC: 07DR3ZX Extraction of Iliac Bone Marrow, Percutaneous Approach, Diagnostic (ICD-10-PCS; principal; 2017-11-07)
PROC: 0QB13ZX Excision of Sacrum, Percutaneous Approach, Diagnostic (ICD-10-PCS; 2017-11-07)
DX: J69.0 Pneumonitis due to inhalation of food and vomit (principal); I50.33 Acute on chronic diastolic (congestive) heart failure; J96.00 Acute respiratory failure, unspecified whether with hypoxia or hypercapnia; C94.6 Myelodysplastic disease, not elsewhere classified; D61.818 Other pancytopenia; E44.1 Mild protein-calorie malnutrition; I13.0 Hypertensive heart and chronic kidney disease with heart failure and stage 1 through stage 4 chronic kidney disease, or unspecified chronic kidney disease; I69.351 Hemiplegia and hemiparesis following cerebral infarction affecting right dominant side; D75.81 Myelofibrosis; N18.3 Chronic kidney disease, stage 3 (moderate); E03.9 Hypothyroidism, unspecified; E78.5 Hyperlipidemia, unspecified; F17.210 Nicotine dependence, cigarettes, uncomplicated; I48.0 Paroxysmal atrial fibrillation; I69.320 Aphasia following cerebral infarction; K21.9 Gastro-esophageal reflux disease without esophagitis; K57.30 Diverticulosis of large intestine without perforation or abscess without bleeding; K59.00 Constipation, unspecified; K63.5 Polyp of colon; K64.9 Unspecified hemorrhoids; M10.9 Gout, unspecified; Z51.5 Encounter for palliative care; Z80.3 Family history of malignant neoplasm of breast; Z82.49 Family history of ischemic heart disease and other diseases of the circulatory system; Z83.3 Family history of diabetes mellitus; Z85.528 Personal history of other malignant neoplasm of kidney; Z86.010 Personal history of colon polyps; Z90.5 Acquired absence of kidney; Z90.710 Acquired absence of both cervix and uterus; Z79.01 Long term (current) use of anticoagulants; Z88.8 Allergy status to other drugs, medicaments and biological substances; Z88.0 Allergy status to penicillin; Z68.31 Body mass index [BMI] 31.0-31.9, adult
CPT/HCPCS: 20225; 36415; 38222; 71045; 71250; 74176; 77012; 80048; 80053; 80061; 80202; 81001; 83605; 83880; 84439; 84443; 84484; 85007; 85014; 85018; 85025; 85379; 85610; 86850; 86900; 86901; 86920; 87040; 87086; 93005; 93970; 94640; 94760; 96361; 96365; 96367; 96375; 99152; 99153; J1650; J1940; J1956; J2250; J3010; J3370; J3490; J7040; J7050; J7620; P9016; 97116; 97530; 99285-25; J7030

== ENCOUNTER 2017-12-09 14:23 | Inpatient (IN) | payer MEDICARE ==
[~2017-12-09] VITALS: Ht 170.2 cm; Wt 88.6 kg
[~2017-12-09 14:23] MED LIST changes: +DANA200C PO; +METF500T16 PO; -METF500T5 PO
[2017-12-09] MEDS ORDERED: methylPREDNISolone SOD SUCC PF 125 MG/2 ML VIAL. IV ONE (15:00)
[2017-12-09] MEDS ORDERED: IPRATRPIUM/ALBUTEROL 0.5/2.5MG 3 ML NEBU. NEB ONE (15:00)
[2017-12-09] MEDS ORDERED: diphenhydrAMINE 50 MG/ML VIAL IVP ONE (15:15)
--- NOTE | 2017-12-09 15:18 | EKG ---
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
[2017-12-09] MEDS ORDERED: FAMOTIDINE 20 MG/2 ML VIAL IVP ONE (15:30)
--- NOTE | 2017-12-09 15:38 | RAD ---
EXAM: Chest, single view. HISTORY: Shortness of air. COMPARISON: 11/04/2017 FINDINGS: A frontal view of the chest is obtained. There is diffuse increased interstitial opacity. There is a right lower lobe mass measuring 3.3 cm, better characterized on the recent CT. The additional smaller bilateral pulmonary nodule are not well characterized sonographically. There is mild cardiomegaly. There are calcified granulomas. There is diffuse sclerotic change involving the axial and appendicular skeleton. IMPRESSION: 1. Diffuse increased interstitial opacity due to interstitial infiltrate. 2. Right lower lobe pulmonary mass, better characterized on the prior CT. The additional smaller polar nodules are not well characterized radiographic. 3. Suspected diffuse osseous sclerotic metastatic disease or renal osteodystrophy. Electronically signed by: Meghan Montoya MD (12/09/2017 3:34 PM) [place] [id number]
[2017-12-09 15:58] LABS: BASO % 1 % (0-3); EOS % 0 % (0-3); HEMATOCRIT 24.2 % (36.0-47.0); HEMOGLOBIN 7.7 g/dL (12.0-15.5); LYMPH # 0.2 x10^3/uL (1.0-4.8); LYMPH % 31 % (24-48); MEAN CORPUSCULAR HEMOGLOBIN 28 pg (25-35); MEAN CORPUSCULAR HGB CONC 32 g/dL (31-37); MEAN CORPUSCULAR VOLUME 88 fL (79-100); MONO % 3 % (0-9); NEUT # 0.4 x10^3uL (1.8-7.7); NEUT % 65 % (31-73); PLATELET COUNT 122 x10^3/uL (140-400); RED BLOOD COUNT 2.76 x10^6/uL (3.50-5.40); RED CELL DISTRIBUTION WIDTH 21.4 % (11.5-14.5)
[2017-12-09 16:08] LABS: WHITE BLOOD COUNT 0.6 x10^3/uL (4.0-11.0)
[2017-12-09 16:14] LABS: CALCIUM 8.9 mg/dL (8.5-10.1); CREATININE 1.4 mg/dL (0.6-1.0); GFR 37.2; POTASSIUM 4.1 mmol/L (3.5-5.1)
--- NOTE | 2017-12-09 16:17 | PHYS DOC ---
Past Medical History Past Medical History: Cancer, CVA, High Cholesterol, Hypertension, Hyperthyroid Additional Past Medical Histor: RENAL CANCER Past Surgical History: Cancer Surgery, Hysterectomy Additional Past Surgical Histo: RIGHT KIDNEY REMOVED Alcohol Use: None Drug Use: None Adult General Chief Complaint Chief Complaint: SHORTNESS OF BREATH HPI HPI Patient is a 72 year old female was brought here for evaluation of trouble breathing, itching after taking her Bactrim DS today. Patient has history of cancer, in palliating care. Patient also has history anemia. He was seen here in September for some Skin infection, the doctor put her on Bactrim DS. Patient took a couple doses of the medication, and it made her sick so she stopped taking the medication. Today her home health nurse came by and recommended that she needs to take her the bactrim DS because she has a cough for few today. After taking the medication, patient started having severe itching all over body, she started having trouble breathing, so her family brought her here for evaluation. She denies any abdominal pain, no chest pain. She denies any fever. Patient had history of anemia, usually she will not get blood transfusion until her hemoglobin dropped below 7. Review of Systems Review of Systems Constitutional: Denies fever or chills [] Eyes: Denies change in visual acuity, redness, or eye pain [] HENT: Denies nasal congestion or sore throat [] Respiratory: positive for shortness of air. Cardiovascular: No additional information not addressed in HPI [] GI: Denies abdominal pain, nausea, vomiting, bloody stools or diarrhea [] : Denies dysuria or hematuria [] Musculoskeletal: Denies back pain or joint pain [] Integument: itching and rash. Neurologic: Denies headache, focal weakness or sensory changes [] Endocrine: Denies polyuria or polydipsia [] All other systems were reviewed and found to be within normal limits, except as documented in this note. Current Medications Current Medications Current Medications Medications (Trade) Dose Ordered Sig/[place] Start Time Stop Time Status Last Admin Dose Admin Albuterol/ Ipratropium (Duoneb) 3 ml 1X ONCE 12/09/17 15:00 12/09/17 15:03 DC 12/09/17 15:25 3 ML Diphenhydramine HCl (Benadryl) 25 mg 1X ONCE 12/09/17 15:15 12/09/17 15:18 DC 12/09/17 15:45 25 MG Famotidine (Pepcid Vial) 20 mg 1X ONCE 12/09/17 15:30 12/09/17 15:32 DC 12/09/17 15:55 20 MG Methylprednisolone Sodium Succinate (SOLU-Medrol 125MG VIAL) 125 mg 1X ONCE 12/09/17 15:00 12/09/17 15:03 DC 12/09/17 15:50 125 MG Ondansetron HCl (Zofran) 4 mg PRN Q8HRS PRN 12/09/17 17:45 12/10/17 17:44 Allergies Allergies Allergies Coded Allergies Type Severity Reaction Last Updated Verified iodine Allergy Severe ANAPHYLAXIS 10/31/17 Yes Penicillins Allergy Intermediate 10/31/17 Yes cephalexin Allergy Intermediate 10/31/17 Yes Physical Exam Physical Exam Constitutional: Well developed, well nourished, in acute distress. HENT: Normocephalic, atraumatic, bilateral external ears normal, oropharynx moist, no oral exudates, nose normal. [] Eyes: PERRLA, EOMI, conjunctiva normal, no discharge. [] Neck: Normal range of motion, no tenderness, supple, no stridor. [] Cardiovascular:Heart rate regular rhythm, no murmur. TACHYCARDIA, Lungs & Thorax: Bilateral breath sounds clear to auscultation. TACHYPNIA Abdomen: Bowel sounds normal, soft, no tenderness, no masses, no pulsatile masses. [] Skin: Warm, dry, no erythema, no rash. [] Back: No tenderness, no CVA tenderness. [] Extremities: No tenderness, no cyanosis, no clubbing, ROM intact, no edema. [] Neurologic: ALERT, AWAKE BUT CONFUSED. Psychologic: APPEARED VERY ANXIOUS. Current Patient Data Vital Signs Vital Signs Date Time Temp Pulse Resp B/P (MAP) Pulse Ox O2 Delivery O2 Flow Rate FiO2 12/09/17 16:40 100 175/74 (107) 100 Nasal Cannula 2.0 12/09/17 14:56 97.0 36 97.0 Lab Values Laboratory Tests Test 12/09/17 15:50 White Blood Count 0.6 x10^3/uL (4.0-11.0) *L Red Blood Count 2.76 x10^6/uL (3.50-5.40) L Hemoglobin 7.7 g/dL (12.0-15.5) L Hematocrit 24.2 % (36.0-47.0) L Mean Corpuscular Volume 88 fL (79-100) Mean Corpuscular Hemoglobin 28 pg (25-35) Mean Corpuscular Hemoglobin Concent 32 g/dL (31-37) Red Cell Distribution Width 21.4 % (11.5-14.5) H Platelet Count 122 x10^3/uL (140-400) L Neutrophils (%) (Auto) 65 % (31-73) Lymphocytes (%) (Auto) 31 % (24-48) Monocytes (%) (Auto) 3 % (0-9) Eosinophils (%) (Auto) 0 % (0-3) Basophils (%) (Auto) 1 % (0-3) Neutrophils # (Auto) 0.4 x10^3uL (1.8-7.7) L Lymphocytes # (Auto) 0.2 x10^3/uL (1.0-4.8) L Monocytes # (Auto) 0.0 x10^3/uL (0.0-1.1) Eosinophils # (Auto) 0.0 x10^3/uL (0.0-0.7) Basophils # (Auto) 0.0 x10^3/uL (0.0-0.2) Segmented Neutrophils % 30 % (35-66) L Band Neutrophils % 14 % (0-9) H Lymphocytes % 38 % (24-48) Monocytes % 6 % (0-10) Eosinophils % 1 % (0-5) Basophils % 1 % (0-3) Metamyelocytes % 4 % (0-0) H Myelocytes % 6 % (0-0) H Blast Cells % (Manual) % (0-0) Nucleated Red Blood Cells 38 Platelet Estimate Decreased (ADEQUATE) Polychromasia Slight Poikilocytosis Slight Anisocytosis Mod Tear Drop Cells Present Ovalocytes Few Sodium Level 142 mmol/L (136-145) Potassium Level 4.1 mmol/L (3.5-5.1) Chloride Level 106 mmol/L (98-107) Carbon Dioxide Level 25 mmol/L (21-32) Anion Gap 11 (6-14) Blood Urea Nitrogen 22 mg/dL (7-20) H Creatinine 1.4 mg/dL (0.6-1.0) H Estimated GFR (Cockcroft-Gault) 37.2 BUN/Creatinine Ratio 16 (6-20) Glucose Level 163 mg/dL (70-99) H Calcium Level 8.9 mg/dL (8.5-10.1) Total Bilirubin 0.9 mg/dL (0.2-1.0) Aspartate Amino Transferase (AST) 20 U/L (15-37) Alanine Aminotransferase (ALT) 21 U/L (14-59) Alkaline Phosphatase 66 U/L (46-116) Creatine Kinase 29 U/L (26-192) Creatine Kinase MB (Mass) 0.5 ng/mL (0.0-3.6) Creatine Kinase MB Relative Index % (0-4) Troponin I Quantitative < 0.017 ng/mL (0.000-0.055) NV-Ghm-Y-Type Natriuretic Peptide 4728 pg/mL (0-124) H Total Protein 7.0 g/dL (6.4-8.2) Albumin 3.0 g/dL (3.4-5.0) L Albumin/Globulin Ratio 0.8 (1.0-1.7) L Laboratory Tests 12/09/17 15:50 Laboratory Tests 12/09/17 15:50 EKG EKG [] Radiology/Procedures Radiology/Procedures [] Course & Med Decision Making Course & Med Decision Making Pertinent Labs and Imaging studies reviewed. (See chart for details) Patient felt much better. She lives alone, Patient will be admitted for observation. Dragon Disclaimer Dragon Disclaimer This electronic medical record was generated, in whole or in part, using a voice recognition dictation system. Departure Departure Impression: Primary Impression: Allergic reaction caused by a drug Disposition: ADMITTED INPATIENT Admitting Physician: Xie. Patel Condition: IMPROVED Referrals: BELKIS HAINES (PCP) DONG LOVE DO Dec 09, 2017 16:17
[2017-12-09 16:21] LABS: ALBUMIN/GLOBULIN RATIO 0.8 (1.0-1.7); TOTAL BILIRUBIN 0.9 mg/dL (0.2-1.0)
[2017-12-09 16:26] LABS: CREATINE KINASE 29 U/L (26-192)
[2017-12-09 16:55] LABS: % BANDS 14 % (0-9); % LYMPHS 38 % (24-48); % METAS 4 % (0-0); % MONOS 6 % (0-10); % MYELOS 6 % (0-0)
[2017-12-09 16:56] LABS: % EOS 1 % (0-5); NUCLEATED RBC 38
[2017-12-09 16:57] LABS: % SEGS 30 % (35-66)
[2017-12-09 16:58] LABS: ANISOCYTOSIS MOD; OVALOCYTES FEW; PLT ESTIMATE DECREASED (ADEQUATE); POIKILOCYTOSIS SLIGHT; POLYCHROMASIA SLIGHT; TEAR DROP CELLS PRESENT
[2017-12-09 17:24] LABS: % BASOS 1 % (0-3)
[2017-12-09] MEDS ORDERED: ONDANSETRON PF 4 MG/2 ML VIAL. IV PRN ×2 (17:45→18:15)
--- NOTE | 2017-12-09 18:10 | PDOC1 ---
History and Physical Date of Admission Date of Admission 12/09/17 Identification/Chief Complaint Chief Complaint sob Source Source: Chart review, Patient History of Present Illness History of Present Illness Patient is a 72 year old female was brought here for evaluation of trouble breathing, itching after taking her Bactrim DS today. Pt is a poor historian, daughter at bedside helps the history. Pt has a remote h/o rt kidney Ca s/p nephrectomy 20ys ago, recently was dced here for PNA, CHF. pt has been coughing for the past 2 months. today, she met the palliative Care nurse for the first time who recommend her to take Bactrium for the cough. After she took it about 40min later, she felt severe sob, not able to breath and skin itchyness. Pt had the bactrium for her skin infection back to september but not finished it since she fell on the floor and daughter was not sure it was 2/2 the meds. She has palliative care since she has myelofibrosis and chronic anemia for which she needs frequent transfusion. She denies fever, but had chills today, N/V one time wo blood or nadege. no constipation or diarrhea. daughter said she had bone marrow bx last month and neg. She was found to have a lung nodule last month and did repeat a CT with an onco at [facility] last week and the result not known. Pt looks tachypnia to me, with chronic abd pain with tenderness, HR 100s, some chest pain, refuse CTA for PE rule out. no home o2, now need NC 2 L IN ER. better after breathing treatment in ER. Past Medical History Cardiovascular: HTN, Hyperlipidemia CENTRAL NERVOUS SYSTEM: CVA Heme/Onc: Anemia NOS, Other Rheumatologic: No pertinent hx Infectious disease: No pertinent hx Renal/: Chronic renal insuff, Renal Ca. Endocrine: Hypothyroidism Past Surgical History Past Surgical History: Cataract Removal, Tonsillectomy, Hysterectomy, Other Family History Family History: Cancer, Hypertension Social History Smoke: No ALCOHOL: none Drugs: None Current Medications Current Medications Current Medications Medications (Trade) Dose Ordered Sig/Es[place]anza Start Time Stop Time Status Last Admin Dose Admin Albuterol/ Ipratropium (Duoneb) 3 ml 1X ONCE 12/09/17 15:00 12/09/17 15:03 DC 12/09/17 15:25 3 ML Diphenhydramine HCl (Benadryl) 25 mg 1X ONCE 12/09/17 15:15 12/09/17 15:18 DC 12/09/17 15:45 25 MG Famotidine (Pepcid Vial) 20 mg 1X ONCE 12/09/17 15:30 12/09/17 15:32 DC 12/09/17 15:55 20 MG Methylprednisolone Sodium Succinate (SOLU-Medrol 125MG VIAL) 125 mg 1X ONCE 12/09/17 15:00 12/09/17 15:03 DC 12/09/17 15:50 125 MG Ondansetron HCl (Zofran) 4 mg PRN Q8HRS PRN 12/09/17 17:45 12/10/17 17:44 Allergies Allergies Allergies Coded Allergies Type Severity Reaction Last Updated Verified iodine Allergy Severe ANAPHYLAXIS 10/31/17 Yes Penicillins Allergy Intermediate 10/31/17 Yes cephalexin Allergy Intermediate 10/31/17 Yes ROS Review of System CONSTITUTIONAL: No fever or chills EYES: No recent changes SKIN: No rash or itching CARDIOVASCULAR: No chest pain, syncope, palpitations, or edema RESPIRATORY: No SOB or cough GASTROINTESTINAL: No nausea, vomiting or abdominal pain NEUROLOGICAL: No headaches or weakness ENDOCRINE: No cold or heat intolerance GENITOURINARY: No urgency or frequency of urination MUSCULOSKELETAL: No back pain or joint pain LYMPHATICS: No enlarged lymph nodes PSYCHIATRIC: No anxiety or depression Physical Exam Physical Exam GEN.: No apparent distress. Alert and oriented. tachypnia. HEENT: Head is normocephalic, atraumatic NECK: Supple. LUNGS: Clear to auscultation. HEART: RRR, S1, S2 present. Peripheral pulses intact ABDOMEN: Soft, Positive bowel sounds. middle abd chronic tenderness. EXTREMITIES: Without any cyanosis. NEUROLOGIC: Normal speech, normal tone PSYCHIATRIC: Normal affect, normal mood. SKIN: No ulcerations Vitals Vitals Vital Signs Date Time Temp Pulse Resp B/P (MAP) Pulse Ox O2 Delivery O2 Flow Rate FiO2 12/09/17 16:40 100 175/74 (107) 100 Nasal Cannula 2.0 12/09/17 14:56 97.0 36 97.0 Labs Labs Laboratory Tests Test 12/09/17 15:50 White Blood Count 0.6 x10^3/uL (4.0-11.0) Red Blood Count 2.76 x10^6/uL (3.50-5.40) Hemoglobin 7.7 g/dL (12.0-15.5) Hematocrit 24.2 % (36.0-47.0) Mean Corpuscular Volume 88 fL (79-100) Mean Corpuscular Hemoglobin 28 pg (25-35) Mean Corpuscular Hemoglobin Concent 32 g/dL (31-37) Red Cell Distribution Width 21.4 % (11.5-14.5) Platelet Count 122 x10^3/uL (140-400) Neutrophils (%) (Auto) 65 % (31-73) Lymphocytes (%) (Auto) 31 % (24-48) Monocytes (%) (Auto) 3 % (0-9) Eosinophils (%) (Auto) 0 % (0-3) Basophils (%) (Auto) 1 % (0-3) Neutrophils # (Auto) 0.4 x10^3uL (1.8-7.7) Lymphocytes # (Auto) 0.2 x10^3/uL (1.0-4.8) Monocytes # (Auto) 0.0 x10^3/uL (0.0-1.1) Eosinophils # (Auto) 0.0 x10^3/uL (0.0-0.7) Basophils # (Auto) 0.0 x10^3/uL (0.0-0.2) Segmented Neutrophils % 30 % (35-66) Band Neutrophils % 14 % (0-9) Lymphocytes % 38 % (24-48) Monocytes % 6 % (0-10) Eosinophils % 1 % (0-5) Basophils % 1 % (0-3) Metamyelocytes % 4 % (0-0) Myelocytes % 6 % (0-0) Blast Cells % (Manual) % (0-0) Nucleated Red Blood Cells 38 Platelet Estimate Decreased (ADEQUATE) Polychromasia Slight Poikilocytosis Slight Anisocytosis Mod Tear Drop Cells Present Ovalocytes Few Sodium Level 142 mmol/L (136-145) Potassium Level 4.1 mmol/L (3.5-5.1) Chloride Level 106 mmol/L (98-107) Carbon Dioxide Level 25 mmol/L (21-32) Anion Gap 11 (6-14) Blood Urea Nitrogen 22 mg/dL (7-20) Creatinine 1.4 mg/dL (0.6-1.0) Estimated GFR (Cockcroft-Gault) 37.2 BUN/Creatinine Ratio 16 (6-20) Glucose Level 163 mg/dL (70-99) Calcium Level 8.9 mg/dL (8.5-10.1) Total Bilirubin 0.9 mg/dL (0.2-1.0) Aspartate Amino Transf (AST/SGOT) 20 U/L (15-37) Alanine Aminotransferase (ALT/SGPT) 21 U/L (14-59) Alkaline Phosphatase 66 U/L (46-116) Creatine Kinase 29 U/L (26-192) Creatine Kinase MB (Mass) 0.5 ng/mL (0.0-3.6) Creatine Kinase MB Relative Index % (0-4) Troponin I Quantitative < 0.017 ng/mL (0.000-0.055) XJ-Hug-Y-Type Natriuretic Peptide 4728 pg/mL (0-124) Total Protein 7.0 g/dL (6.4-8.2) Albumin 3.0 g/dL (3.4-5.0) Albumin/Globulin Ratio 0.8 (1.0-1.7) Laboratory Tests Test 12/09/17 15:50 White Blood Count 0.6 x10^3/uL (4.0-11.0) Red Blood Count 2.76 x10^6/uL (3.50-5.40) Hemoglobin 7.7 g/dL (12.0-15.5) Hematocrit 24.2 % (36.0-47.0) Mean Corpuscular Volume 88 fL (79-100) Mean Corpuscular Hemoglobin 28 pg (25-35) Mean Corpuscular Hemoglobin Concent 32 g/dL (31-37) Red Cell Distribution Width 21.4 % (11.5-14.5) Platelet Count 122 x10^3/uL (140-400) Neutrophils (%) (Auto) 65 % (31-73) Lymphocytes (%) (Auto) 31 % (24-48) Monocytes (%) (Auto) 3 % (0-9) Eosinophils (%) (Auto) 0 % (0-3) Basophils (%) (Auto) 1 % (0-3) Neutrophils # (Auto) 0.4 x10^3uL (1.8-7.7) Lymphocytes # (Auto) 0.2 x10^3/uL (1.0-4.8) Monocytes # (Auto) 0.0 x10^3/uL (0.0-1.1) Eosinophils # (Auto) 0.0 x10^3/uL (0.0-0.7) Basophils # (Auto) 0.0 x10^3/uL (0.0-0.2) Segmented Neutrophils % 30 % (35-66) Band Neutrophils % 14 % (0-9) Lymphocytes % 38 % (24-48) Monocytes % 6 % (0-10) Eosinophils % 1 % (0-5) Basophils % 1 % (0-3) Metamyelocytes % 4 % (0-0) Myelocytes % 6 % (0-0) Blast Cells % (Manual) % (0-0) Nucleated Red Blood Cells 38 Platelet Estimate Decreased (ADEQUATE) Polychromasia Slight Poikilocytosis Slight Anisocytosis Mod Tear Drop Cells Present Ovalocytes Few Sodium Level 142 mmol/L (136-145) Potassium Level 4.1 mmol/L (3.5-5.1) Chloride Level 106 mmol/L (98-107) Carbon Dioxide Level 25 mmol/L (21-32) Anion Gap 11 (6-14) Blood Urea Nitrogen 22 mg/dL (7-20) Creatinine 1.4 mg/dL (0.6-1.0) Estimated GFR (Cockcroft-Gault) 37.2 BUN/Creatinine Ratio 16 (6-20) Glucose Level 163 mg/dL (70-99) Calcium Level 8.9 mg/dL (8.5-10.1) Total Bilirubin 0.9 mg/dL (0.2-1.0) Aspartate Amino Transf (AST/SGOT) 20 U/L (15-37) Alanine Aminotransferase (ALT/SGPT) 21 U/L (14-59) Alkaline Phosphatase 66 U/L (46-116) Creatine Kinase 29 U/L (26-192) Creatine Kinase MB (Mass) 0.5 ng/mL (0.0-3.6) Creatine Kinase MB Relative Index % (0-4) Troponin I Quantitative < 0.017 ng/mL (0.000-0.055) YY-Dru-E-Type Natriuretic Peptide 4728 pg/mL (0-124) Total Protein 7.0 g/dL (6.4-8.2) Albumin 3.0 g/dL (3.4-5.0) Albumin/Globulin Ratio 0.8 (1.0-1.7) VTE Prophylaxis Ordered VTE Prophylaxis Devices: Yes VTE Pharmacological Prophylaxi: Yes Assessment/Plan Assessment/Plan sob after taking bactrium, not sure if allergy lung nodule pending rule out mets h/o remote rt kidney Ca s/p sx myelofibrosis chronic anemia requires frequent transfusion pancytopenia with myelofibrosis h/o CVA htn hld hypothyroidism acute hypoxic resp failure neutropenia plan: pulm, onco consult pt refused CTA to rule out PE for now add duoneb, albuterol prn cough meds NC as needed need to verify home meds dvt ppx benadryl prn labs tmr levaquin for now, avoid bactrium. DESIRAE TAYLOR MD Dec 09, 2017 18:10
[2017-12-09] MEDS ORDERED: guaiFENesin/CODEINE 100mg/10mg 5 ML LIQUID PO PRN (18:15)
[2017-12-09] MEDS ORDERED: ACETAMINOPHEN 325 MG TABLET. PO PRN (18:15)
[2017-12-09] MEDS ORDERED: traMADol 50 MG TABLET PO PRN (18:15)
[2017-12-09] MEDS ORDERED: MORPHINE SULFATE 2 MG/ML VIAL. IV PRN (18:15)
[2017-12-09] MEDS ORDERED: ALBUTEROL SULFATE 2.5 MG/3 ML NEBU. NEB PRN (18:15)
[2017-12-09] MEDS ORDERED: diphenhydrAMINE HCL 25 MG CAPSULE PO PRN (18:15)
[2017-12-09] MEDS ORDERED: LABETALOL 20 MG/4 ML DISP.SYRIN. IVP PRN (18:15)
[2017-12-09] MEDS ORDERED: DOCUSATE SODIUM 100 MG CAPSULE. PO PRN (18:15)
[2017-12-09] MEDS: IPRATRPIUM/ALBUTEROL 0.5/2.5MG 3 ML NEBU. NEB SCH (19:51)
[2017-12-09 20:02] VITALS: BP 153/69
[2017-12-09 23:54] VITALS: BP 158/79
[2017-12-10 03:03] VITALS: BP 138/59
[2017-12-10 07:34] VITALS: BP 148/73
[2017-12-10] MEDS: IPRATRPIUM/ALBUTEROL 0.5/2.5MG 3 ML NEBU. NEB SCH ×4 (08:23→20:00)
--- NOTE | 2017-12-10 08:31 | PDOC2 ---
CONSULT Date of Consult Date of Consult DATE: 12/10/17 TIME: 08:26 Reason for consultation: Myelofibrosis and right lung mass Consult: Hematology oncology, Dr. Kendell Rod History of present illness: She is a 72-year-old female admitted with acute onset of severe dyspnea, she also is wondering if it was worsened as a reaction to Bactrim, which she believes she recently started taking for a skin infection on her back, and was admitted to the hospital, since she has improved with oxygen, and I believe diuresis, and also has a new right lung mass for which we were consulted. 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 Past medical history: Myelofibrosis Transfusion-dependent anemia Colon polyps GERD Kidney cancer 1997 localized treated with surgery alone Hyperlipidemia Hypothyroid Iron overload History of stroke with weakness and aphasia Past surgical history: Bone marrow biopsies Bone biopsy Colonoscopy Nephrectomy Hysterectomy Tonsillectomy Allergies: Iodine, penicillin, Keflex, poss bactrim Medications: See attached list Social history: Currently living with her daughter, no tobacco ever, no alcohol Family history: Mother with breast cancer Review of systems: Shortness of breath, severe fatigue, skin infection, edema, malaise, difficulty speaking due to prior stroke, otherwise 10 pt review of systems is negative Physical exam: Vitals reviewed Gen.: well-developed in no acute distress, resting in bed HEENT: mucous membranes moist, head normocephalic atraumatic Neck: Supple, sl swollen submandibular gland Lungs: Breathing comfortably on NCO2, no evidence of respiratory distress Heart: RRR Abdomen: Soft, nontender, mildly distended Extremities: No cyanosis, BLE edema Neuro: Alert and oriented, usual aphasia, able to communicate relatively well nonetheless Psych: tired mood and pleasant affect Lab reviewed: White count 0.6 hemoglobin 7.7, platelet 122 Creatinine 1.4 proBNP 1428 Rads reviewed: Chest x-ray with right lung mass, 3.3 cm, diff instirstitial inf , diff sclerotic diseas Case discussed with: Patient, records reviewed in [facility] and [facility], including labs and radiology, please see note for summary details. Assessment and Plan: Ms Latif is a 72-year-old female who has a history of myelofibrosis end-stage, admitted with possible reaction to Bactrim, which has been stopped, as well as shortness of breath improved, recently was on danazol and is transfusion dependent, on Aranesp as well. She also has a lung mass but is not interested in biopsy. She also has bony disease due to myelofibrosis, bone biopsy and bone marrow biopsy have been recently consistent with end-stage myelofibrosis without evidence of other malignancy. She does have a remote history of kidney cancer but it is suspected she probably has a new right lung malignancy, however due to her poor performance status, she has palliative care and possibly hospice at home, she is not interested in further biopsy. Myelofibrosis: Continue Aranesp, as an outpatient, transfusions as needed for hemoglobin less than 7, she is currently getting her care through [facility] Lung mass: Declining further workup due to functional status and lack of desire as it likely would not change our management even if cancer was diagnosed, has pain meds prn Poor performance status: She has it sounds like palliative care and possibly hospice at home, would continue this upon discharge Disposition: Per others, dyspnea on admit is improved Thank you kindly, and please don't hesitate to call w/ any further questions. Past Medical History Cardiovascular: HTN, Hyperlipidemia CENTRAL NERVOUS SYSTEM: CVA Heme/Onc: Anemia NOS, Other Musculoskeletal: Other Rheumatologic: No pertinent hx Infectious disease: No pertinent hx Renal/: Chronic renal insuff, Renal Ca. Endocrine: Hypothyroidism Past Surgical History Past Surgical History: Cataract Removal, Tonsillectomy, Hysterectomy, Other Family History Family History: Cancer, Hypertension Social History No ALCOHOL: none Drugs: None Current Medications Current Medications Current Medications Albuterol/ Ipratropium (Duoneb) 3 ml 1X ONCE NEB Last administered on at 15:25; Start 12/09/17 at 15:00; Stop 12/09/17 at 15:03; Status DC Methylprednisolone Sodium Succinate (SOLU-Medrol 125MG VIAL) 125 mg 1X ONCE IV Last administered on 12/09/17at 15:50; Start 12/09/17 at 15:00; Stop 12/09/17 at 15:03; Status DC Diphenhydramine HCl (Benadryl) 25 mg 1X ONCE IVP Last administered on at 15:45; Start 12/09/17 at 15:15; Stop 12/09/17 at 15:18; Status DC Famotidine (Pepcid Vial) 20 mg 1X ONCE IVP Last administered on 12/09/17at 15: 55; Start 12/09/17 at 15:30; Stop 12/09/17 at 15:32; Status DC Ondansetron HCl (Zofran) 4 mg PRN Q8HRS PRN IV NAUSEA/VOMITING; Start 12/09/17 at 17:45; Stop 12/10/17 at 17:44 Acetaminophen (Tylenol) 650 mg PRN Q6HRS PRN PO FEVER; Start 12/09/17 at 18:15 Ondansetron HCl (Zofran) 4 mg PRN Q6HRS PRN IV NAUSEA/VOMITING 1ST CHOICE; Start 12/09/17 at 18:15 Morphine Sulfate (Morphine Sulfate) 2 mg PRN Q2HR PRN IV MODERATE TO SEVERE PAIN; Start 12/09/17 at 18:15 Tramadol HCl (Ultram) 50 mg PRN Q6HRS PRN PO MILD PAIN; Start 12/09/17 at 18:15 Docusate Sodium (Colace) 100 mg PRN DAILY PRN PO HARD STOOLS; Start 12/09/17 at 18:15 Labetalol HCl (Normodyne Iv Push) 20 mg PRN Q2HR PRN IVP HYPERTENSION, SEE COMMENTS; Start 12/09/17 at 18:15 Albuterol/ Ipratropium (Duoneb) 3 ml RTQID NEB Last administered on 12/10/17at 08:23; Start 12/09/17 at 20:00 Albuterol Sulfate (Ventolin Neb Soln) 2.5 mg PRN Q2HR PRN NEB SHORTNESS OF BREATH; Start 12/09/17 at 18:15 Guaifenesin (Mucinex) 600 mg BID PO Last administered on 12/09/17at 22:03; Start 12/09/17 at 21:00 Diphenhydramine HCl (Benadryl) 25 mg PRN Q6HRS PRN PO ITCHING; Start 12/09/17 at 18:15 Guaifenesin/ Codeine Phosphate (Robitussin Ac) 5 ml PRN Q6HRS PRN PO COUGH; Start 12/09/17 at 18:15 Enoxaparin Sodium (Lovenox 40mg Syringe) 40 mg DAILY SQ ; Start 12/10/17 at 09: 00 Levofloxacin/ Dextrose 150 ml @ 100 mls/hr Q48H IV Last administered on at 22:03; Start 12/09/17 at 18:15 Active Scripts Active Bland 5-325 Tablet (Acetaminophen/Hydrocodone Bitart) 1 Each Tablet 1 Tab PO PRN Q6HRS PRN Bactrim Ds Tablet (Sulfamethoxazole/Trimethoprim) 1 Each Tablet 1 Tab PO BID Reported Danazol 200 Mg Capsule 200 Mg PO Synthroid (Levothyroxine Sodium) 150 Mcg Tablet 1 Tab PO DAILY [Tylenol] 1,000 Mg PO Q6HRS PRN Vitamin D-3 (Cholecalciferol (Vitamin D3)) 2,000 Unit Capsule 1,000 Unit PO DAILY Temazepam 15 Mg Capsule 1 Cap PO QHS Toprol Xl (Metoprolol Succinate) 50 Mg Tab.er.24h 1 Tab PO DAILY Quinapril Hcl 40 Mg Tablet 1 Tab PO DAILY [place]-3 Fish Oil 1,000 mg Sfgl ([place]-3 Fatty Acids/Fish Oil) 1 Each Capsule 1 Each PO DAILY Pantoprazole Sodium 40 Mg Tablet.dr 1 Tab PO BID Furosemide 20 Mg Tablet 1 Tab PO DAILY Tricor (Fenofibrate Nanocrystallized) 145 Mg Tablet 1 Tab PO DAILY Aspir 81 (Aspirin) 81 Mg Tablet.dr 1 Tab PO DAILY Allergies Allergies: Coded Allergies: iodine (Verified Allergy, Severe, ANAPHYLAXIS, 10/31/17) Penicillins (Verified Allergy, Intermediate, 10/31/17) cephalexin (Verified Allergy, Intermediate, 10/31/17) Vitals VITALS Vital Signs Date Time Temp Pulse Resp B/P (MAP) Pulse Ox O2 Delivery O2 Flow Rate FiO2 12/10/17 08:23 93 Nasal Cannula 2.0 12/10/17 07:34 98.1 90 22 148/73 (98) 98.1 Labs Labs Laboratory Tests Test 12/09/17 15:50 White Blood Count 0.6 x10^3/uL (4.0-11.0) Red Blood Count 2.76 x10^6/uL (3.50-5.40) Hemoglobin 7.7 g/dL (12.0-15.5) Hematocrit 24.2 % (36.0-47.0) Mean Corpuscular Volume 88 fL (79-100) Mean Corpuscular Hemoglobin 28 pg (25-35) Mean Corpuscular Hemoglobin Concent 32 g/dL (31-37) Red Cell Distribution Width 21.4 % (11.5-14.5) Platelet Count 122 x10^3/uL (140-400) Neutrophils (%) (Auto) 65 % (31-73) Lymphocytes (%) (Auto) 31 % (24-48) Monocytes (%) (Auto) 3 % (0-9) Eosinophils (%) (Auto) 0 % (0-3) Basophils (%) (Auto) 1 % (0-3) Neutrophils # (Auto) 0.4 x10^3uL (1.8-7.7) Lymphocytes # (Auto) 0.2 x10^3/uL (1.0-4.8) Monocytes # (Auto) 0.0 x10^3/uL (0.0-1.1) Eosinophils # (Auto) 0.0 x10^3/uL (0.0-0.7) Basophils # (Auto) 0.0 x10^3/uL (0.0-0.2) Segmented Neutrophils % 30 % (35-66) Band Neutrophils % 14 % (0-9) Lymphocytes % 38 % (24-48) Monocytes % 6 % (0-10) Eosinophils % 1 % (0-5) Basophils % 1 % (0-3) Metamyelocytes % 4 % (0-0) Myelocytes % 6 % (0-0) Blast Cells % (Manual) % (0-0) Nucleated Red Blood Cells 38 Platelet Estimate Decreased (ADEQUATE) Polychromasia Slight Poikilocytosis Slight Anisocytosis Mod Tear Drop Cells Present Ovalocytes Few Sodium Level 142 mmol/L (136-145) Potassium Level 4.1 mmol/L (3.5-5.1) Chloride Level 106 mmol/L (98-107) Carbon Dioxide Level 25 mmol/L (21-32) Anion Gap 11 (6-14) Blood Urea Nitrogen 22 mg/dL (7-20) Creatinine 1.4 mg/dL (0.6-1.0) Estimated GFR (Cockcroft-Gault) 37.2 BUN/Creatinine Ratio 16 (6-20) Glucose Level 163 mg/dL (70-99) Calcium Level 8.9 mg/dL (8.5-10.1) Total Bilirubin 0.9 mg/dL (0.2-1.0) Aspartate Amino Transf (AST/SGOT) 20 U/L (15-37) Alanine Aminotransferase (ALT/SGPT) 21 U/L (14-59) Alkaline Phosphatase 66 U/L (46-116) Creatine Kinase 29 U/L (26-192) Creatine Kinase MB (Mass) 0.5 ng/mL (0.0-3.6) Creatine Kinase MB Relative Index % (0-4) Troponin I Quantitative < 0.017 ng/mL (0.000-0.055) KI-Gto-N-Type Natriuretic Peptide 4728 pg/mL (0-124) Total Protein 7.0 g/dL (6.4-8.2) Albumin 3.0 g/dL (3.4-5.0) Albumin/Globulin Ratio 0.8 (1.0-1.7) Laboratory Tests Test 12/09/17 15:50 White Blood Count 0.6 x10^3/uL (4.0-11.0) Red Blood Count 2.76 x10^6/uL (3.50-5.40) Hemoglobin 7.7 g/dL (12.0-15.5) Hematocrit 24.2 % (36.0-47.0) Mean Corpuscular Volume 88 fL (79-100) Mean Corpuscular Hemoglobin 28 pg (25-35) Mean Corpuscular Hemoglobin Concent 32 g/dL (31-37) Red Cell Distribution Width 21.4 % (11.5-14.5) Platelet Count 122 x10^3/uL (140-400) Neutrophils (%) (Auto) 65 % (31-73) Lymphocytes (%) (Auto) 31 % (24-48) Monocytes (%) (Auto) 3 % (0-9) Eosinophils (%) (Auto) 0 % (0-3) Basophils (%) (Auto) 1 % (0-3) Neutrophils # (Auto) 0.4 x10^3uL (1.8-7.7) Lymphocytes # (Auto) 0.2 x10^3/uL (1.0-4.8) Monocytes # (Auto) 0.0 x10^3/uL (0.0-1.1) Eosinophils # (Auto) 0.0 x10^3/uL (0.0-0.7) Basophils # (Auto) 0.0 x10^3/uL (0.0-0.2) Segmented Neutrophils % 30 % (35-66) Band Neutrophils % 14 % (0-9) Lymphocytes % 38 % (24-48) Monocytes % 6 % (0-10) Eosinophils % 1 % (0-5) Basophils % 1 % (0-3) Metamyelocytes % 4 % (0-0) Myelocytes % 6 % (0-0) Blast Cells % (Manual) % (0-0) Nucleated Red Blood Cells 38 Platelet Estimate Decreased (ADEQUATE) Polychromasia Slight Poikilocytosis Slight Anisocytosis Mod Tear Drop Cells Present Ovalocytes Few Sodium Level 142 mmol/L (136-145) Potassium Level 4.1 mmol/L (3.5-5.1) Chloride Level 106 mmol/L (98-107) Carbon Dioxide Level 25 mmol/L (21-32) Anion Gap 11 (6-14) Blood Urea Nitrogen 22 mg/dL (7-20) Creatinine 1.4 mg/dL (0.6-1.0) Estimated GFR (Cockcroft-Gault) 37.2 BUN/Creatinine Ratio 16 (6-20) Glucose Level 163 mg/dL (70-99) Calcium Level 8.9 mg/dL (8.5-10.1) Total Bilirubin 0.9 mg/dL (0.2-1.0) Aspartate Amino Transf (AST/SGOT) 20 U/L (15-37) Alanine Aminotransferase (ALT/SGPT) 21 U/L (14-59) Alkaline Phosphatase 66 U/L (46-116) Creatine Kinase 29 U/L (26-192) Creatine Kinase MB (Mass) 0.5 ng/mL (0.0-3.6) Creatine Kinase MB Relative Index % (0-4) Troponin I Quantitative < 0.017 ng/mL (0.000-0.055) AY-Phy-L-Type Natriuretic Peptide 4728 pg/mL (0-124) Total Protein 7.0 g/dL (6.4-8.2) Albumin 3.0 g/dL (3.4-5.0) Albumin/Globulin Ratio 0.8 (1.0-1.7) KENDELL ROD MD Dec 10, 2017 08:31
[2017-12-10] MEDS: ENOXAPARIN 40 MG/0.4 ML SYRINGE. SQ SCH (09:00)
[2017-12-10] MEDS ORDERED: ACETAMINOPHEN/CODEINE 300/30MG TABLET. PO PRN (09:30)
[2017-12-10] MEDS ORDERED: ACETAMINOPHEN 500 MG TABLET PO PRN (09:30)
[2017-12-10 10:48] VITALS: BP 119/46
[2017-12-10] MEDS ORDERED: DANA200C PO (11:37)
[2017-12-10] MEDS: CHOLECALCIFEROL (VITAMIN D3) 1,000 UNIT TABLET PO SCH (11:46)
[2017-12-10] MEDS: ASPIRIN ENTERIC COATED 81 MG TABLET.DR. PO SCH (11:46)
[2017-12-10] MEDS: METOPROLOL SUCC 24HR ER 50 MG TAB.ER.24H. PO SCH (11:46)
[2017-12-10] MEDS: OMEGA-3 FATTY ACIDS/FISH OIL 1,000 MG CAPSULE. PO SCH (11:46)
[2017-12-10] MEDS: FUROSEMIDE 20 MG TABLET PO SCH (11:46)
[2017-12-10] MEDS: FENOFIBRATE,MICRONIZED 134 MG CAPSULE PO SCH (11:46)
[2017-12-10] MEDS: PANTOPRAZOLE 40 MG TABLET.DR. PO SCH ×2 (11:46→17:30)
[2017-12-10] MEDS: LISINOPRIL 20 MG TABLET PO SCH (11:47)
[2017-12-10] MEDS: LEVOTHYROXINE 150 MCG TABLET PO SCH (11:47)
[2017-12-10] MEDS: HYDROcodone/APAP 5/325MG 1 TAB TABLET PO PRN (11:57)
--- NOTE | 2017-12-10 12:24 | PDOC ---
PROGRESS NOTES Chief Complaint Chief Complaint sob after taking bactrium, not sure if allergy Static lung cancer to bones, may be renal?? G to penicillin and now to Bactrim h/o remote rt kidney Ca s/p sx myelofibrosis, end-stage chronic anemia requires frequent transfusion pancytopenia with myelofibrosis h/o CVA htn hld hypothyroidism acute hypoxic resp failure neutropenia anxiety NOS AK I, VMN Thrombo cytopenia code status? History of Present Illness History of Present Illness There is no rash that I see caused by the Bactrim. But she is tachypneic, not on home O2, looks very anxious Daughter at bedside. They do not wish aggressive medical management - namely, no more scans, diagnostics or blood cultures. She did trigger positive for sepsis but. Not wanting to do anymore blood cultures. All her records are in [facility]. But they did agree to pulmo consult because of severe SOA and tachypnea. She was not like this at home. Once the tachypnea has resolved , then I can send her back [place] with palliative - she has palliative (not hospice at home) Dw dtr Plan: Consult pulmonary Nebs, other supportive meds I cannot remember or recall the CODE STATUS that we discussed-I need to double check with daughter nozzle worker. List Bactrim as her allergy Appreciate heme onc note - rather very informative Was on palliative at home not hospice We'll go back to palliative care/arrangements at home once discharge once tachypnea is much better TriaL of Xanax Vitals Vitals Vital Signs Date Time Temp Pulse Resp B/P (MAP) Pulse Ox O2 Delivery O2 Flow Rate FiO2 12/10/17 11:57 24 Nasal Cannula 3.0 12/10/17 11:47 96 119/46 12/10/17 10:48 98.3 97 98.3 Physical Exam General: mild distress, Other (tachypneic, looks anxious) Heart: Regular rate, Normal S1 Lungs: Other (diminished bases, equal air entry) Abdomen: Normal bowel sounds, Soft Extremities: No clubbing, No cyanosis Skin: No rashes, No breakdown Labs LABS Laboratory Tests Test 12/09/17 15:50 White Blood Count 0.6 x10^3/uL (4.0-11.0) Red Blood Count 2.76 x10^6/uL (3.50-5.40) Hemoglobin 7.7 g/dL (12.0-15.5) Hematocrit 24.2 % (36.0-47.0) Mean Corpuscular Volume 88 fL (79-100) Mean Corpuscular Hemoglobin 28 pg (25-35) Mean Corpuscular Hemoglobin Concent 32 g/dL (31-37) Red Cell Distribution Width 21.4 % (11.5-14.5) Platelet Count 122 x10^3/uL (140-400) Neutrophils (%) (Auto) 65 % (31-73) Lymphocytes (%) (Auto) 31 % (24-48) Monocytes (%) (Auto) 3 % (0-9) Eosinophils (%) (Auto) 0 % (0-3) Basophils (%) (Auto) 1 % (0-3) Neutrophils # (Auto) 0.4 x10^3uL (1.8-7.7) Lymphocytes # (Auto) 0.2 x10^3/uL (1.0-4.8) Monocytes # (Auto) 0.0 x10^3/uL (0.0-1.1) Eosinophils # (Auto) 0.0 x10^3/uL (0.0-0.7) Basophils # (Auto) 0.0 x10^3/uL (0.0-0.2) Segmented Neutrophils % 30 % (35-66) Band Neutrophils % 14 % (0-9) Lymphocytes % 38 % (24-48) Monocytes % 6 % (0-10) Eosinophils % 1 % (0-5) Basophils % 1 % (0-3) Metamyelocytes % 4 % (0-0) Myelocytes % 6 % (0-0) Blast Cells % (Manual) % (0-0) Nucleated Red Blood Cells 38 Platelet Estimate Decreased (ADEQUATE) Polychromasia Slight Poikilocytosis Slight Anisocytosis Mod Tear Drop Cells Present Ovalocytes Few Sodium Level 142 mmol/L (136-145) Potassium Level 4.1 mmol/L (3.5-5.1) Chloride Level 106 mmol/L (98-107) Carbon Dioxide Level 25 mmol/L (21-32) Anion Gap 11 (6-14) Blood Urea Nitrogen 22 mg/dL (7-20) Creatinine 1.4 mg/dL (0.6-1.0) Estimated GFR (Cockcroft-Gault) 37.2 BUN/Creatinine Ratio 16 (6-20) Glucose Level 163 mg/dL (70-99) Calcium Level 8.9 mg/dL (8.5-10.1) Total Bilirubin 0.9 mg/dL (0.2-1.0) Aspartate Amino Transf (AST/SGOT) 20 U/L (15-37) Alanine Aminotransferase (ALT/SGPT) 21 U/L (14-59) Alkaline Phosphatase 66 U/L (46-116) Creatine Kinase 29 U/L (26-192) Creatine Kinase MB (Mass) 0.5 ng/mL (0.0-3.6) Creatine Kinase MB Relative Index % (0-4) Troponin I Quantitative < 0.017 ng/mL (0.000-0.055) PZ-Ekz-P-Type Natriuretic Peptide 4728 pg/mL (0-124) Total Protein 7.0 g/dL (6.4-8.2) Albumin 3.0 g/dL (3.4-5.0) Albumin/Globulin Ratio 0.8 (1.0-1.7) Review of Systems Review of Systems airam FOSS, the rest of ROS 14 point negative Comment Review of Relevant I have reviewed the following items adelaida (where applicable) has been applied. Labs Laboratory Tests Test 12/09/17 15:50 White Blood Count 0.6 x10^3/uL (4.0-11.0) Red Blood Count 2.76 x10^6/uL (3.50-5.40) Hemoglobin 7.7 g/dL (12.0-15.5) Hematocrit 24.2 % (36.0-47.0) Mean Corpuscular Volume 88 fL (79-100) Mean Corpuscular Hemoglobin 28 pg (25-35) Mean Corpuscular Hemoglobin Concent 32 g/dL (31-37) Red Cell Distribution Width 21.4 % (11.5-14.5) Platelet Count 122 x10^3/uL (140-400) Neutrophils (%) (Auto) 65 % (31-73) Lymphocytes (%) (Auto) 31 % (24-48) Monocytes (%) (Auto) 3 % (0-9) Eosinophils (%) (Auto) 0 % (0-3) Basophils (%) (Auto) 1 % (0-3) Neutrophils # (Auto) 0.4 x10^3uL (1.8-7.7) Lymphocytes # (Auto) 0.2 x10^3/uL (1.0-4.8) Monocytes # (Auto) 0.0 x10^3/uL (0.0-1.1) Eosinophils # (Auto) 0.0 x10^3/uL (0.0-0.7) Basophils # (Auto) 0.0 x10^3/uL (0.0-0.2) Segmented Neutrophils % 30 % (35-66) Band Neutrophils % 14 % (0-9) Lymphocytes % 38 % (24-48) Monocytes % 6 % (0-10) Eosinophils % 1 % (0-5) Basophils % 1 % (0-3) Metamyelocytes % 4 % (0-0) Myelocytes % 6 % (0-0) Blast Cells % (Manual) % (0-0) Nucleated Red Blood Cells 38 Platelet Estimate Decreased (ADEQUATE) Polychromasia Slight Poikilocytosis Slight Anisocytosis Mod Tear Drop Cells Present Ovalocytes Few Sodium Level 142 mmol/L (136-145) Potassium Level 4.1 mmol/L (3.5-5.1) Chloride Level 106 mmol/L (98-107) Carbon Dioxide Level 25 mmol/L (21-32) Anion Gap 11 (6-14) Blood Urea Nitrogen 22 mg/dL (7-20) Creatinine 1.4 mg/dL (0.6-1.0) Estimated GFR (Cockcroft-Gault) 37.2 BUN/Creatinine Ratio 16 (6-20) Glucose Level 163 mg/dL (70-99) Calcium Level 8.9 mg/dL (8.5-10.1) Total Bilirubin 0.9 mg/dL (0.2-1.0) Aspartate Amino Transf (AST/SGOT) 20 U/L (15-37) Alanine Aminotransferase (ALT/SGPT) 21 U/L (14-59) Alkaline Phosphatase 66 U/L (46-116) Creatine Kinase 29 U/L (26-192) Creatine Kinase MB (Mass) 0.5 ng/mL (0.0-3.6) Creatine Kinase MB Relative Index % (0-4) Troponin I Quantitative < 0.017 ng/mL (0.000-0.055) RA-Hml-X-Type Natriuretic Peptide 4728 pg/mL (0-124) Total Protein 7.0 g/dL (6.4-8.2) Albumin 3.0 g/dL (3.4-5.0) Albumin/Globulin Ratio 0.8 (1.0-1.7) Laboratory Tests Test 12/09/17 15:50 White Blood Count 0.6 x10^3/uL (4.0-11.0) Red Blood Count 2.76 x10^6/uL (3.50-5.40) Hemoglobin 7.7 g/dL (12.0-15.5) Hematocrit 24.2 % (36.0-47.0) Mean Corpuscular Volume 88 fL (79-100) Mean Corpuscular Hemoglobin 28 pg (25-35) Mean Corpuscular Hemoglobin Concent 32 g/dL (31-37) Red Cell Distribution Width 21.4 % (11.5-14.5) Platelet Count 122 x10^3/uL (140-400) Neutrophils (%) (Auto) 65 % (31-73) Lymphocytes (%) (Auto) 31 % (24-48) Monocytes (%) (Auto) 3 % (0-9) Eosinophils (%) (Auto) 0 % (0-3) Basophils (%) (Auto) 1 % (0-3) Neutrophils # (Auto) 0.4 x10^3uL (1.8-7.7) Lymphocytes # (Auto) 0.2 x10^3/uL (1.0-4.8) Monocytes # (Auto) 0.0 x10^3/uL (0.0-1.1) Eosinophils # (Auto) 0.0 x10^3/uL (0.0-0.7) Basophils # (Auto) 0.0 x10^3/uL (0.0-0.2) Segmented Neutrophils % 30 % (35-66) Band Neutrophils % 14 % (0-9) Lymphocytes % 38 % (24-48) Monocytes % 6 % (0-10) Eosinophils % 1 % (0-5) Basophils % 1 % (0-3) Metamyelocytes % 4 % (0-0) Myelocytes % 6 % (0-0) Blast Cells % (Manual) % (0-0) Nucleated Red Blood Cells 38 Platelet Estimate Decreased (ADEQUATE) Polychromasia Slight Poikilocytosis Slight Anisocytosis Mod Tear Drop Cells Present Ovalocytes Few Sodium Level 142 mmol/L (136-145) Potassium Level 4.1 mmol/L (3.5-5.1) Chloride Level 106 mmol/L (98-107) Carbon Dioxide Level 25 mmol/L (21-32) Anion Gap 11 (6-14) Blood Urea Nitrogen 22 mg/dL (7-20) Creatinine 1.4 mg/dL (0.6-1.0) Estimated GFR (Cockcroft-Gault) 37.2 BUN/Creatinine Ratio 16 (6-20) Glucose Level 163 mg/dL (70-99) Calcium Level 8.9 mg/dL (8.5-10.1) Total Bilirubin 0.9 mg/dL (0.2-1.0) Aspartate Amino Transf (AST/SGOT) 20 U/L (15-37) Alanine Aminotransferase (ALT/SGPT) 21 U/L (14-59) Alkaline Phosphatase 66 U/L (46-116) Creatine Kinase 29 U/L (26-192) Creatine Kinase MB (Mass) 0.5 ng/mL (0.0-3.6) Creatine Kinase MB Relative Index % (0-4) Troponin I Quantitative < 0.017 ng/mL (0.000-0.055) OL-Ruq-A-Type Natriuretic Peptide 4728 pg/mL (0-124) Total Protein 7.0 g/dL (6.4-8.2) Albumin 3.0 g/dL (3.4-5.0) Albumin/Globulin Ratio 0.8 (1.0-1.7) Medications Current Medications Albuterol/ Ipratropium (Duoneb) 3 ml 1X ONCE NEB Last administered on at 15:25; Start 12/09/17 at 15:00; Stop 12/09/17 at 15:03; Status DC Methylprednisolone Sodium Succinate (SOLU-Medrol 125MG VIAL) 125 mg 1X ONCE IV Last administered on 12/09/17at 15:50; Start 12/09/17 at 15:00; Stop 12/09/17 at 15:03; Status DC Diphenhydramine HCl (Benadryl) 25 mg 1X ONCE IVP Last administered on at 15:45; Start 12/09/17 at 15:15; Stop 12/09/17 at 15:18; Status DC Famotidine (Pepcid Vial) 20 mg 1X ONCE IVP Last administered on 12/09/17at 15: 55; Start 12/09/17 at 15:30; Stop 12/09/17 at 15:32; Status DC Ondansetron HCl (Zofran) 4 mg PRN Q8HRS PRN IV NAUSEA/VOMITING; Start 12/09/17 at 17:45; Stop 12/10/17 at 17:44 Acetaminophen (Tylenol) 650 mg PRN Q6HRS PRN PO FEVER; Start 12/09/17 at 18:15 ; Stop 12/10/17 at 10:09; Status DC Ondansetron HCl (Zofran) 4 mg PRN Q6HRS PRN IV NAUSEA/VOMITING 1ST CHOICE; Start 12/09/17 at 18:15 Morphine Sulfate (Morphine Sulfate) 2 mg PRN Q2HR PRN IV MODERATE TO SEVERE PAIN; Start 12/09/17 at 18:15 Tramadol HCl (Ultram) 50 mg PRN Q6HRS PRN PO MILD PAIN; Start 12/09/17 at 18:15 Docusate Sodium (Colace) 100 mg PRN DAILY PRN PO HARD STOOLS; Start 12/09/17 at 18:15 Labetalol HCl (Normodyne Iv Push) 20 mg PRN Q2HR PRN IVP HYPERTENSION, SEE COMMENTS; Start 12/09/17 at 18:15 Albuterol/ Ipratropium (Duoneb) 3 ml RTQID NEB Last administered on 12/10/17at 08:23; Start 12/09/17 at 20:00 Albuterol Sulfate (Ventolin Neb Soln) 2.5 mg PRN Q2HR PRN NEB SHORTNESS OF BREATH; Start 12/09/17 at 18:15 Guaifenesin (Mucinex) 600 mg BID PO Last administered on 12/10/17at 08:59; Start 12/09/17 at 21:00 Diphenhydramine HCl (Benadryl) 25 mg PRN Q6HRS PRN PO ITCHING; Start 12/09/17 at 18:15 Guaifenesin/ Codeine Phosphate (Robitussin Ac) 5 ml PRN Q6HRS PRN PO COUGH Last administered on 12/10/17 09:04; Start 12/09/17 at 18:15 Enoxaparin Sodium (Lovenox 40mg Syringe) 40 mg DAILY SQ Last administered on at 09:00; Start 12/10/17 at 09:00 Levofloxacin/ Dextrose 150 ml @ 100 mls/hr Q48H IV Last administered on at 22:03; Start 12/09/17 at 18:15 Acetaminophen (Tylenol) 500 mg PRN Q6HRS PRN PO MILD PAIN / TEMP; Start at 09:30 Acetaminophen/ Codeine Phosphate (Tylenol #3) 1 tab PRN Q6HRS PRN PO MODERATE PAIN (1ST CHOICE); Start 12/10/17 at 09:30 Aspirin (Ecotrin) 81 mg DAILY PO Last administered on 12/10/17at 11:46; Start at 10:00 Furosemide (Lasix) 20 mg DAILY PO Last administered on 12/10/17at 11:46; Start 12/10/17 at 10:00 Acetaminophen/ Hydrocodone Bitart (Lortab 5/325) 1 tab PRN Q6HRS PRN PO MODERATE PAIN (2ND CHOICE) Last administered on 12/10/17at 11:57; Start 12/10/17 at 09:30 Pantoprazole Sodium (Protonix) 40 mg BIDAC PO Last administered on 12/10/17at 11 :46; Start 12/10/17 at 11:30 Temazepam (Restoril) 15 mg QHS PO ; Start 12/10/17 at 21:00 Vitamin D (Vitamin D3) 1,000 unit DAILY PO Last administered on 12/10/17at 11:46 ; Start 12/10/17 at 11:00 Fenofibrate (Lofibra) 134 mg DAILY PO Last administered on 12/10/17at 11:46; Start 12/10/17 at 11:00 Levothyroxine Sodium (Synthroid) 150 mcg DAILY07 PO Last administered on at 11:47; Start 12/10/17 at 10:30 Metoprolol Succinate (Toprol Xl) 50 mg DAILY PO Last administered on 12/10/17at 11:46; Start 12/10/17 at 11:00 Fish Oil (Fish Oil) 1,000 mg DAILY PO Last administered on 12/10/17at 11:46; Start 12/10/17 at 11:00 Lisinopril (Prinivil) 40 mg DAILY PO Last administered on 12/10/17at 11:47; Start 12/10/17 at 11:00 Non-Formulary Medication (Danazol ) 200 mg BID PO ; Start 12/10/17 at 21:00 Active Scripts Active Addy 5-325 Tablet (Acetaminophen/Hydrocodone Bitart) 1 Each Tablet 1 Tab PO PRN Q6HRS PRN Bactrim Ds Tablet (Sulfamethoxazole/Trimethoprim) 1 Each Tablet 1 Tab PO BID Reported Danazol 200 Mg Capsule 200 Mg PO BID Danazol 200 Mg Capsule 200 Mg PO Synthroid (Levothyroxine Sodium) 150 Mcg Tablet 1 Tab PO DAILY [Tylenol] 1,000 Mg PO Q6HRS PRN Vitamin D-3 (Cholecalciferol (Vitamin D3)) 2,000 Unit Capsule 1,000 Unit PO DAILY Temazepam 15 Mg Capsule 1 Cap PO QHS Toprol Xl (Metoprolol Succinate) 50 Mg Tab.er.24h 1 Tab PO DAILY Quinapril Hcl 40 Mg Tablet 1 Tab PO DAILY Willard-3 Fish Oil 1,000 mg Sfgl (Willard-3 Fatty Acids/Fish Oil) 1 Each Capsule 1 Each PO DAILY Pantoprazole Sodium 40 Mg Tablet.dr 1 Tab PO BID Furosemide 20 Mg Tablet 1 Tab PO DAILY Tricor (Fenofibrate Nanocrystallized) 145 Mg Tablet 1 Tab PO DAILY Aspir 81 (Aspirin) 81 Mg Tablet.dr 1 Tab PO DAILY Vitals/I & O Vital Sign - Last 24 Hours 12/09/17 12/09/17 12/09/17 12/09/17 14:32 14:56 15:03 15:26 Temp 97.0 97.0 Pulse 58 114 112 Resp 36 B/P (MAP) 170/99 (122) 201/91 (127) 154/62 (92) Pulse Ox 96 95 96 100 O2 Delivery Room Air Room Air Nasal Cannula Nasal Cannula O2 Flow Rate 2.0 2.0 12/09/17 12/09/17 12/09/17 12/09/17 15:31 16:02 16:40 17:40 Pulse 68 110 100 104 B/P (MAP) 163/89 (113) 194/72 (112) 175/74 (107) 134/60 (84) Pulse Ox 96 99 100 100 O2 Delivery Room Air Nasal Cannula Nasal Cannula Nasal Cannula O2 Flow Rate 2.0 2.0 2.0 12/09/17 12/09/17 12/09/17 12/09/17 19:47 19:52 20:02 23:54 Temp 97.9 100.0 97.9 100.0 Pulse 109 105 Resp 20 24 B/P (MAP) 153/69 (97) 158/79 (105) Pulse Ox 96 99 92 O2 Delivery Nasal Cannula Nasal Cannula Nasal Cannula Nasal Cannula O2 Flow Rate 3.0 2.0 2.0 2.0 12/10/17 12/10/17 12/10/17 12/10/17 03:03 07:34 08:00 08:23 Temp 97.9 98.1 97.9 98.1 Pulse 94 90 Resp 24 22 B/P (MAP) 138/59 (85) 148/73 (98) Pulse Ox 97 99 93 O2 Delivery Nasal Cannula Nasal Cannula Nasal Cannula Nasal Cannula O2 Flow Rate 2.0 2.0 2.0 2.0 12/10/17 12/10/17 12/10/17 12/10/17 10:48 11:46 11:47 11:57 Temp 98.3 98.3 Pulse 96 96 96 Resp 22 24 B/P (MAP) 119/46 (70) 119/46 119/46 Pulse Ox 97 O2 Delivery Nasal Cannula Nasal Cannula O2 Flow Rate 2.0 3.0 Intake and Output 12/09/17 12/09/17 12/10/17 15:00 23:00 07:00 Intake Total 600 ml Output Total 225 ml Balance 375 ml JEFF VASQUEZ MD Dec 10, 2017 12:24
[2017-12-10] MEDS ORDERED: ALPRAZolam 0.5 MG TABLET PO PRN (12:30)
[2017-12-10] MEDS ORDERED: FUROSEMIDE 20 MG/2 ML VIAL. IVP ONE (14:15)
--- NOTE | 2017-12-10 14:30 | CONS ---
DATE OF CONSULTATION: ATTENDING PHYSICIAN: Dr. Alexis. REASON FOR CONSULTATION: Dyspnea, allergic reaction. HISTORY OF PRESENT ILLNESS: The patient is a 72-year-old female who has history of myelofibrosis, history of transfusion dependent anemia, history of kidney cancer treated with surgery alone and history of an enlarging mass in the lung. She has declined to do any invasive procedure due to her poor functional status. She was brought into the hospital after she had Bactrim. She started to have some shortness of breath. She has felt that her tongue was getting swollen as well. The patient was seen in the Emergency Room and was hospitalized for further evaluation. She has no significant history of asthma or COPD. The patient was placed on cough suppressant and bronchodilators. I have been asked to see her for further evaluation. Denies any headaches, no nausea, no vomiting, no diarrhea, no leg edema. No focal weakness. No skin rash. PAST MEDICAL HISTORY: Significant for myelofibrosis, history of transfusion dependent anemia, history of colon polyps, GERD, kidney cancer in 1997 localized and was treated with surgery alone. History of enlarging lung mass. PAST SURGICAL HISTORY: Including bone biopsy, colonoscopy, nephrectomy, hysterectomy and tonsillectomy. ALLERGIES: IODINE, PENICILLIN, KEFLEX AND NOW BACTRIM. MEDICATIONS: All reviewed as listed in the MRAD. REVIEW OF SYSTEMS: A 10-point system obtained. Pertinent positives discussed in my history of present illness, otherwise noncontributory. All systems that were negative were reviewed as well. SOCIAL HISTORY: Denied any history of tobacco use. PHYSICAL EXAMINATION: VITAL SIGNS: Reviewed, pulse ox 97% on 3 liters. GENERAL: She normally does not wear oxygen. HEENT: Sclerae nonicteric. NECK: Supple. LUNGS: With expiratory wheezes, more on the left than on the right. HEART: Regular rate. ABDOMEN: Soft. EXTREMITIES: With trace pitting edema. LABORATORY DATA: Reviewed. White cell count 0.6, hemoglobin 7.7 and platelets are 122. BUN is 22 and a creatinine of 1.4. IMPRESSION: 1. Dyspnea secondary to allergic reaction to Bactrim, resulting in bronchospasm. However, the tongue swelling has improved. She needs to be maximized with bronchodilator treatment. 2. History of progressively enlarging right lung mass. She had declined biopsies or any invasive procedure previously due to her poor functional status and overall the treatment may not change. The patient to be followed with Oncology regarding that. 3. No significant history of tobacco use. 4. Neutropenia. 5. History of myelofibrosis and transfusion dependent anemia. 6. Abnormal CXR with mild interstitial infiltrates RECOMMENDATION: 1. At this time, I would increase the nebulizer treatments to every 4 hours. 2. Add oral steroids. 3. If bronchospasm does not improve, then we will have to hold metoprolol. 4. Add Pulmicort as well. 5. The patient to follow up with Oncology regarding the enlarging lung mass. 6. Mild diuresis Discussed with the patient's daughter. IRVIN HUFFMAN MD DR: SARAH/micky JOB#: [id number] / [id number] PORTILLO
[2017-12-10] MEDS: predniSONE 20 MG TABLET PO SCH (14:44)
[2017-12-10 14:50] VITALS: BP 116/45
[2017-12-10] MEDS ORDERED: INFLUENZA VAX SCREEN BY RX. MC PRN (15:00)
--- NOTE | 2017-12-10 16:34 | PDOC2 ---
PALLIATIVE CARE Palliative Care Note Palliative Care Consult requested by Dr. Gabriel Medical Assessment per medical record; Dyspnea secondary to allergic reaction to Bactrim Progressively enlarging right lung mass. patient declining further workup. Progressive functional decline Hx of Myelofibrosis/anemia requiring transfusions Neutropenia Patient had been followed by [facility] Code Status: DNR Spoke with Jaylene/daughter/DPOA. Declines family meeting. Wants to stay with palliative home health. Not interested in hospice. Copy of DPOA document placed on record. Copy made for Jaylene. Plan: Will follow for changes in condition and need for family meeting. ELMER MO Dec 10, 2017 16:34
[2017-12-10 19:50] VITALS: BP 140/67
[2017-12-10] MEDS: BUDESONIDE 0.5 MG/2 ML NEBU. NEB SCH (20:00)
[2017-12-10] MEDS: TEMAZEPAM 15 MG CAPSULE PO SCH (21:47)
[2017-12-10] MEDS: DANAZOL 200 MG PO SCH (21:54)
[2017-12-10 23:26] VITALS: BP 161/86
[2017-12-11] VITALS (13 sets, daily range): BP systolic 119–148; BP diastolic 48–73
[2017-12-11] MEDS: IPRATRPIUM/ALBUTEROL 0.5/2.5MG 3 ML NEBU. NEB SCH ×8 (04:00→23:37)
[2017-12-11] MEDS ORDERED: DISP SYRIN SQ ONE (07:45)
[2017-12-11] MEDS ORDERED: DARBEPOETIN ALFA 200 MCG/0.4 ML SQ ONE (07:45)
[2017-12-11] MEDS: BUDESONIDE 0.5 MG/2 ML NEBU. NEB SCH ×2 (07:47→19:33)
--- NOTE | 2017-12-11 08:49 | PDOC ---
SUBJECTIVE Subjective S: Doing okay, breathing still not back to baseline, still with oxygen O: Physical exam: Gen.: well-developed, and bedside commode Lungs: Breathing comfortably with nasal cannula oxygen Extremities: Edema improved Neuropsychiatric: Pleasant, persistent expressive aphasia Labs: hemoglobin 7.7, 2 days ago Rads: November 09 CT of the chest showed severe splenomegaly, bilateral progressive pulmonary nodules, right hilar mass 2.7 cm, small bilateral pleural effusions and coronary artery disease PET/CT 04 December 2017 and showed right lower lobe mass with an SUV of 12.9, increased thyroid uptake, focal T2 increased uptake could be facet inflammation, massive hepatosplenomegaly and diffuse osteosclerosis consistent with myelofibrosis Assessment and Plan: Ms Latif is a 72-year-old female who has a history of myelofibrosis end-stage, admitted with possible reaction to Bactrim? which has been stopped, as well as shortness of breath improved on O2 but not at baseline , on danazol, transfusion dependent, on Aranesp as well, overdue for her dose. She also has a lung mass but is not interested in biopsy. She also has bony disease due to myelofibrosis, bone biopsy and bone marrow biopsy have been recently consistent with end-stage myelofibrosis without evidence of other malignancy. She does have a remote history of kidney cancer but it is suspected she probably has a new right lung malignancy, however due to her poor performance status, she has palliative care at home, she is not interested in further biopsy. Myelofibrosis: Continue danazol 200 mg po bid and Aranesp as an outpatient, will dose in clinic upon d/c, transfusions as needed for hemoglobin less than 7 , she has rec'd recent inpt care through [facility] recently but plans to cont outpt care w/ us and inpt prn while here, rec'd notes from [facility] yesterday recent inpt stay Lung mass: Declining further workup due to functional status and lack of desire as it likely would not change our management even if cancer was diagnosed, has pain meds prn Poor performance status: She has palliative care at home, would continue this upon discharge, of course hospice would be very reasonable but she would not be able to get blood transfusions on hospice therefore she continues on the palliative care at this time Disposition: Per others, dyspnea on admit is improved, home with palliative care and follow-up with us after discharge DVT prophylaxis: lovenox h/o stroke: on ASA Thank you kindly and please do not hesitate to call with questions. OBJECTIVE Vital Signs Vital Signs Date Time Temp Pulse Resp B/P (MAP) Pulse Ox O2 Delivery O2 Flow Rate FiO2 12/11/17 07:47 99 Nasal Cannula 4.0 12/11/17 07:10 98.1 82 18 129/54 (79) 99 Nasal Cannula 2.0 98.1 12/11/17 03:59 97.9 83 16 142/73 (96) 99 Nasal Cannula 2.0 97.9 12/10/17 23:26 97.5 78 18 161/86 (111) 98 Nasal Cannula 2.0 97.5 12/10/17 20:08 Nasal Cannula 2.0 12/10/17 19:50 Room Air 12/10/17 19:50 97.6 83 18 140/67 (91) 18 Room Air 97.6 12/10/17 16:11 Nasal Cannula 2.0 12/10/17 14:50 98.0 87 20 116/45 (68) 97 Nasal Cannula 2.0 98.0 12/10/17 13:00 16 Nasal Cannula 3.0 12/10/17 12:31 Nasal Cannula 2.0 12/10/17 11:57 24 Nasal Cannula 3.0 12/10/17 11:47 96 119/46 12/10/17 11:46 96 119/46 12/10/17 10:48 98.3 96 22 119/46 (70) 97 Nasal Cannula 2.0 98.3 I & O Intake and Output 12/11/17 07:00 Intake Total 400 ml Output Total 300 ml Balance 100 ml Intake Oral 400 ml Output Urine Total 300 ml # Voids 3 KENDELL CANDELARIA MD Dec 11, 2017 08:49
[2017-12-11] MEDS: FENOFIBRATE,MICRONIZED 134 MG CAPSULE PO SCH (09:27)
[2017-12-11] MEDS: FUROSEMIDE 20 MG TABLET PO SCH (09:28)
[2017-12-11] MEDS: PANTOPRAZOLE 40 MG TABLET.DR. PO SCH ×2 (09:28→18:21)
[2017-12-11] MEDS: METOPROLOL SUCC 24HR ER 50 MG TAB.ER.24H. PO SCH (09:28)
[2017-12-11] MEDS: LISINOPRIL 20 MG TABLET PO SCH (09:28)
[2017-12-11] MEDS: OMEGA-3 FATTY ACIDS/FISH OIL 1,000 MG CAPSULE. PO SCH (09:28)
[2017-12-11] MEDS: ASPIRIN ENTERIC COATED 81 MG TABLET.DR. PO SCH (09:28)
[2017-12-11] MEDS: CHOLECALCIFEROL (VITAMIN D3) 1,000 UNIT TABLET PO SCH (09:28)
[2017-12-11] MEDS: DANAZOL 200 MG PO SCH ×2 (09:29→20:34)
[2017-12-11] MEDS: LEVOTHYROXINE 150 MCG TABLET PO SCH (09:29)
[2017-12-11] MEDS: predniSONE 20 MG TABLET PO SCH (09:29)
[2017-12-11] MEDS: ENOXAPARIN 40 MG/0.4 ML SYRINGE. SQ SCH (09:30)
[2017-12-11 09:31] LABS: BASO % 1 % (0-3); EOS # 0.1 x10^3/uL (0.0-0.7); EOS % 3 % (0-3); LYMPH # 0.4 x10^3/uL (1.0-4.8); LYMPH % 12 % (24-48); MEAN CORPUSCULAR HEMOGLOBIN 28 pg (25-35); MEAN CORPUSCULAR HGB CONC 33 g/dL (31-37); MEAN CORPUSCULAR VOLUME 87 fL (79-100); MONO # 0.3 x10^3/uL (0.0-1.1); MONO % 8 % (0-9); NEUT # 2.5 x10^3uL (1.8-7.7); NEUT % 77 % (31-73); PLATELET COUNT 71 x10^3/uL (140-400); RED BLOOD COUNT 2.22 x10^6/uL (3.50-5.40); RED CELL DISTRIBUTION WIDTH 21.4 % (11.5-14.5); WHITE BLOOD COUNT 3.3 x10^3/uL (4.0-11.0)
[2017-12-11 09:39] LABS: HEMATOCRIT 19.3 % (36.0-47.0); HEMOGLOBIN 6.3 g/dL (12.0-15.5)
--- NOTE | 2017-12-11 10:02 | PDOC ---
PULMONARY PROGRESS NOTES Subjective no soa feels better Vitals Vital Signs Date Time Temp Pulse Resp B/P (MAP) Pulse Ox O2 Delivery O2 Flow Rate FiO2 12/11/17 09:28 82 129/54 12/11/17 07:47 99 Nasal Cannula 4.0 12/11/17 07:10 98.1 18 98.1 General: Alert, No acute distress Lungs: Wheezing (resolved) Cardiovascular: S1, S2 Abdomen: Soft Neuro Exam: Alert Extremities: No Edema Skin: Warm Labs Laboratory Tests Test 12/09/17 15:50 12/11/17 09:10 White Blood Count 0.6 x10^3/uL (4.0-11.0) 3.3 x10^3/uL (4.0-11.0) Red Blood Count 2.76 x10^6/uL (3.50-5.40) 2.22 x10^6/uL (3.50-5.40) Hemoglobin 7.7 g/dL (12.0-15.5) 6.3 g/dL (12.0-15.5) Hematocrit 24.2 % (36.0-47.0) 19.3 % (36.0-47.0) Mean Corpuscular Volume 88 fL (79-100) 87 fL (79-100) Mean Corpuscular Hemoglobin 28 pg (25-35) 28 pg (25-35) Mean Corpuscular Hemoglobin Concent 32 g/dL (31-37) 33 g/dL (31-37) Red Cell Distribution Width 21.4 % (11.5-14.5) 21.4 % (11.5-14.5) Platelet Count 122 x10^3/uL (140-400) 71 x10^3/uL (140-400) Neutrophils (%) (Auto) 65 % (31-73) 77 % (31-73) Lymphocytes (%) (Auto) 31 % (24-48) 12 % (24-48) Monocytes (%) (Auto) 3 % (0-9) 8 % (0-9) Eosinophils (%) (Auto) 0 % (0-3) 3 % (0-3) Basophils (%) (Auto) 1 % (0-3) 1 % (0-3) Neutrophils # (Auto) 0.4 x10^3uL (1.8-7.7) 2.5 x10^3uL (1.8-7.7) Lymphocytes # (Auto) 0.2 x10^3/uL (1.0-4.8) 0.4 x10^3/uL (1.0-4.8) Monocytes # (Auto) 0.0 x10^3/uL (0.0-1.1) 0.3 x10^3/uL (0.0-1.1) Eosinophils # (Auto) 0.0 x10^3/uL (0.0-0.7) 0.1 x10^3/uL (0.0-0.7) Basophils # (Auto) 0.0 x10^3/uL (0.0-0.2) 0.0 x10^3/uL (0.0-0.2) Segmented Neutrophils % 30 % (35-66) Band Neutrophils % 14 % (0-9) Lymphocytes % 38 % (24-48) Monocytes % 6 % (0-10) Eosinophils % 1 % (0-5) Basophils % 1 % (0-3) Metamyelocytes % 4 % (0-0) Myelocytes % 6 % (0-0) Blast Cells % (Manual) % (0-0) Nucleated Red Blood Cells 38 Platelet Estimate Decreased (ADEQUATE) Polychromasia Slight Poikilocytosis Slight Anisocytosis Mod Tear Drop Cells Present Ovalocytes Few Sodium Level 142 mmol/L (136-145) Potassium Level 4.1 mmol/L (3.5-5.1) Chloride Level 106 mmol/L (98-107) Carbon Dioxide Level 25 mmol/L (21-32) Anion Gap 11 (6-14) Blood Urea Nitrogen 22 mg/dL (7-20) Creatinine 1.4 mg/dL (0.6-1.0) Estimated GFR (Cockcroft-Gault) 37.2 BUN/Creatinine Ratio 16 (6-20) Glucose Level 163 mg/dL (70-99) Calcium Level 8.9 mg/dL (8.5-10.1) Total Bilirubin 0.9 mg/dL (0.2-1.0) Aspartate Amino Transf (AST/SGOT) 20 U/L (15-37) Alanine Aminotransferase (ALT/SGPT) 21 U/L (14-59) Alkaline Phosphatase 66 U/L (46-116) Creatine Kinase 29 U/L (26-192) Creatine Kinase MB (Mass) 0.5 ng/mL (0.0-3.6) Creatine Kinase MB Relative Index % (0-4) Troponin I Quantitative < 0.017 ng/mL (0.000-0.055) [id number]-Type Natriuretic Peptide 4728 pg/mL (0-124) Total Protein 7.0 g/dL (6.4-8.2) Albumin 3.0 g/dL (3.4-5.0) Albumin/Globulin Ratio 0.8 (1.0-1.7) Laboratory Tests Test 12/11/17 09:10 White Blood Count 3.3 x10^3/uL (4.0-11.0) Red Blood Count 2.22 x10^6/uL (3.50-5.40) Hemoglobin 6.3 g/dL (12.0-15.5) Hematocrit 19.3 % (36.0-47.0) Mean Corpuscular Volume 87 fL (79-100) Mean Corpuscular Hemoglobin 28 pg (25-35) Mean Corpuscular Hemoglobin Concent 33 g/dL (31-37) Red Cell Distribution Width 21.4 % (11.5-14.5) Platelet Count 71 x10^3/uL (140-400) Neutrophils (%) (Auto) 77 % (31-73) Lymphocytes (%) (Auto) 12 % (24-48) Monocytes (%) (Auto) 8 % (0-9) Eosinophils (%) (Auto) 3 % (0-3) Basophils (%) (Auto) 1 % (0-3) Neutrophils # (Auto) 2.5 x10^3uL (1.8-7.7) Lymphocytes # (Auto) 0.4 x10^3/uL (1.0-4.8) Monocytes # (Auto) 0.3 x10^3/uL (0.0-1.1) Eosinophils # (Auto) 0.1 x10^3/uL (0.0-0.7) Basophils # (Auto) 0.0 x10^3/uL (0.0-0.2) Medications Active Scripts Medications Dose Route/Sig Max Daily Dose Days Date Category Danazol 200 Mg Capsule 200 Mg PO BID 12/10/17 Reported Danazol 200 Mg Capsule 200 Mg PO 11/03/17 Reported [place] 5-325 Tablet (Acetaminophen/Hydrocodone Bitart) 1 Each Tablet 1 Tab PO PRN Q6HRS PRN 10/03/17 Rx Bactrim Ds Tablet (Sulfamethoxazole/Trimethoprim) 1 Each Tablet 1 Tab PO BID 10/03/17 Rx Synthroid (Levothyroxine Sodium) 150 Mcg Tablet 1 Tab PO DAILY 05/17/17 Reported [Tylenol] 1,000 Mg PO Q6HRS PRN 05/17/17 Reported Vitamin D-3 (Cholecalciferol (Vitamin D3)) 2,000 Unit Capsule 1,000 Unit PO DAILY 05/17/17 Reported Temazepam 15 Mg Capsule 1 Cap PO QHS 05/16/17 Reported Toprol Xl (Metoprolol Succinate) 50 Mg Tab.er.24h 1 Tab PO DAILY 05/17/16 Reported Quinapril Hcl 40 Mg Tablet 1 Tab PO DAILY 05/17/16 Reported [place]-3 Fish Oil 1,000 mg Sfgl ([place]-3 Fatty Acids/Fish Oil) 1 Each Capsule 1 Each PO DAILY 05/17/16 Reported Pantoprazole Sodium 40 Mg Tablet.dr 1 Tab PO BID 01/13/14 Reported Furosemide 20 Mg Tablet 1 Tab PO DAILY 01/13/14 Reported Tricor (Fenofibrate Nanocrystallized) 145 Mg Tablet 1 Tab PO DAILY 01/13/14 Reported Aspir 81 (Aspirin) 81 Mg Tablet.dr 1 Tab PO DAILY 01/13/14 Reported Impression . 1. Dyspnea secondary to allergic reaction to Bactrim, resulting in bronchospasm. However, the tongue swelling has improved. 2. History of progressively enlarging right lung mass. She had declined biopsies or any invasive procedure previously due to her poor functional status and overall the treatment may not change. The patient to be followed with Oncology regarding that. 3. No significant history of tobacco use. 4. Neutropenia. 5. History of myelofibrosis and transfusion dependent anemia. 6. Abnormal CXR with mild interstitial infiltrates 7. 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 1. nebulizer treatments 2. oral steroids. 3. bronchospasm resolved 4. Pulmicort 5. The patient to follow up with Oncology regarding the enlarging lung mass. 6. Mild diuresis done clinically better. wean off oxygen. can go home lung ricks after Tx d/w IRVIN ESPOSITO MD Dec 11, 2017 10:02
--- NOTE | 2017-12-11 13:58 | PDOC ---
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 palliative care at home cont current DNR Vitals Vitals Vital Signs Date Time Temp Pulse Resp B/P (MAP) Pulse Ox O2 Delivery O2 Flow Rate FiO2 12/11/17 13:34 97.5 78 17 120/48 97.5 12/11/17 12:16 Nasal Cannula 4.0 12/11/17 11:00 100 Physical Exam General: mild distress, Other (tachypneic, looks anxious) Heart: Regular rate, Normal S1 Lungs: Wheezing (resolved) Abdomen: Normal bowel sounds, Soft Extremities: No clubbing, No cyanosis Skin: No rashes, No breakdown Labs LABS Laboratory Tests Test 12/11/17 09:10 White Blood Count 3.3 x10^3/uL (4.0-11.0) Red Blood Count 2.22 x10^6/uL (3.50-5.40) Hemoglobin 6.3 g/dL (12.0-15.5) Hematocrit 19.3 % (36.0-47.0) Mean Corpuscular Volume 87 fL (79-100) Mean Corpuscular Hemoglobin 28 pg (25-35) Mean Corpuscular Hemoglobin Concent 33 g/dL (31-37) Red Cell Distribution Width 21.4 % (11.5-14.5) Platelet Count 71 x10^3/uL (140-400) Neutrophils (%) (Auto) 77 % (31-73) Lymphocytes (%) (Auto) 12 % (24-48) Monocytes (%) (Auto) 8 % (0-9) Eosinophils (%) (Auto) 3 % (0-3) Basophils (%) (Auto) 1 % (0-3) Neutrophils # (Auto) 2.5 x10^3uL (1.8-7.7) Lymphocytes # (Auto) 0.4 x10^3/uL (1.0-4.8) Monocytes # (Auto) 0.3 x10^3/uL (0.0-1.1) Eosinophils # (Auto) 0.1 x10^3/uL (0.0-0.7) Basophils # (Auto) 0.0 x10^3/uL (0.0-0.2) Comment Review of Relevant I have reviewed the following items adelaida (where applicable) has been applied. Labs Laboratory Tests Test 12/09/17 15:50 12/11/17 09:10 White Blood Count 0.6 x10^3/uL (4.0-11.0) 3.3 x10^3/uL (4.0-11.0) Red Blood Count 2.76 x10^6/uL (3.50-5.40) 2.22 x10^6/uL (3.50-5.40) Hemoglobin 7.7 g/dL (12.0-15.5) 6.3 g/dL (12.0-15.5) Hematocrit 24.2 % (36.0-47.0) 19.3 % (36.0-47.0) Mean Corpuscular Volume 88 fL (79-100) 87 fL (79-100) Mean Corpuscular Hemoglobin 28 pg (25-35) 28 pg (25-35) Mean Corpuscular Hemoglobin Concent 32 g/dL (31-37) 33 g/dL (31-37) Red Cell Distribution Width 21.4 % (11.5-14.5) 21.4 % (11.5-14.5) Platelet Count 122 x10^3/uL (140-400) 71 x10^3/uL (140-400) Neutrophils (%) (Auto) 65 % (31-73) 77 % (31-73) Lymphocytes (%) (Auto) 31 % (24-48) 12 % (24-48) Monocytes (%) (Auto) 3 % (0-9) 8 % (0-9) Eosinophils (%) (Auto) 0 % (0-3) 3 % (0-3) Basophils (%) (Auto) 1 % (0-3) 1 % (0-3) Neutrophils # (Auto) 0.4 x10^3uL (1.8-7.7) 2.5 x10^3uL (1.8-7.7) Lymphocytes # (Auto) 0.2 x10^3/uL (1.0-4.8) 0.4 x10^3/uL (1.0-4.8) Monocytes # (Auto) 0.0 x10^3/uL (0.0-1.1) 0.3 x10^3/uL (0.0-1.1) Eosinophils # (Auto) 0.0 x10^3/uL (0.0-0.7) 0.1 x10^3/uL (0.0-0.7) Basophils # (Auto) 0.0 x10^3/uL (0.0-0.2) 0.0 x10^3/uL (0.0-0.2) Segmented Neutrophils % 30 % (35-66) Band Neutrophils % 14 % (0-9) Lymphocytes % 38 % (24-48) Monocytes % 6 % (0-10) Eosinophils % 1 % (0-5) Basophils % 1 % (0-3) Metamyelocytes % 4 % (0-0) Myelocytes % 6 % (0-0) Blast Cells % (Manual) % (0-0) Nucleated Red Blood Cells 38 Platelet Estimate Decreased (ADEQUATE) Polychromasia Slight Poikilocytosis Slight Anisocytosis Mod Tear Drop Cells Present Ovalocytes Few Sodium Level 142 mmol/L (136-145) Potassium Level 4.1 mmol/L (3.5-5.1) Chloride Level 106 mmol/L (98-107) Carbon Dioxide Level 25 mmol/L (21-32) Anion Gap 11 (6-14) Blood Urea Nitrogen 22 mg/dL (7-20) Creatinine 1.4 mg/dL (0.6-1.0) Estimated GFR (Cockcroft-Gault) 37.2 BUN/Creatinine Ratio 16 (6-20) Glucose Level 163 mg/dL (70-99) Calcium Level 8.9 mg/dL (8.5-10.1) Total Bilirubin 0.9 mg/dL (0.2-1.0) Aspartate Amino Transf (AST/SGOT) 20 U/L (15-37) Alanine Aminotransferase (ALT/SGPT) 21 U/L (14-59) Alkaline Phosphatase 66 U/L (46-116) Creatine Kinase 29 U/L (26-192) Creatine Kinase MB (Mass) 0.5 ng/mL (0.0-3.6) Creatine Kinase MB Relative Index % (0-4) Troponin I Quantitative < 0.017 ng/mL (0.000-0.055) CK-Hyc-G-Type Natriuretic Peptide 4728 pg/mL (0-124) Total Protein 7.0 g/dL (6.4-8.2) Albumin 3.0 g/dL (3.4-5.0) Albumin/Globulin Ratio 0.8 (1.0-1.7) Laboratory Tests Test 12/11/17 09:10 White Blood Count 3.3 x10^3/uL (4.0-11.0) Red Blood Count 2.22 x10^6/uL (3.50-5.40) Hemoglobin 6.3 g/dL (12.0-15.5) Hematocrit 19.3 % (36.0-47.0) Mean Corpuscular Volume 87 fL (79-100) Mean Corpuscular Hemoglobin 28 pg (25-35) Mean Corpuscular Hemoglobin Concent 33 g/dL (31-37) Red Cell Distribution Width 21.4 % (11.5-14.5) Platelet Count 71 x10^3/uL (140-400) Neutrophils (%) (Auto) 77 % (31-73) Lymphocytes (%) (Auto) 12 % (24-48) Monocytes (%) (Auto) 8 % (0-9) Eosinophils (%) (Auto) 3 % (0-3) Basophils (%) (Auto) 1 % (0-3) Neutrophils # (Auto) 2.5 x10^3uL (1.8-7.7) Lymphocytes # (Auto) 0.4 x10^3/uL (1.0-4.8) Monocytes # (Auto) 0.3 x10^3/uL (0.0-1.1) Eosinophils # (Auto) 0.1 x10^3/uL (0.0-0.7) Basophils # (Auto) 0.0 x10^3/uL (0.0-0.2) Medications Current Medications Albuterol/ Ipratropium (Duoneb) 3 ml 1X ONCE NEB Last administered on at 15:25; Start 12/09/17 at 15:00; Stop 12/09/17 at 15:03; Status DC Methylprednisolone Sodium Succinate (SOLU-Medrol 125MG VIAL) 125 mg 1X ONCE IV Last administered on 12/09/17at 15:50; Start 12/09/17 at 15:00; Stop 12/09/17 at 15:03; Status DC Diphenhydramine HCl (Benadryl) 25 mg 1X ONCE IVP Last administered on at 15:45; Start 12/09/17 at 15:15; Stop 12/09/17 at 15:18; Status DC Famotidine (Pepcid Vial) 20 mg 1X ONCE IVP Last administered on 12/09/17at 15: 55; Start 12/09/17 at 15:30; Stop 12/09/17 at 15:32; Status DC Ondansetron HCl (Zofran) 4 mg PRN Q8HRS PRN IV NAUSEA/VOMITING; Start 12/09/17 at 17:45; Stop 12/10/17 at 17:44; Status DC Acetaminophen (Tylenol) 650 mg PRN Q6HRS PRN PO FEVER; Start 12/09/17 at 18:15 ; Stop 12/10/17 at 10:09; Status DC Ondansetron HCl (Zofran) 4 mg PRN Q6HRS PRN IV NAUSEA/VOMITING 1ST CHOICE; Start 12/09/17 at 18:15 Morphine Sulfate (Morphine Sulfate) 2 mg PRN Q2HR PRN IV MODERATE TO SEVERE PAIN; Start 12/09/17 at 18:15 Tramadol HCl (Ultram) 50 mg PRN Q6HRS PRN PO MODERATE PAIN 1ST CHOICE; Start at 18:15 Docusate Sodium (Colace) 100 mg PRN DAILY PRN PO HARD STOOLS; Start 12/09/17 at 18:15 Labetalol HCl (Normodyne Iv Push) 20 mg PRN Q2HR PRN IVP HYPERTENSION, SEE COMMENTS; Start 12/09/17 at 18:15 Albuterol/ Ipratropium (Duoneb) 3 ml RTQID NEB Last administered on 12/10/17at 12:30; Start 12/09/17 at 20:00; Stop 12/10/17 at 14:13; Status DC Albuterol Sulfate (Ventolin Neb Soln) 2.5 mg PRN Q2HR PRN NEB SHORTNESS OF BREATH; Start 12/09/17 at 18:15 Guaifenesin (Mucinex) 600 mg BID PO Last administered on 12/11/17at 09:28; Start 12/09/17 at 21:00 Diphenhydramine HCl (Benadryl) 25 mg PRN Q6HRS PRN PO ITCHING; Start 12/09/17 at 18:15 Guaifenesin/ Codeine Phosphate (Robitussin Ac) 5 ml PRN Q6HRS PRN PO COUGH Last administered on 12/10/17at 09:04; Start 12/09/17 at 18:15 Enoxaparin Sodium (Lovenox 40mg Syringe) 40 mg DAILY SQ Last administered on at 09:30; Start 12/10/17 at 09:00 Levofloxacin/ Dextrose 150 ml @ 100 mls/hr Q48H IV Last administered on at 22:03; Start 12/09/17 at 18:15 Acetaminophen (Tylenol) 500 mg PRN Q6HRS PRN PO MILD PAIN / TEMP; Start at 09:30 Acetaminophen/ Codeine Phosphate (Tylenol #3) 1 tab PRN Q6HRS PRN PO MODERATE PAIN (2ND CHOICE); Start 12/10/17 at 09:30 Aspirin (Ecotrin) 81 mg DAILY PO Last administered on 12/11/17at 09:28; Start at 10:00 Furosemide (Lasix) 20 mg DAILY PO Last administered on 12/11/17at 09:28; Start 12/10/17 at 10:00 Acetaminophen/ Hydrocodone Bitart ([place] 5/325) 1 tab PRN Q6HRS PRN PO SEVERE PAIN Last administered on 12/10/17at 11:57; Start 12/10/17 at 09:30 Pantoprazole Sodium (Protonix) 40 mg BIDAC PO Last administered on 12/11/17at 09 :28; Start 12/10/17 at 11:30 Temazepam (Restoril) 15 mg QHS PO Last administered on 12/10/17at 21:47; Start 12/10/17 at 21:00 Vitamin D (Vitamin D3) 1,000 unit DAILY PO Last administered on 12/11/17 09:28 ; Start 12/10/17 at 11:00 Fenofibrate (Lofibra) 134 mg DAILY PO Last administered on 12/11/17 09:27; Start 12/10/17 at 11:00 Levothyroxine Sodium (Synthroid) 150 mcg DAILY07 PO Last administered on 09:29; Start 12/10/17 at 10:30 Metoprolol Succinate (Toprol Xl) 50 mg DAILY PO Last administered on 12/11/17 09:28; Start 12/10/17 at 11:00 Fish Oil (Fish Oil) 1,000 mg DAILY PO Last administered on 12/11/17 09:28; Start 12/10/17 at 11:00 Lisinopril (Prinivil) 40 mg DAILY PO Last administered on 12/11/17 09:28; Start 12/10/17 at 11:00 Non-Formulary Medication (Danazol ) 200 mg BID PO Last administered on 09:29; Start 12/10/17 at 21:00 Alprazolam (Xanax) 0.5 mg PRN Q8HRS PRN PO ANXIETY / AGITATION; Start 12/10/17 at 12:30 Prednisone (Prednisone) 40 mg DAILY PO Last administered on 12/11/17 09:29; Start 12/10/17 at 15:00 Budesonide (Pulmicort) 0.5 mg RTBID NEB Last administered on 12/11/17 07:47; Start 12/10/17 at 20:00 Albuterol/ Ipratropium (Duoneb) 3 ml Q4HRS NEB Last administered on 12/11/17 11:56; Start 12/10/17 at 16:00 Furosemide (Lasix) 20 mg 1X ONCE IVP Last administered on 12/10/17 14:44; Start 12/10/17 at 14:15; Stop 12/10/17 at 14:19; Status DC Info (Do NOT chart on this placeholder) 1 each PRN 1X PRN MC SEE COMMENTS; Start 12/10/17 at 15:00; Status UNV Influenza Virus Vaccine (Afluria Trivalent [id number] Syringe) 0.5 ml ONCE ONCE VAX IM ; Start 12/10/17 at 17:00; Stop 12/10/17 at 17:01; Status DC Darbepoetin Jasson (Aranesp) 500 mcg 1X ONCE SQ ; Start 12/11/17 at 07:45; Stop 12/11/17 at 07:46; Status UNV Active Scripts Active [place] 5-325 Tablet (Acetaminophen/Hydrocodone Bitart) 1 Each Tablet 1 Tab PO PRN Q6HRS PRN Bactrim Ds Tablet (Sulfamethoxazole/Trimethoprim) 1 Each Tablet 1 Tab PO BID Reported Danazol 200 Mg Capsule 200 Mg PO BID Danazol 200 Mg Capsule 200 Mg PO Synthroid (Levothyroxine Sodium) 150 Mcg Tablet 1 Tab PO DAILY [Tylenol] 1,000 Mg PO Q6HRS PRN Vitamin D-3 (Cholecalciferol (Vitamin D3)) 2,000 Unit Capsule 1,000 Unit PO DAILY Temazepam 15 Mg Capsule 1 Cap PO QHS Toprol Xl (Metoprolol Succinate) 50 Mg Tab.er.24h 1 Tab PO DAILY Quinapril Hcl 40 Mg Tablet 1 Tab PO DAILY [place]-3 Fish Oil 1,000 mg Sfgl ([place]-3 Fatty Acids/Fish Oil) 1 Each Capsule 1 Each PO DAILY Pantoprazole Sodium 40 Mg Tablet. 1 Tab PO BID Furosemide 20 Mg Tablet 1 Tab PO DAILY Tricor (Fenofibrate Nanocrystallized) 145 Mg Tablet 1 Tab PO DAILY Aspir 81 (Aspirin) 81 Mg Tablet.dr 1 Tab PO DAILY Vitals/I & O Vital Sign - Last 24 Hours 12/10/17 12/10/17 12/10/17 12/10/17 14:50 16:11 19:50 19:50 Temp 98.0 97.6 98.0 97.6 Pulse 87 83 Resp 20 18 B/P (MAP) 116/45 (68) 140/67 (91) Pulse Ox 97 18 O2 Delivery Nasal Cannula Nasal Cannula Room Air Room Air O2 Flow Rate 2.0 2.0 12/10/17 12/10/17 12/11/17 12/11/17 20:08 23:26 03:59 07:10 Temp 97.5 97.9 98.1 97.5 97.9 98.1 Pulse 78 83 82 Resp 18 16 18 B/P (MAP) 161/86 (111) 142/73 (96) 129/54 (79) Pulse Ox 98 99 99 O2 Delivery Nasal Cannula Nasal Cannula Nasal Cannula Nasal Cannula O2 Flow Rate 2.0 2.0 2.0 2.0 12/11/17 12/11/17 12/11/17 12/11/17 07:47 08:00 09:28 09:28 Pulse 82 82 B/P (MAP) 129/54 129/54 Pulse Ox 99 O2 Delivery Nasal Cannula Nasal Cannula O2 Flow Rate 4.0 2.0 12/11/17 12/11/17 12/11/17 12/11/17 11:00 12:16 13:19 13:34 Temp 97.9 97.5 97.5 97.9 97.5 97.5 Pulse 81 68 78 Resp 18 18 17 B/P (MAP) 140/65 (90) 119/48 120/48 Pulse Ox 100 O2 Delivery Nasal Cannula Nasal Cannula O2 Flow Rate 2.0 4.0 Intake and Output 12/10/17 12/10/17 12/11/17 15:00 23:00 07:00 Intake Total 400 ml Output Total 300 ml Balance 100 ml HEVER TRACY MD Dec 11, 2017 13:58
[2017-12-11] MEDS: TEMAZEPAM 15 MG CAPSULE PO SCH (20:34)
[2017-12-11] MEDS: HYDROcodone/APAP 5/325MG 1 TAB TABLET PO PRN (20:38)
[2017-12-12] VITALS (14 sets, daily range): BP systolic 118–156; BP diastolic 47–93
[2017-12-12] MEDS: IPRATRPIUM/ALBUTEROL 0.5/2.5MG 3 ML NEBU. NEB SCH ×4 (03:18→20:25)
[2017-12-12] MEDS: LEVOTHYROXINE 150 MCG TABLET PO SCH (05:58)
[2017-12-12 06:32] LABS: ALBUMIN 2.4 g/dL (3.4-5.0); ALBUMIN/GLOBULIN RATIO 0.7 (1.0-1.7); CALCIUM 8.5 mg/dL (8.5-10.1); CREATININE 1.6 mg/dL (0.6-1.0); GFR 31.9; POTASSIUM 4.8 mmol/L (3.5-5.1); TOTAL BILIRUBIN 0.4 mg/dL (0.2-1.0); TOTAL PROTEIN 5.9 g/dL (6.4-8.2)
[2017-12-12 06:35] LABS: BASO % 1 % (0-3); EOS # 0.1 x10^3/uL (0.0-0.7); EOS % 3 % (0-3); LYMPH # 0.3 x10^3/uL (1.0-4.8); LYMPH % 13 % (24-48); MEAN CORPUSCULAR HEMOGLOBIN 28 pg (25-35); MEAN CORPUSCULAR HGB CONC 33 g/dL (31-37); MEAN CORPUSCULAR VOLUME 86 fL (79-100); MONO # 0.2 x10^3/uL (0.0-1.1); MONO % 9 % (0-9); NEUT # 1.6 x10^3uL (1.8-7.7); NEUT % 75 % (31-73); PLATELET COUNT 58 x10^3/uL (140-400); RED BLOOD COUNT 1.96 x10^6/uL (3.50-5.40); RED CELL DISTRIBUTION WIDTH 20.8 % (11.5-14.5); WHITE BLOOD COUNT 2.1 x10^3/uL (4.0-11.0)
[2017-12-12 07:02] LABS: HEMATOCRIT 16.9 % (36.0-47.0); HEMOGLOBIN 5.5 g/dL (12.0-15.5)
[2017-12-12] MEDS: BUDESONIDE 0.5 MG/2 ML NEBU. NEB SCH ×2 (08:02→20:25)
[2017-12-12] MEDS: CHOLECALCIFEROL (VITAMIN D3) 1,000 UNIT TABLET PO SCH (09:03)
[2017-12-12] MEDS: PANTOPRAZOLE 40 MG TABLET.DR. PO SCH ×2 (09:04→17:30)
[2017-12-12] MEDS: predniSONE 20 MG TABLET PO SCH (09:04)
[2017-12-12] MEDS: HYDROcodone/APAP 5/325MG 1 TAB TABLET PO PRN (09:04)
[2017-12-12] MEDS: FENOFIBRATE,MICRONIZED 134 MG CAPSULE PO SCH (09:04)
[2017-12-12] MEDS: OMEGA-3 FATTY ACIDS/FISH OIL 1,000 MG CAPSULE. PO SCH (09:05)
[2017-12-12] MEDS: ASPIRIN ENTERIC COATED 81 MG TABLET.DR. PO SCH (09:05)
[2017-12-12] MEDS: FUROSEMIDE 20 MG TABLET PO SCH (09:05)
[2017-12-12] MEDS: DANAZOL 200 MG PO SCH ×2 (09:05→21:27)
[2017-12-12] MEDS: METOPROLOL SUCC 24HR ER 50 MG TAB.ER.24H. PO SCH (09:06)
[2017-12-12] MEDS: LISINOPRIL 20 MG TABLET PO SCH (09:06)
[2017-12-12] MEDS: ENOXAPARIN 40 MG/0.4 ML SYRINGE. SQ SCH (09:08)
--- NOTE | 2017-12-12 10:38 | PDOC ---
PULMONARY PROGRESS NOTES Subjective no soa feels better Vitals Vital Signs Date Time Temp Pulse Resp B/P (MAP) Pulse Ox O2 Delivery O2 Flow Rate FiO2 12/12/17 09:06 86 124/54 12/12/17 09:04 97 Nasal Cannula 3.0 12/12/17 07:05 97.9 18 97.9 General: Alert, No acute distress Lungs: Clear Cardiovascular: S1, S2 Abdomen: Soft Neuro Exam: Alert Extremities: No Edema Skin: Warm Labs Laboratory Tests Test 12/11/17 09:10 12/12/17 05:35 White Blood Count 3.3 x10^3/uL (4.0-11.0) 2.1 x10^3/uL (4.0-11.0) Red Blood Count 2.22 x10^6/uL (3.50-5.40) 1.96 x10^6/uL (3.50-5.40) Hemoglobin 6.3 g/dL (12.0-15.5) 5.5 g/dL (12.0-15.5) Hematocrit 19.3 % (36.0-47.0) 16.9 % (36.0-47.0) Mean Corpuscular Volume 87 fL (79-100) 86 fL (79-100) Mean Corpuscular Hemoglobin 28 pg (25-35) 28 pg (25-35) Mean Corpuscular Hemoglobin Concent 33 g/dL (31-37) 33 g/dL (31-37) Red Cell Distribution Width 21.4 % (11.5-14.5) 20.8 % (11.5-14.5) Platelet Count 71 x10^3/uL (140-400) 58 x10^3/uL (140-400) Neutrophils (%) (Auto) 77 % (31-73) 75 % (31-73) Lymphocytes (%) (Auto) 12 % (24-48) 13 % (24-48) Monocytes (%) (Auto) 8 % (0-9) 9 % (0-9) Eosinophils (%) (Auto) 3 % (0-3) 3 % (0-3) Basophils (%) (Auto) 1 % (0-3) 1 % (0-3) Neutrophils # (Auto) 2.5 x10^3uL (1.8-7.7) 1.6 x10^3uL (1.8-7.7) Lymphocytes # (Auto) 0.4 x10^3/uL (1.0-4.8) 0.3 x10^3/uL (1.0-4.8) Monocytes # (Auto) 0.3 x10^3/uL (0.0-1.1) 0.2 x10^3/uL (0.0-1.1) Eosinophils # (Auto) 0.1 x10^3/uL (0.0-0.7) 0.1 x10^3/uL (0.0-0.7) Basophils # (Auto) 0.0 x10^3/uL (0.0-0.2) 0.0 x10^3/uL (0.0-0.2) Sodium Level 138 mmol/L (136-145) Potassium Level 4.8 mmol/L (3.5-5.1) Chloride Level 104 mmol/L (98-107) Carbon Dioxide Level 28 mmol/L (21-32) Anion Gap 6 (6-14) Blood Urea Nitrogen 38 mg/dL (7-20) Creatinine 1.6 mg/dL (0.6-1.0) Estimated GFR (Cockcroft-Gault) 31.9 BUN/Creatinine Ratio 24 (6-20) Glucose Level 143 mg/dL (70-99) Calcium Level 8.5 mg/dL (8.5-10.1) Total Bilirubin 0.4 mg/dL (0.2-1.0) Aspartate Amino Transf (AST/SGOT) 8 U/L (15-37) Alanine Aminotransferase (ALT/SGPT) 15 U/L (14-59) Alkaline Phosphatase 40 U/L (46-116) Total Protein 5.9 g/dL (6.4-8.2) Albumin 2.4 g/dL (3.4-5.0) Albumin/Globulin Ratio 0.7 (1.0-1.7) Laboratory Tests Test 12/12/17 05:35 White Blood Count 2.1 x10^3/uL (4.0-11.0) Red Blood Count 1.96 x10^6/uL (3.50-5.40) Hemoglobin 5.5 g/dL (12.0-15.5) Hematocrit 16.9 % (36.0-47.0) Mean Corpuscular Volume 86 fL (79-100) Mean Corpuscular Hemoglobin 28 pg (25-35) Mean Corpuscular Hemoglobin Concent 33 g/dL (31-37) Red Cell Distribution Width 20.8 % (11.5-14.5) Platelet Count 58 x10^3/uL (140-400) Neutrophils (%) (Auto) 75 % (31-73) Lymphocytes (%) (Auto) 13 % (24-48) Monocytes (%) (Auto) 9 % (0-9) Eosinophils (%) (Auto) 3 % (0-3) Basophils (%) (Auto) 1 % (0-3) Neutrophils # (Auto) 1.6 x10^3uL (1.8-7.7) Lymphocytes # (Auto) 0.3 x10^3/uL (1.0-4.8) Monocytes # (Auto) 0.2 x10^3/uL (0.0-1.1) Eosinophils # (Auto) 0.1 x10^3/uL (0.0-0.7) Basophils # (Auto) 0.0 x10^3/uL (0.0-0.2) Sodium Level 138 mmol/L (136-145) Potassium Level 4.8 mmol/L (3.5-5.1) Chloride Level 104 mmol/L (98-107) Carbon Dioxide Level 28 mmol/L (21-32) Anion Gap 6 (6-14) Blood Urea Nitrogen 38 mg/dL (7-20) Creatinine 1.6 mg/dL (0.6-1.0) Estimated GFR (Cockcroft-Gault) 31.9 BUN/Creatinine Ratio 24 (6-20) Glucose Level 143 mg/dL (70-99) Calcium Level 8.5 mg/dL (8.5-10.1) Total Bilirubin 0.4 mg/dL (0.2-1.0) Aspartate Amino Transf (AST/SGOT) 8 U/L (15-37) Alanine Aminotransferase (ALT/SGPT) 15 U/L (14-59) Alkaline Phosphatase 40 U/L (46-116) Total Protein 5.9 g/dL (6.4-8.2) Albumin 2.4 g/dL (3.4-5.0) Albumin/Globulin Ratio 0.7 (1.0-1.7) Medications Active Scripts Medications Dose Route/Sig Max Daily Dose Days Date Category Danazol 200 Mg Capsule 200 Mg PO BID 12/10/17 Reported Danazol 200 Mg Capsule 200 Mg PO 11/03/17 Reported [place] 5-325 Tablet (Acetaminophen/Hydrocodone Bitart) 1 Each Tablet 1 Tab PO PRN Q6HRS PRN 10/03/17 Rx Bactrim Ds Tablet (Sulfamethoxazole/Trimethoprim) 1 Each Tablet 1 Tab PO BID 10/03/17 Rx Synthroid (Levothyroxine Sodium) 150 Mcg Tablet 1 Tab PO DAILY 05/17/17 Reported [Tylenol] 1,000 Mg PO Q6HRS PRN 05/17/17 Reported Vitamin D-3 (Cholecalciferol (Vitamin D3)) 2,000 Unit Capsule 1,000 Unit PO DAILY 05/17/17 Reported Temazepam 15 Mg Capsule 1 Cap PO QHS 05/16/17 Reported Toprol Xl (Metoprolol Succinate) 50 Mg Tab.er.24h 1 Tab PO DAILY 05/17/16 Reported Quinapril Hcl 40 Mg Tablet 1 Tab PO DAILY 05/17/16 Reported Kennett-3 Fish Oil 1,000 mg Sfgl (Kennett-3 Fatty Acids/Fish Oil) 1 Each Capsule 1 Each PO DAILY 05/17/16 Reported Pantoprazole Sodium 40 Mg Tablet.dr 1 Tab PO BID 01/13/14 Reported Furosemide 20 Mg Tablet 1 Tab PO DAILY 01/13/14 Reported Tricor (Fenofibrate Nanocrystallized) 145 Mg Tablet 1 Tab PO DAILY 01/13/14 Reported Aspir 81 (Aspirin) 81 Mg Tablet.dr 1 Tab PO DAILY 01/13/14 Reported Impression . 1. Dyspnea secondary to allergic reaction to Bactrim, resulting in bronchospasm. However, the tongue swelling has resolved 2. History of progressively enlarging right lung mass. She had declined biopsies or any invasive procedure previously due to her poor functional status and overall the treatment may not change. The patient to be followed with Oncology regarding that. 3. No significant history of tobacco use. 4. Neutropenia. 5. History of myelofibrosis and transfusion dependent anemia. 6. Abnormal CXR with mild interstitial infiltrates Plan . 1. nebulizer treatments 2. oral steroids. 3. bronchospasm resolved 4. Pulmicort 5. The patient to follow up with Oncology regarding the enlarging lung mass. 6. Mild diuresis prn 7. Transfusion today IRVIN HUFFAMN MD Dec 12, 2017 10:38
--- NOTE | 2017-12-12 13:41 | PDOC ---
PROGRESS NOTES Chief Complaint Chief Complaint symptomatic anemia, req. transfusion sob after taking bactrim, not sure if allergy metasttic lung cancer to bones, may be renal G to penicillin and now to Bactrim h/o remote rt kidney Ca s/p sx myelofibrosis, end-stage chronic anemia requires frequent transfusion pancytopenia with myelofibrosis h/o CVA htn hld hypothyroidism acute hypoxic resp failure neutropenia anxiety NOS AK I, VMN Thrombo cytopenia \ History of Present Illness History of Present Illness symptomatic anemia, Hgb < 6 today, markedly weak weakness, debility All her records are in [facility]. palliative care at home cont current DNR Vitals Vitals Vital Signs Date Time Temp Pulse Resp B/P (MAP) Pulse Ox O2 Delivery O2 Flow Rate FiO2 12/12/17 12:49 97.6 80 20 153/75 97.6 12/12/17 11:50 98 Nasal Cannula 3.0 Physical Exam General: mild distress, Other (tachypneic, looks anxious) Heart: Regular rate, Normal S1 Lungs: Clear Abdomen: Normal bowel sounds, Soft Extremities: No clubbing, No cyanosis Skin: No rashes, No breakdown Labs LABS Laboratory Tests Test 12/12/17 05:35 White Blood Count 2.1 x10^3/uL (4.0-11.0) Red Blood Count 1.96 x10^6/uL (3.50-5.40) Hemoglobin 5.5 g/dL (12.0-15.5) Hematocrit 16.9 % (36.0-47.0) Mean Corpuscular Volume 86 fL (79-100) Mean Corpuscular Hemoglobin 28 pg (25-35) Mean Corpuscular Hemoglobin Concent 33 g/dL (31-37) Red Cell Distribution Width 20.8 % (11.5-14.5) Platelet Count 58 x10^3/uL (140-400) Neutrophils (%) (Auto) 75 % (31-73) Lymphocytes (%) (Auto) 13 % (24-48) Monocytes (%) (Auto) 9 % (0-9) Eosinophils (%) (Auto) 3 % (0-3) Basophils (%) (Auto) 1 % (0-3) Neutrophils # (Auto) 1.6 x10^3uL (1.8-7.7) Lymphocytes # (Auto) 0.3 x10^3/uL (1.0-4.8) Monocytes # (Auto) 0.2 x10^3/uL (0.0-1.1) Eosinophils # (Auto) 0.1 x10^3/uL (0.0-0.7) Basophils # (Auto) 0.0 x10^3/uL (0.0-0.2) Sodium Level 138 mmol/L (136-145) Potassium Level 4.8 mmol/L (3.5-5.1) Chloride Level 104 mmol/L (98-107) Carbon Dioxide Level 28 mmol/L (21-32) Anion Gap 6 (6-14) Blood Urea Nitrogen 38 mg/dL (7-20) Creatinine 1.6 mg/dL (0.6-1.0) Estimated GFR (Cockcroft-Gault) 31.9 BUN/Creatinine Ratio 24 (6-20) Glucose Level 143 mg/dL (70-99) Calcium Level 8.5 mg/dL (8.5-10.1) Total Bilirubin 0.4 mg/dL (0.2-1.0) Aspartate Amino Transf (AST/SGOT) 8 U/L (15-37) Alanine Aminotransferase (ALT/SGPT) 15 U/L (14-59) Alkaline Phosphatase 40 U/L (46-116) Total Protein 5.9 g/dL (6.4-8.2) Albumin 2.4 g/dL (3.4-5.0) Albumin/Globulin Ratio 0.7 (1.0-1.7) Comment Review of Relevant I have reviewed the following items adelaida (where applicable) has been applied. Labs Laboratory Tests Test 12/11/17 09:10 12/12/17 05:35 White Blood Count 3.3 x10^3/uL (4.0-11.0) 2.1 x10^3/uL (4.0-11.0) Red Blood Count 2.22 x10^6/uL (3.50-5.40) 1.96 x10^6/uL (3.50-5.40) Hemoglobin 6.3 g/dL (12.0-15.5) 5.5 g/dL (12.0-15.5) Hematocrit 19.3 % (36.0-47.0) 16.9 % (36.0-47.0) Mean Corpuscular Volume 87 fL (79-100) 86 fL (79-100) Mean Corpuscular Hemoglobin 28 pg (25-35) 28 pg (25-35) Mean Corpuscular Hemoglobin Concent 33 g/dL (31-37) 33 g/dL (31-37) Red Cell Distribution Width 21.4 % (11.5-14.5) 20.8 % (11.5-14.5) Platelet Count 71 x10^3/uL (140-400) 58 x10^3/uL (140-400) Neutrophils (%) (Auto) 77 % (31-73) 75 % (31-73) Lymphocytes (%) (Auto) 12 % (24-48) 13 % (24-48) Monocytes (%) (Auto) 8 % (0-9) 9 % (0-9) Eosinophils (%) (Auto) 3 % (0-3) 3 % (0-3) Basophils (%) (Auto) 1 % (0-3) 1 % (0-3) Neutrophils # (Auto) 2.5 x10^3uL (1.8-7.7) 1.6 x10^3uL (1.8-7.7) Lymphocytes # (Auto) 0.4 x10^3/uL (1.0-4.8) 0.3 x10^3/uL (1.0-4.8) Monocytes # (Auto) 0.3 x10^3/uL (0.0-1.1) 0.2 x10^3/uL (0.0-1.1) Eosinophils # (Auto) 0.1 x10^3/uL (0.0-0.7) 0.1 x10^3/uL (0.0-0.7) Basophils # (Auto) 0.0 x10^3/uL (0.0-0.2) 0.0 x10^3/uL (0.0-0.2) Sodium Level 138 mmol/L (136-145) Potassium Level 4.8 mmol/L (3.5-5.1) Chloride Level 104 mmol/L (98-107) Carbon Dioxide Level 28 mmol/L (21-32) Anion Gap 6 (6-14) Blood Urea Nitrogen 38 mg/dL (7-20) Creatinine 1.6 mg/dL (0.6-1.0) Estimated GFR (Cockcroft-Gault) 31.9 BUN/Creatinine Ratio 24 (6-20) Glucose Level 143 mg/dL (70-99) Calcium Level 8.5 mg/dL (8.5-10.1) Total Bilirubin 0.4 mg/dL (0.2-1.0) Aspartate Amino Transf (AST/SGOT) 8 U/L (15-37) Alanine Aminotransferase (ALT/SGPT) 15 U/L (14-59) Alkaline Phosphatase 40 U/L (46-116) Total Protein 5.9 g/dL (6.4-8.2) Albumin 2.4 g/dL (3.4-5.0) Albumin/Globulin Ratio 0.7 (1.0-1.7) Laboratory Tests Test 12/12/17 05:35 White Blood Count 2.1 x10^3/uL (4.0-11.0) Red Blood Count 1.96 x10^6/uL (3.50-5.40) Hemoglobin 5.5 g/dL (12.0-15.5) Hematocrit 16.9 % (36.0-47.0) Mean Corpuscular Volume 86 fL (79-100) Mean Corpuscular Hemoglobin 28 pg (25-35) Mean Corpuscular Hemoglobin Concent 33 g/dL (31-37) Red Cell Distribution Width 20.8 % (11.5-14.5) Platelet Count 58 x10^3/uL (140-400) Neutrophils (%) (Auto) 75 % (31-73) Lymphocytes (%) (Auto) 13 % (24-48) Monocytes (%) (Auto) 9 % (0-9) Eosinophils (%) (Auto) 3 % (0-3) Basophils (%) (Auto) 1 % (0-3) Neutrophils # (Auto) 1.6 x10^3uL (1.8-7.7) Lymphocytes # (Auto) 0.3 x10^3/uL (1.0-4.8) Monocytes # (Auto) 0.2 x10^3/uL (0.0-1.1) Eosinophils # (Auto) 0.1 x10^3/uL (0.0-0.7) Basophils # (Auto) 0.0 x10^3/uL (0.0-0.2) Sodium Level 138 mmol/L (136-145) Potassium Level 4.8 mmol/L (3.5-5.1) Chloride Level 104 mmol/L (98-107) Carbon Dioxide Level 28 mmol/L (21-32) Anion Gap 6 (6-14) Blood Urea Nitrogen 38 mg/dL (7-20) Creatinine 1.6 mg/dL (0.6-1.0) Estimated GFR (Cockcroft-Gault) 31.9 BUN/Creatinine Ratio 24 (6-20) Glucose Level 143 mg/dL (70-99) Calcium Level 8.5 mg/dL (8.5-10.1) Total Bilirubin 0.4 mg/dL (0.2-1.0) Aspartate Amino Transf (AST/SGOT) 8 U/L (15-37) Alanine Aminotransferase (ALT/SGPT) 15 U/L (14-59) Alkaline Phosphatase 40 U/L (46-116) Total Protein 5.9 g/dL (6.4-8.2) Albumin 2.4 g/dL (3.4-5.0) Albumin/Globulin Ratio 0.7 (1.0-1.7) Medications Current Medications Albuterol/ Ipratropium (Duoneb) 3 ml 1X ONCE NEB Last administered on at 15:25; Start 12/09/17 at 15:00; Stop 12/09/17 at 15:03; Status DC Methylprednisolone Sodium Succinate (SOLU-Medrol 125MG VIAL) 125 mg 1X ONCE IV Last administered on 12/09/17at 15:50; Start 12/09/17 at 15:00; Stop 12/09/17 at 15:03; Status DC Diphenhydramine HCl (Benadryl) 25 mg 1X ONCE IVP Last administered on at 15:45; Start 12/09/17 at 15:15; Stop 12/09/17 at 15:18; Status DC Famotidine (Pepcid Vial) 20 mg 1X ONCE IVP Last administered on 12/09/17at 15: 55; Start 12/09/17 at 15:30; Stop 12/09/17 at 15:32; Status DC Ondansetron HCl (Zofran) 4 mg PRN Q8HRS PRN IV NAUSEA/VOMITING; Start 12/09/17 at 17:45; Stop 12/10/17 at 17:44; Status DC Acetaminophen (Tylenol) 650 mg PRN Q6HRS PRN PO FEVER; Start 12/09/17 at 18:15 ; Stop 12/10/17 at 10:09; Status DC Ondansetron HCl (Zofran) 4 mg PRN Q6HRS PRN IV NAUSEA/VOMITING 1ST CHOICE; Start 12/09/17 at 18:15 Morphine Sulfate (Morphine Sulfate) 2 mg PRN Q2HR PRN IV MODERATE TO SEVERE PAIN; Start 12/09/17 at 18:15 Tramadol HCl (Ultram) 50 mg PRN Q6HRS PRN PO MODERATE PAIN 1ST CHOICE; Start at 18:15 Docusate Sodium (Colace) 100 mg PRN DAILY PRN PO HARD STOOLS; Start 12/09/17 at 18:15 Labetalol HCl (Normodyne Iv Push) 20 mg PRN Q2HR PRN IVP HYPERTENSION, SEE COMMENTS; Start 12/09/17 at 18:15 Albuterol/ Ipratropium (Duoneb) 3 ml RTQID NEB Last administered on 12/10/17at 12:30; Start 12/09/17 at 20:00; Stop 12/10/17 at 14:13; Status DC Albuterol Sulfate (Ventolin Neb Soln) 2.5 mg PRN Q2HR PRN NEB SHORTNESS OF BREATH; Start 12/09/17 at 18:15 Guaifenesin (Mucinex) 600 mg BID PO Last administered on 12/12/17at 09:04; Start 12/09/17 at 21:00 Diphenhydramine HCl (Benadryl) 25 mg PRN Q6HRS PRN PO ITCHING; Start 12/09/17 at 18:15 Guaifenesin/ Codeine Phosphate (Robitussin Ac) 5 ml PRN Q6HRS PRN PO COUGH Last administered on 12/10/17at 09:04; Start 12/09/17 at 18:15 Enoxaparin Sodium (Lovenox 40mg Syringe) 40 mg DAILY SQ Last administered on 09:08; Start 12/10/17 at 09:00; Stop 12/12/17 at 10:18; Status DC Levofloxacin/ Dextrose 150 ml @ 100 mls/hr Q48H IV Last administered on at 18:21; Start 12/09/17 at 18:15 Acetaminophen (Tylenol) 500 mg PRN Q6HRS PRN PO MILD PAIN / TEMP; Start at 09:30 Acetaminophen/ Codeine Phosphate (Tylenol #3) 1 tab PRN Q6HRS PRN PO MODERATE PAIN (2ND CHOICE); Start 12/10/17 at 09:30 Aspirin (Ecotrin) 81 mg DAILY PO Last administered on 12/12/17 09:05; Start at 10:00 Furosemide (Lasix) 20 mg DAILY PO Last administered on 12/12/17 09:05; Start 12/10/17 at 10:00 Acetaminophen/ Hydrocodone Bitart (Lortab 5/325) 1 tab PRN Q6HRS PRN PO SEVERE PAIN Last administered on 12/12/17 09:04; Start 12/10/17 at 09:30 Pantoprazole Sodium (Protonix) 40 mg BIDAC PO Last administered on 12/12/17 09 :04; Start 12/10/17 at 11:30 Temazepam (Restoril) 15 mg QHS PO Last administered on 12/11/17 20:34; Start 12/10/17 at 21:00 Vitamin D (Vitamin D3) 1,000 unit DAILY PO Last administered on 12/12/17 09:03 ; Start 12/10/17 at 11:00 Fenofibrate (Lofibra) 134 mg DAILY PO Last administered on 12/12/17 09:04; Start 12/10/17 at 11:00 Levothyroxine Sodium (Synthroid) 150 mcg DAILY07 PO Last administered on 05:58; Start 12/10/17 at 10:30 Metoprolol Succinate (Toprol Xl) 50 mg DAILY PO Last administered on 12/12/17 09:06; Start 12/10/17 at 11:00 Fish Oil (Fish Oil) 1,000 mg DAILY PO Last administered on 12/12/17 09:05; Start 12/10/17 at 11:00 Lisinopril (Prinivil) 40 mg DAILY PO Last administered on 12/12/17at 09:06; Start 12/10/17 at 11:00 Non-Formulary Medication (Danazol ) 200 mg BID PO Last administered on at 09:05; Start 12/10/17 at 21:00 Alprazolam (Xanax) 0.5 mg PRN Q8HRS PRN PO ANXIETY / AGITATION; Start 12/10/17 at 12:30 Prednisone (Prednisone) 40 mg DAILY PO Last administered on 12/12/17at 09:04; Start 12/10/17 at 15:00 Budesonide (Pulmicort) 0.5 mg RTBID NEB Last administered on 12/12/17at 08:02; Start 12/10/17 at 20:00 Albuterol/ Ipratropium (Duoneb) 3 ml Q4HRS NEB Last administered on 12/12/17at 11:49; Start 12/10/17 at 16:00 Furosemide (Lasix) 20 mg 1X ONCE IVP Last administered on 12/10/17at 14:44; Start 12/10/17 at 14:15; Stop 12/10/17 at 14:19; Status DC Info (Do NOT chart on this placeholder) 1 each PRN 1X PRN MC SEE COMMENTS; Start 12/10/17 at 15:00; Status UNV Influenza Virus Vaccine (Afluria Trivalent 3054-9169 Syringe) 0.5 ml ONCE ONCE VAX IM ; Start 12/10/17 at 17:00; Stop 12/10/17 at 17:01; Status DC Darbepoetin Jasson (Aranesp) 500 mcg 1X ONCE SQ ; Start 12/11/17 at 07:45; Stop 12/11/17 at 07:46; Status UNV Active Scripts Active Silver 5-325 Tablet (Acetaminophen/Hydrocodone Bitart) 1 Each Tablet 1 Tab PO PRN Q6HRS PRN Bactrim Ds Tablet (Sulfamethoxazole/Trimethoprim) 1 Each Tablet 1 Tab PO BID Reported Danazol 200 Mg Capsule 200 Mg PO BID Danazol 200 Mg Capsule 200 Mg PO Synthroid (Levothyroxine Sodium) 150 Mcg Tablet 1 Tab PO DAILY [Tylenol] 1,000 Mg PO Q6HRS PRN Vitamin D-3 (Cholecalciferol (Vitamin D3)) 2,000 Unit Capsule 1,000 Unit PO DAILY Temazepam 15 Mg Capsule 1 Cap PO QHS Toprol Xl (Metoprolol Succinate) 50 Mg Tab.er.24h 1 Tab PO DAILY Quinapril Hcl 40 Mg Tablet 1 Tab PO DAILY [place]-3 Fish Oil 1,000 mg Sfgl ([place]-3 Fatty Acids/Fish Oil) 1 Each Capsule 1 Each PO DAILY Pantoprazole Sodium 40 Mg Tablet.dr 1 Tab PO BID Furosemide 20 Mg Tablet 1 Tab PO DAILY Tricor (Fenofibrate Nanocrystallized) 145 Mg Tablet 1 Tab PO DAILY Aspir 81 (Aspirin) 81 Mg Tablet.dr 1 Tab PO DAILY Vitals/I & O Vital Sign - Last 24 Hours 12/11/17 12/11/17 12/11/17 12/11/17 13:50 14:05 14:42 15:05 Temp 98.0 98.2 97.8 98.6 98.0 98.2 97.8 98.6 Pulse 80 77 77 79 Resp 18 B/P (MAP) 134/56 133/54 133/54 (80) 140/56 Pulse Ox 99 O2 Delivery Nasal Cannula O2 Flow Rate 2.0 12/11/17 12/11/17 12/11/17 12/11/17 15:45 15:52 19:24 19:33 Temp 98.2 98.5 98.2 98.5 Pulse 80 86 Resp 18 B/P (MAP) 134/56 148/67 (94) Pulse Ox 98 99 93 O2 Delivery Nasal Cannula Room Air Nasal Cannula O2 Flow Rate 4.0 4.0 12/11/17 12/11/17 12/11/17 12/11/17 20:00 20:38 21:38 23:37 Pulse Ox 99 O2 Delivery Nasal Cannula Room Air Room Air Nasal Cannula O2 Flow Rate 2.0 4.0 12/11/17 12/12/17 12/12/17 12/12/17 23:59 02:44 03:19 07:05 Temp 98.6 98.4 97.9 98.6 98.4 97.9 Pulse 82 83 86 Resp 18 B/P (MAP) 138/70 (92) 156/79 (104) 124/54 (77) Pulse Ox 100 100 99 98 O2 Delivery Nasal Cannula Nasal Cannula Nasal Cannula Nasal Cannula O2 Flow Rate 2.0 2.0 4.0 2.0 12/12/17 12/12/17 12/12/17 12/12/17 08:00 08:03 09:04 09:06 Pulse 86 B/P (MAP) 124/54 Pulse Ox 97 97 O2 Delivery Nasal Cannula Nasal Cannula Nasal Cannula O2 Flow Rate 2.0 3.0 3.0 12/12/17 12/12/17 12/12/17 12/12/17 09:06 10:49 10:52 11:49 Temp 97.5 97.5 97.6 97.5 97.5 97.6 Pulse 86 82 83 71 Resp 20 20 24 B/P (MAP) 124/54 123/50 123/50 (74) 142/67 Pulse Ox 98 O2 Delivery Nasal Cannula O2 Flow Rate 2.0 12/12/17 12/12/17 11:50 12:49 Temp 97.6 97.6 Pulse 80 Resp 20 B/P (MAP) 153/75 Pulse Ox 98 O2 Delivery Nasal Cannula O2 Flow Rate 3.0 Intake and Output 12/11/17 12/11/17 12/12/17 15:00 23:00 07:00 Intake Total 240 ml 800 ml 50 ml Balance 240 ml 800 ml 50 ml HEVER TRACY MD Dec 12, 2017 13:41
[2017-12-12 17:57] LABS: HEMATOCRIT 22.3 % (36.0-47.0); HEMOGLOBIN 7.4 g/dL (12.0-15.5)
[2017-12-12] MEDS: TEMAZEPAM 15 MG CAPSULE PO SCH (21:25)
[2017-12-13 03:15] VITALS: BP 123/40
[2017-12-13] MEDS: IPRATRPIUM/ALBUTEROL 0.5/2.5MG 3 ML NEBU. NEB SCH ×5 (04:00→16:00)
[2017-12-13 04:41] LABS: BASO % 1 % (0-3); EOS # 0.1 x10^3/uL (0.0-0.7); EOS % 3 % (0-3); HEMATOCRIT 22.8 % (36.0-47.0); HEMOGLOBIN 7.7 g/dL (12.0-15.5); LYMPH # 0.5 x10^3/uL (1.0-4.8); LYMPH % 17 % (24-48); MEAN CORPUSCULAR HEMOGLOBIN 29 pg (25-35); MEAN CORPUSCULAR HGB CONC 34 g/dL (31-37); MEAN CORPUSCULAR VOLUME 86 fL (79-100); MONO # 0.2 x10^3/uL (0.0-1.1); MONO % 8 % (0-9); NEUT % 71 % (31-73); PLATELET COUNT 58 x10^3/uL (140-400); RED BLOOD COUNT 2.65 x10^6/uL (3.50-5.40); RED CELL DISTRIBUTION WIDTH 19.6 % (11.5-14.5); WHITE BLOOD COUNT 2.9 x10^3/uL (4.0-11.0)
[2017-12-13] MEDS: LEVOTHYROXINE 150 MCG TABLET PO SCH (06:35)
[2017-12-13 07:00] VITALS: BP 155/71
[2017-12-13] MEDS: BUDESONIDE 0.5 MG/2 ML NEBU. NEB SCH (08:41)
[2017-12-13] MEDS: predniSONE 20 MG TABLET PO SCH (09:12)
[2017-12-13] MEDS: PANTOPRAZOLE 40 MG TABLET.DR. PO SCH (09:12)
[2017-12-13] MEDS: FENOFIBRATE,MICRONIZED 134 MG CAPSULE PO SCH (09:12)
[2017-12-13] MEDS: CHOLECALCIFEROL (VITAMIN D3) 1,000 UNIT TABLET PO SCH (09:12)
[2017-12-13] MEDS: LISINOPRIL 20 MG TABLET PO SCH (09:12)
[2017-12-13] MEDS: OMEGA-3 FATTY ACIDS/FISH OIL 1,000 MG CAPSULE. PO SCH (09:12)
[2017-12-13] MEDS: ASPIRIN ENTERIC COATED 81 MG TABLET.DR. PO SCH (09:13)
[2017-12-13] MEDS: METOPROLOL SUCC 24HR ER 50 MG TAB.ER.24H. PO SCH (09:13)
[2017-12-13] MEDS: FUROSEMIDE 20 MG TABLET PO SCH (09:13)
[2017-12-13] MEDS: DANAZOL 200 MG PO SCH (09:15)
--- NOTE | 2017-12-13 09:38 | PDOC ---
SUBJECTIVE Subjective S: Doing okay, breathing still not back to baseline, still with oxygen on today O: Physical exam: Gen.: well-developed, on bedside commode again today Lungs: Breathing comfortably with nasal cannula oxygen Neuropsychiatric: Pleasant, persistent expressive aphasia Labs: hemoglobin 7.7 post transfusion, wbc 2.9, plt 58 Rads: November 09 CT of the chest showed severe splenomegaly, bilateral progressive pulmonary nodules, right hilar mass 2.7 cm, small bilateral pleural effusions and coronary artery disease PET/CT 04 December 2017 and showed right lower lobe mass with an SUV of 12.9, increased thyroid uptake, focal T2 increased uptake could be facet inflammation, massive hepatosplenomegaly and diffuse osteosclerosis consistent with myelofibrosis Assessment and Plan: Ms Latif is a 72-year-old female who has a history of myelofibrosis end-stage, admitted with possible reaction to Bactrim? which has been stopped, as well as shortness of breath improved on O2 but not at baseline , on danazol, transfusion dependent, on Aranesp as well as an outpt, overdue for her dose. She also has a lung mass but is not interested in biopsy. She also has bony disease due to myelofibrosis, bone biopsy and bone marrow biopsy have been recently consistent with end-stage myelofibrosis without evidence of other malignancy. She does have a remote history of kidney cancer but it is suspected she probably has a new right lung malignancy, however due to her poor performance status, she has palliative care at home, she is not interested in further biopsy. Myelofibrosis: Continue danazol 200 mg po bid and Aranesp as an outpatient, will dose aranesp in clinic upon d/c, transfusions as needed for hemoglobin less than 7, she has rec'd recent inpt care through [facility] recently but plans to cont outpt care w/ us and inpt prn while here Lung mass: Declining further workup due to functional status and lack of desire as it likely would not change our management even if cancer was diagnosed, has pain meds prn Poor performance status: She has palliative care at home, would continue this upon discharge, of course hospice would be very reasonable but she would not be able to get blood transfusions on hospice therefore she continues on the palliative care at this time Disposition: Per others, dyspnea on admit is improved, home with palliative care and follow-up with us after discharge DVT prophylaxis: lovenox h/o stroke: on ASA, ok w/ plt's >50 Thank you kindly and please do not hesitate to call with questions. OBJECTIVE Vital Signs Vital Signs Date Time Temp Pulse Resp B/P (MAP) Pulse Ox O2 Delivery O2 Flow Rate FiO2 12/13/17 09:13 78 123/40 12/13/17 09:12 78 123/40 12/13/17 08:46 96 Nasal Cannula 3.0 12/13/17 08:44 96 Nasal Cannula 3.0 12/13/17 03:15 98.1 78 20 123/40 (67) 99 Nasal Cannula 3.0 98.1 12/12/17 23:15 98.3 79 20 135/63 (87) 99 Nasal Cannula 3.0 98.3 12/12/17 20:29 96 Nasal Cannula 3.0 12/12/17 20:10 Nasal Cannula 2.0 12/12/17 19:10 98.1 87 20 124/52 (76) 99 Nasal Cannula 2.0 98.1 12/12/17 17:34 97.5 75 20 132/58 97.5 12/12/17 16:33 97.4 79 20 141/93 97.4 12/12/17 16:27 98 Nasal Cannula 3.0 12/12/17 15:48 97.4 74 20 138/85 97.4 12/12/17 15:04 97.5 75 20 139/50 (79) 100 Nasal Cannula 2.0 97.5 12/12/17 14:48 97.5 74 20 118/62 97.5 12/12/17 13:48 98.1 74 20 131/47 98.1 12/12/17 12:49 97.6 80 20 153/75 97.6 12/12/17 11:50 98 Nasal Cannula 3.0 12/12/17 11:49 97.6 71 24 142/67 97.6 12/12/17 10:52 97.5 83 20 123/50 (74) 98 Nasal Cannula 2.0 97.5 12/12/17 10:49 97.5 82 20 123/50 97.5 12/12/17 10:04 100 Nasal Cannula 2.0 I & O Intake and Output 12/13/17 07:00 Intake Total 2525 ml Balance 2525 ml Intake Oral 1150 ml Blood Product IV Normal Saline Flush 1375 ml # Voids 9 COMMENT Lab Laboratory Tests Test 12/12/17 17:45 12/13/17 03:20 Hemoglobin 7.4 g/dL (12.0-15.5) 7.7 g/dL (12.0-15.5) Hematocrit 22.3 % (36.0-47.0) 22.8 % (36.0-47.0) Mean Corpuscular Hemoglobin Concent 33 g/dL (31-37) 34 g/dL (31-37) White Blood Count 2.9 x10^3/uL (4.0-11.0) Red Blood Count 2.65 x10^6/uL (3.50-5.40) Mean Corpuscular Volume 86 fL (79-100) Mean Corpuscular Hemoglobin 29 pg (25-35) Red Cell Distribution Width 19.6 % (11.5-14.5) Platelet Count 58 x10^3/uL (140-400) Neutrophils (%) (Auto) 71 % (31-73) Lymphocytes (%) (Auto) 17 % (24-48) Monocytes (%) (Auto) 8 % (0-9) Eosinophils (%) (Auto) 3 % (0-3) Basophils (%) (Auto) 1 % (0-3) Neutrophils # (Auto) 2.0 x10^3uL (1.8-7.7) Lymphocytes # (Auto) 0.5 x10^3/uL (1.0-4.8) Monocytes # (Auto) 0.2 x10^3/uL (0.0-1.1) Eosinophils # (Auto) 0.1 x10^3/uL (0.0-0.7) Basophils # (Auto) 0.0 x10^3/uL (0.0-0.2) KENDELL CANDELARIA MD Dec 13, 2017 09:38
[2017-12-13] MEDS ORDERED: LEVO500T59 PO (10:26)
[2017-12-13 11:00] VITALS: BP 138/71
--- NOTE | 2017-12-13 14:17 | DISCH ---
DISCHARGE WITH HOME HEALTH DISCHARGE INFORMATION: Discharge Date: Dec 13, 2017 Condition on Discharge: Stable CODE STATUS: Code Status: DNR/DNI HOME HEALTH: Face to Face: I certify this patient is under my care and that I, or a nurse practitioner or physician's assistant manager airside operations working with me, had a face to face encounter that meets the physician face to face encounter requirements with this patient on []. Physical Therapy For: Evalulation/Treatment Occupational Therapy For: Evaluation/Treatment POST DISCHARGE ORDERS: Activity Instructions for Disc: Activity as tolerated Weight Bearing Status after Di: Full weight bearing Wound/Incision Care: No wound care needed CHECKS AFTER DISCHARGE: Checks after discharge: Check blood press - daily FOLLOW-UP: Follow up with: PRIMARY TREATMENT/EQUIPMENT ORDERS: Adaptive Equipment Issued: None Discharge Respiratory Equipmen: Oxygen (IF NEEDED) CERTIFICATION STATEMENT: Certification Statement: Certification Statement: Based on the above finding, I certify that this patient is confined to the home and needs intermittent fci care, physical therapy and/or speech therapy, or continues to need occupational therapy.~ This patient is under my care, and I have initiated the establishment of the plan of care.~ This patient will be followed by myself or a community physician who will periodically review the plan of care. Home Meds Active Scripts Levofloxacin (LEVAQUIN) 500 Mg Tablet, 1 TAB PO DAILY, #5 TAB Prov:HEVER TRACY MD 12/13/17 Hydrocodone/Apap 5-325 ([place] 5-325 TABLET) 1 Each Tablet, 1 TAB PO PRN Q6HRS PRN for PAIN, #20 TAB 0 Refills Prov:GAIL [employer]NER MARKETING MANAGER 10/03/17 Sulfamethoxazole/Trimethoprim (BACTRIM DS TABLET) 1 Each Tablet, 1 TAB PO BID, # 20 TAB Prov:GAIL [employer]AUGHAN [employer]NER MARKETING MANAGER 10/03/17 Reported Medications Danazol (DANAZOL) 200 Mg Capsule, 200 MG PO BID, CAP 12/10/17 Danazol (DANAZOL) 200 Mg Capsule, 200 MG PO, CAP 11/03/17 Levothyroxine Sodium (SYNTHROID) 150 Mcg Tablet, 1 TAB PO DAILY, #30 TAB 5 Refills 05/17/17 [Tylenol] No Conflict Check, 1000 MG PO Q6HRS PRN for PAIN 05/17/17 Cholecalciferol (Vitamin D3) (VITAMIN D-3) 2,000 Unit Capsule, 1000 UNIT PO DAILY, CAP 05/17/17 Temazepam (TEMAZEPAM) 15 Mg Capsule, 1 CAP PO QHS, #30 CAP 1 Refill 05/16/17 Metoprolol Succinate (TOPROL XL) 50 Mg Tab.er.24h, 1 TAB PO DAILY, TAB 05/17/16 Quinapril Hcl (QUINAPRIL HCL) 40 Mg Tablet, 1 TAB PO DAILY, TAB 05/17/16 [place]-3 Fatty Acids/Fish Oil ([place]-3 Fish Oil 1,000 mg Sfgl) 1 Each Capsule, 1 EACH PO DAILY 05/17/16 Pantoprazole Sodium (PANTOPRAZOLE SODIUM) 40 Mg Tablet.dr, 1 TAB PO BID, #30 TAB 3 Refills 01/13/14 Furosemide (FUROSEMIDE) 20 Mg Tablet, 1 TAB PO DAILY, #90 TAB 1 Refill 01/13/14 Fenofibrate Nanocrystallized (TRICOR) 145 Mg Tablet, 1 TAB PO DAILY, #30 TAB 5 Refills 01/13/14 Aspirin (ASPIR 81) 81 Mg Tablet.dr, 1 TAB PO DAILY, #30 TAB 5 Refills 01/13/14 HEVER TRACY MD Dec 13, 2017 14:17
[2017-12-13 15:00] VITALS: BP 157/75
--- NOTE | 2017-12-13 15:40 | PDOC3 ---
Discharge Summary Visit Information Date of Admission: Dec 09, 2017 Date of Discharge: Dec 13, 2017 Admitting Diagnosis: symptomatic anemia Final Diagnosis symptomatic anemia, req. 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, may be renal G to penicillin and now to Bactrim h/o remote rt kidney Ca s/p sx myelofibrosis, end-stage chronic anemia requires frequent transfusion pancytopenia with myelofibrosis h/o CVA htn hld hypothyroidism acute hypoxic resp failure neutropenia anxiety NOS KAREN, VMN Thrombocytopenia Brief Hospital Course Allergies Allergies Coded Allergies Type Severity Reaction Last Updated Verified iodine Allergy Severe ANAPHYLAXIS 10/31/17 Yes sulfamethoxazole Allergy Severe Shortness of Air 12/11/17 Yes trimethoprim Allergy Severe Shortness of Air 12/11/17 Yes Penicillins Allergy Intermediate 10/31/17 Yes cephalexin Allergy Intermediate 10/31/17 Yes Vital Signs Vital Signs Date Time Temp Pulse Resp B/P (MAP) Pulse Ox O2 Delivery O2 Flow Rate FiO2 12/13/17 13:01 98 Room Air 12/13/17 11:00 97.9 85 18 138/71 (93) 3.0 97.9 Lab Results Laboratory Tests Test 12/12/17 05:35 12/12/17 17:45 12/13/17 03:20 White Blood Count 2.1 x10^3/uL (4.0-11.0) 2.9 x10^3/uL (4.0-11.0) Red Blood Count 1.96 x10^6/uL (3.50-5.40) 2.65 x10^6/uL (3.50-5.40) Hemoglobin 5.5 g/dL (12.0-15.5) 7.4 g/dL (12.0-15.5) 7.7 g/dL (12.0-15.5) Hematocrit 16.9 % (36.0-47.0) 22.3 % (36.0-47.0) 22.8 % (36.0-47.0) Mean Corpuscular Volume 86 fL (79-100) 86 fL (79-100) Mean Corpuscular Hemoglobin 28 pg (25-35) 29 pg (25-35) Mean Corpuscular Hemoglobin Concent 33 g/dL (31-37) 33 g/dL (31-37) 34 g/dL (31-37) Red Cell Distribution Width 20.8 % (11.5-14.5) 19.6 % (11.5-14.5) Platelet Count 58 x10^3/uL (140-400) 58 x10^3/uL (140-400) Neutrophils (%) (Auto) 75 % (31-73) 71 % (31-73) Lymphocytes (%) (Auto) 13 % (24-48) 17 % (24-48) Monocytes (%) (Auto) 9 % (0-9) 8 % (0-9) Eosinophils (%) (Auto) 3 % (0-3) 3 % (0-3) Basophils (%) (Auto) 1 % (0-3) 1 % (0-3) Neutrophils # (Auto) 1.6 x10^3uL (1.8-7.7) 2.0 x10^3uL (1.8-7.7) Lymphocytes # (Auto) 0.3 x10^3/uL (1.0-4.8) 0.5 x10^3/uL (1.0-4.8) Monocytes # (Auto) 0.2 x10^3/uL (0.0-1.1) 0.2 x10^3/uL (0.0-1.1) Eosinophils # (Auto) 0.1 x10^3/uL (0.0-0.7) 0.1 x10^3/uL (0.0-0.7) Basophils # (Auto) 0.0 x10^3/uL (0.0-0.2) 0.0 x10^3/uL (0.0-0.2) Sodium Level 138 mmol/L (136-145) Potassium Level 4.8 mmol/L (3.5-5.1) Chloride Level 104 mmol/L (98-107) Carbon Dioxide Level 28 mmol/L (21-32) Anion Gap 6 (6-14) Blood Urea Nitrogen 38 mg/dL (7-20) Creatinine 1.6 mg/dL (0.6-1.0) Estimated GFR (Cockcroft-Gault) 31.9 BUN/Creatinine Ratio 24 (6-20) Glucose Level 143 mg/dL (70-99) Calcium Level 8.5 mg/dL (8.5-10.1) Total Bilirubin 0.4 mg/dL (0.2-1.0) Aspartate Amino Transf (AST/SGOT) 8 U/L (15-37) Alanine Aminotransferase (ALT/SGPT) 15 U/L (14-59) Alkaline Phosphatase 40 U/L (46-116) Total Protein 5.9 g/dL (6.4-8.2) Albumin 2.4 g/dL (3.4-5.0) Albumin/Globulin Ratio 0.7 (1.0-1.7) Laboratory Tests Test 12/12/17 17:45 12/13/17 03:20 Hemoglobin 7.4 g/dL (12.0-15.5) 7.7 g/dL (12.0-15.5) Hematocrit 22.3 % (36.0-47.0) 22.8 % (36.0-47.0) Mean Corpuscular Hemoglobin Concent 33 g/dL (31-37) 34 g/dL (31-37) White Blood Count 2.9 x10^3/uL (4.0-11.0) Red Blood Count 2.65 x10^6/uL (3.50-5.40) Mean Corpuscular Volume 86 fL (79-100) Mean Corpuscular Hemoglobin 29 pg (25-35) Red Cell Distribution Width 19.6 % (11.5-14.5) Platelet Count 58 x10^3/uL (140-400) Neutrophils (%) (Auto) 71 % (31-73) Lymphocytes (%) (Auto) 17 % (24-48) Monocytes (%) (Auto) 8 % (0-9) Eosinophils (%) (Auto) 3 % (0-3) Basophils (%) (Auto) 1 % (0-3) Neutrophils # (Auto) 2.0 x10^3uL (1.8-7.7) Lymphocytes # (Auto) 0.5 x10^3/uL (1.0-4.8) Monocytes # (Auto) 0.2 x10^3/uL (0.0-1.1) Eosinophils # (Auto) 0.1 x10^3/uL (0.0-0.7) Basophils # (Auto) 0.0 x10^3/uL (0.0-0.2) Brief Hospital Course Ms. Latif is a 72 old Discharge Information Condition at Discharge: Improved Follow Up: Weeks Disposition/Orders: D/C to Home Scheduled Aspirin (Aspir 81) 81 Mg Tablet.dr, 1 TAB PO DAILY, #30 Ref 5 (Reported) Entered as Reported by: ZACHARY LAYTON on 01/13/14 1143 Last Action: Continued on 12/10/17928 by JEFF VASQUEZ Cholecalciferol (Vitamin D3) (Vitamin D-3) 2,000 Unit Capsule, 1,000 UNIT PO DAILY, (Reported) Entered as Reported by: XIOMARA MATTHEWS on 05/17/17 0512 Last Action: Converted on 12/10/17928 by JEFF VASQUEZ Danazol (Danazol) 200 Mg Capsule, 200 MG PO BID, (Reported) Entered as Reported by: MARGARITA BARTLETT on 12/10/17 1137 Last Taken: Unknown Dose on 12/09/17 09 Last Action: Converted on 114 by MARGARITA BARTLETT Fenofibrate Nanocrystallized (Tricor) 145 Mg Tablet, 1 TAB PO DAILY, #30 Ref 5 ( Reported) Entered as Reported by: ZACHARY LAYTON on 01/13/14 1143 Last Action: Converted on 12/10/17928 by JEFF VASQUEZ Furosemide (Furosemide) 20 Mg Tablet, 1 TAB PO DAILY, #90 Ref 1 (Reported) Entered as Reported by: ZACHARY LAYTON on 01/13/14 1143 Last Action: Continued on 12/10/17928 by JEFF VASQUEZ Levofloxacin (Levaquin) 500 Mg Tablet, 1 TAB PO DAILY, #5 Prescribed by: HEVER TRACY on 12/13/17 1026 Levothyroxine Sodium (Synthroid) 150 Mcg Tablet, 1 TAB PO DAILY, #30 Ref 5 ( Reported) Entered as Reported by: XIOMARA MATTHEWS on 05/17/17 0516 Last Action: Converted on 12/10/17928 by JEFF VASQUEZ Metoprolol Succinate (Toprol Xl) 50 Mg Tab.er.24h, 1 TAB PO DAILY, (Reported) Entered as Reported by: MARILEE ACEVEDO on 05/17/16 0602 Last Action: Converted on 12/10/17928 by JEFF VASQUEZ [place]-3 Fatty Acids/Fish Oil ([place]-3 Fish Oil 1,000 mg Sfgl) 1 Each Capsule, 1 EACH PO DAILY, (Reported) Entered as Reported by: MARILEE ACEVEDO on 05/17/16601 Last Action: Converted on 12/10/17928 by JEFF VASQUEZ Pantoprazole Sodium (Pantoprazole Sodium) 40 Mg Tablet.dr, 1 TAB PO BID, #30 Ref 3 (Reported) Entered as Reported by: ZACHARY LAYTON on 01/13/141145 Last Action: Continued on 12/10/17928 by JEFF VASQUEZ Quinapril Hcl (Quinapril Hcl) 40 Mg Tablet, 1 TAB PO DAILY, (Reported) Entered as Reported by: MARILEE ACEVEDO on 05/17/16601 Last Action: Converted on 12/10/17928 by JEFF VASQUEZ Sulfamethoxazole/Trimethoprim (Bactrim Ds Tablet) 1 Each Tablet, 1 TAB PO BID, # 20 Prescribed by: GAIL VAUGHAN APRN on 10/03/172119 Last Action: HELD on 12/10/171139 by MARGARITA BARTLETT Temazepam (Temazepam) 15 Mg Capsule, 1 CAP PO QHS, #30 Ref 1 (Reported) Entered as Reported by: XIOMARA MATTHEWS on 05/16/172203 Last Action: Continued on 12/10/17928 by JEFF VASQUEZ Scheduled PRN Hydrocodone/Apap 5-325 ([place] 5-325 Tablet) 1 Each Tablet, 1 TAB PO PRN Q6HRS PRN for PAIN, #20 Ref 0 Prescribed by: GAIL VAUGHAN APRN on 10/03/172119 Last Action: Continued on 12/10/17928 by JEFF VASQUEZ [Tylenol] , 1,000 MG PO Q6HRS PRN for PAIN, (Reported) Entered as Reported by: XIOMARA MATTHEWS on 05/17/17511 Last Action: HELD on 12/10/171139 by MARGARITA BARTLETT Miscellaneous Medications Danazol (Danazol) 200 Mg Capsule, 200 MG PO, (Reported) Entered as Reported by: GERSON MOROCHO on 11/03/17 07 Last Action: HELD on 12/10/17 1140 by MARGARITA BARTLETT Patient Instructions Patient Instructions > 30 min face to face HEVER TRACY MD Dec 13, 2017 15:40
== END 2017-12-13 17:19 | disposition home health service (06) | DRG 291 ==
LOC: ER 14:23 → 6 SOUTH 17:30 → ER 18:19
PROVIDERS: ADMIT Internal Medicine; ATTEND Internal Medicine
PROC: 30233N1 Transfusion of Nonautologous Red Blood Cells into Peripheral Vein, Percutaneous Approach (ICD-10-PCS; principal; 2017-12-11)
DX: I13.0 Hypertensive heart and chronic kidney disease with heart failure and stage 1 through stage 4 chronic kidney disease, or unspecified chronic kidney disease (principal); J96.01 Acute respiratory failure with hypoxia; N17.0 Acute kidney failure with tubular necrosis; D61.818 Other pancytopenia; D75.81 Myelofibrosis; C78.00 Secondary malignant neoplasm of unspecified lung; C79.51 Secondary malignant neoplasm of bone; J98.01 Acute bronchospasm; E78.00 Pure hypercholesterolemia, unspecified; Z66 Do not resuscitate; Z51.5 Encounter for palliative care; I50.9 Heart failure, unspecified; G89.29 Other chronic pain; E78.5 Hyperlipidemia, unspecified; N18.9 Chronic kidney disease, unspecified; E03.9 Hypothyroidism, unspecified; K21.9 Gastro-esophageal reflux disease without esophagitis; I69.320 Aphasia following cerebral infarction; T37.0X5A Adverse effect of sulfonamides, initial encounter; F41.9 Anxiety disorder, unspecified; Z85.528 Personal history of other malignant neoplasm of kidney; Z90.710 Acquired absence of both cervix and uterus; Z90.5 Acquired absence of kidney; Z88.0 Allergy status to penicillin; Z88.1 Allergy status to other antibiotic agents; Z91.041 Radiographic dye allergy status; Z98.49 Cataract extraction status, unspecified eye; Z82.49 Family history of ischemic heart disease and other diseases of the circulatory system; Z86.010 Personal history of colon polyps; Z80.3 Family history of malignant neoplasm of breast
CPT/HCPCS: 36415; 71045; 80053; 82550; 82553; 83880; 84484; 85007; 85014; 85018; 85025; 86850; 86900; 86901; 86920; 93005; 94640; 94760; 96374; 96375; J1200; J1650; J1940; J1956; J2930; J7512; J7620; J7626; P9016; S0028; 99285-25